=== PATIENT | male | born 1955 | race Caucasian/White ===

== ENCOUNTER 2024-01-22 02:48 | Outpatient (RCR) | payer MEDICARE, SELFPAY ==
[2024-01-15] MEDS: Normal Saline Flush 10 ML SYR IVP (10:23)
[2024-01-15 11:12] LABS: Abs Immature Grans 0.02 10^3/uL (0.0-0.06); Absolute Basophil Count 0.03 10^3/uL (0.0-0.2); Absolute Eosinophil Count 0.17 10^3/uL (0.0-0.7); Absolute Lymphocyte Count 0.71 10^3/uL (1.2-3.4); Absolute Monocyte Count 0.79 10^3/uL (0.1-0.8); Absolute Neutrophil Count 5.66 10^3/uL (1.2-6.7); Basophils % 0.4 %; Eosinophils % 2.3 %; HCT 35.4 % (40.0-50.0); HGB 11.6 g/dL (13.5-17.5); Immature Grans % 0.3 %; Lymphocytes % 9.6 %; MCH 30.3 pg (27.0-33.0); MCHC 32.8 % (32.0-36.0); MCV 92 fL (80-95); MPV 11.4 fL (8.0-11.0); Monocytes % 10.7 %; Neutrophils % 76.7 %; Platelet Count 253 10^3/uL (130-400); RBC 3.83 10^6/uL (4.36-5.78); RDW 15.5 % (11.8-14.1); WBC 7.38 10^3/uL (4.4-10.8)
[2024-01-15 11:33] LABS: ALT 22 U/L (16-63); AST 20 U/L (15-37); Albumin 2.8 g/dL (3.4-5.0); Alkaline Phosphatase 128 U/L (46-116); BUN 35 mg/dL (7-18); Bilirubin, Total 0.4 mg/dL (0.2-1.0); CREATININE 1.1 mg/dL (0.70-1.30); Calcium 9.5 mg/dL (8.5-10.1); Chloride 101 mmol/L (98-107); Estimated GFR 73.58 (mL/min/1.73m2); Glucose 106 mg/dL (74-106); Magnesium 1.9 mg/dL (1.8-2.4); Potassium 4.8 mmol/L (3.5-5.1); Sodium 139 mmol/L (136-145); TSH 1.08 uIU/Ml (0.36-3.74); Total Protein 7.3 g/dL (6.4-8.2)
[2024-01-22 08:43] LABS: Abs Immature Grans 0.04 10^3/uL (0.0-0.06); Absolute Basophil Count 0.05 10^3/uL (0.0-0.2); Absolute Eosinophil Count 0.07 10^3/uL (0.0-0.7); Absolute Monocyte Count 0.45 10^3/uL (0.1-0.8); Absolute Neutrophil Count 6.02 10^3/uL (1.2-6.7); Basophils % 0.7 %; HCT 37.8 % (40.0-50.0); HGB 12.3 g/dL (13.5-17.5); Immature Grans % 0.6 %; MCH 29.9 pg (27.0-33.0); MCHC 32.5 % (32.0-36.0); MCV 92 fL (80-95); MPV 11.4 fL (8.0-11.0); Monocytes % 6.3 %; Neutrophils % 84.4 %; Platelet Count 285 10^3/uL (130-400); RBC 4.12 10^6/uL (4.36-5.78); RDW 14.6 % (11.8-14.1); RDW-SD 49.2 fL; WBC 7.13 10^3/uL (4.4-10.8)
[2024-01-22] MEDS: Normal Saline Flush 10 ML SYR IVP (09:05)
[2024-01-22 09:11] LABS: ALT 36 U/L (16-63); AST 27 U/L (15-37); Alkaline Phosphatase 157 U/L (46-116); Anion Gap 7.4 mmol/L (3-11); BUN 41 mg/dL (7-18); Bilirubin, Total 0.37 mg/dL (0.2-1.0); CO2 32.6 mmol/L (21.0-32.0); CREATININE 1.3 mg/dL (0.70-1.30); Calcium 9.9 mg/dL (8.5-10.1); Chloride 98 mmol/L (98-107); Estimated GFR 60.21 (mL/min/1.73m2); FREE T4 1.17 ng/dL (0.76-1.46); Glucose 137 mg/dL (74-106); Magnesium 1.8 mg/dL (1.8-2.4); Potassium 4.2 mmol/L (3.5-5.1); Sodium 138 mmol/L (136-145); TSH 2.03 uIU/Ml (0.36-3.74); Total Protein 7.9 g/dL (6.4-8.2)
== END 2024-01-28 23:59 | disposition home or self-care (01) ==
LOC: INF 02:48
PROVIDERS: PCP Family Medicine; Visit Provider Internal Medicine Medical Oncology
DX: Z79.899 Other long term (current) drug therapy (principal); C34.92 Malignant neoplasm of unspecified part of left bronchus or lung; Z45.2 Encounter for adjustment and management of vascular access device
CPT/HCPCS: 36591; 80053; 83735; 84439; 84443; 85025

== ENCOUNTER 2024-02-19 04:51 | Outpatient (RCR) | payer MEDICARE, SELFPAY ==
[2024-02-05] MEDS: Normal Saline Flush 10 ML SYR IVP (10:10)
[2024-02-05 10:48] LABS: Abs Immature Grans 0.02 10^3/uL (0.0-0.06); Absolute Basophil Count 0.02 10^3/uL (0.0-0.2); Absolute Eosinophil Count 0.02 10^3/uL (0.0-0.7); Absolute Monocyte Count 0.38 10^3/uL (0.1-0.8); Basophils % 0.4 %; Eosinophils % 0.4 %; HCT 37.1 % (40.0-50.0); HGB 12.1 g/dL (13.5-17.5); Immature Grans % 0.4 %; Lymphocytes % 5.8 %; MCH 30.5 pg (27.0-33.0); MCHC 32.6 % (32.0-36.0); MCV 94 fL (80-95); MPV 10.4 fL (8.0-11.0); Monocytes % 7.4 %; Neutrophils % 85.6 %; Platelet Count 163 10^3/uL (130-400); RBC 3.97 10^6/uL (4.36-5.78); RDW 15.9 % (11.8-14.1); RDW-SD 53.8 fL; WBC 5.14 10^3/uL (4.4-10.8)
[2024-02-05 11:16] LABS: ALT 55 U/L (16-63); AST 46 U/L (15-37); Alkaline Phosphatase 150 U/L (46-116); Anion Gap 6.6 mmol/L (3-11); BUN 27 mg/dL (7-18); Bilirubin, Total 0.27 mg/dL (0.2-1.0); CO2 30.4 mmol/L (21.0-32.0); CREATININE 1.1 mg/dL (0.70-1.30); Calcium 9.1 mg/dL (8.5-10.1); Chloride 103 mmol/L (98-107); Estimated GFR 73.58 (mL/min/1.73m2); FREE T4 0.94 ng/dL (0.76-1.46); Glucose 125 mg/dL (74-106); Magnesium 1.7 mg/dL (1.8-2.4); Potassium 4.2 mmol/L (3.5-5.1); Sodium 140 mmol/L (136-145); TSH 1.22 uIU/Ml (0.36-3.74); Total Protein 7.3 g/dL (6.4-8.2)
[2024-02-12] MEDS: Normal Saline Flush 10 ML SYR IVP (10:37)
[2024-02-12 10:40] LABS: Abs Immature Grans 0.04 10^3/uL (0.0-0.06); Absolute Basophil Count 0.02 10^3/uL (0.0-0.2); Absolute Eosinophil Count 0.28 10^3/uL (0.0-0.7); Absolute Lymphocyte Count 0.95 10^3/uL (1.2-3.4); Absolute Monocyte Count 0.63 10^3/uL (0.1-0.8); Absolute Neutrophil Count 5.79 10^3/uL (1.2-6.7); Basophils % 0.3 %; Eosinophils % 3.6 %; HCT 35.6 % (40.0-50.0); HGB 11.7 g/dL (13.5-17.5); Immature Grans % 0.5 %; Lymphocytes % 12.3 %; MCH 30.2 pg (27.0-33.0); MCHC 32.9 % (32.0-36.0); MCV 92 fL (80-95); MPV 10.4 fL (8.0-11.0); Monocytes % 8.2 %; Neutrophils % 75.1 %; Platelet Count 313 10^3/uL (130-400); RBC 3.88 10^6/uL (4.36-5.78); RDW 16.6 % (11.8-14.1); RDW-SD 54.4 fL; WBC 7.71 10^3/uL (4.4-10.8)
[2024-02-12 11:28] LABS: ALT 64 U/L (16-63); AST 35 U/L (15-37); Albumin 3.1 g/dL (3.4-5.0); Alkaline Phosphatase 165 U/L (46-116); Anion Gap 8.4 mmol/L (3-11); BUN 15 mg/dL (7-18); Bilirubin, Total 0.37 mg/dL (0.2-1.0); CO2 31.6 mmol/L (21.0-32.0); Calcium 9.4 mg/dL (8.5-10.1); Chloride 101 mmol/L (98-107); Estimated GFR 82.49 (mL/min/1.73m2); Glucose 145 mg/dL (74-106); Magnesium 1.5 mg/dL (1.8-2.4); Potassium 4.1 mmol/L (3.5-5.1); Sodium 141 mmol/L (136-145); TSH 1.06 uIU/Ml (0.36-3.74); Total Protein 7.3 g/dL (6.4-8.2)
[2024-02-12 11:44] LABS: FREE T4 1.03 ng/dL (0.76-1.46)
[2024-02-19] MEDS: Normal Saline Flush 10 ML SYR IVP (10:16)
[2024-02-19 11:08] LABS: Abs Immature Grans 0.05 10^3/uL (0.0-0.06); Absolute Basophil Count 0.04 10^3/uL (0.0-0.2); Absolute Lymphocyte Count 0.77 10^3/uL (1.2-3.4); Absolute Monocyte Count 0.23 10^3/uL (0.1-0.8); Absolute Neutrophil Count 3.18 10^3/uL (1.2-6.7); Basophils % 0.9 %; Eosinophils % 2.3 %; HCT 36.2 % (40.0-50.0); Immature Grans % 1.1 %; Lymphocytes % 17.6 %; MCH 30.6 pg (27.0-33.0); MCHC 33.1 % (32.0-36.0); MCV 92 fL (80-95); MPV 10.8 fL (8.0-11.0); Monocytes % 5.3 %; Neutrophils % 72.8 %; Platelet Count 342 10^3/uL (130-400); RBC 3.92 10^6/uL (4.36-5.78); RDW 16.5 % (11.8-14.1); RDW-SD 54.7 fL; WBC 4.37 10^3/uL (4.4-10.8)
[2024-02-19 11:39] LABS: ALT 82 U/L (16-63); AST 39 U/L (15-37); Albumin 3.4 g/dL (3.4-5.0); Alkaline Phosphatase 167 U/L (46-116); Anion Gap 8.8 mmol/L (3-11); BUN 21 mg/dL (7-18); Bilirubin, Total 0.43 mg/dL (0.2-1.0); CO2 32.2 mmol/L (21.0-32.0); CREATININE 0.9 mg/dL (0.70-1.30); Calcium 9.6 mg/dL (8.5-10.1); Chloride 100 mmol/L (98-107); Estimated GFR 93.61 (mL/min/1.73m2); FREE T4 1.05 ng/dL (0.76-1.46); Glucose 144 mg/dL (74-106); Magnesium 1.4 mg/dL (1.8-2.4); Potassium 4.6 mmol/L (3.5-5.1); Sodium 141 mmol/L (136-145); TSH 0.93 uIU/Ml (0.36-3.74); Total Protein 7.6 g/dL (6.4-8.2)
== END 2024-02-28 23:59 | disposition home or self-care (01) ==
LOC: INF 04:51
PROVIDERS: PCP Family Medicine; Visit Provider Internal Medicine Medical Oncology
DX: C34.92 Malignant neoplasm of unspecified part of left bronchus or lung (principal); Z79.899 Other long term (current) drug therapy; Z45.2 Encounter for adjustment and management of vascular access device
CPT/HCPCS: 36591; 80053; 83735; 84439; 84443; 85025

== ENCOUNTER 2024-03-11 03:07 | Outpatient (RCR) | payer MEDICARE, SELFPAY ==
--- OUTSIDE RECORDS SUMMARY | 2024-03-11 03:19 | XMS_ITS | Encounter Summary ---
Author Organization [facility] Address [facility] [place] [address] Care Team Providers Care Academic Affairs Manager Name Role Phone Karl Quiroz MD Primary Care Provider [phone] Encounter Details Date Type Department Care Team (Late st Contact Info) Description 02/05/2024 Notes Only Hematology/Oncology at [address] [phone] Tammie Recinos, HAIR SPINNING MACHINE OPERATOR OFFICE OF CARE MANAGEMENT Social History Tobacco Use Types Packs/Day Years Used Date Smoking Tobacco: Former Cigarettes 0.3 57 Smokeless Tobacco: Never Comments:Quit 11/2023 Alcohol Use Standard Drinks/Week Comments Yes 7 (1 standard drink = 0.6 oz pure alcohol) 4oz rum with coke daily- varies [facility] Utilities Answer Date Recorded In the past 12 months has th e electric, gas, oil, or water company threatened to shut off services in your home? No 12/13/2023 Overall Financial Resource Strain (CARDIA) Answe r Date Recorded How hard is it for you to pa y for the very basics like food, housing, medical care, and heating? Not very hard 12/21/2023 Hunger Vital Sign Answer Date Recorded Within the past 12 months, y ou worried that your food would run out before you got the money to buy more. Never true 12/21/19 24 Within the past 12 months, t he food you bought just didn't last and you didn't have money to get more. Never true 12/21/2023 PRAPARE - Transportation Answer Date Re corded In the past 12 months, has l ack of transportation kept you from medical appointments or from getting medications? Yes 11/29 In the past 12 months, has l ack of transportation kept you from meetings, work, or from getting things needed for daily living? No 12/21/2023 Housing Stability Vital Sign Answer Renzo e Recorded In the last 12 months, was t here a time when you were not able to pay the mortgage or rent on time? No 12/13/2023 In the last 12 months, how many places have you lived? 1 12/13/2023 In the last 12 months, was t here a time when you did not have a steady place to sleep or slept in a custodial (including now)? No 12/13/2023 Housing Stability Vital Sign Answer Renzo e Recorded In the last 12 months, was t here a time when you were not able to pay the mortgage or rent on time? No 12/21/2023 In the past 12 months, how m any times have you moved where you were living? 0 12/21/2023 At any time in the past 12 m [facility], were you homeless or living in a custodial (including now)? No 12/21/2023 IPV Inpatient Questions Answer Date Recorded Does Anyone Try to Keep You From Having Contact with Others or Doing Things Outside Your Home? no 11/22/2023 Feels Threatened by Someone no 10/30 Feels Unsafe at Home or Work/School no 11/22/2023 Physical Signs of Abuse Present no 11/22/2023 Sex and Gender Information Value Date Recorded Sex Assigned at Not on file Gender Identity Not on file Sexual Orientation Not on file documented as of this encounter Progress Notes * Tammie Recinos, HAIR SPINNING MACHINE OPERATOR - 02/05/2024 11:35 AM EDT Follow up with Jeffrey during his infusion visit today. He indicated he had transportation from [place] [place] from his PCP office has set up and found funding for. She continuesas a good resource for Jeffrey. Jeffrey indicated he is managing as best he can at home. His friend does come in to check on him. Heindicated he has lost a lot of weight because he is not eating much. And really has no appetite. Hedoes have food in his home.. He is spending 18 hours a day in his recliner. Jeffrey indicated he is coping as best he can. He does not feel he needs any additional mental health support at this time. He has had that in the past. Offered support. Will continue to follow Jeffrey for support and resources. Brief assessment Supportive Counseling Community Resource documented in this encounter Plan of Treatment Upcoming Encounters Date Type Department Care Team (Late st Contact Info) Description 03/11/2024 12:30 PM EDT Office Visit Hematology/Oncology at [address] [phone] Lennox Spivey MD [facility] DR HEMATOLOGY [place] [address] 03/11/2024 1:00 PM EDT Scheduled View Only Hematology/Oncology at [address] [phone] Trupti Bray RN 03/11/2024 1:00 PM EDT Infusion Hematology Oncology at [address] [phone] 03/25/2024 10:00 AM EDT Office Visit Hematology/Oncology at [address] [phone] Lennox Spivey MD [facility] DR HEMATOLOGY [place] [address] Bushra Muniz [employer] [address] [place] [address] DR HEMATOLOGY AND ONCOLOGY [place], [place] [address] 03/25/2024 10:30 AM EDT Scheduled View Only Hematology/Oncology at [address] [phone] Trupti Bray RN 03/25/2024 10:30 AM EDT Infusion Hematology Oncology at [address] [phone] documented as of this encounter Visit Diagnoses Not on filedocumented in this encounter Care Teams Academic Affairs Manager Relationship Specialty Start Date End Date Karl Quiroz MD [address] [place] [phone] PCP - General Family Medicine 01/11/24 documented as of this encounter
--- OUTSIDE RECORDS SUMMARY | 2024-03-11 03:19 | XMS_ITS | Encounter Summary ---
Author Organization [facility] Address [facility] [place] [address] Care Team Providers Care Second Mate Name Role Phone Karl Quiroz MD Primary Care Provider [phone] Encounter Details Date Type Department Care Team (Latest Contact Info) Description 02/12/2024 Unscheduled Encounter Hematology/Oncology at [address] [phone] [address] [facility] DR [place] [address] Stage 4 lung cancer, left Social History Tobacco Use Types Packs/Day Years Used Date Smoking Tobacco: Former Cigarettes 0.3 57 Smokeless Tobacco: Never Comments:Quit 11/2023 Alcohol Use Standard Drinks/Week Comments Yes 7 (1 standard drink = 0.6 oz pure alcohol) 4oz rum with coke daily- varies [facility] Utilities Answer Date Recorded In the [...] place to sleep or slept in a nursing home (including now)? No 12/13/2023 Housing Stability Vital Sign Answer Renzo e Recorded In the last 12 months, was t here a time when you were not able to pay the mortgage or rent on time? No 12/21/2023 In the past 12 months, how m any times have you moved where you were living? 0 12/21/2023 At any time in the past 12 m [facility], were you homeless or living in a nursing home (including now)? No 12/21/2023 IPV Inpatient Questions [...] as of this encounter Progress Notes * Rachel Frost, RD - 02/12/2024 1:40 PM EDT Nutrition Note Spoke with Jeffrey during chemo infusion today; treatment was held last week. Patient started palliative carbo/abraxane/ipi/nivo for poorly differentiated metastatic lung cancer on 01/15/24, after completing palliative RT on 01/10/24 His friend Tammie was with him today. She lives near patient and is supportive, often bringing him groceries including Ensure. She asked if patient could have some Ensure samples today and mentions that patient wouldn't be one to ask for this himself. She mentions that he seems to ration these because they are expensive. Patient reports his PO intake is a bit better over the past week. He still mostly eats 1 meal/day. He says I'm loving eggs lately. He ate 3 eggs and an hebrew muffin this morning. Taking compazine in the morning for nausea. No vomiting. Denies diarrhea. Patient says he is interested in trying Meals on Wheels today. Wt Readings from Last 10 Encounters: 02/12/24 86.3 kg (190 lb 3.2 oz) 02/05/24 86.3 kg (190 lb 3.2 oz) 01/22/24 87.5 kg (193 lb) 01/15/24 92.4 kg (203 lb 9.6 oz) 01/10/24 92.4 kg (203 lb 9.6 oz) 12/27/23 93.4 kg (205 lb 12.8 oz) 12/21/23 93.3 kg (205 lb 11 oz) 12/13/23 96.1 kg (211 lb 12.8 oz) 12/05/23 95.9 kg (211 lb 6.7 oz) 11/23/23 97.8 kg (215 lb 9.6 oz) 11/15/23 98.9 kg (218 lb) BMI 29.5 Weight stable for the past week 02/04-02/11 13# (6.6% body weight) since starting treatment 3 weeks ago 01/09-02/11 - severe 28# loss in past 2.5 months 11/14-02/05 (12.8% body weight) - severe Diet: 2-3 Ensure/day. Eating more eggs (3 eggs and an hebrew muffin this morning). Also ate 1/2 sub sandwich and ice cream yesterday. Limited by poor appetite (better with week off treatment) and taste changes. Reports drinking 2-3L/day of water or juice. Labs on 02/11: reviewed Medications: Oxycodone prn, MS Contin, compazine prn, tylenol, colace, senokot, miralax, advil, MVI, Mg-Ox, lipitor, losartan, prozac, omeprazole, aspirin Nutrition Problem: Involuntary weight loss related to poor appetite, taste changes as evidenced by 28# loss in past 2.5 months 11/14-02/05 (12.8% body weight) - severe Improved/stable x 1 week Recommendations/Intervention: Provided contact info for Meals on Wheels in [place], [place] as patient requested. Provided 20 bottles vanilla Ensure Complete. His insurance does not cover this. Suggested buying Cirro[employer]ure brand. Encouraged continuing with regular meals/snacks plus supplementing with Ensure (drinking 2-3 bottles/day). Will f/u on 02/18. documented in this encounter Plan of Treatment Upcoming Encounters Date Type Department Care Team (Late st Contact Info) Description 03/11/2024 12:30 PM EDT Office Visit Hematology/Oncology at [address] [phone] Lennox Spivey MD [facility] DR [place] [address] 03/11/2024 1:00 PM EDT Scheduled View Only Hematology/Oncology at [address] [phone] Trupti Bray RN 03/11/2024 1:00 PM EDT Infusion Hematology Oncology at [address] [phone] 03/25/2024 10:00 AM EDT Office Visit Hematology/Oncology at [address] [phone] Lennox Spivey MD [facility] DR [place] [address] Bushra Muniz APRN [address] [place] [address] DR HEMATOLOGY AND ONCOLOGY [place], [place] [address] 03/25/2024 10:30 AM EDT Scheduled View Only Hematology/Oncology at [address] [phone] Trupti Bray RN 03/25/2024 10:30 AM EDT Infusion Hematology Oncology at [address] [phone] documented as of this encounter Visit Diagnoses Diagnosis Stage 4 lung cancer, left Stage 4 lung cancer, left Secondary malignant neoplasm of pleura documented in this encounter Care Teams Second Mate Relationship Specialty Start Date End Date Karl Quiroz MD [address] [place] [phone] PCP - General Family Medicine 01/11/24 documented as of this encounter
--- OUTSIDE RECORDS SUMMARY | 2024-03-11 03:19 | XMS_ITS | Encounter Summary ---
Author Organization [facility] Address [facility] [place] [address] Care Team Providers Care Reversing Mill Roller Name Role Phone Karl Quiroz MD Primary Care Provider [phone] Encounter Details Date Type Department Care Team (Latest Contact Info) Description 02/05/2024 Travel Social History Tobacco Use Types Packs/Day Years Used Date Smoking Tobacco: Former Cigarettes 0.3 57 Smokeless Tobacco: Never Comments:Quit 11/2023 Alcohol Use Standard Drinks/Week Comments Yes 7 (1 standard drink = 0.6 oz pure alcohol) 4oz rum with coke daily- varies [facility] Utilities Answer Date Recorded In the past [...] place to sleep or slept in a intermediate (including now)? No 12/13/2023 Housing Stability Vital Sign Answer Renzo e Recorded In the last 12 months, was t here a time when you were not able to pay the mortgage or rent on time? No 12/21/2023 In the past 12 months, how m any times have you moved where you were living? 0 12/21/2023 At any time in the past [address] [facility], were you homeless or living in a intermediate (including now)? No 12/21/2023 DH IPV Inpatient Questions Answer Date Recorded Does [...] on file documented as of this encounter Plan of Treatment Upcoming Encounters Date Type Department Care Team (Late st Contact Info) Description 03/11/2024 12:30 PM EDT Office Visit Hematology/Oncology at [address] [phone] Lennox Spivey MD [facility] DR HEMATOLOGY [place] [address] 03/11/2024 1:00 PM EDT Scheduled View Only Hematology/Oncology at [address] [phone] Trupti Bray RN 03/11/2024 1:00 PM EDT Infusion Hematology Oncology at [address] [phone] 03/25/2024 10:00 AM EDT Office Visit Hematology/Oncology at [address] [phone] Lennox Spivey MD [facility] DR HEMATOLOGY [place] [address] Bushra Muniz [employer] SCI[employer]ES MANAGER [address] [place] [address] DR HEMATOLOGY AND ONCOLOGY [place], [place] [phone] 03/25/2024 10:30 AM EDT Scheduled View Only Hematology/Oncology at [address] [phone] Trupti Bray RN 03/25/2024 10:30 AM EDT Infusion Hematology Oncology at [address] [phone] documented as of this encounter Visit Diagnoses Not on filedocumented in this encounter Care Teams Reversing Mill Roller Relationship Specialty Start Date End Date Karl Quiroz MD [address] [place] [phone] PCP - General Family Medicine 01/11/24 documented as of this encounter
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
--- OUTSIDE RECORDS SUMMARY | 2024-03-11 03:19 | XMS_ITS | Encounter Summary ---
Author Organization [facility] Address [facility] [place] [address] Care Team Providers Care Manpower Development Specialist Name Role Phone Karl Quiroz MD Primary Care Provider [phone] Encounter Details Date Type Department Care Team (Late st Contact Info) Description 02/12/2024 Orders Only Hematology Oncology at [address] [phone] Vicki Pickard RN Stage IV adenocarcinoma of lung, left; Cancer associated pain Social History Tobacco Use Types Packs/Day Years Used Date Smoking Tobacco: Former Cigarettes 0.3 57 Smokeless Tobacco: Never Comments:Quit 11/2023 Alcohol Use Standard Drinks/Week Comments Yes 7 (1 standard drink = 0.6 oz pure alcohol) 4oz rum with coke daily- varies [facility] Utilities Answer Date Recorded In the past [...] place to sleep or slept in a detention (including now)? No 12/13/2023 Housing Stability Vital Sign Answer Renzo e Recorded In the last 12 months, was t here a time when you were not able to pay the mortgage or rent on time? No 12/21/2023 In the past 12 months, how m any times have you moved where you were living? 0 12/21/2023 At any time in the past 12 m [place], were you homeless or living in a detention (including now)? No 12/21/2023 IPV Inpatient Questions [...] 12:30 PM EDT Office Visit Hematology/Oncology at [address] [phone] Lennox Spivey MD [facility] HEMATOLOGY AND ONCOLOGY [place], [place] [phone] 03/11/2024 1:00 PM EDT Scheduled View Only Hematology/Oncology at [address] [phone] Trupti Bray RN 03/11/2024 1:00 PM EDT Infusion Hematology Oncology at [address] [phone] 03/25/2024 10:00 AM EDT Office Visit Hematology/Oncology at [address] [phone] Lennox Spivey MD [facility] DR [place] [address] Bushra Muniz APRN [address] [place] [address] DR HEMATOLOGY AND ONCOLOGY [place], [place] [address] 03/25/2024 10:30 AM EDT Scheduled View Only Hematology/Oncology at [address] [phone] Trupti Bray RN 03/25/2024 10:30 AM EDT Infusion Hematology Oncology at [address] [phone] documented as of this encounter Visit Diagnoses Diagnosis Stage IV adenocarcinoma of lung, left Cancer associated pain Neoplasm related pain (acute) (chronic) Stage 4 lung cancer, left Secondary malignant neoplasm of pleura documented in this encounter Care Teams Manpower Development Specialist Relationship Specialty Start Date End Date Karl Quiroz MD [address] [place] [phone] PCP - General Family Medicine 01/11/24 documented as of this encounter
--- OUTSIDE RECORDS SUMMARY | 2024-03-11 03:19 | XMS_ITS | Encounter Summary ---
Author Organization [facility] Address [facility] [place] [address] Care Team Providers Care Strainer Mill Operator Name Role Phone Karl Quiroz MD Primary Care Provider [phone] Encounter Details Date Type Department Care Team (Latest Contact Info) Description 02/12/2024 Travel Social History Tobacco Use Types Packs/Day Years Used Date Smoking Tobacco: Former Cigarettes 0.3 57 Smokeless Tobacco: Never Comments:Quit 11/2023 Alcohol Use Standard Drinks/Week Comments Yes 7 (1 standard drink = 0.6 oz pure alcohol) 4oz rum with coke daily- varies [facility] Utilities Answer Date Recorded In [...] place to sleep or slept in a alf (including now)? No 12/13/2023 Housing Stability Vital Sign Answer Renzo e Recorded In the last 12 months, was t here a time when you were not able to pay the mortgage or rent on time? No 12/21/2023 In the past 12 months, how m any times have you moved where you were living? 0 12/21/2023 At any time in the past 12 m [facility], were you homeless or living in a alf (including now)? No 12/21/2023 DH IPV Inpatient [...] 12:30 PM EDT Office Visit Hematology/Oncology at [address] [phone] Lennox Spivey MD [facility] DR HEMATOLOGY [place] [address] 03/11/2024 1:00 PM EDT Scheduled View Only Hematology/Oncology at [address] [phone] Trupti Bray RN 03/11/2024 1:00 PM EDT Infusion Hematology Oncology at [address] [phone] 03/25/2024 10:00 AM EDT Office Visit Hematology/Oncology at [address] [phone] Lennox Spivey MD [facility] DR HEMATOLOGY [place] [address] Bushra Muniz VICE PRESIDENT [employer] [address] [place] [address] DR HEMATOLOGY AND ONCOLOGY [place], [place] [phone] 03/25/2024 10:30 AM EDT Scheduled View Only Hematology/Oncology at [address] [phone] Trupti Bray RN 03/25/2024 10:30 AM EDT Infusion Hematology Oncology at [address] [phone] documented as of this encounter Visit Diagnoses Not on filedocumented in this encounter Care Teams Strainer Mill Operator Relationship Specialty Start Date End Date Karl Quiroz MD [address] [place] [phone] PCP - General Family Medicine 01/11/24 documented as of this encounter
--- OUTSIDE RECORDS SUMMARY | 2024-03-11 03:19 | XMS_ITS | Encounter Summary ---
Author Organization [facility] Address [facility] [place] [address] Care Team Providers Care Special Needs Teacher Name Role Phone Karl Quiroz MD Primary Care Provider [phone] Encounter Details Date Type Department Care Team (Late st Contact Info) Description 03/04/2024 Interpretation [place] [phone] Lennox Spivey MD [facility] DR HEMATOLOGY [place] [address] Social History Tobacco Use Types Packs/Day Years Used Date Smoking Tobacco: Some Days Cigarettes 0.3 57 Smokeless Tobacco: Current Comments:Quit 11/2023 Alcohol Use Standard Drinks/Week Comments Yes 7 (1 standard drink = 0.6 oz pure alcohol) 4oz rum with coke daily- varies [facility] Utilities Answer Date Recorded In the past [...] place to sleep or slept in a penitentiary (including now)? No 12/13/2023 Housing Stability Vital Sign Answer Renzo e Recorded In the last 12 months, was t here a time when you were not able to pay the mortgage or rent on time? No 12/21/2023 In the past 12 months, how m any times have you moved where you were living? 0 12/21/2023 At any time in the past 12 m [facility], were you homeless or living in a penitentiary (including now)? No 12/21/2023 IPV Inpatient Questions [...] 12:30 PM EDT Office Visit Hematology/Oncology at [address] [phone] Lennox Spivey MD [facility] DR HEMATOLOGY [place] [address] 03/11/2024 1:00 PM EDT Scheduled View Only Hematology/Oncology at [address] [phone] Trupti Bray RN 03/11/2024 1:00 PM EDT Infusion Hematology Oncology at [address] [phone] 03/25/2024 10:00 AM EDT Office Visit Hematology/Oncology at [address] [phone] Lennox Spivey MD [facility] DR HEMATOLOGY [place] [address] Bushra Muniz APRN [address] [place] [address] DR HEMATOLOGY AND ONCOLOGY [employer], [place] [id number] 03/25/2024 10:30 AM EDT Scheduled View Only Hematology/Oncology at [address] [phone] Trupti Bray RN 03/25/2024 10:30 AM EDT Infusion Hematology Oncology at [address] [phone] documented as of this encounter Procedures Procedure Name Priority Date/Time Associated Diagnosis Comments FILM LIBRARY STORAGE ONLY CT CHEST Routine 03/04/2024 10:20 AM EDT documented in this encounter Results * Film Library- Storage Only CT Chest (03/04/2024 10:20 AM EDT) 03/04/2024 9:02 PM EDT Narrative [facility] - 03/04/2024 9:02 PM EDT This exam is auto-finalizing. It's purpose is for storage only. Lennox Spivey MD IMG FILM LIBRARY ORD ERABLES [place], [place] documented in this encounter Visit Diagnoses Not on filedocumented in this encounter Care Teams Special Needs Teacher Relationship Specialty Start Date End Date Karl Quiroz MD [address] [place] [phone] PCP - General Family Medicine 01/11/24 documented as of this encounter
--- OUTSIDE RECORDS SUMMARY | 2024-03-11 03:19 | XMS_ITS | Encounter Summary ---
Author Organization [facility] Address [facility] [place] [address] Care Team Providers Care Educational Technologist Name Role Phone Karl Quiroz MD Primary Care Provider [phone] Encounter Details Date Type Department Care Team (Late st Contact Info) Description 02/19/2024 Notes Only Hematology/Oncology at [address] [phone] Tammie Recinos, VARNISH MELTER OFFICE OF CARE MANAGEMENT Social History Tobacco Use Types Packs/Day Years Used Date Smoking Tobacco: Some Days Cigarettes 0.3 57 Smokeless Tobacco: Current Comments:Quit 11/2023 Alcohol Use Standard Drinks/Week Comments Yes 7 (1 standard drink = 0.6 oz pure alcohol) 4oz rum with coke daily- varies [facility] Utilities Answer Date Recorded In the [...] any time in the past 12 m [facility], were you homeless or living in a [...] of this encounter Progress Notes * Tammie Recinos MSW - 02/19/2024 12:56 PM EDT Follow up with Jeffrey during his infusion visit today. Jeffrey indicated he got a ride from [facility] as they have another long distance horse and wagon driver. He was informed the funding to cover Rides with [employer] is no longer available. Jeffrey indicated he is managing day to day at home. His friend is in/out regularly to assist him. Jeffrey did not identify any new needs today. Offered support. Will continue to follow as indicated. Brief assessment Supportive Counseling documented in this encounter Plan of Treatment Upcoming Encounters Date Type Department Care Team (Late st Contact Info) Description 03/11/2024 12:30 PM EDT Office Visit Hematology/Oncology at [address] [phone] [facility] DR [place] [address] 03/11/2024 1:00 PM EDT Scheduled View Only Hematology/Oncology at [address] [phone] Trupti Bray RN 03/11/2024 1:00 PM EDT Infusion Hematology Oncology at [address] [phone] 03/25/2024 10:00 AM EDT Office Visit Hematology/Oncology at [address] [phone] [facility] DR [place] [address] Bushra Muniz [address] [place] [address] 03/25/2024 10:30 AM EDT Scheduled View Only Hematology/Oncology at [address] [phone] Trupti Bray RN 03/25/2024 10:30 AM EDT Infusion Hematology Oncology at [address] [phone] documented as of this encounter Visit Diagnoses Not on filedocumented in this encounter Care Teams Educational Technologist Relationship Specialty Start Date End Date Karl Quiroz MD [address] [place] [phone] PCP - General Family Medicine 01/11/24 documented as of this encounter
--- OUTSIDE RECORDS SUMMARY | 2024-03-11 03:19 | XMS_ITS | Encounter Summary ---
Author Organization [facility] Address [facility] [place] [address] Care Team Providers Care News Reporter Name Role Phone Kral Quiroz MD Primary Care Provider [phone] Encounter Details Date Type Department Care Team (Latest Contact Info) Description 02/05/2024 12:00 PM EDT Clinical Support Hematology/Oncology at [address] [phone] [address] [facility] DR [place] [address] Stage 4 lung cancer, left Social History Tobacco Use Types Packs/Day Years Used Date Smoking Tobacco: Former Cigarettes 0.3 57 Smokeless Tobacco: Never Comments:Quit 11/2023 Alcohol Use Standard Drinks/Week Comments Yes 7 (1 standard drink = 0.6 oz pure alcohol) 4oz rum with coke daily- varies [facility] Utilities Answer Date Recorded In the [...] place to sleep or slept in a jail (including now)? No 12/13/2023 Housing Stability Vital Sign Answer Renzo e Recorded In the last 12 months, was t here a time when you were not able to pay the mortgage or rent on time? No 12/21/2023 In the past 12 months, how m any times have you moved where you were living? 0 12/21/2023 At any time in the past 12 m [facility], were you homeless or living in a jail (including now)? No 12/21/2023 IPV Inpatient Questions [...] Progress Notes * Rachel Frost, RD - 02/05/2024 12:00 PM EDT Nutrition Note Spoke with Jeffrey in infusion today. Patient started palliative carbo/abraxane/ipi/nivo for poorly differentiated metastatic lung cancer on 01/15/24, after completing palliative RT on 01/10/24. Treatment was held today; he received hydration only. Weight is down another 3# in the past two weeks. He has lost total of 13# (6.6% body weight) since starting treatment 3 weeks ago. Patient says he has no appetite and complains that foods taste bland. He can detect only a slightflavor. He is drinking 2-3 Ensure per day and says he has been consuming more fluids overall. Otherwise PO intake is mostly fruit. Patient reports he has not drank any alcohol in the past few weeks. He is not interested in Meals on Wheels. Wt Readings from Last 10 Encounters: 02/05/24 86.3 kg (190 lb 3.2 oz) 01/22/24 87.5 kg (193 lb) 01/15/24 92.4 kg (203 lb 9.6 oz) 01/10/24 92.4 kg (203 lb 9.6 oz) 12/27/23 93.4 kg (205 lb 12.8 oz) 12/21/23 93.3 kg (205 lb 11 oz) 12/13/23 96.1 kg (211 lb 12.8 oz) 12/05/23 95.9 kg (211 lb 6.7 oz) 11/23/23 97.8 kg (215 lb 9.6 oz) 11/21/23 98.1 kg (216 lb 4.3 oz) 11/15/23 98.9 kg (218 lb) BMI 29.5 3# loss in past two weeks 01/21-02/04 (1.2% body weight) - not significant 13# (6.6% body weight) since starting treatment 3 weeks ago 01/09-02/04 - severe 28# loss in past 2.5 months 11/14-02/05 (12.8% body weight) - severe Diet: 2-3 Ensure/day plus fruit on most days. Limited by poor appetite and taste changes. Doing better with hydration and avoiding alcohol. Labs on 02/05/24 WBC 5.14, H/H 12.1/37.1, plt 163, ANC 4400, Na 140, K 4.2, Cl 103, CO2 30.4, BUN 27, Creat 1.1, glucose 125, Ca 9.1, Mag 1.7, t bili 0.27, AST 46, ALT 55, alk phos 150, t protein 7.3, albumin 3.0, TSH 1.22, Free T4 0.94 Medications: Oxycodone prn, MS Contin, compazine prn, tylenol, colace, senokot, miralax, advil, MVI, Mg-Ox, lipirot, losartan, prozac, omeprazole, aspirin Nutrition Problem: Involuntary weight loss related to poor appetite, taste changes as evidenced by 28# loss in past 2.5 months 11/14-02/05 (12.8% body weight) - severe Ongoing Recommendations: Talked again about trying to eat on a schedule despite poor appetite and thinking of food as medicine that is necessary in order to be strong enough for treatment. Continue supplementing with 2-3 Ensure per day. Discussed getting some prepared or frozen foods to have on hand so that preparation isn't a barrier. Encouraged continuing to explore different tastes and flavors to hopefully find something appealing. Patient has contemplated MJ edibles to help with poor appetite but doesn't really want to take anything more than his current medications. Will f/u on documented in this encounter Plan of Treatment Upcoming Encounters Date Type Department Care Team (Late st Contact Info) Description 03/11/2024 12:30 PM EDT Office Visit Hematology/Oncology at [address] [phone] Lennox Spivey MD [facility] DR [place] [address] 03/11/2024 1:00 PM EDT Scheduled View Only Hematology/Oncology at [address] [phone] Trupti Bray RN 03/11/2024 1:00 PM EDT Infusion Hematology Oncology at [address] [phone] 03/25/2024 10:00 AM EDT Office Visit Hematology/Oncology at [address] [phone] Lennox Spivey MD [facility] [place] [address] Bushra Muniz APRN [address] [place] [address] DR HEMATOLOGY AND ONCOLOGY [place], [place] [id number] 03/25/2024 10:30 AM EDT Scheduled View Only Hematology/Oncology at [address] [phone] Trupti Bray RN 03/25/2024 10:30 AM EDT Infusion Hematology Oncology at [address] [phone] documented as of this encounter Visit Diagnoses Diagnosis Stage 4 lung cancer, left Stage 4 lung cancer, left Secondary malignant neoplasm of pleura documented in this encounter Care Teams News Reporter Relationship Specialty Start Date End Date Karl Quiroz MD [address] [place] [phone] PCP - General Family Medicine 01/11/24 documented as of this encounter
--- OUTSIDE RECORDS SUMMARY | 2024-03-11 03:19 | XMS_ITS | Encounter Summary ---
Author Organization [facility] Address [facility] [place] [address] Care Team Providers Care Yellow Pages Space Salesperson Name Role Phone Karl Quiroz MD Primary Care Provider [phone] Encounter Details Date Type Department Care Team (Latest Contact Info) Description 02/19/2024 Travel Social History Tobacco Use Types Packs/Day Years Used Date Smoking Tobacco: Some Days Cigarettes 0.3 57 Smokeless Tobacco: Current Comments:Quit 11/2023 Alcohol Use Standard Drinks/Week Comments Yes 7 (1 standard drink = 0.6 oz pure alcohol) 4oz rum with coke daily- varies [facility] Utilities Answer Date Recorded In the [...] place to sleep or slept in a [facility] (including now)? No 12/13/2023 Housing Stability Vital [...] were you homeless or living in a [facility] (including now)? No 12/21/2023 DH IPV Inpatient [...] PM EDT Office Visit Hematology/Oncology at [address] [phone] [facility] HEMATOLOGY [place] [address] 03/11/2024 1:00 PM EDT Scheduled View Only Hematology/Oncology at [address] [phone] Trupti Bray RN 03/11/2024 1:00 PM EDT Infusion Hematology Oncology at [address] [phone] 03/25/2024 10:00 AM EDT Office Visit Hematology/Oncology at [address] [phone] [facility] DR HEMATOLOGY [place] [address] Bushra Muniz FLASK MAKER [address] [place] [address] DR HEMATOLOGY AND ONCOLOGY [place], [place] [id number] 03/25/2024 10:30 AM EDT Scheduled View Only Hematology/Oncology at [address] [phone] Trupti Bray RN 03/25/2024 10:30 AM EDT Infusion Hematology Oncology at [address] [phone] documented as of this encounter Visit Diagnoses Not on filedocumented in this encounter Care Teams Yellow Pages Space Salesperson Relationship Specialty Start Date End Date Karl Quiroz MD [address] [place] [phone] PCP - General Family Medicine 01/11/24 documented as of this encounter
--- OUTSIDE RECORDS SUMMARY | 2024-03-11 03:19 | XMS_ITS | Encounter Summary ---
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, left Procedures TC PALONOSETRON HCL, 25MCG, INJECTION (ALOXI) TC APREPITANT, 1 MG, INJECTION TC IPILIMUMAB 1 MG INJ TC CARBOPLATIN, 50MG, INJECTION (PARAPLATIN) J9299 nivolumab (Opdivo) [id number] PACLitaxeL-protein bound (Abraxane) Lennox Spivey MD [facility] DR [place] [address] Stj Hem Onc Infusion [address] [place] [phone] Referral ID Status Reason Start Date Expiration Date V isits Requested Visits Authorized [id number] Authorized 12/26/2023 12/25/2024 99 102 Encounter Details Date Type Department Care Team (Late st Contact Info) Description 02/19/2024 12:30 PM EDT Infusion Hematology Oncology at [address] [phone] High risk medication use; Secondary malignant neoplasm of pleura; Stage 4 lung cancer, left; Hypomagnesemia Social History Tobacco Use Types Packs/Day Years Used Date Smoking Tobacco: Some Days Cigarettes 0.3 57 Smokeless Tobacco: Current Comments:Quit 11/2023 Alcohol Use Standard Drinks/Week Comments Yes 7 (1 standard drink = 0.6 oz pure alcohol) 4oz rum with coke daily- varies [facility] Utilities Answer Date Recorded In the past [...] place to sleep or slept in a [place] (including now)? No 12/13/2023 Housing Stability Vital Sign Answer Renzo e Recorded In the last 12 months, was t here a time when you were not able to pay the mortgage or rent on time? No 12/21/2023 In the past 12 months, how m any times have you moved where you were living? 0 12/21/2023 At any time in the past 12 m [facility], were you homeless or living in a [place] (including now)? No 12/21/2023 IPV Inpatient Questions [...] as of this encounter Progress Notes * Cecilia Ochoa RN - 02/19/2024 12:30 PM EDT INFUSION THERAPY ADMINISTRATION NOTES DIAGNOSIS: Stage IV SCLC CYCLE #: Cycle 1, Day 29 - Paclitaxel Protein-bound and magnesium. REASON FOR VISIT: To receive chemotherapy. SUBJECTIVE: Jeffrey is fatigued but states he is hungry and is looking forward to Dutch food today. OBJECTIVE: Seen by provider. Ready to treat. LAB DATA: WBC - 4.37, H/H - 12.0/36.2, Plt Ct - 342, ANC - 3.18, Lytes wnl, BUN/Cr - 21/0.9, MG++ -1.4 (will receive replacement.) IV ACCESS: Port accessed off site. Flushes readily with brisk blood return. Pre administration: Chemotherapy orders independently verified for drug name, route, and dosage per patient's height, weight and BSA by Cecilia Ochoa, SUZY and Staff Pharmacist(s). REACTIONS (DESCRIPTION, TIME, INTERVENTION AND EFFECTIVENESS) none ASSESSMENT: Jeffrey was awake, alert and tolerated treatment well. Port flushed with 20 cc's of NS and de-accessed. PLAN: Return to clinic in two weeks. documented in this encounter Plan of Treatment Upcoming Encounters Date Type Department Care Team (Late st Contact Info) Description 03/11/2024 12:30 PM EDT Office Visit Hematology/Oncology at [address] [phone] Lennox Spivey MD [facility] HEMATOLOGY [place] [address] 03/11/2024 1:00 PM EDT Scheduled View Only Hematology/Oncology at [address] [phone] Trupti Bray RN 03/11/2024 1:00 PM EDT Infusion Hematology Oncology at [address] [phone] 03/25/2024 10:00 AM EDT Office Visit Hematology/Oncology at [address] [phone] Lennox Spivey MD [facility] DR HEMATOLOGY [place] [address] Bushra Muniz APRN [address] [place] [address] DR HEMATOLOGY [place] [address] 03/25/2024 10:30 AM EDT Scheduled View Only Hematology/Oncology at [address] [phone] Trupti Bray RN 03/25/2024 10:30 AM EDT Infusion Hematology Oncology at [address] [phone] documented as of this encounter Visit Diagnoses Diagnosis High risk medication use Encounter for long-term (current) use of other medications 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, left Hypomagnesemia 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, left Secondary malignant neoplasm of pleura documented in this encounter Administered Medications Inactive Administered Medications - up to 3 most recent administrations Medication Order MAR Action Action Date Dose Rate Site magnesium sulfate 2 g in sterile water 50 mL infusion 2 g, Intravenous, ONCE, 1 dose, On Mon02/19/24 at 1230, Administer over 120 Minutes New Bag 02/19/2024 12:30 PM EDT 2 g 25 mL/hr ondansetron (Zofran) tablet 8 mg 8 mg, Oral, ONCE, 1 dose, On Mon02/19/24 at 1230, Administer prior to chemotherapy, Routine Given 02/19/2024 12:36 PM EDT 8 mg PACLitaxeL albumin-bound (Abraxane) injection 200 mg 200 mg (rounded from 209 mg = 100 mg/m2/dose ? 2.09 m2 Treatment Plan BSA from Recorded weight), Intravenous, ONCE, 1 dose, On Mon02/19/24 at 1330, Administer over 30 Minutes New Bag 02/19/2024 2:31 PM EDT 200 mg 80 m L/hr sodium chloride 0.9 % (flush) (BD PosiFlush Normal Saline 0.9) flush 5-20 mL 5-20 mL, Intravenous, EVERY 1 MIN PRN, Starting on Mon02/19/24 at 1212, Until Mon02/19/24 at 1724, Line Care, Flush pertains to all indwelling lines. Flush per protocol found in the job aid using the link provided on this medication record. Refer to Intravenous (IV) Job Aid: Adult Flushing & Catheter Care (5372) job aid for additional information regarding guidelines and administration., Routine Given 02/19/2024 3:13 PM EDT 20 mLs documented in this encounter Care Teams Research And Development Researcher Relationship Specialty Start Date End Date Karl Quiroz MD [address] [place] [phone] PCP - General Family Medicine 01/11/24 documented as of this encounter
--- OUTSIDE RECORDS SUMMARY | 2024-03-11 03:19 | XMS_ITS | Encounter Summary ---
Author Organization [facility] Address [facility] Vincent [place] [address] Care Team Providers Care Trimming Assembler Name Role Phone Karl Quiroz MD Primary Care Provider [phone] Reason for Visit * Reason Comments Chemotherapy * Treatment/Therapy Plan Authorization (Routine) - Authorized [...] [id number] PACLitaxeL-protein bound (Abraxane) Lennox Spivey MD [facility] DR HEMATOLOGY [place] [address] Stj Hem Onc Infusion [address] [place] [phone] Referral ID Status Reason Start Date Expiration Date V isits Requested Visits Authorized [id number] Authorized 12/26/2023 12/25/2024 99 102 Encounter Details Date Type Department Care Team (Late st Contact Info) Description 02/12/2024 11:30 AM EDT Infusion Hematology Oncology at [address] [phone] High risk medication use; Secondary malignant neoplasm of pleura; Stage 4 lung cancer, left Social History Tobacco Use Types Packs/Day Years Used Date Smoking Tobacco: Former Cigarettes 0.3 57 Smokeless Tobacco: Never Comments:Quit 11/2023 Alcohol Use Standard Drinks/Week Comments Yes 7 (1 standard drink = 0.6 oz pure alcohol) 4oz rum with coke daily- varies [facility] Utilities Answer Date Recorded In the past [...] place to sleep or slept in a fci (including now)? No 12/13/2023 Housing Stability Vital Sign Answer Renzo e Recorded In the last 12 months, was t here a time when you were not able to pay the mortgage or rent on time? No 12/21/2023 In the past 12 months, how m any times have you moved where you were living? 0 12/21/2023 At any time in the past 12 m [facility], were you homeless or living in a fci (including now)? No 12/21/2023 DH IPV Inpatient [...] Sign Reading Time Taken Comments Blood Pressure 103/62 02/12/2024 11:10 AM EDT Pulse 107 02/12/2024 11:10 AM EDT Temperature 36.1 ??C (96.9 ??F) 02/12/2024 11:10 AM E DT Respiratory Rate 18 02/12/2024 11:10 AM EDT Oxygen Saturation 96% 02/12/2024 11:10 AM EDT Inhaled Oxygen Concentration - - Weight 86.3 kg (190 lb 3.2 oz) 02/12/2024 11:10 AM EDT Height 171 cm (5' 7.32) 02/12/2024 11:10 AM EDT Body Mass Index 29.5 02/12/2024 11:10 AM EDT documented in this encounter Progress Notes * Bryanna Gilmore RN - 02/12/2024 11:30 AM EDT INFUSION THERAPY ADMINISTRATION NOTES DIAGNOSIS: Stage IV SCLC REASON FOR VISIT: To receive chemotherapy. SUBJECTIVE: Jeffrey reports he is feeling better this week. He has been able to increase his food intake, typically has 3 eggs and an frisian muffin in the morning, 1/2 sub sandwich for lunch, ice cream around dinner time. Drinking 2-3L of water or juice. He has not needed any stool softeners. Denies diarrhea. He feels his pain has been less severe after finishing radiation. He does report nausea w/o vomiting, taking compazine in the morning is helpful. He has started smoking again, my nerves are shot, hestates he gets overwhelmed thinking about his disease. We discussed the role of palliative care andhow that could be helpful managing the various aspects of living with a serious illness. He is not i nterested and feels its unnecessary. OBJECTIVE: IV ACCESS: Port accessed off site. Flushes readily with brisk blood return. Pre administration: Chemotherapy orders independently verified for drug name, route, and dosage per patient's height, weight and BSA by Bryanna Gilmore, SUZY and Staff Pharmacist(s). REACTIONS (DESCRIPTION, TIME, INTERVENTION AND EFFECTIVENESS) none ASSESSMENT: Jeffrey was awake, alert and tolerated treatment well. He declined to finish full dose of IV magnesium, Port flushed with 20 cc's of NS and de-accessed. PLAN: Return to clinic in one week. documented in this encounter Plan of Treatment Upcoming Encounters Date Type Department Care Team (Late st Contact Info) Description 03/11/2024 12:30 PM EDT Office Visit Hematology/Oncology at [address] [phone] Lennox Spivey MD [facility] DR HEMATOLOGY [place] [address] 03/11/2024 1:00 PM EDT Scheduled View Only Hematology/Oncology at [address] [phone] Trupti Bray RN 03/11/2024 1:00 PM EDT Infusion Hematology Oncology at [address] [phone] 03/25/2024 10:00 AM EDT Office Visit Hematology/Oncology at [address] [phone] Lennox Spivey MD [facility] DR HEMATOLOGY [place] [address] Bushra Muniz APRN [address] [place] [address] DR HEMATOLOGY [place] [address] 03/25/2024 10:30 AM EDT Scheduled View Only Hematology/Oncology at [address] [phone] Trupti Bray RN 03/25/2024 10:30 AM EDT Infusion Hematology Oncology at [address] [phone] documented as of this encounter Visit Diagnoses Diagnosis High risk medication use Encounter for long-term (current) use of other medications 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 Administer prior to chemotherapy., Routine Given 02/12/2024 12:21 PM EDT 130 mg CARBOplatin (Paraplatin) 441 mg in dextrose 5% 294.1 mL infusion 441 mg (rounded from 440.8 mg, Target AUC = 4), Intravenous, ONCE, 1 dose, On Mon02/12/24 at 1415, Administer over 30 Minutes, Warning Vesicant/Irritant Medication New Bag 02/12/2024 2:42 PM EDT 441 mg 588.2 mL/hr dexAMETHasone (Decadron) tablet 10 mg 10 mg, Oral, ONCE, 1 dose, On Mon02/12/24 at 1215, Administer prior to chemotherapy, Routine Given 02/12/2024 12:16 PM EDT 10 mg magnesium sulfate 2 g in sterile water 50 mL infusion 2 g, Intravenous, ONCE, 1 dose, On Mon02/12/24 at 1230, Administer over 120 Minutes New Bag 02/12/2024 2:39 PM EDT 2 g 25 mL/hr nivolumab (Opdivo) 360 mg in sodium chloride 0.9% 136 mL infusion 360 mg, Intravenous, ONCE, 1 dose, On Mon02/12/24 at 1315, Administer over 30 Minutes, Flush line with NS after each dose, This agent is restricted to outpatient use. Is this drug being given as an outpatient? Yes New Bag 02/12/2024 12:55 PM EDT 360 mg 272 mL/hr oxyCODONE (Roxicodone) (1 mg/mL) oral liquid 20 mg 20 mg, Oral, ONCE PRN, 1 dose, Starting on Mon02/12/24 at 1538, Until Mon02/12/24 at 1546, Pain, Routine Given 02/12/2024 3:46 PM EDT 20 mg PACLitaxeL albumin-bound (Abraxane) injection 200 mg 200 mg (rounded from 209 mg = 100 mg/m2/dose ? 2.09 m2 Treatment Plan BSA from Recorded weight), Intravenous, ONCE, 1 dose, On Mon02/12/24 at 1345, Administer over 30 Minutes New Bag 02/12/2024 1:42 PM EDT 200 mg 80 mL/hr palonosetron (Aloxi) (0.05 mg/mL) injection 0.25 mg 0.25 mg, Intravenous, ONCE, 1 dose, On Mon02/12/24 at 1215, Administer over 30 seconds. Administer prior to chemotherapy., Routine Given 02/12/2024 12:18 PM EDT 0.25 mg sodium chloride 0.9 % (flush) (BD PosiFlush Normal Saline 0.9) flush 5-20 mL 5-20 mL, Intravenous, EVERY 1 MIN PRN, Starting on Mon02/12/24 at 1155, Until Mon02/12/24 at 1811, Line Care, Flush pertains to all indwelling lines. Flush per protocol found in the job aid using the link provided on this medication record. Refer to Intravenous (IV) Job Aid: Adult Flushing & Catheter Care (0015) job aid for additional information regarding guidelines and administration., Routine Given 02/12/2024 3:55 PM EDT 20 mLs documented in this encounter Care Teams Trimming Assembler Relationship Specialty Start Date End Date Karl Quiroz MD [address] [place] [phone] PCP - General Family Medicine 01/11/24 documented as of this encounter
--- OUTSIDE RECORDS SUMMARY | 2024-03-11 03:19 | XMS_ITS | Clinical Summary ---
Author Organization [facility] Address [facility] [place] [address] Care Team Providers Care Water Safety Instructor Name Role Phone Karl Quiroz MD Primary Care Provider [phone] Allergies Active Allergy Reactions Criticality Noted Date Comments Unclassified Drug 11/15/2023 Black fly bites -was hospitalized because of it Penicillins CIS - RASH Medications Medication Sig Dispensed Refills Start Date End Date Status omeprazole (PRILOSEC) 20 mg capsule 10/02/2008 Active aspirin (BABY ASPIRIN) 81 mg chewable tablet 10/02/2008 Active ibuprofen (Advil) 200 mg tablet Take 400 mg by mouth Daily @ 0600. Active multivitamin (THERAGRAN) Tablet Take 1 tablet by mouth daily. Active tiotropium-olodateroL (Stiolto Respimat) 2.5-2.5 mcg/actuation Mist Inhale into the lungs. Active atorvastatin (Lipitor) 40 mg tablet Take 40 mg by mouth Daily @ 0600. Active losartan (Cozaar) 100 mg tablet Take 100 mg by mouth Daily @ 0600. Patient stated he is cutting tablet in half and taking half. Active triamcinolone (ARISTOCORT) 0.5 % Cream Apply 1 g topically Once daily as needed. Active acetaminophen (Tylenol) 500 mg tablet Take 2 tablets by mouth every 6 hours. 11/23/2023 Active senna (Senokot) 8.6 mg tablet Take 1 tablet by mouth every evening. 11/23/2023 Active polyethylene glycoL (Miralax) 17 gram oral powder packet Take 17 g by mouth daily. 11/23/2023 Active acetaminophen (Tylenol) 650 mg ER tablet Take 650 mg by mouth every 8 hours as needed for Pain. Do not exceed 6 tabs in 24 hours Active docusate sodium (Colace) 100 mg capsule Take 100 mg by mouth 2 times daily. Active FLUoxetine (PROzac) 20 mg capsule Take 40 mg by mouth Daily @ 0600. Active oxyCODONE (Roxicodone) 20 mg tabletIndications:Sta ge IV adenocarcinoma of lung, left Take 1-2 tablets by mouth every 6 hours as needed for Pain. 220 tablet 02/12/2024 Active morphine CR (MS Contin) 15 mg ER tabletIndications:Can cer associated pain Take 1 tablet by mouth 2 times daily. 56 tablet 02/12/2024 Active magnesium oxide (Mag-Ox) 400 mg (241.3 mg magnesium) TabletIndications:Hyp omagnesemia Take 1 tablet by mouth 3 times daily. 90 tablet 3 02/19/2024 Active prochlorperazine (Compazine) 10 mg tablet Take 1 tablet by mouth every 6 hours as needed for Nausea. 30 tablet 3 03/04/2024 Active Active Problems Problem Noted Date Diagnosed Date Stage 4 lung cancer, left 12/26/2023 Secondary malignant neoplasm of pleura High risk medication use 12/26/2023 Pleural mass 11/21/2023 Chest wall mass 11/21/2023 Encounters Date Type Department Care Team Description 03/11/2024 1:00 PM EDT Infusion Hematology Oncology at [address] [phone] 03/04/2024 10:20 AM EDT Ancillary Procedure [place] [address] Lennox Spivey MD 03/04/2024 Interpretation [place] [address] Lennox Spivey MD 03/04/2024 Orders Only Hematology/Oncolo gy at [address] [phone] Bushra Muniz APRN 02/19/2024 12:30 PM EDT Infusion Hematology Oncology at [address] [phone] High risk medication use; Secondary malignant neoplasm of pleura; Stage 4 lung cancer, left; Hypomagnesemia 02/19/2024 12:30 PM EDT Clinical Support Hematology/Oncolo gy at [address] [phone] Rachel Frost, RD Stage 4 lung cancer, left 02/19/2024 12:00 PM EDT Office Visit Hematology/Oncolo gy at [address] [place] [phone] Bushra Muniz, Trupti Pop RN Stage IV adenocarcinoma of lung, left; Hypomagnesemia 02/19/2024 Notes Only Hematology/Oncolo gy at [address] [place] [phone] Tammie Recinos, PROCEDURES NURSE 02/19/2024 Travel 02/12/2024 11:30 AM EDT Infusion Hematology Oncology at [address] [phone] High risk medication use; Secondary malignant neoplasm of pleura; Stage 4 lung cancer, left 02/12/2024 Orders Only Hematology Oncology at [address] [place] [phone] Vicki Pickard, SUZY Stage IV adenocarcinoma of lung, left; Cancer associated pain 02/12/2024 Unscheduled Encounter Hematology/Oncolo gy at [address] [place] [phone] Rachel Frost, RD Stage 4 lung cancer, left 02/12/2024 Travel 02/05/2024 12:00 PM EDT Clinical Support Hematology/Oncolo gy at [address] [place] [phone] Stage 4 lung cancer, left 02/05/2024 11:30 AM EDT Infusion Hematology Oncology at [address] [place] [phone] Hypotension, unspecified hypotension type 02/05/2024 11:00 AM EDT Office Visit Hematology/Oncolo gy at [address] [place] [phone] Lennox Spivey MD LaRoza, Stephanie A, FIELD LIABILITY GENERALIST Stage 4 lung cancer, left; Hypotension, unspecified hypotension type 02/05/2024 Notes Only Hematology/Oncolo gy at [address] [phone] Tammie Recinos, PROCEDURES NURSE 02/05/2024 Travel 01/24/2024 10:30 AM EDT TH Visit (TeleHealth) Radiation Oncology at [address] [phone] Beto Braswell MD Non-small cell lung cancer, left 01/22/2024 9:30 AM EDT Clinical Support Hematology/Oncolo gy at [address] [phone] Stage 4 lung cancer, left 01/22/2024 8:30 AM EDT Infusion Hematology Oncology at [address] [phone] High risk medication use; Secondary malignant neoplasm of pleura; Stage 4 lung cancer, left; Dehydration 01/22/2024 8:00 AM EDT Office Visit Hematology/Oncolo gy at [address] [phone] Lennox Spivey MD LaRoza, Stephanie A, FIELD LIABILITY GENERALIST Stage 4 lung cancer, left; Dehydration 01/22/2024 Notes Only Hematology/Oncolo gy at [address] [phone] Tammie Recinos, PROCEDURES NURSE 01/22/2024 Travel 01/16/2024 Telephone Hematology/Oncolo gy at [address] [phone] Malcolm Wei RN Follow-up 01/15/2024 11:30 AM EDT Infusion Hematology Oncology at [address] [phone] High risk medication use; Secondary malignant neoplasm of pleura; Stage 4 lung cancer, left 01/15/2024 Unscheduled Encounter Hematology/Oncolo gy at [address] [place] [phone] Rachel Frost, RD Stage 4 lung cancer, left 01/15/2024 Notes Only Hematology/Oncolo gy at [address] [place] [phone] Tammie Recinos MSW 01/15/2024 Travel 01/11/2024 Telephone Hematology/Oncolo gy at [address] [place] [phone] Malcolm Wei, RN Other 01/10/2024 4:30 PM EDT Office Visit Radiation Oncology at [address] [place] [phone] Beto Braswell MD Non-small cell lung cancer, left 01/10/2024 3:30 PM EDT Office Visit Hematology/Oncolo gy at [address] [place] [phone] Bushra Muniz APRN Cancer associated pain; Stage 4 lung cancer, left; Stage IV adenocarcinoma of lung, left 01/10/2024 Notes [place] [phone] Beto Braswell MD 01/10/2024 Orders Only Hematology/Oncolo gy at [address] [place] [phone] Bushra Muniz APRN Stage 4 lung cancer, left 01/10/2024 Notes Only Hematology/Oncolo gy at [address] [place] [phone] Trupti Bray RN 01/10/2024 Travel 01/09/2024 Telephone Hematology/Oncolo gy at [address] [place] [phone] Malcolm Wei, wrapper opener Problem 01/08/2024 12:23 PM EDT - 01/08/2024 11:59 PM EDT Hospital [place] [address] Lennox Spivey MD Stage 4 lung cancer, left Discharge Disposition: Home 01/08/2024 Travel 01/05/2024 Travel 01/04/2024 Orders Only [place]emat[place] [address] Lennox Spivey MD Stage 4 lung cancer, left; Neoplasm related pain 01/04/2024 Telephone Hematology/Oncolo gy at [address] [phone] Malcolm Wei RN Prior Authorization (Oxycontin ) 01/04/2024 Telephone [place] [phone] Lisseth Jurado Prior Authorization (Molecular cancer testing CPT 74114 is a covered benefit. ) 01/03/2024 5:15 PM EDT Office Visit Radiation Oncology at [address] [phone] Beto Braswell MD Non-small cell lung cancer, left 01/03/2024 6:17 AM EDT - 01/03/2024 11:59 PM EDT [place] [address] Discharge Disposition: Home 01/03/2024 Travel 01/03/2024 Telephone Radiation Oncology at [address] [phone] Tammie Recinos MSW Other (Gas cards) 12/27/2023 9:00 AM EDT Infusion Hematology Oncology at [address] [phone] Stage 4 lung cancer, left 12/27/2023 9:00 AM EDT Ancillary Procedure Radiation Oncology at [address] [phone] Beto Braswell MD 12/27/2023 9:00 AM EDT Ancillary Appointment Radiation Oncology at [address] [phone] Beto Braswell MD Non-small cell lung cancer, left 12/27/2023 8:30 AM EDT Office Visit Radiation Oncology at [address] [place] [address] Beto Braswell MD Non-small cell lung cancer, left 12/27/2023 Notes Only Radiation Oncology at [address] [phone] Tammie Recinos, QUAN 12/26/2023 Orders [place] [address] Beto Braswell MD Non-small cell lung cancer, left 12/26/2023 [place] [address] Lisy Laura 12/26/2023 Travel 12/26/2023 Telephone Hematology/Oncolo gy at [address] [phone] Tammie Recinos, PROCEDURES NURSE Other (outreach) 12/26/2023 [place] [address] Alpesh Melendrez PA 12/21/2023 12:00 PM EDT Office Visit Hematology [place] [address] Lennox Spivey MD Stage 4 lung cancer, left; Neoplasm related pain; High risk medication use; Secondary malignant neoplasm of pleura 12/21/2023 11:00 AM EDT - 12/21/2023 11:59 PM EDT Hospital Encounter [place]ology [place] [address] Stage 4 lung cancer, left Discharge Disposition: Home 12/21/2023 Patient Outreach [place]ematology [place] [address] Prisca Simpson, RN Establish Care 12/21/2023 Travel 12/21/2023 Orders Only Hematology [place] [phone] Lennox Spivey MD 12/15/2023 [place] [phone] Sharon Landry MD 12/15/2023 [place] [phone] DesEdel ortiz RN 12/14/2023 Orders Only [place] [phone] Lennox Spivey MD Secondary malignant neoplasm of bone; Stage 4 lung cancer, left 12/13/2023 2:00 PM EDT Office Visit Radiation Oncology at [address] [phone] Beto Braswell MD Non-small cell lung cancer, left 12/13/2023 Travel from Last 3 Months Family History Medical History Relation Comments Bladder Cancer Father Leukemia Father Type 2 Diabetes Father Cancer Maternal Grandfather Relation Status Comments Father Maternal Grandfather Social History Tobacco Use Types Packs/Day Years Used Date Smoking Tobacco: Some Days Cigarettes 0.3 57 Smokeless Tobacco: Current Comments:Quit 11/2023 Alcohol Use Standard Drinks/Week Comments Yes 7 (1 standard drink = 0.6 oz pure alcohol) 4oz rum with coke daily- varies [facility] Utilities Answer Date Recorded In the past 12 months has e electric, gas, oil, or water company [...] any time in the past 12 m [facility], were you homeless or [...] on file Sexual Orientation Not on file Last Filed Vital Signs Vital Sign Reading [...] Mass Index 28.79 02/19/2024 11:12 AM EDT Plan of Treatment Upcoming Encounters Date Type Department Care Team (Late st Contact Info) Description 03/11/2024 12:30 PM EDT Office Visit Hematology/Oncology at [address] [phone] Lennox Spivey MD [facility] DR [place] [address] 03/11/2024 1:00 PM EDT Scheduled View Only Hematology/Oncology at [address] [phone] Trupti Bray RN 03/11/2024 1:00 PM EDT Infusion Hematology Oncology at [address] [phone] 03/25/2024 10:00 AM EDT Office Visit Hematology/Oncology at [address] [phone] Lennox Spivey MD [facility] DR [place] [address] Bushra Muniz APRN [address] [place] [address] [place] [address] 03/25/2024 10:30 AM EDT Scheduled View Only Hematology/Oncology at [address] [phone] Trupti Bray RN 03/25/2024 10:30 AM EDT Infusion Hematology Oncology at [address] [phone] Health Maintenance Due Date Last Done Comments CT Colonography 1956 Colonoscopy 1956 Colorectal Cancer Screening 1956 FIT DNA 1956 FIT 1956 Sigmoidoscopy (10 year) with FIT yearly 1956 Sigmoidoscopy 1956 Pneumoccocal Vaccine: 65+ (1 of 2 - PCV) 1962 Hepatitis C Screening 1974 Tdap adult 1975 Tetanus vaccine 1975 Zoster vaccine (1 of 2) 2006 Advance Directive 2011 AAA Screen 2021 Covid-19 Vaccine (1 - season) 2023 Influenza (Flu) vaccine (1 o f 1 - Influenza standard series) 03/31/2024 Diabetes Screening (HgbA1C or Glucose) 12/20/2026, 11/22/2023 Medical Devices Implanted Type Area School Coordinator Device Identifier Shelf Expiration Date Model / Serial / Lot [facility] Implanted:Qty: 1 on 01/08/2024 by Alpesh Melendrez PA Mediport Right: Chest Wall / / [id number] Description:[id number] Mi dsized CT Port Procedures Procedure Name Priority Date/Time Associated Diagnosis Comments CT SCAN (SCAN) 03/07/2024 12:00 AM EDT FILM LIBRARY STORAGE ONLY CT CHEST Routine 03/04/2024 10:20 AM EDT LAB SCAN 02/19/2024 12:00 AM EDT LAB SCAN 02/12/2024 12:00 AM EDT LAB SCAN 02/05/2024 12:00 AM EDT LAB SCAN 01/22/2024 12:00 AM EDT LAB SCAN 01/16/2024 12:00 AM EDT MISCELLANEOUS LAB REQUEST Routine 01/15/2024 12:15 PM EDT LAB SCAN 01/15/2024 12:00 AM EDT IR MEDIPORT PLACEMENT Routine 01/08/2024 1:22 PM EDT Stage 4 lung cancer, left CT SCAN (SCAN) 01/01/2024 12:00 AM EDT DIFFERENTIAL, AUTOMATED STAT 12/21/2023 11:14 AM EDT Stage 4 lung cancer, left HEMOGRAM STAT 12/21/2023 11:14 AM EDT Stage 4 lung cancer, left CBC (WITH DIFF) STAT 12/21/2023 11:14 AM EDT Stage 4 lung cancer, left COMPREHENSIVE METABOLIC PANEL STAT 12/21/2023 11:14 AM EDT Stage 4 lung cancer, left MAGNESIUM STAT 12/21/2023 11:14 AM EDT Stage 4 lung cancer, left from Last 3 Months Results * Scan Doc: CT Scan (03/07/2024 12:00 AM EDT) Only the most recent of2 resultswithin the time period is included. Anatomical Region Laterality Modality Other Narrative 03/07/2024 12:00 AM EDT Ordered by an unspecified provider. Scanning Provider MEDIA MGR SCAN EXT O RDR/RSLT * Film Library- Storage Only CT Chest (03/04/2024 10:20 AM EDT) 03/04/2024 9:02 PM EDT Narrative RAD - 03/04/2024 9:02 PM EDT This exam is auto-finalizing. It's purpose is for storage only. Lennox Spivey MD IM FILM LIBRARY ORD ERABLES [facility], MD * Scan Doc: Lab (02/19/2024 12:00 AM EDT) Only the most recent of6 resultswithin the time period is included. Narrative 02/19/2024 12:00 AM EDT Ordered by an unspecified provider. Scanning Provider MEDIA MGR SCAN EXT O RDR/RSLT * Miscellaneous Lab request (01/15/2024 12:15 PM EDT) Label Request received in lab. [facility] Blood No Charge / Unknown 01/15/2024 12:15 PM EDT 01/16/2024 9:57 PM EDT Narrative Resulting Agency Comment Spec In Lab [place] Ureña RN LAB SEND OUT SNEHAL HELLER [facility] [place] [address] * IR Mediport Placement (01/08/2024 1:22 PM EDT) Anatomical Region Laterality Modality X-Ray Angiograph y Narrative 01/08/2024 2:39 PM EDT Interventional Radiology Procedure Note Procedure: Chest port implant Indication: Lung cancer, durable prison central venous access for chemotherapy Procedure summary: 1.) Venous access with ultrasound guidance 2.) Tunneled port insertion under fluoroscopic guidance Pre-procedure: Informed consent for the procedure including risks, benefits, and alternatives was obtained. Active time-out was performed prior to the procedure. Maximum sterile barrier technique was used throughout the procedure. Sedation: The patient received split doses of intravenous midazolam and fentanyl from the interventional radiology nurse while pulse, pressure, and oxygen saturation were continuously monitored. Technique: The patient's neck was sonographically evaluated for potential access sites, and the right internal jugular vein was determined to be patent. Local anesthetic was administered. The vein was accessed via real-time ultrasound and micropuncture set with 21 gauge needle and a permanent image was stored. A 0.018 wire was advanced into superior vena cava. The remainder of the procedure was performed under fluoroscopic guidance. A 4 F introducer sheath was placed and the wire exchanged for a 0.035 J wire. The wire was advanced into the inferior vena cava. Local anesthetic was administered on the anterior chest wall inferolateral to the puncture site. A 2 cm transverse incision was made in the right anterior chest wall, and with blunt dissection the port pocket was created. A trocar was then used to advance the catheter subcutaneously to the venous access site. A 4 F introducer sheath was exchanged for a peel-away sheath over the wire. The wire and inner obturator were removed and the catheter advanced into the superior vena cava under fluoroscopic guidance. The catheter was trimmed to appropriate length and attached to the port. The port was inserted into the pocket and the sheath was removed. Catheter tip location was identified and a permanent image was stored. The port flushed and aspirated well. ??The pocket was closed using a two-layer technique with 2-0 vicryl deep interrupted and 4-0 vicryl running sutures. The skin closed was with dermabond. The port was not left accessed. Medications: Lidocaine 1% 10 mL subcut; lidocaine 2% with epinephrine 1:100,000 10 mL subcut; midazolam 3 mg IV; fentanyl 175 mcg IV Contrast: None Fluoroscopy: 2.22 mGy Estimated blood loss: 5 mL Complications: No immediate Impression: 1.) Patent right internal jugular vessel by sonographic evaluation. 2.) Implantation of power-injectable, Medcomp Dignity Mini 8 F low profile single-lumen port in right chest with tip in the mid right atrium. The port may be used immediately. equalizer operator: Alpesh Melendrez PA-C. Present during the intraservice time as documented by the interventional radiology nurse. Attending of record: Scar Cobb MD 01/08/2024 Lennox Spivey MD [facility] IR ORDERABLES * (ABNORMAL) Hemogram (12/21/2023 11:14 AM EDT) White Blood Cell 11.6(H) 4.0 - 9.5 x10(3)/mc L [facility] Red Blood Cell 4.76 4.58 - 5.54 x10(6)/mc L [facility] Hemoglobin 14.1 13.7 - 16.5 g/dL [facility] Hematocrit 43.3 40.5 - 48.5 % [facility] Mean Cell Volume 91.0 82.9 - 93.1 fL [facility] Mean Cell Hemoglobin 29.6 27.5 - 32.1 pg [facility] Mean Cell Hemoglobin Concentration 32.6 32.0 - 35.7 g/dL [facility] Platelet 319 145 - 357 x10(3)/mc L [facility] RDW Standard Deviation 48.3(H) 36.0 - 45.0 fL [facility] RDW coefficient of variation 14.4(H) 11.4 - 13.8 % [facility] Mean Platelet Volume 11.1 7.6 - 12.9 fL [facility] NRBC% auto 0.0 % [facility] NRBC Absolute 0.000 0.000 - 0.000 x10(3)/mc L [facility] Blood 12/21/2023 11:1 4 AM EDT 12/21/2023 11:25 AM EDT Narrative Resulting Agency Comment Spec In Lab Marilee Zavaleta APRN HEMATOLOGY ORDERAB LES [facility] [place] [address] * (ABNORMAL) Differential, Automated (12/21/2023 11:14 AM EDT) Neutrophil % 75.3 % [facility] Neutrophil Absolute 8.70(H) 1.70 - 6.10 x10(3)/mc L [facility] Lymph % 15.1 % [facility] Lymphocytes Abs 1.7 0.9 - 3.2 x10(3)/mc L [facility] Monocyte % 6.7 % [facility] Monocyte Abs 0.8 0.3 - 0.9 x10(3)/mc L [facility] Eos % 1.9 % [facility] Eosinophils Abs 0.2 0.0 - 0.4 x10(3)/mc L [facility] Basophil % 0.5 % [facility] Baso Absolute 0.1 0.0 - 0.1 x10(3)/mc L [facility] Immature Gran % 0.50 % [facility] Comment: Immature granulocytes(IG's)percentage and absolute count will include metamyelocytes, myelocytes, and promyelocytes. Blood smears from CBCs yielding IG's will be scanned manually for concordance. If this scan disagrees with the automated IG or if promyelocytes are noted, a manual differential will be performed. Immature Gran Absolute 0.06(H) 0.00 - 0.04 x10(3)/mc L [facility] Blood 12/21/2023 11:1 4 AM EDT 12/21/2023 11:25 AM EDT Narrative Resulting Agency Comment Spec In Lab Marilee Zavaleta APRN HEMATOLOGY ORDERAB LES Performing Organization Address [facility]/ZIP Co de Phone Number [facility] [place] [address] * Magnesium (12/21/2023 11:14 AM EDT) Magnesium 0.87 0.69 - 1.07 mmol/L [facility] Blood 12/21/2023 11:1 4 AM EDT 12/21/2023 11:25 AM EDT Narrative Resulting Agency Comment Spec In Lab Marilee Zavaleta APRN CHEMISTRY ORDERABL ES Performing Organization Address [facility] Co de Phone Number [facility] [place] [address] * (ABNORMAL) Comprehensive metabolic panel (non-fasting) (12/21/2023 11:14 AM EDT) Glucose 131 65 - 199 mg/dL [facility] Comment:Diabetes: >=200 mg/d L plus symptoms Blood Urea Nitrogen 27(H) 10 - 20 mg/dL [facility] Creatinine 1.31 0.80 - 1.50 mg/dL [facility] Sodium 141 135 - 145 mmol/L [facility] Potassium 4.6 3.5 - 5.0 mmol/L [facility] Comment: Please note: ??Patients with WBC >100,000 may have falsely elevated Potassium levels. ??For accurate Potassium quantification in these patients send serum separator tube (gold top) for subsequent determinations. ??Contact the Clinical Chemistry Laboratory if there are any questions. Chloride 100 98 - 107 mmol/L [facility] Carbon Dioxide 28 22 - 31 mmol/L [facility] Anion Gap 13 5 - 15 mmol/L [facility] Calcium 10.5 8.5 - 10.5 mg/dL [facility] Protein, Total 8.1(H) 6.1 - 8.0 g/dL [facility] Albumin 4.2 3.2 - 5.2 g/dL [facility] Aspartate Aminotransferase 23 0 - 39 unit/L [facility] Alanine Aminotransferase 22 0 - 55 unit/L [facility] Alkaline Phosphatase 150(H) 40 - 130 unit/L [facility] Bilirubin, Total 0.3 0.2 - 1.3 mg/dL [facility] Est Glomerular Filtration Rate 60 >=60 mL/min/1. 73 m?? [facility] Comment: This patient's estimated GFR was calculated using the 2020 CKD-EPI equation. The estimated GFR can vary from the measured GFR by up to 30% in the absence of rapidly changing kidney function. Assessment of the estimated GFR is not appropriate when creatinine concentrations are rapidly changing. For clinical situations in which a more precise estimate of GFR is necessary, consider alternative methods of GFR estimation such as a 24-hour urine creatinine clearance. Assignment of CKD stage 1-5 for patients with an eGFR near the transition point between stages may be based on clinical assessment of muscle mass and symptoms in addition to eGFR. Blood 12/21/2023 11:1 4 AM EDT 12/21/2023 11:25 AM EDT Narrative Resulting Agency Comment Spec In Lab Marilee J Meghann FIELD LIABILITY GENERALIST CHEMISTRY ORDERABL ES [facility] [place] [address] from Last 3 Months Advance Directives * Attempt Cardiopulmonary Resuscitation - Inpatient (Latest Code Status on File) Date Activated Date Inactivated Comments 01/08/2024 12:56 PM 01/09/2024 4:39 AM Question Answer Comments Code Status decision made by: Patient * Attempt Cardiopulmonary Resuscitation - Inpatient Date Activated Date Inactivated Comments 11/22/2023 10:36 AM 11/23/2023 12:14 PM Question Answer Comments Code Status decision made by: Patient * Attempt Cardiopulmonary Resuscitation - Inpatient Date Activated Date Inactivated Comments 11/22/2023 8:18 AM 11/22/2023 10:36 AM Question Answer Comments Code Status decision made by: Patient Care Teams Water Safety Instructor Relationship Specialty Start Date End Date Karl Quiroz MD [address] [place] [phone] PCP - General Family Medicine 01/11/24
--- OUTSIDE RECORDS SUMMARY | 2024-03-11 03:19 | XMS_ITS | Encounter Summary ---
Author Organization [facility] Address [facility] [place] [address] Care Team Providers Care Portable Sawmill Operator Name Role Phone Karl Quiroz MD Primary Care Provider [phone] Reason for Visit * Treatment/Therapy Plan Authorization (Routine) - Authorized [...] [id number] PACLitaxeL-protein bound (Abraxane) Lennox Spivey MD [facility] DR HEMATOLOGY [place] [address] Stj Hem Onc Infusion [address] [place] [phone] Referral ID Status Reason Start Date Expiration Date V isits Requested Visits Authorized [id number] Authorized 12/26/2023 12/25/2024 99 102 Encounter Details Date Type Department Care Team (Late st Contact Info) Description 03/11/2024 1:00 PM EDT Infusion Hematology Oncology at [address] [phone] Social History Tobacco Use Types Packs/Day Years Used Date Smoking Tobacco: Some Days Cigarettes 0.3 57 Smokeless Tobacco: Current Comments:Quit 11/2023 Alcohol Use Standard Drinks/Week Comments Yes 7 (1 standard drink = 0.6 oz pure alcohol) 4oz rum with coke daily- varies [facility] Utilities Answer Date Recorded In [...] place to sleep or slept in a half-way (including now)? No 12/13/2023 Housing Stability Vital Sign Answer Renzo e Recorded In the last 12 months, was t here a time when you were not able to pay the mortgage or rent on time? No 12/21/2023 In the past 12 months, how m any times have you moved where you were living? 0 12/21/2023 At any time in the past 12 m [facility], were you homeless or living in a half-way (including now)? No 12/21/2023 IPV Inpatient Questions [...] 12:30 PM EDT Office Visit Hematology/Oncology at [address] [phone] Lennox Spivey MD [facility] HEMATOLOGY [place] [address] 03/11/2024 1:00 PM EDT Scheduled View Only Hematology/Oncology at [address] [phone] Trupti Bray RN 03/25/2024 10:00 AM EDT Office Visit Hematology/Oncology at [address] [phone] Lennox Spivey MD [facility] DR HEMATOLOGY [place] [address] Bushra Muniz [address] [place] [address] 03/25/2024 10:30 AM EDT Scheduled View Only Hematology/Oncology at [address] [phone] Trupti Bary RN 03/25/2024 10:30 AM EDT Infusion Hematology Oncology at [address] [phone] documented as of this encounter Visit Diagnoses Not on filedocumented in this encounter Care Teams Portable Sawmill Operator Relationship Specialty Start Date End Date Karl Quiroz MD [address] [place] [phone] PCP - General Family Medicine 01/11/24 documented as of this encounter
--- OUTSIDE RECORDS SUMMARY | 2024-03-11 03:19 | XMS_ITS | Encounter Summary ---
Author Organization [facility] Address [facility] [place] [address] Care Team Providers Care Wet Process Head Miller Name Role Phone Karl Quiroz MD Primary Care Provider [phone] Encounter Details Date Type Department Care Team (Latest Contact Info) Description 02/19/2024 12:30 PM EDT Clinical Support Hematology/Oncology at [address] [phone] [facility] DR [place] [address] Stage 4 lung cancer, left Social History Tobacco Use Types Packs/Day Years Used Date Smoking Tobacco: Some Days Cigarettes 0.3 57 Smokeless Tobacco: Current Comments:Quit 11/2023 Alcohol Use Standard Drinks/Week Comments Yes 7 (1 standard drink = 0.6 oz pure alcohol) 4oz rum with coke daily- varies [facility] Utilities Answer Date Recorded In the past 12 months has e [employer], gas, oil, or water company threatened to [...] place to sleep or slept in a senior care (including now)? No 12/13/2023 Housing Stability Vital [...] time in the past 12 m [facility], were you homeless or living in a senior care (including now)? No 12/21/2023 IPV Inpatient Questions [...] as of this encounter Progress Notes * Margot Ramos E, RD - 02/19/2024 12:30 PM EDT Nutrition Note Spoke with Jeffrey in infusion today. Patient is starting his fourth and final cycle of Paclitaxel today for stage IV SCLC (started systemic treatment on 01/14). Palliative RT was completed on 01/09. Jeffrey says he had a terrible past week. He had dry heaving every morning. He feels very tired. Hisappetite was poor. He says he managed to eat scrambled eggs with toast daily and is drinking Ensure. He reports mostly loose stools but not diarrhea. Patient is taking extended release morphine BID and oxycodone prn for breakthrough pain. Wt Readings from Last 10 Encounters: 02/19/24 84.2 kg (185 lb 9.6 [...] 12/05/23 95.9 kg (211 lb 6.7 oz) 11/15/23 98.9 kg (218 lb) BMI 28.79 5# loss in past week 02/11-02/18 (2.4% body weight) - significant 18# loss since starting systemic treatment 01/14-02/18 (8.9% body weight) - severe 33# loss in past three months 11/14-02/18 (15% body weight) - severe Diet: Decreased in past week due to nausea/dry heaves, poor appetite and taste changes. Drinking vanilla Ensure (as much as 2-3 bottles/day) and eating eggs and toast daily. Labs on 02/18: WBC 4.37, H/H 12/36.2, plt 342,000, ANC 3180, Na 141, K 4.6, Cl 100, CO2 32.2, BUN 21, Creat 0.9, glucose 144, Ca 9.6, Mag 1.4, t bili 0.43, AST 39, ALT 82, alk phos 167, t protein 7.6,albumin 3.4, TSH 0.93, Free T4 1.05 Medications: Oxycodone prn, MS Contin, compazine prn, tylenol, colace, senokot, miralax, advil, MVI, Mg-Ox, lipitor, losartan, prozac, omeprazole, aspirin Nutrition Problem: Involuntary weight loss related to poor appetite, taste changes as evidenced by 33# loss in past three months 11/14-02/18 (15% body weight) - severe Ongoin# loss in past week 02/11-02/18 (2.4% body weight) - significant Recommendations: Continue to try to increase PO intake with small, frequent meals to avoid further weight loss. Struggling with nausea, poor appetite and taste changes. Drinking vanilla Ensure, up to 2-3 bottles/day.Provided 10 sample bottles of this today. Not interested in an appetite stimulant. Did not discuss whether he contacted [employer] as he voiced interest in this last week. Will continue to follow (next appointments not yet scheduled). RTC in [address] chest prior per Manfred Muniz's note today. documented in this encounter Plan of Treatment Upcoming Encounters Date Type Department Care Team (Late st Contact Info) Description 03/11/2024 12:30 PM EDT Office Visit Hematology/Oncology at [address] [phone] Lennox Spivey MD [facility] DR [place] [address] 03/11/2024 1:00 PM EDT Scheduled View Only Hematology/Oncology at [address] [phone] Trupti Bray RN 03/11/2024 1:00 PM EDT Infusion Hematology Oncology at [address] [phone] 03/25/2024 10:00 AM EDT Office Visit Hematology/Oncology at [address] [phone] Lennox Spivey MD [facility] DR [place] [address] Bushra Muniz APRN [address] [place] [address] DR HEMATOLOGY AND ONCOLOGY [place], [place] [id number] 03/25/2024 10:30 AM EDT Scheduled View Only Hematology/Oncology at [address] [phone] Trupti Bray RN 03/25/2024 10:30 AM EDT Infusion Hematology Oncology at [address] [phone] documented as of this encounter Visit Diagnoses Diagnosis Stage 4 lung cancer, left Stage 4 lung cancer, left Secondary malignant neoplasm of pleura documented in this encounter Care Teams Wet Process Head Miller Relationship Specialty Start Date End Date Karl Quiroz MD [address] [place] [phone] PCP - General Family Medicine 01/11/24 documented as of this encounter
--- OUTSIDE RECORDS SUMMARY | 2024-03-11 03:19 | XMS_ITS | Encounter Summary ---
Author Organization [facility] Address [facility] [place] [address] Care Team Providers Care Supervisor Powdered Metal Name Role Phone Karl Quiroz MD Primary Care Provider [phone] Encounter Details Date Type Department Care Team (Late st Contact Info) Description 03/04/2024 Orders Only Hematology/Oncology at [address] [phone] Bushra Muniz APRN [address] [place] [address] DR HEMATOLOGY [place] [address] Social History Tobacco Use Types Packs/Day Years Used Date Smoking Tobacco: Some Days Cigarettes 0.3 57 Smokeless Tobacco: Current Comments:Quit 11/2023 Alcohol Use Standard Drinks/Week Comments Yes 7 (1 standard drink = 0.6 oz pure alcohol) 4oz rum with coke daily- varies [facility] Utilities Answer Date Recorded In the [...] place to sleep or slept in a longterm (including now)? No 12/13/2023 Housing Stability Vital [...] time in the past 12 m [facility], were you homeless or living in a longterm (including now)? No 12/21/2023 IPV Inpatient Questions [...] PM EDT Office Visit Hematology/Oncology at [address] [phone] Lennox Spivey MD [facility] [place] [address] 03/11/2024 1:00 PM EDT Scheduled View Only Hematology/Oncology at [address] [phone] Trupti Bray RN 03/11/2024 1:00 PM EDT Infusion Hematology Oncology at [address] [phone] 03/25/2024 10:00 AM EDT Office Visit Hematology/Oncology at [address] [phone] Lennox Spivey MD [facility] [place] [address] Bushra Muniz APRN [address] [place] [address] DR HEMATOLOGY AND ONCOLOGY [place], [place] [phone] 03/25/2024 10:30 AM EDT Scheduled View Only Hematology/Oncology at [address] [phone] Trupti Bray RN 03/25/2024 10:30 AM EDT Infusion Hematology Oncology at [address] [phone] documented as of this encounter Visit Diagnoses Not on filedocumented in this encounter Care Teams Supervisor Powdered Metal Relationship Specialty Start Date End Date Karl Quiroz MD [address] [place] [phone] PCP - General Family Medicine 01/11/24 documented as of this encounter
--- OUTSIDE RECORDS SUMMARY | 2024-03-11 03:19 | XMS_ITS | Encounter Summary ---
Author Organization [facility] Address [facility] [place] [address] Care Team Providers Care Appraisal Manager Name Role Phone Karl Quiroz MD Primary Care Provider [phone] Encounter Details Date Type Department Care Team ([facility] st Contact Info) Description 03/04/2024 10:20 AM EDT Ancillary Procedure [place] [phone] Lennox Spivey MD [facility] DR HEMATOLOGY [place] [address] Social History Tobacco Use Types Packs/Day Years Used Date Smoking Tobacco: Some Days Cigarettes 0.3 57 Smokeless Tobacco: Current Comments:Quit 11/2023 Alcohol Use Standard Drinks/Week Comments Yes 7 (1 standard drink = 0.6 oz pure alcohol) 4oz rum with coke daily- varies [facility] Utilities Answer Date Recorded In the past 12 months has th e [employer], gas, oil, or water company threatened to [...] place to sleep or slept in a long term (including now)? No 12/13/2023 Housing Stability Vital [...] were you homeless or living in a long term (including now)? No 12/21/2023 IPV Inpatient Questions [...] 12:30 PM EDT Office Visit Hematology/Oncology at [address] [phone] Lennox Spivey MD [facility] HEMATOLOGY [place] [address] 03/11/2024 1:00 PM EDT Scheduled View Only Hematology/Oncology at [address] [phone] Trupti Bray RN 03/11/2024 1:00 PM EDT Infusion Hematology Oncology at [address] [phone] 03/25/2024 10:00 AM EDT Office Visit Hematology/Oncology at [address] [phone] Lennox Spivey MD [facility] DR HEMATOLOGY [place] [address] Bushra Muniz APRN [address] [place] [address] DR HEMATOLOGY AND ONCOLOGY [place], [place] [phone] 03/25/2024 10:30 AM EDT Scheduled View Only Hematology/Oncology at [address] [phone] Trupti Bray RN 03/25/2024 10:30 AM EDT Infusion Hematology Oncology at [address] [phone] documented as of this encounter Procedures Procedure Name Priority Date/Time Associated Diagnosis Comments FILM LIBRARY STORAGE ONLY CT CHEST Routine 03/04/2024 10:20 AM EDT documented in this encounter Results * Film Library- Storage Only CT Chest (03/04/2024 10:20 AM EDT) 03/04/2024 9:02 PM EDT Narrative [facility] - 03/04/2024 9:02 PM EDT This exam is auto-finalizing. It's purpose is for storage only. Lennox Spivey MD IMG FILM LIBRARY ORD ERABLES [place], [place] documented in this encounter Visit Diagnoses Not on filedocumented in this encounter Care Teams Appraisal Manager Relationship Specialty Start Date End Date Karl Quiroz MD [address] [place] [phone] PCP - General Family Medicine 01/11/24 documented as of this encounter
--- OUTSIDE RECORDS SUMMARY | 2024-03-11 03:19 | XMS_ITS ---
Author Organization [facility] Address [facility] [place] [address] Care Team Providers Care Talent Assistant Name Role Phone Karl Quiroz MD Primary Care Provider [phone] Active Problems Problem Noted Date Diagnosed Date Stage 4 lung cancer, left 12/26/2023 Secondary malignant neoplasm of pleura High risk medication use 12/26/2023 Pleural mass 11/21/2023 Chest wall mass 11/21/2023 Current Oncology Plans [facility] ONC NONSMALL CELL LUNG CANCER - CARBOplatin / PACLitaxeL ALBUMIN- BOUND (ABRAXANE) 100 mg/m2 (Days 1, 8, 15, 22, 29 & 36) / IPILIMUMAB 1 mg/kg (Day 1) / NIVOLUMAB 360 mg (Days 1 & 22)* Plan Start Date:01/15/2024 Plan Provider:Lennox Spivey MD Linked Problems High risk medication useSeco ndary malignant neoplasm of pleuraStage 4 lung cancer, left Treatment Medications Current Day (Day 1 , Cycle 2 - Planned for 03/11/2024) Next Day (Day 22, Cycle 2 - Planned for 04/01/2024) CARBOplatin (Paraplatin) in 150 mL infusionipilimumab (Yervoy) in sodium chloride 0.9% 50 mL infusion (doses 91.6-137.5 mg)nivolumab (Opdivo) in sodium chloride 0.9% 100 mL infusionPACLitaxeL albumin-bound (Abraxane) ipilimumab (Yervoy) 100 mg in sodium chloride 0.9% 70 mL infusionnivolumab (Opdivo) 360 mg in sodium chloride 0.9% 136 mL infusion nivolumab (Opdivo) 360 mg in sodium chloride 0.9% 136 mL infusion Past Plans No past plan information found. Radiation Treatments * No radiation treatments are documented for this patient in Epic. Treatments may have been administered in another system.
--- OUTSIDE RECORDS SUMMARY | 2024-03-11 03:20 | XMS_ITS | Encounter Summary ---
Author Organization [facility] Address [facility] [place] [address] Care Team Providers Care Technical Photographer Name Role Phone Rayo Riley MD Primary Care Provider [phone] Encounter Details Date Type Department Care Team (Latest Contact Info) Description 01/05/2024 Travel Social History Tobacco Use Types Packs/Day Years Used Date Smoking Tobacco: Former Cigarettes 0.3 57 Smokeless Tobacco: Never Comments:Quit 11/2023 Alcohol Use Standard Drinks/Week Comments Yes 7 (1 standard drink = 0.6 oz pure alcohol) 4oz rum with coke daily- varies [facility] Utilities Answer Date Recorded In the [...] place to sleep or slept in a snf (including now)? No 12/13/2023 Housing Stability Vital [...] were you homeless or living in a snf (including now)? No 12/21/2023 DH IPV Inpatient [...] 12:30 PM EDT Office Visit Hematology/Oncology at [address] [phone] Lennox Spivey MD [facility] HEMATOLOGY [place] [address] 03/11/2024 1:00 PM EDT Scheduled View Only Hematology/Oncology at [address] [phone] Trupti Bray RN 03/11/2024 1:00 PM EDT Infusion Hematology Oncology at [address] [phone] 03/25/2024 10:00 AM EDT Office Visit Hematology/Oncology at [address] [phone] Lennox Spivey MD [facility] DR HEMATOLOGY [place] [address] Bushra Muniz APRN [address] [place] [address] DR HEMATOLOGY AND ONCOLOGY [place], [place] [id number] 03/25/2024 10:30 AM EDT Scheduled View Only Hematology/Oncology at [address] [phone] Trupti Bray RN 03/25/2024 10:30 AM EDT Infusion Hematology Oncology at [address] [phone] documented as of this encounter Visit Diagnoses Not on filedocumented in this encounter Care Teams Technical Photographer Relationship Specialty Start Date End Date Rayo Riley MD [address] [place] [address] PCP - General 06/22/10 01/10/24 documented as of this encounter
--- OUTSIDE RECORDS SUMMARY | 2024-03-11 03:20 | XMS_ITS | Encounter Summary ---
Author Organization Replaced By [facility] Address [facility] [place] [address] Care Team Providers Care Exerciser Horse Name Role Phone Karl Quiroz MD Primary Care Provider [phone] Encounter Details Date Type Department Care Team (Late st Contact Info) Description 02/05/2024 11:00 AM EDT Office Visit Hematology/Oncology at [address] [phone] Lennox Spivey MD [facility] DR HEMATOLOGY [place] [address] Bushra Muniz, CASH ANALYST [address] [place] [address] DR HEMATOLOGY AND ONCOLOGY [place], [place] [phone] Stage 4 lung cancer, left; Hypotension, unspecified hypotension type Social History Tobacco Use Types Packs/Day Years Used Date Smoking Tobacco: Former Cigarettes 0.3 57 Smokeless Tobacco: Never Comments:Quit 11/2023 Alcohol Use Standard Drinks/Week Comments Yes 7 (1 standard drink = 0.6 oz pure alcohol) 4oz rum with coke daily- varies [facility] Utilities Answer Date Recorded In the [...] place to sleep or slept in a long-term (including now)? No 12/13/2023 Housing Stability Vital [...] time in the past 12 m [facility], were you homeless or living in a long-term (including now)? No 12/21/2023 DH IPV Inpatient [...] Sign Reading Time Taken Comments Blood Pressure 89/51 02/05/2024 10:55 AM EDT Pulse 95 02/05/2024 10:55 AM EDT Temperature 36.3 ??C (97.3 ??F) 02/05/2024 10:55 AM E DT Respiratory Rate 18 02/05/2024 10:55 AM EDT Oxygen Saturation 96% 02/05/2024 10:55 AM EDT Inhaled Oxygen Concentration - - Weight 86.3 kg (190 lb 3.2 oz) 02/05/2024 10:55 AM EDT Height 171 cm (5' 7.32) 02/05/2024 10:55 AM EDT Body Mass Index 29.5 02/05/2024 10:55 AM EDT documented in this encounter Progress Notes * Bushra Muniz APRN - 02/05/2024 11:00 AM EDT Images from the original note were not included. Thoracic Oncology [facility] [place] [address] [phone] Jeffrey Lovelace is being seen for the [...] chest tube track status post palliative excision. While initially there was some question of whether this was a mesothelioma pathology does not support this and therefore would treat as presumed lung cancer primary though would note that the ipilimumab and nivolumab would have activity against mesothelioma as well. 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 - Hold therapy this week. Give 1L NS. - STOP losartan. Monitor BP at home if able. - Plan to return next week as a stand alone as long as he is able to try to increase intake and he's feeling even mildly better. - Restage with CT chest at the end of cycle one. -Complete staging with a CT scan with contrast of the head given that he cannot have an MRI due to hardware. Ordered but not yet scheduled - RD follow up appreciated. # Cancer related pain -Recommended involvement of local palliative care at [place] though he is hesitant to pursue thisright now -Palliative radiation to chest wall sites completed - Controlled on extended release morphine 15mg BID and oxycodone PRN for breakthrough. Bushra Muniz, CASH ANALYST 02/05/2024 Thoracic Oncology [facility] CC: Karl Quiroz MD HPI/Interval History/Subjective: Last seen 01/22/24 Still not eating much - primarily ensures and fresh fruit. No vomiting, some nausea in the morningsand over the last couple of days. Did not feel any better in his week off. Weight is down again today. Still no appetite. No vomiting, no nausea, no diarrhea. He is eating somewhat more, but mostly just fresh fruit and ensures. Doing much better with fluids. BP has been low, his PCP cut [...] Network: Home situation: and . Lives in [facility]. Two children - one passe away from suicide Gerry would be his deciosn maker and support. Lives in [place]. 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 Previously worked in proximity to [employer]. 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 [employer] service: None Family History: Mother- Dscd Father- [...] above. 11.22.23 Left chest wall mass excision Pathology: 11.15.23 11.22.23 ADDENDUM DISCUSSION Tissue: left [...] The assay was performed according to the virtual classroom manager's instructions using Anti-PD-L1 (22C3, pharmDX) antibody. Electronically signed by: Vu Vidal MD Verified: 12/19/2023 16:50 Pathologist Performed at: -[facility] Dept. [place]ology, [place] [address] Car Body Designer: Omar White MD, FCAP, CLIA Certificate: [id number] Surgical Pathology DIAGNOSIS A - left chest soft tissue mass, excision: - Poorly differentiated carcinoma, see discussion. - Specimen margin negative for carcinoma. B - Superior medial margin, excision: - Fibroadipose tissue, negative for carcinoma. C - inferior medial margin, excision: - Fibroadipose tissue, negative for carcinoma. Electronically signed by: Eleuterio Obando MD Verified: 12/13/2023 10:42 Pathologist Performed at: -[facility] Dept. of Pathology, [place] [address] Car Body Designer: Omar White MD, FCAP, CLIA Certificate: [id number] DISCUSSION The clinical impression of a chest [...] Focal positive p63 Focal positive CKAE1/3 Positive [id number] Positive TTF1 Negative PAX8 Negative CD5 Background [...] 1L IVF, encouraged increased calories/fat/protein at home 01/15/2024 1:05 PM 01/15/2024 1:42 PM 01/15/2024 2:12 PM 01/15/2024 2:53 PM 01/22/2024 10:16 AM ONCBCN ONCOLOGY (AMB) Day, Cycle Day 1, Cycle 1 Day 8, Cycle 1 CARBOplatin (Paraplatin) IV 551 mg ipilimumab (Yervoy) IV 1 mg/kg/dose = 100 mg nivolumab (Opdivo) IV 360 mg PACLitaxeL-protein bound (Abraxane) IV 100 mg/m2/dose = 200 mg [...] Exam: Wt Readings from Last 3 Encounters: 02/05/24 86.3 kg (190 lb 3.2 oz) 01/22/24 87.5 kg (193 lb) 01/15/24 92.4 kg (203 lb 9.6 oz) Temp Readings from Last 3 Encounters: 02/05/24 36.3 ??C (97.3 ??F) (Temporal) 01/22/24 36.3 ??C (97.3 ??F) (Temporal) 01/15/24 36.2 ??C (97.1 ??F) (Temporal) BP Readings from Last 3 Encounters: 02/05/24 (!) 89/51 01/22/24 128/81 01/15/24 94/49 Pulse Readings from Last 3 Encounters: 02/05/24 95 01/22/24 (!) 117 01/15/24 99 Body surface area is 2.02 meters squared. Wt Readings from Last 3 Encounters: 02/05/24 86.3 kg (190 lb 3.2 oz) 01/22/24 87.5 kg (193 lb) 01/15/24 92.4 kg (203 lb 9.6 oz) KPS Score ECOG Grade Definition 90-100 [...] Thought content normal. Review of Laboratory Data: 02/05/24 WBC 5.14, H/H 12.1/37.1, plt 163, ANC 4400, Na 140, K 4.2, Cl 103, CO2 30.4, BUN 27, Creat 1.1, glucose 125, Ca 9.1, Mag 1.7, t bili 0.27, AST 46, ALT 55, alk phos 150, t protein 7.3, albumin 3.0, TSH 1.22, Free T4 0.94 6.24.24 WBC 7.13, H/H 12.3/37.8, plt 285,000, ANC [...] No new data documented in this encounter Plan of Treatment Upcoming Encounters Date Type Department Care Team (Late st Contact Info) Description 03/11/2024 12:30 PM EDT Office Visit Hematology/Oncology at [address] [phone] Lennox Spivey MD [facility] DR HEMATOLOGY [place] [address] 03/11/2024 1:00 PM EDT Scheduled View Only Hematology/Oncology at [address] [phone] Trupti Bray RN 03/11/2024 1:00 PM EDT Infusion Hematology Oncology at [address] [phone] 03/25/2024 10:00 AM EDT Office Visit Hematology/Oncology at [address] [phone] Lennox Spivey MD [facility] HEMATOLOGY [place] [address] Bushra Muniz APRN [address] [place] [address] DR HEMATOLOGY AND ONCOLOGY [place], [place] [phone] 03/25/2024 10:30 AM EDT Scheduled View Only Hematology/Oncology at [address] [phone] Trupti Bray RN 03/25/2024 10:30 AM EDT Infusion Hematology Oncology at [address] [phone] documented as of this encounter Visit Diagnoses Diagnosis Stage 4 lung cancer, left Hypotension, unspecified hypotension type Stage 4 lung cancer, left Secondary malignant neoplasm of pleura documented in this encounter Care Teams Exerciser Horse Relationship Specialty Start Date End Date Karl Quiroz MD [address] [place] [phone] PCP - General Family Medicine 01/11/24 documented as of this encounter
--- OUTSIDE RECORDS SUMMARY | 2024-03-11 03:20 | XMS_ITS | Encounter Summary ---
Author Organization [facility] Address [facility] [place] [address] Care Team Providers Care Associate Publisher Name Role Phone Rayo Riley MD Primary Care Provider [phone] Reason for Visit * Reason Onset Date Comments Other 01/03/2024 Gas cards Encounter Details Date Type Department Care Team (Late st Contact Info) Description 01/03/2024 Telephone Radiation Oncology at [address] [phone] Tammie Recinos, PHOTOCOMPOSITION KEYBOARD OPERATOR OFFICE OF CARE MANAGEMENT Other (Gas cards) Social History Tobacco Use Types Packs/Day Years Used Date Smoking Tobacco: Former Cigarettes 0.3 57 Smokeless Tobacco: Never Comments:Quit 11/2023 Alcohol Use Standard Drinks/Week Comments Yes 7 (1 standard drink = 0.6 oz pure alcohol) 4oz rum with coke daily- varies [facility] Utilities Answer Date Recorded In the past 12 months has e [employer], gas, oil, or water company threatened to [...] any time in the past [address] [facility], were you homeless or living in [...] on file documented as of this encounter Miscellaneous Notes * Telephone Encounter - Tammie Recinos MSW - 01/03/2024 1:25 PM EDT TC from friend Tammie asking for gas cards to help cover the cost of others bring Jeffrey in for his tratments. Tammie indicate she has found people for will provide transportation either to be paid or in gas cards at the cost of $50 to $100 a trip. Explained we will not cover the cost of all of his travel and PHOTOCOMPOSITION KEYBOARD OPERATOR will leave 2/$50 gas cards from the [facility] for Jeffrey for when he comes in later this afternoon. Again suggested he reach out to the [facility] Cancer Survivor group as they assist with gas cards. EVIE Haynes at his PCP office to notify her what PHOTOCOMPOSITION KEYBOARD OPERATOR is helping with. Care Coordination Transportation resources [facility] Resource documented in this encounter Plan of Treatment Upcoming Encounters Date Type Department Care Team (Late st Contact Info) Description 03/11/2024 12:30 PM EDT Office Visit Hematology/Oncology at [address] [phone] Lennox Spivey MD [facility] DR HEMATOLOGY [place] [address] 03/11/2024 1:00 PM EDT Scheduled View Only Hematology/Oncology at [address] [phone] Trupti Bray RN 03/11/2024 1:00 PM EDT Infusion Hematology Oncology at [address] [phone] 03/25/2024 10:00 AM EDT Office Visit Hematology/Oncology at [address] [phone] Lennox Spivey MD [facility] DR HEMATOLOGY [place] [address] Bushra Muniz APRN [address] [place] [address] [place] [address] 03/25/2024 10:30 AM EDT Scheduled View Only Hematology/Oncology at [address] [phone] Trupti Bray RN 03/25/2024 10:30 AM EDT Infusion Hematology Oncology at [address] [phone] documented as of this encounter Visit Diagnoses Not on filedocumented in this encounter Care Teams Associate Publisher Relationship Specialty Start Date End Date Rayo Riley MD [address] [place] [address] PCP - General 06/22/10 01/10/24 documented as of this encounter
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
--- OUTSIDE RECORDS SUMMARY | 2024-03-11 03:20 | XMS_ITS | Encounter Summary ---
Author Organization [facility] Address [facility] Vincent [place] [address] Care Team Providers Care Capacity Analyst Name Role Phone Karl Quiroz MD Primary Care Provider [phone] Encounter Details Date Type Department Care Team (Latest Contact Info) Description 01/15/2024 Unscheduled Encounter Hematology/Oncology at [address] [phone] [facility] DR HEMATOLOGY [place] [address] Stage 4 lung cancer, left Social History Tobacco Use Types Packs/Day Years Used Date Smoking Tobacco: Former Cigarettes 0.3 57 Smokeless Tobacco: Never Comments:Quit 11/2023 Alcohol Use Standard Drinks/Week Comments Yes 7 (1 standard drink = 0.6 oz pure alcohol) 4oz rum with coke daily- varies [facility] Utilities Answer Date Recorded In [...] place to sleep or slept in a fdc (including now)? No 12/13/2023 Housing Stability Vital [...] in the past 12 m [facility], were you homeless or living in a fdc (including now)? No 12/21/2023 IPV Inpatient Questions [...] Progress Notes * Rachel Frost, RD - 01/15/2024 12:07 PM EDT [facility] Initial Assessment Patient Name: Jeffrey Lovelace Diagnosis: poorly differentiated metastatic lung cancer. 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 taking narcotic pain medications, using miralax, plans to increase this. Poor appetite/early satiety: has always eaten just one meal/day but fills up quickly with this. Alcohol: Daily intake, would not reveal amount. Pain: Extended release morphine and prn oxycodone. Not wanting palliative care referral at this time. Palliative RT for chest wall sites. Current smoker 12/13/2023 12/21/2023 Food Insecurity Screening Within the past 12 months, you worried that your food would run out before you got the money to buymore. Never true Never true Within the past 12 months, the food you bought just didn't last and you didn't have money to get more. Never true Wt Readings from Last 10 Encounters: 01/15/24 92.4 kg (203 lb 9.6 oz) 01/10/24 92.4 kg (203 lb 9.6 oz) 12/27/23 93.4 kg (205 lb 12.8 oz) 12/21/23 93.3 kg (205 lb 11 oz) 12/13/23 96.1 kg (211 lb 12.8 oz) 12/05/23 95.9 kg (211 lb 6.7 oz) 11/23/23 97.8 kg (215 lb 9.6 oz) 11/21/23 98.1 kg (216 lb 4.3 oz) 11/15/23 98.9 kg (218 lb) BMI 31.58 UBW: 215# 8# loss in past month 12/12-01/14 (3.9% body weight) - not significant 15# loss in past two months 11/14-01/14 (6.6% body weight) - not significant Social: and , lives in [place], [place] PMH: depression, DM2, GERD, HTN, HLD Medications: oxycodone prn, MS contin, compazine prn, tylenol, colace, senokot, miralax, advil, MVI, Mg-Ox, lipirot, losartan, prozac, omeprazole, aspirin Treatment: Completed palliative RT today. Plan to begin therapy with carbo/abraxane/ipi/nivo on Monday with labs prior Labs on 12/20: Na 141, K 4.6, BUN 27H, Creat 1.31, WBC 11.6H, Hgb 14.1, AST 23, ALT 22, AlkPhos 150,Tbili 0.3 Diet History: Patient reports his appetite is poor, also limited by early satiety which is likely due to constipation. He ate 1/2 hamburger and a serving of ice cream yesterday. He eats one meal daily between 4-6 pm. He recently added in [employer] version of Ensure, now drinking3-4 bottles/day of this. Patient drinks alcohol daily, did not want to reveal amount today. He also drinks water. Nutrition Intervention: Encouraged patient to try to consume more small, frequent meals every 2-3 hours. Reviewed sources of protein to include. Encouraged including/increasing fats for more calories to prevent further weight loss. Provided 24 samples of Ensure Plus and Ensure Complete. Discussed limiting these to 1-2 bottles/day and hopefully increasing solid food intake. Constipation: suspect that this is partly cause for early satiety/poor appetite. He says he plans to increase bowel meds (taking Miralax) in order to have BM more regularly. Monitoring and Evaluation: Will follow up with patient on 02/04 to re-evaluate. I have provided him with my card and contact information should he have any questions in the meantime. Thank you for this consult. Rachel Frost RD documented in this encounter Plan of Treatment Upcoming Encounters Date Type Department Care Team (Late st Contact Info) Description 03/11/2024 12:30 PM EDT Office Visit Hematology/Oncology at [address] [phone] Lennox Spivey MD [facility] HEMATOLOGY [place] [address] 03/11/2024 1:00 PM EDT Scheduled View Only Hematology/Oncology at [address] [phone] Trupti Bray RN 03/11/2024 1:00 PM EDT Infusion Hematology Oncology at [address] [phone] 03/25/2024 10:00 AM EDT Office Visit Hematology/Oncology at [address] [phone] Lennox Spivey MD [facility] DR HEMATOLOGY [place] [address] Bushra Muniz APRN [address] [place] [address] DR HEMATOLOGY AND ONCOLOGY [place], [place] [address] 03/25/2024 10:30 AM EDT Scheduled View Only Hematology/Oncology at [address] [phone] Trupti Bray RN 03/25/2024 10:30 AM EDT Infusion Hematology Oncology at [address] [phone] documented as of this encounter Visit Diagnoses Diagnosis Stage 4 lung cancer, left Stage 4 lung cancer, left Secondary malignant neoplasm of pleura documented in this encounter Care Teams Capacity Analyst Relationship Specialty Start Date End Date Karl Quiroz MD [address] [place] [phone] PCP - General Family Medicine 01/11/24 documented as of this encounter
--- OUTSIDE RECORDS SUMMARY | 2024-03-11 03:20 | XMS_ITS | Encounter Summary ---
Author Organization [facility] Address [facility] [place] [address] Care Team Providers Care Mental Health Program Specialist Name Role Phone Rayo Riley MD Primary Care Provider [phone] Encounter Details Date Type Department Care Team (Late st Contact Info) Description 12/27/2023 9:00 AM EDT Ancillary Procedure Radiation Oncology at [address] [phone] Beto Braswell MD [facility] [place] [address] Social History Tobacco Use Types Packs/Day Years Used Date Smoking Tobacco: Former Cigarettes 0.3 57 Smokeless Tobacco: Never Comments:Quit 11/2023 Alcohol Use Standard Drinks/Week Comments Yes 7 (1 standard drink = 0.6 oz pure alcohol) 4oz rum with coke daily- varies [facility] Utilities Answer Date Recorded In the [...] any time in the past 12 m [facility], were you homeless or living in [...] 12:30 PM EDT Office Visit Hematology/Oncology at [address] [phone] Lennox Spivey MD [facility] DR HEMATOLOGY [place] [address] 03/11/2024 1:00 PM EDT Scheduled View Only Hematology/Oncology at [address] [phone] Trupti Bray RN 03/11/2024 1:00 PM EDT Infusion Hematology Oncology at [address] [phone] 03/25/2024 10:00 AM EDT Office Visit Hematology/Oncology at [address] [phone] Lennox Spivey MD [facility] DR HEMATOLOGY [place] [address] Bushra Muniz ENDODONTIST [address] [place] [address] DR HEMATOLOGY AND ONCOLOGY [place], [place] [phone] 03/25/2024 10:30 AM EDT Scheduled View Only Hematology/Oncology at [address] [phone] Trupti Bray RN 03/25/2024 10:30 AM EDT Infusion Hematology Oncology at [address] [phone] Pending Results Name Type Priority Associated Diagnoses Date /Time Film Library Radiation Oncology Studies Imaging Storage Only Routine 12/27/2023 9:57 AM EDT documented as of this encounter Visit Diagnoses Not on filedocumented in this encounter Administered Medications Inactive Administered Medications - up to 3 most recent administrations Medication Order MAR Action Action Date Dose Rate Site iohexoL (Omnipaque) (300 mg/mL) solution 100 mL 100 mL, Intravenous, ONCE PRN, 1 dose, Starting on Mon12/27/23 at 0850, Until Mon12/27/23 at 0938, Per Protocol, Warning Vesicant/Irritant Medication , Routine Given 12/27/2023 9:38 AM EDT 100 mLs documented in this encounter Care Teams Mental Health Program Specialist Relationship Specialty Start Date End Date Ryao Riley MD [address] [place] [address] [address] [place] [address] PCP - General 06/22/10 01/10/24 documented as of this encounter
--- OUTSIDE RECORDS SUMMARY | 2024-03-11 03:20 | XMS_ITS | Encounter Summary ---
Author Organization [facility] Address [facility] [place] [address] Care Team Providers Care Soft Iron Inspector Name Role Phone Karl Quiroz MD Primary Care Provider Encounter Details Date Type Department Care Team (Late st Contact Info) Description 01/22/2024 8:00 AM EDT Office Visit Hematology/Oncology at [address] [phone] Lennox Spivey MD [facility] DR [place] [address] Bushra Muniz, JAIL OFFICER [address] [place] [address] DR HEMATOLOGY AND ONCOLOGY [place], [place] [phone] Stage 4 lung cancer, left; Dehydration Social History Tobacco Use Types Packs/Day Years Used Date Smoking Tobacco: Former Cigarettes 0.3 57 Smokeless Tobacco: Never Comments:Quit 11/2023 Alcohol Use Standard Drinks/Week Comments Yes 7 (1 standard drink = 0.6 oz pure alcohol) 4oz rum with coke daily- varies [facility] Utilities Answer Date Recorded In the [...] place to sleep or slept in a retirement (including now)? No 12/13/2023 Housing Stability Vital Sign Answer Renzo e Recorded In the last 12 months, was t here a time when you were not able to pay the mortgage or rent on time? No 12/21/2023 In the past 12 months, how m any times have you moved where you were living? 0 12/21/2023 At any time in the past 12 m [facility], were you homeless or living in a retirement (including now)? No 12/21/2023 IPV Inpatient Questions [...] Sign Reading Time Taken Comments Blood Pressure 128/81 01/22/2024 8:09 AM EDT Pulse 117 01/22/2024 8:09 AM EDT Temperature 36.3 ??C (97.3 ??F) 01/22/2024 8:09 AM ED T Respiratory Rate 18 01/22/2024 8:09 AM EDT Oxygen Saturation 95% 01/22/2024 8:09 AM EDT Inhaled Oxygen Concentration - - Weight 87.5 kg (193 lb) 01/22/2024 8:09 AM EDT Height 171 cm (5' 7.32) 01/22/2024 8:09 AM EDT Body Mass Index 29.94 01/22/2024 8:09 AM EDT documented in this encounter Progress Notes * Bushra Muniz APRN - 01/22/2024 8:00 AM EDT Images from the original note were not included. Thoracic Oncology [facility] [place] [address] [phone] Jeffrey Lovelace is being seen for the [...] and systemic treatment began on 01/14. - Labs and toxicities assessed and acceptable for ongoing treatment. He will receive all four drugsthrough cycle 1 (08/07/), and then have a restaging scan. -Complete staging with a CT scan with contrast of the head given that he cannot have an MRI due to hardware. Ordered but not yet scheduled - Will ask RD to continue to follow him, he will also try to push calories at home, and switch out some coffee for more hydrating liquids. # Cancer related pain -Recommended involvement of local palliative care at [place] though he is hesitant to pursue thisright now -Palliative radiation to chest wall sites completed - Controlled on extended release morphine 15mg BID and oxycodone PRN for breakthrough. Bushra Muniz, JAIL OFFICER 01/22/2024 Thoracic Oncology [facility] CC: Karl Quiroz MD HPI/Interval History/Subjective: Last seen 01/10/24 Weight is significantly down today, after just one dose of therapy. No appetite. No vomiting, no nausea, no diarrhea. He has not forced himself to eat. Primarily drinking coffee, not much water. Having some constipation, but thinks it's because he's not eating much. He passing gas. He is having some new pain to his L lower posterior thorax, thinks this is an increased area of hisprevious pain. He does think the pain is maybe slightly less intense than before radiation, but it's hard to tell. Breathing is about the same. Significant fatigue. Discussed that he's still within that window of radiation ending where people can feel additional fatigue. Long acting morphine has been helpful, still [...] Home situation: and . Lives in [facility]. Two children - one passe away from suicide Gerry would be his deciosn maker and support. Lives in [place]. 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 Previously worked in proximity to [employer]. In his 20s Tobacco use: 50+ pk [...] Present: no Utilities: Not At Risk (12/13/2023) [facility] Utilities Threatened with loss of utilities: [...] The assay was performed according to the program director's instructions using Anti-PD-L1 (22C3, pharmDX) antibody. Electronically signed by: Vu Vidal MD Verified: 12/19/2023 16:50 Pathologist Performed at: -[facility] Dept. of Pathology, [place] [address] [employer] Specialist: Omar White MD, FCAP, CLIA Certificate: [id number] Surgical Pathology DIAGNOSIS A - left chest soft tissue mass, excision: - Poorly differentiated carcinoma, see discussion. - Specimen margin negative for carcinoma. B - Superior medial margin, excision: - Fibroadipose tissue, negative for carcinoma. C - inferior medial margin, excision: - Fibroadipose tissue, negative for carcinoma. Electronically signed by: Eleuterio Obando MD Verified: 12/13/2023 10:42 Pathologist Performed at: -[facility] Dept. of Pathology, [place] [address] [employer] Integration Specialist: Omar White MD, FCAP, CLIA Certificate: [id number] DISCUSSION The clinical impression of a chest [...] Focal positive p63 Focal positive CKAE1/3 Positive AXFUM018 Positive TTF1 Negative PAX8 Negative CD5 Background T cells CD1a Rare, scattered cells CD117 Negative Chromogranin Negative Synaptophysin Negative CD56 Patchy positive NUT Negative CD34 Negative in lesional cells Gata3 Negative(scattered background/nonspecific) CDX2 Negative NKX3.1 Negative OCT3/4 Negative SOX10 Negative HMB45 Negative MelanA Negative s100 Negative in lesional cells INI1 Retained (positive) Molecular Data: Treatment Course: 01/15/24 C1D1 carbo/abraxane/ipi/nivo 01/15/2024 1:05 PM 01/15/2024 1:42 PM 01/15/2024 2:12 PM 01/15/2024 2:53 PM ONCBCN ONCOLOGY (AMB) Day, Cycle Day 1, Cycle 1 CARBOplatin (Paraplatin) IV 551 mg ipilimumab (Yervoy) IV 1 mg/kg/dose = 100 mg nivolumab (Opdivo) IV 360 mg PACLitaxeL-protein bound (Abraxane) IV 100 mg/m2/dose = 200 mg Patient Active [...] Exam: Wt Readings from Last 3 Encounters: 01/22/24 87.5 kg (193 lb) 01/15/24 92.4 kg (203 lb 9.6 oz) 01/10/24 92.4 kg (203 lb 9.6 oz) Temp Readings from Last 3 Encounters: 01/22/24 36.3 ??C (97.3 ??F) (Temporal) 01/15/24 36.2 ??C (97.1 ??F) (Temporal) 01/10/24 36.4 ??C (97.5 ??F) (Temporal) BP Readings from Last 3 Encounters: 01/22/24 128/81 01/15/24 94/49 01/10/24 121/44 Pulse Readings from Last 3 Encounters: 01/22/24 (!) 117 01/15/24 99 01/10/24 95 Body surface area is 2.04 meters squared. Wt Readings from Last 3 Encounters: 01/22/24 87.5 kg (193 lb) 01/15/24 92.4 kg (203 lb 9.6 oz) 01/10/24 92.4 kg (203 lb 9.6 oz) KPS [...] Thought content normal. Review of Laboratory Data: 01.22.24 WBC 7.13, H/H 12.3/37.8, plt 285,000, ANC [...] 12:30 PM EDT Office Visit Hematology/Oncology at [address] [phone] Lennox Spivey MD [facility] DR [place] [address] 03/11/2024 1:00 PM EDT Scheduled View Only Hematology/Oncology at [address] [phone] Trupti Bray RN 03/11/2024 1:00 PM EDT Infusion Hematology Oncology at [address] [phone] 03/25/2024 10:00 AM EDT Office Visit Hematology/Oncology at [address] [phone] Lennox Spivey MD [facility] [place] [address] Bushra Muniz [address] HEMATOLOGY AND ONCOLOGY [place], [place] [phone] 03/25/2024 10:30 AM EDT Scheduled View Only Hematology/Oncology at [address] [phone] Trupti Bray RN 03/25/2024 10:30 AM EDT Infusion Hematology Oncology at [address] [phone] documented as of this encounter Visit Diagnoses Diagnosis Stage 4 lung cancer, left Dehydration Stage 4 lung cancer, left Secondary malignant neoplasm of pleura documented in this encounter Care Teams Soft Iron Inspector Relationship Specialty Start Date End Date Karl Quiroz MD [address] [place] [phone] PCP - General Family Medicine 01/11/24 documented as of this encounter
--- OUTSIDE RECORDS SUMMARY | 2024-03-11 03:20 | XMS_ITS | Encounter Summary ---
Author Organization [facility] Address [facility] [place] [address] Care Team Providers Care Epic Ambulatory Analysts Name Role Phone Karl Quiroz MD Primary Care Provider [phone] Reason for Visit * Reason Comments Chemotherapy C1D1 - Nivolumab/ipi limumab/paclitaxel- albumin bound/carboplatin * Treatment/Therapy Plan Authorization (Routine) - Authorized [...] [id number] PACLitaxeL-protein bound (Abraxane) Lennox Spivey MD [facility] DR [place]AT[place] [address] Stj Hem Onc Infusion [address] [place] [phone] Referral ID Status Reason Start Date Expiration Date V isits Requested Visits Authorized [id number] Authorized 12/26/2023 12/25/2024 99 102 Encounter Details Date Type Department Care Team (Late st Contact Info) Description 01/15/2024 11:30 AM EDT Infusion Hematology Oncology at [address] [phone] High risk medication use; Secondary malignant neoplasm of pleura; Stage 4 lung cancer, left Social History Tobacco Use Types Packs/Day Years Used Date Smoking Tobacco: Former Cigarettes 0.3 57 Smokeless Tobacco: Never Comments:Quit 11/2023 Alcohol Use Standard Drinks/Week Comments Yes 7 (1 standard drink = 0.6 oz pure alcohol) 4oz rum with coke daily- varies [facility] Utilities Answer Date Recorded In the [...] place to sleep or slept in a assisted (including now)? No 12/13/2023 Housing Stability Vital Sign Answer Renzo e Recorded In the last 12 months, was t here a time when you were not able to pay the mortgage or rent on time? No 12/21/2023 In the past 12 months, how m any times have you moved where you were living? 0 12/21/2023 At any time in the past 12 m [facility], were you homeless or living in a assisted (including now)? No 12/21/2023 DH IPV Inpatient Questions Answer Date Recorded Does Anyone Try to Keep You From Having Contact with Others or Doing Things Outside Your Home? no 11/22/2023 Feels Threatened by Someone no 2 10/2023 Feels Unsafe at Home or Work/School no 11/22/2023 Physical Signs of Abuse Present no 11/22/2023 Sex and Gender Information Value Date Recorded Sex Assigned at Not on file Gender Identity Not on file Sexual Orientation Not on file documented as of this encounter Last Filed Vital Signs Vital Sign Reading Time Taken Comments Blood Pressure 94/49 01/15/2024 11:29 AM EDT Pulse 99 01/15/2024 11:29 AM EDT Temperature 36.2 ??C (97.1 ??F) 01/15/2024 11:29 AM E DT Respiratory Rate 18 01/15/2024 11:29 AM EDT Oxygen Saturation 87% 01/15/2024 11:29 AM EDT Inhaled Oxygen Concentration - - Weight 92.4 kg (203 lb 9.6 oz) 01/15/2024 11:29 AM EDT Height 171 cm (5' 7.32) 01/15/2024 11:29 AM EDT Body Mass Index 31.58 01/15/2024 11:29 AM EDT documented in this encounter Progress Notes * Florida Ureña RN - 01/15/2024 11:30 AM EDT INFUSION THERAPY ADMINISTRATION NOTES DIAGNOSIS: Poorly differentiated small cell lung cancer CYCLE #: C1, D1 REASON FOR VISIT: to receive immunotherapy and chemotherapy SUBJECTIVE Jeffrey is fatigued. He states he has pain, but brought his pain medication with him today. OBJECTIVE LAB DATA: Completed at [facility] today, 01/14. Adequate for treatment. IV ACCESS: Port. Pre administration: Chemotherapy orders independently verified for drug name, route, and dosage per patient's height, weight and BSA by Florida Ureña, SUZY & staff pharmacist(s) REACTIONS (DESCRIPTION, TIME, INTERVENTION AND EFFECTIVENESS) none ASSESSMENT Provided with chemotherapy information folder with magnet. Jeffrey was resistant to education - stating he will look at it when he gets home. He is aware of our phone number and the on-call phone number. Jeffrey was awake, alert and tolerated treatment well. PLAN Return to clinic per routine. documented in this encounter Plan of Treatment Upcoming Encounters Date Type Department Care Team (Late st Contact Info) Description 03/11/2024 12:30 PM EDT Office Visit Hematology/Oncology at [address] [phone] Lennox Spivey MD [facility] DR HEMATOLOGY [place] [address] 03/11/2024 1:00 PM EDT Scheduled View Only Hematology/Oncology at [address] [phone] Trupti Bray RN 03/11/2024 1:00 PM EDT Infusion Hematology Oncology at [address] [phone] 03/25/2024 10:00 AM EDT Office Visit Hematology/Oncology at [address] [phone] Lennox Spivey MD [facility] DR HEMATOLOGY [place] [address] Bushra Muniz [address] [place] [address] 03/25/2024 10:30 AM EDT Scheduled View Only Hematology/Oncology at [address] [phone] Trupti Bray RN 03/25/2024 10:30 AM EDT Infusion Hematology Oncology at [address] [phone] documented as of this encounter Visit Diagnoses [...] over 2 Minutes, ONCE, 1 dose, On Mon01/15/24 at 1230, Alternative administration of IV push over 2 minutes is a recommendation from the fulfillment coordinator. Administer prior to chemotherapy., Routine Given 01/15/2024 12:27 PM EDT 130 mg CARBOplatin (Paraplatin) 551 mg in dextrose 5% 305.1 mL infusion 551 mg (Target AUC = 5), Intravenous, ONCE, 1 dose, On Mon01/15/24 at 1500, Administer over 30 Minutes, Warning Vesicant/Irritant Medication New Bag 01/15/2024 2:53 PM EDT 551 mg 610.2 mL/hr dexAMETHasone (Decadron) tablet 10 mg 10 mg, Oral, ONCE, 1 dose, On Mon01/15/24 at 1230, Administer prior to chemotherapy, Routine Given 01/15/2024 12:27 PM EDT 10 mg ipilimumab (Yervoy) 100 mg in sodium chloride 0.9% 70 mL infusion 100 mg (rounded from 92.4 mg = 1 mg/kg/dose ? 92.4 kg Treatment plan Recorded weight), Intravenous, ONCE, 1 dose, On Mon01/15/24 at 1400, Administer over 30 Minutes, Final concentration between 1-2 mg/mL. Flush line with NS after each dose. , This agent is restricted to outpatient use. Is this drug being given as an outpatient? Yes Given 01/15/2024 1:42 PM EDT 100 mg 140 mL/hr nivolumab (Opdivo) 360 mg in sodium chloride 0.9% 136 mL infusion 360 mg, Intravenous, ONCE, 1 dose, On Mon01/15/24 at 1330, Administer over 30 Minutes, Flush line with NS after each dose, This agent is restricted to outpatient use. Is this drug being given as an outpatient? Yes New Bag 01/15/2024 1:05 PM EDT 360 mg 272 mL/hr PACLitaxeL-protein bound (Abraxane) injection 200 mg 200 mg (rounded from 209 mg = 100 mg/m2/dose ? 2.09 m2 Treatment Plan BSA from Recorded weight), Intravenous, ONCE, 1 dose, On Mon01/15/24 at 1430, Administer over 30 Minutes New Bag 01/15/2024 2:12 PM EDT 200 mg 80 mL/hr palonosetron (Aloxi) (0.05 mg/mL) injection 0.25 mg 0.25 mg, Intravenous, ONCE, 1 dose, On Mon01/15/24 at 1230, Administer over 30 seconds. Administer prior to chemotherapy., Routine Given 01/15/2024 12:27 PM EDT 0.25 mg sodium chloride 0.9 % (flush) (BD PosiFlush Normal Saline 0.9) flush 5-20 mL 5-20 mL, Intravenous, EVERY 1 MIN PRN, Starting on Mon01/15/24 at 1206, Until Mon01/15/24 at 1736, Line Care, Flush pertains to all indwelling lines. Flush per protocol found in the job aid using the link provided on this medication record. Refer to Intravenous (IV) Job Aid: Adult Flushing & Catheter Care (4446) job aid for additional information regarding guidelines and administration., Routine Given 01/15/2024 3:30 PM EDT 20 mLs documented in this encounter Care Teams Epic Ambulatory Analysts Relationship Specialty Start Date End Date Karl Quiroz MD [address] [place] [phone] PCP - General Family Medicine 01/11/24 documented as of this encounter
--- OUTSIDE RECORDS SUMMARY | 2024-03-11 03:20 | XMS_ITS | Encounter Summary ---
Author Organization [facility] Address [facility] [place] [address] Care Team Providers Care Heel Shaper Name Role Phone Rayo Riley MD Primary Care Provider [phone] Encounter Details Date Type Department Care Team (Late st Contact Info) Description 01/10/2024 4:30 PM EDT Office Visit Radiation Oncology at [address] [phone] Beto Braswell MD [facility] [place] [address] Non-small cell lung cancer, left Social History Tobacco Use Types Packs/Day Years Used Date Smoking Tobacco: Former Cigarettes 0.3 57 Smokeless Tobacco: Never Comments:Quit 11/2023 Alcohol Use Standard Drinks/Week Comments Yes 7 (1 standard drink = 0.6 oz pure alcohol) 4oz rum with coke daily- varies [facility] Utilities Answer Date Recorded In the past [...] as of this encounter Progress Notes * Pratibha Fu MD - 01/10/2024 4:30 PM EDT Images from the original note were not included. [facility] Medicine Radiation Oncology Radiation Oncology On-treatment Visit Patient Identity: Patient name: Jeffrey Lovelace Date of : 1955 Chief complaint: Stage IV NSCLC with extensive pleural and soft tissue involvement Oncologic History: Jeffrey Lovelace is a 68 y.o. male current smoker (~ 57 PY) with PMHx of asbestos exposure, COPD,depression, DM2, GERD, HTN, HLD, inguinal hernia, umbilical hernia. He presented in May 2023 to [facility] with dyspnea and was found to have a left pleural effusion. A chest tube was placed; cytology was negative. He was treated for pneumonia, and a the tube was removed with improvement in symptoms. He subsequently presented to his PCP at [facility] with increasing chest pain and a mass at the site of his prior chest tube. CT chest as noted below, revealing a left chest wall mass and pleural-based nodularity. PET-CT revealed FDG-avid pleural nodularity, a left anterolateral chest wall mass at the site of his prior left chest tube track, and pericardiac and left cardiophrenic сергей metastases. FNA revealed a poorly differentiated carcinoma, with mesothelioma in the differential. He then underwent a surgical chest biopsy to obtain more detailed pathology. Staging & Therapy CT Chest no contrast 08/23/23: PET-CT 10/13/23: IMPRESSION 1. Multiple areas of FDG avid left pleural-based nodularity with central necrosis, highly suspicious for mesothelioma versus pleural metastases. 2. Enlarging left anterolateral chest wall centrally necrotic mass/metastasis, at site of a previous left chest tube track. 3. Pericardiac and left cardiophrenic сергей metastases. 4. No FDG avid subdiaphragmatic metastases identified. FNA with US guidance of left chest wall 11/15/23: -Path: Malignant cells present, favor poorly differentiated carcinoma (see note). Note: The lesional cells are reactive for MOC31 (strong); they are negative for TTF1, monoclonal CEA, calretinin. Rare cells are positive for p40. Lesional cells show focal weak/blush staining for WT-1 (interpreted as equivocal ). The findings favor a poorly differentiated carcinoma; however, the possibility of mesothelioma cannot be excluded. Left chest wall mass excision 11/22/23: -Findings: Left chest wall soft tissue mass approximately 6 cm in size, minimally fixed to the chest wall. Ability to completely resect the mass and closed the skin primarily with negative gross margins. -Path: A - left chest soft tissue mass, excision: - Poorly differentiated carcinoma, see discussion. - Specimen margin negative for carcinoma. B - Superior medial margin, excision: - Fibroadipose tissue, negative for carcinoma. C - inferior medial margin, excision: - Fibroadipose tissue, negative for carcinoma. DISCUSSION The clinical impression of a chest [...] testing can be performed upon clinical request. Treatment: Intent: Palliative Site: Lung, Left Prescription: 20 Gy in 5 treatments Frequency: Once daily Technique: 3DCRT Concurrent chemotherapy: None Treatment Plan Images: Treatment Progress: 20 Gy / 5 fractions Setup films checked and approved. Clinical Course: Interval History: Symptoms Intervention Pain Intense pain associated with left upper back. Waxes and wanes, but up to a 10/10 Oxycodone 20 mg QID prn Skin No issues Other No dysphagia/esophagitis, no worsening cough/dyspnea Exam: Vitals Flowsheet Row Office Visit from 01/10/2024 in Hematology/Oncology at [facility] Weight 92.4 kg (203 lb 9.6 oz) Height 172.7 cm (5' 7.99) BSA (Calculated - sq m) 2.1 sq meters BMI (Calculated) 30.96 Temp 36.4 ??C (97.5 ??F) Temp src Temporal Heart Rate 95 Heart Rate Source SaO2 Resp 16 BP 121/44 BP Location Left arm Patient Position Sitting SpO2 95 % SKIN: no skin erythema Performance Status: KPS 50-60% ECOG 2 Ambulatory and capable of all selfcare but unable to carry out any work activities; up and about more than 50% of waking hours CTCAE TOXICITY GRADES (see below for cage): Site Grade Skin 0 Xerostomia 0 Pharyngeal Mucositis 0 Dysphagia 0 Hoarseness 0 Impression/Plan: Impression: Minimal toxicity. No improvement in pain at this time. Plan for follow-up in 2 weeks. Plan: Completed final treatment today. Pain control: new prescriptions for oxycodone and MS contin sent by Bushra Muniz APRN today Skin: Topical cream prn FU: 2 weeks Pratibha Fu MD Radiation Oncology Resident PGY-2 [facility] Radiation Oncology Attending Statement: I saw the patient with Dr. Fu and agree with the history, physical, assessment, and plan as stated. -Beto Braswell MD, PhD No orders of the defined types were placed in this encounter. CTCAE v5.0 scales for reference Skin 0 1 2 3 4 No change from baseline Faint erythema or dry desquamation Moderate to brisk erythema; patchy moistdesquamation mostly confined to skin folds & creases; moderate edema Moist desquamation in areas other than skin folds and creases; bleeding induced by minor trauma or abrasion Life threatening consequences; skin necrosis or ulceration of full thickness dermis; spontaneous bleeding; skin graft indicated Xerostomia 0 1 2 3 4 No change from baseline Symptomatic (dry or thick saliva) without significant dietary alteration Moderate sx: oral intake alterations (e.g. copious water, diet limited to purees or soft, moist foods)Inability to adequately aliment orally, TPN or PEG indicated NA Pharyngeal Mucositis: 0 1 2 3 4 No change from baseline Minimal symptoms with normal oral intake; mild pain but analgesics not indicated Moderate pain and analgesics indicated; altered oral intake; limiting instrumental ADLs Severe pain, unable to adequately aliment or hydrate orally; limiting self care ADLs Life threatening consequences; urgent intervention indicated Dysphagia 0 1 2 3 4 No change from baseline Symptomatic, able to eat regular diet Symptomatic and altered eating/swallowing Severely altered eating/swallowing; tube feeds, TPN or hospitalization indicated Life threatening consequences; urgent intervention indicated Hoarseness 0 1 2 3 4 No change from baseline Mild or intermittent voice change; fully understandable, self-resolves Moderate or persistent voice change; may require occasional repetition but understandable on telephone; medical evaluation indicated Severe voice change including predominantly whispered speech NA [facility] [place] ([facility]) [facility] [employer] Commission on Cancer (ACS [place]) Accredited Cancer Program [employer] ([employer]) Accredited Radiation Oncology Program documented in this encounter Plan of Treatment Upcoming Encounters Date Type Department Care Team (Late st Contact Info) Description 03/11/2024 12:30 PM EDT Office Visit Hematology/Oncology at [address] [phone] Lennox Spivey MD [facility] DR [place] [address] 03/11/2024 1:00 PM EDT Scheduled View Only Hematology/Oncology at [address] [phone] Trupti Bray RN 03/11/2024 1:00 PM EDT Infusion Hematology Oncology at [address] [phone] 03/25/2024 10:00 AM EDT Office Visit Hematology/Oncology at [address] [phone] Lennox Spivey MD [facility] [place] [address] Bushra Muniz [address] HEMATOLOGY AND ONCOLOGY [place], [place] [phone] 03/25/2024 10:30 AM EDT Scheduled View Only Hematology/Oncology at [address] [phone] Trupti Bray, SUZY 03/25/2024 10:30 AM EDT Infusion Hematology Oncology at [address] [phone] documented as of this encounter Visit Diagnoses Diagnosis Non-small cell lung cancer, left Stage 4 lung cancer, left Secondary malignant neoplasm of pleura documented in this encounter Care Teams Heel Shaper Relationship Specialty Start Date End Date Rayo Riley MD [address] [facility] [address] [place], [place] [id number] PCP - General 11/23/10 6/12/24 documented as of this encounter
--- OUTSIDE RECORDS SUMMARY | 2024-03-11 03:20 | XMS_ITS | Encounter Summary ---
Author Organization [facility] Address [facility] [place] [address] Care Team Providers Care Fire Fighters Dispatcher Name Role Phone Karl Quiroz MD Primary Care Provider [phone] Encounter Details Date Type Department Care Team (Latest Contact Info) Description 01/22/2024 9:30 AM EDT Clinical Support Hematology/Oncology at [address] [phone] [address] [facility] DR [place] [address] Stage 4 lung cancer, left Social History Tobacco Use Types Packs/Day Years Used Date Smoking Tobacco: Former Cigarettes 0.3 57 Smokeless Tobacco: Never Comments:Quit 11/2023 Alcohol Use Standard Drinks/Week Comments Yes 7 (1 standard drink = 0.6 oz pure alcohol) 4oz rum with coke daily- varies [facility] Utilities Answer Date Recorded [...] time in the past 12 m [facility], were you homeless or living in a [...] Progress Notes * Rachel Frost, RD - 01/22/2024 9:30 AM EDT Nutrition Note Spoke with patient during infusion today. Patient started palliative carbo/abraxane/ipi/nivo for poorly differentiated metastatic lung cancer on 01/15/24, after completing palliative RT on 01/10/24. Weight is down a significant 10 pounds in the past week since starting systemic treatment. He reports that his appetite is very low, I just have no desire to eat. Taste is off. He ate two scoops ofice cream yesterday, which was his entire caloric intake for the weekend. He mainly drinks coffee, not much water. He used to do all of his cooking, now has a friend who can help with this. He does not feel nauseous. No diarrhea. Pain is controlled on extended release morphine BID and oxycodone prn for breakthrough. He is having some constipation which he feels is related to not eating much. He is passing gas. Wt Readings from Last 10 Encounters: 01/22/24 87.5 kg (193 lb) 01/15/24 [...] oz) 11/15/23 98.9 kg (218 lb) BMI 29.94 UBW: 215# 10.5# loss in past week since start of treatment 01/14-01/21 (5.3% body weight) - severe 25# loss in past 2 months (11.5% body weight) - severe Diet: only consumed 2 scoops of ice cream over the weekend. Limited by poor appetite and taste changes. Mostly drinks coffee, little water. Did not discuss alcohol intake today. Labs on 01.22.24 WBC 7.13, H/H 12.3/37.8, plt 285,000, ANC 6020, Na 138, K 4.2, Cl 98, CO2 32.6, BUN 41, Creat 1.3, glucose 137, Ca 9.9, Mag 1.8, t bili 0.37, AST 27, ALT 36, alk phos 157, t protein 7.9, albumin 3.0,TSH 2.03, Free T4 1.17 Medications: Oxycodone prn, MS Contin, compazine prn, tylenol, colace, senokot, miralax, advil, MVI, Mg-Ox, lipirot, losartan, prozac, omeprazole, aspirin Nutrition Problem: Involuntary weight loss related to poor appetite, taste changes as evidenced by 25# loss in past 2 months (11.5% body weight) - severe Ongoin.5# loss in past week since start of treatment 01/14-01/21 (5.3% body weight) - severe Recommendations/Interventions: Encouraged trying to increase PO intake to avoid further rapid weight loss. Encouraged trying to eat on a schedule rather than waiting for hunger cues (may need to set alarm on phone as a reminder ofwhen to eat). Encouraged continuing to try different foods/flavors to see what might be appealing. Provided samples of vanilla Ensure Complete and Ensure Plus. He was drinking these last week, but stopped over the weekend. Recommend he resume regular supplementation with protein drinks as well as other hydrating beverages. Will f/u on 02/04. documented in this encounter Plan of Treatment Upcoming Encounters Date Type Department Care Team (Late st Contact Info) Description 03/11/2024 12:30 PM EDT Office Visit Hematology/Oncology at [address] [phone] Lennox Spivey MD [facility] [place] [address] 03/11/2024 1:00 PM EDT Scheduled View Only Hematology/Oncology at [address] [phone] Trupti Bray RN 03/11/2024 1:00 PM EDT Infusion Hematology Oncology at [address] [phone] 03/25/2024 10:00 AM EDT Office Visit Hematology/Oncology at [address] [phone] Lennox Spivey MD [facility] [place] [address] Bushra Muniz APRN [address] [place] [address] DR HEMATOLOGY [place] [address] 03/25/2024 10:30 AM EDT Scheduled View Only Hematology/Oncology at [address] [phone] Trupti Bray RN 03/25/2024 10:30 AM EDT Infusion Hematology Oncology at [address] [phone] documented as of this encounter Visit Diagnoses Diagnosis Stage 4 lung cancer, left Stage 4 lung cancer, left Secondary malignant neoplasm of pleura documented in this encounter Care Teams Fire Fighters Dispatcher Relationship Specialty Start Date End Date Karl Quiroz MD [address] [place] [phone] PCP - General Family Medicine 01/11/24 documented as of this encounter
--- OUTSIDE RECORDS SUMMARY | 2024-03-11 03:20 | XMS_ITS | Encounter Summary ---
Author Organization [facility] Address [facility] [place] [address] Care Team Providers Care Product Trainer Name Role Phone Rayo Riley MD Primary Care Provider [phone] Reason for Visit * Consultation (Routine) - Authorized Specialty Diagnoses / Procedures Referred By Elieser lock Referred To Contact Radiation Oncology Diagnoses Non-small cell lung cancer, left Procedures Simulation for Radiation Therapy Planning Beto Braswell MD [facility] [place] [address] [facility] Rad Onc Office [address] [place] [phone] Referral ID Status Reason Start Date Expiration Date Visits Requested Visits Authorized [id number] Authorized Consult, Test & Treat 12/26/2023 12/25/2024 10 16 Encounter Details Date Type Department Care Team (Latest Contact Info) Description 12/27/2023 9:00 AM EDT Ancillary Appointment Radiation Oncology at [address] [phone] Beto Braswell MD [facility] [place] [address] Non-small cell lung cancer, left Social History Tobacco Use Types Packs/Day Years Used Date Smoking Tobacco: Former Cigarettes 0.3 57 Smokeless Tobacco: Never Comments:Quit 11/2023 Alcohol Use Standard Drinks/Week Comments Yes 7 (1 standard drink = 0.6 oz pure alcohol) 4oz rum with coke daily- varies [facility] Utilities Answer Date Recorded In the past 12 months has th e [employer], gas, oil, or water company threatened to [...] place to sleep or slept in a correction (including now)? No 12/13/2023 Housing Stability Vital Sign Answer Renzo e Recorded In the last 12 months, was t here a time when you were not able to pay the mortgage or rent on time? No 12/21/2023 In the past 12 months, how m any times have you moved where you were living? 0 12/21/2023 At any time in the past 12 m [facility], were you homeless or living in a correction (including now)? No 12/21/2023 DH IPV Inpatient [...] on file documented as of this encounter Patient Instructions * Patient Instructions* Morena Amin RN - 12/27/2023 9:00 AM EDT General instructions for Radiation therapy Radiation Oncology Team Radiation Oncologist -The doctor who will direct all aspects of your radiation treatments Nurse Practitioner - They assist your doctor in treating your side effects and with follow up appointments. Registered Nurse - They carline you in learining about you radaiton treatments, , and things you can do to help manage the side effects. Layout Worker - They take the doctors radiation prescription and customize it into doses (or days of treatments) specific for you. Physicist - They make sure all the machines are operating correctly and double check calculations for your treatment. Radiation Technologists - They operate the machines which deliver your radiation. You see them daily and they schedule your treatments. Simulation CT/ Planning Session- Your first step after deciding to start radiation treatments is done on a special CT scanner in radiation oncolcgy. The images obtained are used to plan your treatments. This may be scheduled the same day you meet your doctor or in a separate visit. This usually takes between 30 minutes to one hour. You may need an IV for contrast. If so our nurse will let you know that day along with any other special instructions. During this visit we may eri Your skin with a tiny ???tattoos?? , take pictures or make special molds or masks to help us place you in the exact treatment position every day. After this session it takes up to two weeks for your plan to be developed and checked by your doctor, the dosimetrists and the physicist. Skin Care - Your nurse/physician will provide you with the necessary creams and supplies as you need them during your treatments. Please make sure to keep the treatment area clean and dry. Be sure to notice if your clothing rubs or digs into the treatment area and try to wear clothes which are less abrasive, like cotton or loose fitting. Do not use harsh soaps, ointments, deodorants or tapes in the treatment area unless directed by your nurse or doctor. Keep the treatment area out of the sun during treatments. General precautions- DO NOT USE heating pads, hot water bottles, hot poultices, heat lamps, heat in any form, or ice packs to the area of your body being treated. It is common to start feeling fatigue after a few weeks of being treated. You can help minimize this by getting regular exercise or walking and getting plenty of rest. In general a well balanced diet is recommended. The hemodialysis patient care specialist and nurse will inform you of any special diet requirements. Avoid shaving the treatment area with a razor. If you must shave use an electric razor. Our Contact numbers Section of Radiation Oncology Our normal business hours are: Monday - Monday: 8:00 AM to 5:[address] [facility]: [facility]: If you have questions about your radiation appointments please ask to speak to one of our secretarystaff. If you have questions for a nurse/doctor about radiation treatments, radiation side effects or you are not feeling well it is best to call early in the day. This allows a nurse to return your call by5 PM the same day. If you call after 4 PM, a nurse will return your call by 5 PM the following day unless it is emergent. If you experience any of the following you need to seek emergency care immediately by calling 911 1. Sudden and unexpected breathing difficulty without any exertion 2. Sudden onset of chest pain 3. Sudden onset of severe pain or uncontrolled pain 4. Sudden onset of severe weakness and/or unable to ambulate 5. Sudden new onset of a seizure 6. Fall resulting in injury A Radiation Oncology doctor is radiation control specialist after our normal hours and on weekends. To call for urgent medical issues from radiation treatments that can not wait until normal businesshours: Call for either location and have the sweatband cutting machine operator page the Radiation Oncologist radiation control specialist. documented in this encounter Plan of Treatment Upcoming Encounters Date Type Department Care Team (Late st Contact Info) Description 03/11/2024 12:30 PM EDT Office Visit Hematology/Oncology at [address] [phone] Lennox Spivey MD [facility] DR HEMATOLOGY [place] [address] 03/11/2024 1:00 PM EDT Scheduled View Only Hematology/Oncology at [address] [phone] Trupti Bray RN 03/11/2024 1:00 PM EDT Infusion Hematology Oncology at [address] [phone] 03/25/2024 10:00 AM EDT Office Visit Hematology/Oncology at [address] [phone] Lennox Spivey MD [facility] DR HEMATOLOGY [place] [address] Bushra Muniz [address] HEMATOLOGY AND ONCOLOGY [place], [place] [phone] 03/25/2024 10:30 AM EDT Scheduled View Only Hematology/Oncology at [address] [phone] Trupti Bray RN 03/25/2024 10:30 AM EDT Infusion Hematology Oncology at [address] [phone] documented as of this encounter Visit Diagnoses Diagnosis Non-small cell lung cancer, left Stage 4 lung cancer, left Secondary malignant neoplasm of pleura documented in this encounter Care Teams Product Trainer Relationship Specialty Start Date End Date Rayo Riley MD [address] [place] [address] [address] [place] [address] PCP - General 06/22/10 01/10/24 documented as of this encounter
--- OUTSIDE RECORDS SUMMARY | 2024-03-11 03:20 | XMS_ITS | Encounter Summary ---
Author Organization [facility] Address [facility] [place] [address] Care Team Providers Care Sheepskin Pickler Name Role Phone Karl Quiroz MD Primary Care Provider [phone] Encounter Details Date Type Department Care Team (Latest Contact Info) Description 01/24/2024 10:30 AM EDT TH Visit (TeleHealth) Radiation Oncology at [address] [phone] Beto Braswell MD [facility] [place] [address] Non-small cell lung cancer, left Social History Tobacco Use Types Packs/Day Years Used Date Smoking Tobacco: Former Cigarettes 0.3 57 Smokeless Tobacco: Never Comments:Quit 11/2023 Alcohol Use Standard Drinks/Week Comments Yes 7 (1 standard drink = 0.6 oz pure alcohol) 4oz rum with coke daily- varies [facility] Utilities Answer Date Recorded In the [...] any time in the past 12 m [facility], were you homeless or living [...] as of this encounter Progress Notes * Beto Braswell MD - 01/24/2024 10:30 AM EDT Images from the original note were not included. [facility] Medicine Radiation Oncology Radiation Oncology Follow Up Visit Patient Identity: Patient name: Jeffrey Lovelace Date of : 1955 Chief complaint: Stage IV NSCLC with extensive pleural and soft tissue involvement Oncologic History: Jeffrey Lovelace is a 68 y.o. male current smoker (~ 57 PY) with PMHx of asbestos exposure, COPD,depression, DM2, GERD, HTN, HLD, inguinal hernia, umbilical hernia. He presented in May 2023 to [facility] with dyspnea and was found to have a left pleural effusion. A chest tube was placed; cytology was negative. He was treated for pneumonia, and a the tube was removed with improvement in symptoms. He subsequently presented to his PCP at [facility] with increasing chest pain and a mass [...] Treatment Progress: 20 Gy / 5 fractions completed on 01/10/24 Clinical Course: Interval History: seen today as a telephone visit Symptoms Intervention Pain Pain is slightly diminished, not dramatically improved, but less intense overall. Oxycodone 20-40 mg QID prn; MS Contin 15 mg BID Skin No issues Other Mild dysphagia/esophagitis, no worsening cough/dyspnea Exam: Performance Status: KPS 50-60% ECOG 2 Ambulatory and capable of all selfcare but unable to carry out any work activities; up and about more than 50% of waking hours CTCAE TOXICITY GRADES (see below for cage): Site Grade Skin 0 Xerostomia 0 Pharyngeal Mucositis 0 Dysphagia 0 Hoarseness 0 Impression/Plan: Impression: Minimal toxicity noted. Mild improvement in pain, but now more tolerable. Plan: Pain control: Continue control as noted above, managed by medical oncology Skin: Topical cream prn FU: prn. He will follow with medical oncology at this time. -Beto Braswell MD, PhD No orders of [...] including predominantly whispered speech NA National Cancer [place] (NCI) Comprehensive Cancer Center [employer] Commission on Cancer (ACS Rubin) Accredited Cancer Program [employer] (ACR) Accredited Radiation Oncology Program documented in this encounter Plan of Treatment Upcoming Encounters Date Type Department Care Team (Late st Contact Info) Description 03/11/2024 12:30 PM EDT Office Visit Hematology/Oncology at [address] [phone] Lennox Spivey MD [facility] DR [place] [address] 03/11/2024 1:00 PM EDT Scheduled View Only Hematology/Oncology at [address] [phone] Trupti Bray RN 03/11/2024 1:00 PM EDT Infusion Hematology Oncology at [address] [phone] 03/25/2024 10:00 AM EDT Office Visit Hematology/Oncology at [address] [phone] Lennox Spivey MD [facility] DR [place] [address] Bushra Muniz APRN [address] [place] [address] DR HEMATOLOGY AND ONCOLOGY [place], [place] [phone] 03/25/2024 10:30 AM EDT Scheduled View Only Hematology/Oncology at [address] [phone] Trupti Bray RN 03/25/2024 10:30 AM EDT Infusion Hematology Oncology at [address] [phone] documented as of this encounter Visit Diagnoses Diagnosis Non-small cell lung cancer, left Stage 4 lung cancer, left Secondary malignant neoplasm of pleura documented in this encounter Care Teams Sheepskin Pickler Relationship Specialty Start Date End Date Karl Quiroz MD [address] [place] [phone] PCP - General Family Medicine 01/11/24 documented as of this encounter
--- OUTSIDE RECORDS SUMMARY | 2024-03-11 03:20 | XMS_ITS | Encounter Summary ---
Author Organization [facility] Address [facility] [place] [address] Care Team Providers Care Electric Sign Wirer Name Role Phone Rayo Riley MD Primary Care Provider [phone] Encounter Details Date Type Department Care Team (Late st Contact Info) Description 01/03/2024 5:15 PM EDT Office Visit Radiation Oncology at [address] [phone] Beto Braswell MD [facility] [place] [address] Non-small cell lung cancer, left Social History Tobacco Use Types Packs/Day Years Used Date Smoking Tobacco: Former Cigarettes 0.3 57 Smokeless Tobacco: Never Comments:Quit 11/2023 Alcohol Use Standard Drinks/Week Comments Yes 7 (1 standard drink = 0.6 oz pure alcohol) 4oz rum with coke daily- varies [facility] Utilities Answer Date Recorded In the past [...] in the past [address] [facility], were you homeless or living [...] Sign Reading Time Taken Comments Blood Pressure 129/50 01/03/2024 5:27 PM EDT Pulse 91 01/03/2024 5:27 PM EDT Temperature 37 ??C (98.6 ??F) 01/03/2024 5:27 PM EDT Respiratory Rate 18 01/03/2024 5:27 PM EDT Oxygen Saturation 95% 01/03/2024 5:27 PM EDT Inhaled Oxygen Concentration - - Weight - - Height - - Body Mass Index - - documented in this encounter Progress Notes * Beto Braswell MD - 01/03/2024 5:15 PM EDT Images from the original note were not included. [facility] Medicine Radiation Oncology Radiation Oncology [...] hernia. He presented in May 2023 to [facility] with dyspnea and was found to have a left pleural effusion. A chest tube was placed; cytology was negative. He was treated for pneumonia, and a the tube was removed with improvement in symptoms. He subsequently presented to his PCP at [facility] with increasing chest pain and a [...] Treatment: Intent: Palliative Site: Lung, Left Prescription: 30 Gy in 10 treatments Frequency: Once daily Technique: 3DCRT Concurrent chemotherapy: None Treatment Plan Images: Treatment Progress: 3 Gy / 1 fraction Setup films checked and approved. Clinical Course: Interval History: Symptoms Intervention Pain Intense pain associated with left upper back. Waxes and wanes, but up to a 10/10 Oxycodone 20 mg QID prn Skin No issues Other Exam: Patient Vitals for the past 24 hrs: Temp Pulse Resp BP SpO2 01/03/24 1727 37 ??C (98.6 ??F) 91 18 129/50 95 % SKIN: no skin erythema Performance Status: KPS 50-60% ECOG 2 Ambulatory and capable of all selfcare but unable to carry out any work activities; up and about more than 50% of waking hours CTCAE TOXICITY GRADES (see below for cage): Site Grade Skin 0 Xerostomia 0 Pharyngeal Mucositis 0 Dysphagia 0 Hoarseness 0 Impression/Plan: Impression: No toxicity, treatment started within the last week. Plan: Continue radiation therapy as planned. Pain control: Asked to increase oxycodone to 30 mg. senior care pain medication was denied, Rx by , I will investigate. Skin: Topical cream prn No orders of the defined types were [...] including predominantly whispered speech NA National Cancer [place] (NCI) Comprehensive Cancer Center [employer] Commission on Cancer (ACS Rubin) Accredited Cancer Program [employer] (ACR) Accredited Radiation Oncology Program documented in this encounter Plan of Treatment Upcoming Encounters Date Type Department Care Team (Late st Contact Info) Description 03/11/2024 12:30 PM EDT Office Visit Hematology/Oncology at [address] [phone] Lennox Spivey MD [facility] DR [place] [address] 03/11/2024 1:00 PM EDT Scheduled View Only Hematology/Oncology at [address] [phone] Trupti Bray RN 03/11/2024 1:00 PM EDT Infusion Hematology Oncology at [address] [phone] 03/25/2024 10:00 AM EDT Office Visit Hematology/Oncology at [address] [phone] Lennox Spivey MD [facility] DR [place] [address] Bushra Muniz [address] HEMATOLOGY AND ONCOLOGY [place], [place] [address] 03/25/2024 10:30 AM EDT Scheduled View Only Hematology/Oncology at [address] [phone] Trupti Bray RN 03/25/2024 10:30 AM EDT Infusion Hematology Oncology at [address] [phone] documented as of this encounter Visit Diagnoses Diagnosis Non-small cell lung cancer, left Stage 4 lung cancer, left Secondary malignant neoplasm of pleura documented in this encounter Care Teams Electric Sign Wirer Relationship Specialty Start Date End Date Rayo Riley MD [address] [place] [address] PCP - General 06/22/10 01/10/24 documented as of this encounter
--- OUTSIDE RECORDS SUMMARY | 2024-03-11 03:20 | XMS_ITS | Encounter Summary ---
Author Organization [facility] Address [facility] [place] [address] Care Team Providers Care Pattern Finisher Name Role Phone Kalr Quiroz MD Primary Care Provider [phone] Reason for Visit * Reason Comments Chemotherapy Cycle 1, Day 8 - Pac litaxel-Protein bound and hydration * Treatment/Therapy Plan Authorization (Routine) - Authorized [...] [facility] DR HEMATOLOGY [place] [address] Stj Hem Onc Infusion [address] [place] [phone] Referral ID Status Reason Start Date Expiration Date V isits Requested Visits Authorized [id number] Authorized 12/26/2023 12/25/2024 99 102 Encounter Details Date Type Department Care Team (Late st Contact Info) Description 01/22/2024 8:30 AM EDT Infusion Hematology Oncology at [address] [phone] High risk medication use; Secondary malignant neoplasm of pleura; Stage 4 lung cancer, left; Dehydration Social [...] place to sleep or slept in a fpc (including now)? No 12/13/2023 Housing Stability Vital Sign Answer Renzo e Recorded In the last 12 months, was t here a time when you were not able to pay the mortgage or rent on time? No 12/21/2023 In the past 12 months, how m any times have you moved where you were living? 0 12/21/2023 At any time in the past 12 m [facility], were you homeless or living in a fpc (including now)? No 12/21/2023 DH IPV Inpatient [...] Progress Notes * Cecilia Ochoa RN - 01/22/2024 8:30 AM EDT INFUSION THERAPY ADMINISTRATION NOTES DIAGNOSIS: Stage IV SCLC CYCLE #: Cycle 1, Day 8 - Paclitaxel Protein-bound and hydration. REASON FOR VISIT: To receive chemotherapy. SUBJECTIVE: Jeffrey is fatigued but stated his first week was okay. OBJECTIVE: Seen by provider. Ready to treat. LAB DATA: WBC - 7.13, H/H - 12.3/37.8, Plt Ct - 285, ANC - 6.02, Lytes wnl, BUN/Cr - 41/1.3, MG++ -1.8. IV ACCESS: Port accessed off site. Flushes [...] 12:30 PM EDT Office Visit Hematology/Oncology at [address] [phone] Lennox Spivey MD [facility] DR HEMATOLOGY [place] [address] 03/11/2024 1:00 PM EDT Scheduled View Only Hematology/Oncology at [address] [phone] Trupti Bray RN 03/11/2024 1:00 PM EDT Infusion Hematology Oncology at [address] [phone] 03/25/2024 10:00 AM EDT Office Visit Hematology/Oncology at [address] [phone] Lennox Spivey MD [facility] DR HEMATOLOGY [place] [address] Bushra Muniz APRN [address] [place] [address] DR HEMATOLOGY AND ONCOLOGY [place], [place] [phone] 03/25/2024 10:30 AM EDT Scheduled View Only Hematology/Oncology at [address] [phone] Trupti Bray RN 03/25/2024 10:30 AM EDT Infusion Hematology Oncology at [address] [phone] documented as of this encounter Visit Diagnoses Diagnosis High risk medication use Encounter for long-term (current) use of other medications 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 2.09 m2 Treatment Plan BSA from Recorded weight), Intravenous, ONCE, 1 dose, On Mon01/22/24 at 1045, Administer over 30 Minutes New Bag 01/22/2024 10:16 AM EDT 200 mg 80 mL/hr sodium chloride 0.9 % (flush) (BD PosiFlush Normal Saline 0.9) flush 5-20 mL 5-20 mL, Intravenous, EVERY 1 MIN PRN, Starting on Mon01/22/24 at 0916, Until Mon01/22/24 at 1323, Line Care, Flush pertains to all indwelling lines. Flush per protocol found in the job aid using the link provided on this medication record. Refer to Intravenous (IV) Job Aid: Adult Flushing & Catheter Care (8367) job aid for additional information regarding guidelines and administration., Routine Given 01/22/2024 10:56 AM EDT 20 mLs sodium chloride 0.9% infusion 500 mL/hr, Intravenous, CONTINUOUS, Starting on Mon01/22/24 at 0945, Until Mon01/22/24 at 1323, Please infuse 1 L of normal saline of 1-2 hours New Bag 01/22/2024 9:15 AM EDT 500 mL/hr 500 mL/hr documented in this encounter Care Teams Pattern Finisher Relationship Specialty Start Date End Date Karl Quiroz MD [address] [place] [phone] PCP - General Family Medicine 01/11/24 documented as of this encounter
--- OUTSIDE RECORDS SUMMARY | 2024-03-11 03:20 | XMS_ITS | Encounter Summary ---
Author Organization Formerly [facility] Address [facility] [place] [address] Care Team Providers Care Manager Rehab Name Role Phone Rayo Riley MD Primary Care Provider [phone] Reason for Visit * Reason Onset Date Comments Prior Authorization 01/04/2024 Molecular ca ncer testing CPT 21951 is a covered benefit. Encounter Details Date Type Department Care Team (Late st Contact Info) Description 01/04/2024 Telephone [place] [address] Lisseth Jurado Prior Authorization (Molecular cancer testing CPT 16304 is a covered benefit. ) Social History Tobacco Use Types Packs/Day Years Used Date Smoking Tobacco: Former Cigarettes 0.3 57 Smokeless Tobacco: Never Comments:Quit 11/2023 Alcohol Use Standard Drinks/Week Comments Yes 7 (1 standard drink = 0.6 oz pure alcohol) 4oz rum with coke daily- varies [facility] Utilities Answer Date Recorded In the [...] any time in the past 12 m [facility], were you homeless or living in a assisted (including now)? No 12/21/2023 IPV Inpatient Questions [...] encounter Miscellaneous Notes * Telephone Encounter - Lisseth Jurado - 01/04/2024 12:51 PM EDTSummary: Molecular cancer testing CPT 47418 is a covered benefit. NO PATIENT ACTION NEEED_VOICEMAIL OR AUTHORIZATION_INFORMATIONAL ONLY Molecular cancer testing: CPT 29272 is a covered benefit: E-mail from Phoebe in [employer] ([id number]) requesting coverage review for CPT 08863 being done on the patient???s lung tissue obtained on 11/22/23. Ordering provider: Dylan Weldon. [facility] is returning the patient's traditional Medicare A&B policy [id number] as active. No secondary policy was found. Per Medicare's website, CPT 80783 is a covered benefit with no authorization needed. Will update Phoebe to let her know of approved coverage. documented in this encounter Plan of Treatment Upcoming Encounters Date Type Department Care Team (Late st Contact Info) Description 03/11/2024 12:30 PM EDT Office Visit Hematology/Oncology at [address] [phone] Lennox Spivey MD [facility] DR HEMATOLOGY [place] [address] 03/11/2024 1:00 PM EDT Scheduled View Only Hematology/Oncology at [address] [phone] Trupti Bray RN 03/11/2024 1:00 PM EDT Infusion Hematology Oncology at [address] [phone] 03/25/2024 10:00 AM EDT Office Visit Hematology/Oncology at [address] [phone] Lennox Spivey MD [facility] DR HEMATOLOGY [place] [address] Bushra Muniz [employer] [address] [place] [address] DR HEMATOLOGY AND ONCOLOGY [place], [place] [id number] 03/25/2024 10:30 AM EDT Scheduled View Only Hematology/Oncology at [address] [phone] Trupti Bray RN 03/25/2024 10:30 AM EDT Infusion Hematology Oncology at [address] [phone] documented as of this encounter Visit Diagnoses Not on filedocumented in this encounter Care Teams Manager Rehab Relationship Specialty Start Date End Date Rayo Riley MD [address] [place] [address] PCP - General 06/22/10 01/10/24 documented as of this encounter
--- OUTSIDE RECORDS SUMMARY | 2024-03-11 03:20 | XMS_ITS | Encounter Summary ---
Author Organization [facility] Address [facility] [place] [address] Care Team Providers Care Balancer Scale Name Role Phone Karl Quiroz MD Primary Care Provider Reason for Visit * Reason Comments IV Medication Encounter Details Date Type Department Care Team ([facility] st Contact Info) Description 02/05/2024 11:30 AM EDT Infusion Hematology Oncology at [address] [phone] Hypotension, unspecified hypotension type Social History Tobacco Use Types Packs/Day Years Used Date Smoking Tobacco: Former Cigarettes 0.3 57 Smokeless Tobacco: Never Comments:Quit 11/2023 Alcohol Use Standard Drinks/Week Comments Yes 7 (1 standard drink = 0.6 oz pure alcohol) 4oz rum with coke daily- varies [facility] Utilities Answer Date Recorded In [...] time in the past 12 m [facility], were you homeless or living in a [...] as of this encounter Progress Notes * Harshal Mccrary, RN - 02/05/2024 11:30 AM EDT INFUSION THERAPY ADMINISTRATION NOTES DIAGNOSIS: Stage IV SCLC No chemo hydration only REASON FOR VISIT: To receive chemotherapy. SUBJECTIVE: Jeffrey is fatigued and states he is not feeling the greatest. OBJECTIVE: Seen by provider. IV ACCESS: Port accessed off site. Flushes readily with brisk blood return. Pre administration: Chemotherapy orders independently verified for drug name, route, and dosage per patient's height, weight and BSA by HARSHAL MCCRARY, RN and Staff Pharmacist(s). REACTIONS (DESCRIPTION, TIME, INTERVENTION AND EFFECTIVENESS) none ASSESSMENT: Jeffrey was awake, alert and tolerated treatment well. Port flushed with 20 cc's of NS and de-accessed. PLAN: Return to clinic in one week. documented in this encounter Plan of Treatment Upcoming Encounters Date Type Department Care Team (Late st Contact Info) Description 03/11/2024 12:30 PM EDT Office Visit Hematology/Oncology at [address] [phone] Lennox Spivey MD [facility] DR HEMATOLOGY [place] [address] 03/11/2024 1:00 PM EDT Scheduled View Only Hematology/Oncology at [address] [phone] Trupti Bray RN 03/11/2024 1:00 PM EDT Infusion Hematology Oncology at [address] [phone] 03/25/2024 10:00 AM EDT Office Visit Hematology/Oncology at [address] [phone] Lennox Spivey MD [facility] DR HEMATOLOGY [place] [address] Bushar Muniz [address] [place] [address] 03/25/2024 10:30 AM EDT Scheduled View Only Hematology/Oncology at [address] [phone] Trupti Bray RN 03/25/2024 10:30 AM EDT Infusion Hematology Oncology at [address] [phone] documented as of this encounter Visit Diagnoses Diagnosis Hypotension, unspecified hypotension type Stage 4 lung cancer, left Secondary malignant neoplasm of pleura documented in this encounter Administered Medications Inactive Administered Medications - up to 3 most recent administrations Medication Order MAR Action Action Date Dose Rate Site sodium chloride 0.9% infusion 500 mL/hr, Intravenous, CONTINUOUS, Starting on Mon02/05/24 at 1200, Until Mon02/05/24 at 1701, Please infuse 1 L of normal saline of 1-2 hours New Bag 02/05/2024 11:37 AM EDT 500 mL/hr 500 mL/hr documented in this encounter Care Teams Balancer Scale Relationship Specialty Start Date End Date Karl Quiroz MD [address] [place] [phone] PCP - General Family Medicine 01/11/24 documented as of this encounter
--- OUTSIDE RECORDS SUMMARY | 2024-03-11 03:20 | XMS_ITS | Encounter Summary ---
Author Organization [facility] Address [facility] [place] [address] Care Team Providers Care Manager Chemistry Name Role Phone Rayo Riley MD Primary Care Provider [phone] Encounter Details Date Type Department Care Team (Late st Contact Info) Description 01/04/2024 Orders Only Hematology and Oncology at [facility] [place] [phone] Lennox Spivey MD [facility] DR HEMATOLOGY [place] [address] Stage 4 lung cancer, left; Neoplasm related pain Social History Tobacco Use Types Packs/Day Years Used Date Smoking Tobacco: Former Cigarettes 0.3 57 Smokeless Tobacco: Never Comments:Quit 11/2023 Alcohol Use Standard Drinks/Week Comments Yes 7 (1 standard drink = 0.6 oz pure alcohol) 4oz rum with coke daily- varies [facility] [place] [facility] Utilities Answer Date Recorded In [...] PM EDT Office Visit Hematology/Oncology at [address] [phone] Lennox Spivey MD [facility] HEMATOLOGY [place] [address] 03/11/2024 1:00 PM EDT Scheduled View Only Hematology/Oncology at [address] [phone] Trupti Bray RN 03/11/2024 1:00 PM EDT Infusion Hematology Oncology at [address] [phone] 03/25/2024 10:00 AM EDT Office Visit Hematology/Oncology at [address] [phone] Lennox Spivey MD [facility] DR HEMATOLOGY [place] [address] Bushra Muniz APRN [address] [place] [address] DR HEMATOLOGY AND ONCOLOGY [place], [place] [id number] 03/25/2024 10:30 AM EDT Scheduled View Only Hematology/Oncology at [address] [phone] Trupti Bray RN 03/25/2024 10:30 AM EDT Infusion Hematology Oncology at [address] [phone] documented as of this encounter Visit Diagnoses Diagnosis Stage 4 lung cancer, left Neoplasm related pain Neoplasm related pain (acute) (chronic) Stage 4 lung cancer, left Secondary malignant neoplasm of pleura documented in this encounter Care Teams Manager Chemistry Relationship Specialty Start Date End Date Rayo Riley MD [address] [place] [address] [address] [place] [address] PCP - General 06/22/10 01/10/24 documented as of this encounter
--- OUTSIDE RECORDS SUMMARY | 2024-03-11 03:20 | XMS_ITS | Encounter Summary ---
Author Organization [facility] Address [facility] [place] [address] Care Team Providers Care Hospice Volunteer Name Role Phone Rayo Riley MD Primary Care Provider [phone] Reason for Visit * Reason Onset Date Comments Prior Authorization 01/04/2024 Oxycontin Encounter Details Date Type Department Care Team (Late st Contact Info) Description 01/04/2024 Telephone Hematology/Oncology at [address] [phone] Malcolm Wei lastex thread winder (Oxycontin ) Social History Tobacco Use Types Packs/Day Years Used Date Smoking Tobacco: Former Cigarettes 0.3 57 Smokeless Tobacco: Never Comments:Quit 11/2023 Alcohol Use Standard Drinks/Week Comments Yes 7 (1 standard drink = 0.6 oz pure alcohol) 4oz rum with coke daily- varies [facility] Utilities Answer Date Recorded In the [...] any time in the past 12 m [facility], were you homeless or living [...] encounter Miscellaneous Notes * Telephone Encounter - Malcolm Wei RN - 01/04/2024 2:06 PM EDT Called [facility]. They then sent fax with insurance info to initiate PA. Called [facility] phonelisted on fax, they said to use CoverMyMeds to submit. CoverMyMeds doesn't recognize pt's insurancenumber and unable to submit. [facility] and they said they do run into this sometimes. They advised we adjust Oxycontin dosing to not exceed plan's limit of 90 mg/day and see if that goes through. Pt updated and in agreement with plan. He is aware to let us know if the long-acting is not helping with pain management. ----- Message from [place] Palencia RN sent at 01/04/2024 11:52 AM EDT ----- I am assuming that's what Morena meant but she's not here today so I'm not positive. I have not seenany any faxes regarding him. [place] ----- Message ----- From: Malcolm Wei RN Sent: 01/04/2024 11:46 AM EDT To: [facility] Rad Onc Nurse I have not seen anything come through in fax about it, was the pharmacy going to fax us PA request? A-L ----- Message ----- From: Morena Amin RN Sent: 01/03/2024 5:53 PM EDT To: [facility] Hem Onc Nurse; [facility] Rad Onc Nurse The prescription for Oxycontin that Dr. Spivey ordered needs prior auth which I confirmed with the pharmacy during otv. Is this something that is already being worked on? Dr. Braswell plans to touch base with Dr. Spivey regarding who will take lead in prescribing pain medsfor this patient. Morena documented in this encounter Plan of Treatment Upcoming Encounters Date Type Department Care Team (Late st Contact Info) Description 03/11/2024 12:30 PM EDT Office Visit Hematology/Oncology at [address] [phone] Lennox Spivey MD [facility] [place] [address] 03/11/2024 1:00 PM EDT Scheduled View Only Hematology/Oncology at [address] [phone] Trupti Bray RN 03/11/2024 1:00 PM EDT Infusion Hematology Oncology at [address] [phone] 03/25/2024 10:00 AM EDT Office Visit Hematology/Oncology at [address] [phone] Lennox Spivey MD [facility] DR [place] [address] Bushra Muniz APRN [address] [place] [address] DR HEMATOLOGY AND ONCOLOGY [place], [place] [id number] 03/25/2024 10:30 AM EDT Scheduled View Only Hematology/Oncology at [address] [phone] Trupti Bray RN 03/25/2024 10:30 AM EDT Infusion Hematology Oncology at [address] [phone] documented as of this encounter Visit Diagnoses Not on filedocumented in this encounter Care Teams Hospice Volunteer Relationship Specialty Start Date End Date Rayo Riley MD [address] [place] [address] PCP - General 06/22/10 01/10/24 documented as of this encounter
--- OUTSIDE RECORDS SUMMARY | 2024-03-11 03:20 | XMS_ITS | Encounter Summary ---
Author Organization [facility] Address [facility] [place] [address] Care Team Providers Care Arc Trimmer Name Role Phone Karl Quiroz MD Primary Care Provider [phone] Reason for Visit * Reason Onset Date Comments Other 01/11/2024 Encounter Details Date Type Department Care Team (Late st Contact Info) Description 01/11/2024 Telephone Hematology/Oncology at [address] [phone] Malcolm Wei RN Other Social History Tobacco Use Types Packs/Day Years Used Date Smoking Tobacco: Former Cigarettes 0.3 57 Smokeless Tobacco: Never Comments:Quit 11/2023 Alcohol Use Standard Drinks/Week Comments Yes 7 (1 standard drink = 0.6 oz pure alcohol) 4oz rum with coke daily- varies [facility] Utilities Answer Date Recorded In [...] place to sleep or slept in a prison (including now)? No 12/13/2023 Housing Stability Vital [...] were you homeless or living in a prison (including now)? No 12/21/2023 DH IPV Inpatient [...] Telephone Encounter - Malcolm Wei RN - 01/11/2024 9:04 AM EDT Images from the original note were not included. Called and spoke with [facility] pharmacy. They said the oxycodone script would not go through using diagnosis code of cancer pain but if we send the oxycodone script in with different diagnosis code, lung cancer C34.92, it will go through. Magaly PETERSEN aware and reordered. They also said the Morhpine script did go through. Called pharmacy back after re-order and they confirmed it went through and will message pt when script are ready for pickup. [facility] [phone] called to get clearance for fillings x3. He has an appointment for this 04/15/24. He will have completed the chemotherapy portion of treatment in February. Magaly [employer]PER[employer]OR to sign letter for dentist when she is here tomorrow and will fax to them at [phone]. Pt called and updated on all of this and was thankful for the follow up. -----[facility] Hem Onc Nurse Jeffrey called in today letting us know that the oxyCODONE (Roxicodone) 20 mg tablet that Bushra prescribed, Danna is saying that the insurance will not cover the increased amount and he is almost in tears(you can hear in his voice the pain) Best call back number [phone] documented in this encounter Plan of Treatment Upcoming Encounters Date Type Department Care Team (Late st Contact Info) Description 03/11/2024 12:30 PM EDT Office Visit Hematology/Oncology at [address] [phone] Lennox Spivey MD [facility] [place] [address] 03/11/2024 1:00 PM EDT Scheduled View Only Hematology/Oncology at [address] [phone] Trupti Bray RN 03/11/2024 1:00 PM EDT Infusion Hematology Oncology at [address] [phone] 03/25/2024 10:00 AM EDT Office Visit Hematology/Oncology at [address] [phone] Lennox Spivey MD [facility] [place] [address] Bushra Muniz APRN [address] [place] [address] DR HEMATOLOGY AND ONCOLOGY [place], [place] [id number] 03/25/2024 10:30 AM EDT Scheduled View Only Hematology/Oncology at [address] [phone] Trupti Bray RN 03/25/2024 10:30 AM EDT Infusion Hematology Oncology at [address] [phone] documented as of this encounter Visit Diagnoses Not on filedocumented in this encounter Care Teams Arc Trimmer Relationship Specialty Start Date End Date Karl Quiroz MD [address] [place] [phone] PCP - General Family Medicine 01/11/24 documented as of this encounter
--- OUTSIDE RECORDS SUMMARY | 2024-03-11 03:20 | XMS_ITS | Encounter Summary ---
Author Organization [facility] Address [facility] [place] [address] Care Team Providers Care Engine Lathe Set Up Operator Tool Name Role Phone Rayo Riley MD Primary Care Provider [phone] Encounter Details Date Type Department Care Team (Late st Contact Info) Description 01/10/2024 Notes Only Hematology/Oncology at [address] [phone] Trupti Bray, RN Social History Tobacco Use Types Packs/Day Years Used Date Smoking Tobacco: Former Cigarettes 0.3 57 Smokeless Tobacco: Never Comments:Quit 11/2023 Alcohol Use Standard Drinks/Week Comments Yes 7 (1 standard drink = 0.6 oz pure alcohol) 4oz rum with coke daily- varies [facility] Utilities Answer Date Recorded In the [...] in a prison (including now)? No 12/21/2023 IPV Inpatient Questions [...] as of this encounter Progress Notes * Trupti Bray RN - 01/10/2024 4:33 PM EDT Clinical Research Nurse Note [place], [place] Date: 01/10/24 Documentation of Informed Consent to Participate in Clinical Trial Study Number:[id number] Description:Immune profiling for cancer Immunotherapy response The study investigates how the profiles of the immune cells before and after treatment with immunotherapeutic medications used for cancer treatment might impact the response to the treatment. Patient was seen in private exam room , and was offered the opportunity to participate in the [id number] The protocol was reviewed with patient including description of study purpose, potential risks, side effects and uncertain benefits, voluntary nature of participation, and requirements of participation including the amount of blood that will be drawn, the potential future use of this sample and howprivate health information will be protected. Financial considerations were discussed per protocol.Specifically, there is no financial compensation provided for participation. Discussed confidentiality of patient's private health information as specified in consent form. Patient was informed that he/she may discontinue study involvement at any time; informed that declining to participate or discontinuing study treatment will not compromise his/her access to treatmentoptions or care at this institution. She/He was given the written consent form to read and review. Patient states he/she was given adequate time to review all information, and to ask questions and review concerns, all of which were answered to his/her satisfaction. Consent protocol form effective date: 08/29/2023 and expiration date 08/28/2024, was signed and datedby patient and this author. A copy of the signed consent form was given to patient. Original signed IC form was sent to DARLINE SYLVESTER via data entry specialist and also Emailed to him. consent was obtained prior to any study procedures being conducted Patient was provided a copy of this author business card and instructed to call clinic or provider with any questions or concerns regarding the research study. A lab kit will be drawn on day 1 of each cycle, starting Monday01/15/24 Patient verbalized understanding of these instructions and this plan. documented in this encounter Plan of Treatment Upcoming Encounters Date Type Department Care Team (Late st Contact Info) Description 03/11/2024 12:30 PM EDT Office Visit Hematology/Oncology at [address] [phone] Lennox Spivey MD [facility] [place] [address] 03/11/2024 1:00 PM EDT Scheduled View Only Hematology/Oncology at [address] [phone] Trupti Bray RN 03/11/2024 1:00 PM EDT Infusion Hematology Oncology at [address] [phone] 03/25/2024 10:00 AM EDT Office Visit Hematology/Oncology at [address] [phone] Lennox Spivey MD [facility] DR [place] [address] Bushra Muniz APRN [address] [place] [address] DR HEMATOLOGY AND ONCOLOGY [place], [place] [id number] 03/25/2024 10:30 AM EDT Scheduled View Only Hematology/Oncology at [address] [phone] Trupti Bray RN 03/25/2024 10:30 AM EDT Infusion Hematology Oncology at [address] [phone] documented as of this encounter Visit Diagnoses Not on filedocumented in this encounter Care Teams Engine Lathe Set Up Operator Tool Relationship Specialty Start Date End Date Rayo Riley MD [address] [place] [address] PCP - General 06/22/10 01/10/24 documented as of this encounter
--- OUTSIDE RECORDS SUMMARY | 2024-03-11 03:20 | XMS_ITS | Encounter Summary ---
Author Organization [facility] Address [facility] [place] [address] Care Team Providers Care Greaser Operator Name Role Phone Rayo Riley MD Primary Care Provider [phone] Reason for Visit * Reason Onset Date Comments Medication Problem 01/09/2024 Encounter Details Date Type Department Care Team (Late st Contact Info) Description 01/09/2024 Telephone Hematology/Oncology at [address] [phone] Malcolm Wei RN Medication Problem Social History Tobacco Use Types Packs/Day Years Used Date Smoking Tobacco: Former Cigarettes 0.3 57 Smokeless Tobacco: Never Comments:Quit 11/2023 Alcohol Use Standard Drinks/Week Comments Yes 7 (1 standard drink = 0.6 oz pure alcohol) 4oz rum with coke daily- varies [facility] Utilities Answer Date Recorded In the [...] place to sleep or slept in a chcf (including now)? No 12/13/2023 Housing Stability Vital [...] time in the past 12 m [facility], were you homeless or living in a chcf (including now)? No 12/21/2023 IPV Inpatient Questions [...] Telephone Encounter - Malcolm Wei RN - 01/09/2024 11:46 AM EDT Called and spoke with Jeffrey Lovelace who reports he was unable to get oxycodone CR (Oxycontin) as not approved by insurance. When I spoke with [facility] pharmacist last week they said the problem with the initial script Oxycontin 20 mg was it exceeded daily dose. Now they are saying Oxycontin is not on formulary, but morphine, xtampa, or buprenorphine is. Pt reports he is using 20 mg oxycodone short acting 4 times daily and sometimes taking another 1/2 tab as needed for pain management. He said he has 11 pills left and will run out before he can refill on the . [facility] pharmacy today said we could order more oxycodone at higher dose to reflect what he is using. Pt is seeing med/onc pro vider tomorrow for FUV. Will update provider of situation. ----- Message from Amanda Kaba sent at 01/09/2024 11:27 AM EDT ----- Regarding: Oxycontin not approved Al called you back to let you know he got word that his Oxycontin will not be approved by insurance. He called on [phone] documented in this encounter Plan of Treatment Upcoming Encounters Date Type Department Care Team (Late st Contact Info) Description 03/11/2024 12:30 PM EDT Office Visit Hematology/Oncology at [address] [phone] Lennox Spivey MD [facility] DR [place] [address] 03/11/2024 1:00 PM EDT Scheduled View Only Hematology/Oncology at [address] [phone] Trupti Bray RN 03/11/2024 1:00 PM EDT Infusion Hematology Oncology at [address] [phone] 03/25/2024 10:00 AM EDT Office Visit Hematology/Oncology at [address] [phone] Lennox Spivey MD [facility] DR [place] [address] Bushra Muniz APRN [address] [place] [address] DR HEMATOLOGY AND ONCOLOGY [place], [place] [address] 03/25/2024 10:30 AM EDT Scheduled View Only Hematology/Oncology at [address] [phone] Trupti Bray RN 03/25/2024 10:30 AM EDT Infusion Hematology Oncology at [address] [phone] documented as of this encounter Visit Diagnoses Not on filedocumented in this encounter Care Teams Greaser Operator Relationship Specialty Start Date End Date Rayo Riley MD [address] [place] [address] PCP - General 06/22/10 01/10/24 documented as of this encounter
--- OUTSIDE RECORDS SUMMARY | 2024-03-11 03:20 | XMS_ITS | Encounter Summary ---
Author Organization [facility] Address [facility] [place] [address] Care Team Providers Care Recreation Establishment Manager Name Role Phone Rayo Riley MD Primary Care Provider [phone] Encounter Details Date Type Department Care Team (Latest Contact Info) Description 01/10/2024 Travel Social History Tobacco Use Types Packs/Day Years Used Date Smoking Tobacco: Former Cigarettes 0.3 57 Smokeless Tobacco: Never Comments:Quit 11/2023 Alcohol Use Standard Drinks/Week Comments Yes 7 (1 standard drink = 0.6 oz pure alcohol) 4oz rum with coke daily- varies [facility] Utilities Answer Date Recorded In [...] 12:30 PM EDT Office Visit Hematology/Oncology at [address] [phone] Lennox Spivey MD [facility] HEMATOLOGY [place] [address] 03/11/2024 1:00 PM EDT Scheduled View Only Hematology/Oncology at [address] [phone] Trupti Bray RN 03/11/2024 1:00 PM EDT Infusion Hematology Oncology at [address] [phone] 03/25/2024 10:00 AM EDT Office Visit Hematology/Oncology at [address] [phone] Lennox Spivey MD [facility] DR HEMATOLOGY [place] [address] Bushra Muniz APRN [address] [place] [address] DR HEMATOLOGY AND ONCOLOGY [place], [place] [id number] 03/25/2024 10:30 AM EDT Scheduled View Only Hematology/Oncology at [address] [phone] Trupti Bray RN 03/25/2024 10:30 AM EDT Infusion Hematology Oncology at [address] [phone] documented as of this encounter Visit Diagnoses Not on filedocumented in this encounter Care Teams Recreation Establishment Manager Relationship Specialty Start Date End Date Rayo Riley MD [address] [place] [address] PCP - General 06/22/10 01/10/24 documented as of this encounter
--- OUTSIDE RECORDS SUMMARY | 2024-03-11 03:20 | XMS_ITS | Encounter Summary ---
Author Organization [facility] Address [facility] [place] [address] Care Team Providers Care Beverage Specialist Name Role Phone Karl Quiroz MD Primary Care Provider [phone] Encounter Details Date Type Department Care Team (Late st Contact Info) Description 01/10/2024 Orders Only Hematology/Oncology at [address] [phone] Bushra Muniz APRN [address] [place] [address] DR HEMATOLOGY [place] [address] Stage 4 lung cancer, left Social History Tobacco Use Types Packs/Day Years Used Date Smoking Tobacco: Former Cigarettes 0.3 57 Smokeless Tobacco: Never Comments:Quit 11/2023 Alcohol Use Standard Drinks/Week Comments Yes 7 (1 standard drink = 0.6 oz pure alcohol) 4oz rum with coke daily- varies [facility] Utilities Answer Date Recorded In [...] in the past 12 m [facility], were you homeless or living in a [...] 12:30 PM EDT Office Visit Hematology/Oncology at [address] [phone] Lennox Spivey MD [facility] [place] [address] 03/11/2024 1:00 PM EDT Scheduled View Only Hematology/Oncology at [address] [phone] Trupti Bray RN 03/11/2024 1:00 PM EDT Infusion Hematology Oncology at [address] [phone] 03/25/2024 10:00 AM EDT Office Visit Hematology/Oncology at [address] [phone] Lennox Spivey MD [facility] DR [place] [address] Bushra Muniz APRN [address] [place] [address] DR HEMATOLOGY AND ONCOLOGY [place], [place] [id number] 03/25/2024 10:30 AM EDT Scheduled View Only Hematology/Oncology at [address] [phone] Trupti Bray RN 03/25/2024 10:30 AM EDT Infusion Hematology Oncology at [address] [phone] Scheduled Orders Name Type Priority Associated Diagnoses Orde r Schedule Miscellaneous Lab request Lab Routine Stage 4 lung cancer, left Every 4 Weeks for 12 Occurrences starting 01/11/2024 until 01/09/2025, 2 completed documented as of this encounter Visit Diagnoses Diagnosis Stage 4 lung cancer, left Stage 4 lung cancer, left Secondary malignant neoplasm of pleura documented in this encounter Care Teams Beverage Specialist Relationship Specialty Start Date End Date Karl Quiroz MD [address] [place] [address] PCP - General Family Medicine 01/11/24 documented as of this encounter
--- OUTSIDE RECORDS SUMMARY | 2024-03-11 03:20 | XMS_ITS | Encounter Summary ---
Author Organization [facility] Address [facility] [place] [address] Care Team Providers Care Fruit Or Nut Farm Worker Name Role Phone Karl Quiroz MD Primary Care Provider [phone] Reason for Visit * Reason Onset Date Comments Follow-up 01/16/2024 Encounter Details Date Type Department Care Team (Late st Contact Info) Description 01/16/2024 Telephone Hematology/Oncology at [address] [phone] Malcolm Wei RN Follow-up Social History Tobacco Use Types Packs/Day Years Used Date Smoking Tobacco: Former Cigarettes 0.3 57 Smokeless Tobacco: Never Comments:Quit 11/2023 Alcohol Use Standard Drinks/Week Comments Yes 7 (1 standard drink = 0.6 oz pure alcohol) 4oz rum with coke daily- varies [facility] Utilities Answer Date Recorded In the [...] place to sleep or slept in a skilled nursing (including now)? No 12/13/2023 Housing Stability Vital [...] time in the past 12 m [facility], were you homeless or living in a skilled nursing (including now)? No 12/21/2023 DH IPV Inpatient [...] Telephone Encounter - Malcolm Wei RN - 01/16/2024 10:10 AM EDT Called and spoke with Jeffrey Annetta Lovelace to see how he is feeling after his first infusion of Nivolumab/Ipilimumab/Abraxane/Carboplatin given yesterday for lung cancer. He reports no changes. He reports he was given a list of symptoms of when to call and has our contact info if he should have any questions or concerns. He was thankful for the follow up call. ----- Message from [place] Palencia RN sent at 01/15/2024 4:32 PM EDT ----- Regarding: First time chemo Jeffrey had his first round of chemo/immunotherapy Monday, 01/14. Please call to check in. documented in this encounter Plan of Treatment Upcoming Encounters Date Type Department Care Team (Late st Contact Info) Description 03/11/2024 12:30 PM EDT Office Visit Hematology/Oncology at [address] [phone] Lennox Spivey MD [facility] DR HEMATOLOGY [place] [address] 03/11/2024 1:00 PM EDT Scheduled View Only Hematology/Oncology at [address] [phone] Trupti Bray RN 03/11/2024 1:00 PM EDT Infusion Hematology Oncology at [address] [phone] 03/25/2024 10:00 AM EDT Office Visit Hematology/Oncology at [address] [phone] Lennox Spivey MD [facility] DR HEMAT[place] [address] Bushra Muniz APRN [address] [place] [address] DR HEMATOLOGY AND ONCOLOGY [place], [place] [address] 03/25/2024 10:30 AM EDT Scheduled View Only Hematology/Oncology at [address] [phone] Trupti Bray RN 03/25/2024 10:30 AM EDT Infusion Hematology Oncology at [address] [phone] documented as of this encounter Visit Diagnoses Not on filedocumented in this encounter Care Teams Fruit Or Nut Farm Worker Relationship Specialty Start Date End Date Karl Quiroz MD [address] [place] [address] PCP - General Family Medicine 01/11/24 documented as of this encounter
--- OUTSIDE RECORDS SUMMARY | 2024-03-11 03:20 | XMS_ITS | Encounter Summary ---
Author Organization [facility] Address [facility] [place] [address] Care Team Providers Care Billet Recorder Name Role Phone Karl Quiroz MD Primary Care Provider [phone] Encounter Details Date Type Department Care Team (Latest Contact Info) Description 01/22/2024 Travel Social History Tobacco Use Types Packs/Day Years Used Date Smoking Tobacco: Former Cigarettes 0.3 57 Smokeless Tobacco: Never Comments:Quit 11/2023 Alcohol Use Standard Drinks/Week Comments Yes 7 (1 standard drink = 0.6 oz pure alcohol) 4oz rum with coke daily- varies [facility] Utilities Answer Date Recorded In the [...] any time in the past 12 m [facility], were you homeless or living in a retirement (including now)? No 12/21/2023 DH IPV Inpatient [...] PM EDT Office Visit Hematology/Oncology at [address] [phone] Lennox Spivey MD [facility] DR HEMATOLOGY [place] [address] 03/11/2024 1:00 PM EDT Scheduled View Only Hematology/Oncology at [address] [phone] Trupti Bray RN 03/11/2024 1:00 PM EDT Infusion Hematology Oncology at [address] [phone] 03/25/2024 10:00 AM EDT Office Visit Hematology/Oncology at [address] [phone] Lennox Spivey MD [facility] DR HEMATOLOGY [place] [address] Bushra Muniz SYSTEMS PROGRAMMER ANALYST [address] [place] [address] DR HEMATOLOGY AND ONCOLOGY [place], [place] [id number] 03/25/2024 10:30 AM EDT Scheduled View Only Hematology/Oncology at [address] [phone] Trupti Bray RN 03/25/2024 10:30 AM EDT Infusion Hematology Oncology at [address] [phone] documented as of this encounter Visit Diagnoses Not on filedocumented in this encounter Care Teams Billet Recorder Relationship Specialty Start Date End Date Karl Quiroz MD [address] [place] [phone] PCP - General Family Medicine 01/11/24 documented as of this encounter
--- OUTSIDE RECORDS SUMMARY | 2024-03-11 03:20 | XMS_ITS | Encounter Summary ---
Author Organization [facility] Address [facility] [place] [address] Care Team Providers Care Case Manager Specialist Name Role Phone Rayo Riley MD Primary Care Provider [phone] Encounter Details Date Type Department Care Team (Latest Contact Info) Description 01/03/2024 6:17 AM EDT - 01/03/2024 11:59 PM EDT Hospital Encounter Laboratory [facility] [place] [phone] Discharge Disposition: Home Social History Tobacco Use Types Packs/Day Years Used Date Smoking Tobacco: Former Cigarettes 0.3 57 Smokeless Tobacco: Never Comments:Quit 11/2023 Alcohol Use Standard Drinks/Week Comments Yes 7 (1 standard drink = 0.6 oz pure alcohol) 4oz rum with coke daily- varies [facility] Utilities Answer Date Recorded In the past [...] on file documented as of this encounter Medications at Time of Discharge Medication Sig Dispensed Refills Start Date End Date acetaminophen (Tylenol) 650 mg ER tablet Take 650 mg by mouth every 8 hours as needed for Pain. Do not exceed 6 tabs in 24 hours docusate sodium (Colace) 100 mg capsule Take 100 mg by mouth 2 times daily. acetaminophen (Tylenol) 500 mg tablet Take 2 tablets by mouth every 6 hours. 11/23/2023 senna (Senokot) 8.6 mg tablet Take 1 tablet by mouth every evening. 11/23/2023 polyethylene glycoL (Miralax) 17 gram oral powder packet Take 17 g by mouth daily. 11/23/2023 triamcinolone (ARISTOCORT) 0.5 % Cream Apply 1 g topically Once daily as needed. ibuprofen (Advil) 200 mg tablet Take 400 mg by mouth Daily @ 0600. multivitamin (THERAGRAN) Tablet Take 1 tablet by mouth daily. tiotropium-olodateroL (Stiolto Respimat) 2.5-2.5 mcg/actuation Mist Inhale into the lungs. atorvastatin (Lipitor) 40 mg tablet Take 40 mg by mouth Daily @ 0600. losartan (Cozaar) 100 mg tablet Take 100 mg by mouth Daily @ 0600. Patient stated he is cutting tablet in half and taking half. omeprazole (PRILOSEC) 20 mg capsule 10/02/2008 aspirin (BABY ASPIRIN) 81 mg chewable tablet 10/02/2008 oxyCODONE CR (OxyCONTIN) 20 mg ER 12 hr tablet (CRUSH RESISTANT) Take 1 tablet by mouth every 12 hours. 56 tablet 12/21/2023 01/04/2024 prochlorperazine (Compazine) 10 mg tablet Take 1 tablet by mouth every 6 hours as needed for Nausea. 30 tablet 3 12/21/2023 03/04/2024 oxyCODONE (Roxicodone) 20 mg tablet TAKE 1 TABLET BY MOUTH EVERY 6 HOURS NEEDED FOR CHEST PAIN 12/08/2023 01/10/2024 magnesium oxide (Mag-Ox) 400 mg (241.3 mg magnesium) Tablet Take 400 mg by mouth 2 times daily. 02/19/2024 FLUOXETINE HCL (PROZAC ORAL) Take 20 mg by mouth 2 times daily. 10/02/2008 02/05/2024 documented as of this encounter Plan of Treatment Upcoming Encounters Date Type Department Care Team (Late st Contact Info) Description 03/11/2024 12:30 PM EDT Office Visit Hematology/Oncology at [address] [phone] Lennox Spivey MD [facility] DR HEMAT[place] [address] 03/11/2024 1:00 PM EDT Scheduled View Only Hematology/Oncology at [address] [phone] Trupti Bray RN 03/11/2024 1:00 PM EDT Infusion Hematology Oncology at [address] [phone] 03/25/2024 10:00 AM EDT Office Visit Hematology/Oncology at [address] [phone] Lennox Spivey MD [facility] DR [place]EMAT[place] [address] Bushra Muniz APRN [address] [place] [address] HEMATOLOGY AND ONCOLOGY [place], [place] [phone] 03/25/2024 10:30 AM EDT Scheduled View Only Hematology/Oncology at [address] [phone] Trupti Bray RN 03/25/2024 10:30 AM EDT Infusion Hematology Oncology at [address] [phone] documented as of this encounter Visit Diagnoses Not on filedocumented in this encounter Care Teams Case Manager Specialist Relationship Specialty Start Date End Date Rayo Riley MD [address] [place] [address] PCP - General 06/22/10 01/10/24 documented as of this encounter
--- OUTSIDE RECORDS SUMMARY | 2024-03-11 03:20 | XMS_ITS | Encounter Summary ---
Author Organization [facility] Address [facility] [place] [address] Care Team Providers Care Hat Marker Name Role Phone Karl Quiroz MD Primary Care Provider [phone] Encounter Details Date Type Department Care Team (Latest Contact Info) Description 01/15/2024 Travel Social History Tobacco Use Types Packs/Day [...] any time in the past 12 m [facility], were you homeless or living in a [...] 12:30 PM EDT Office Visit Hematology/Oncology at [address] [phone] Lennox Spivey MD [facility] DR HEMATOLOGY [place] [address] 03/11/2024 1:00 PM EDT Scheduled View Only Hematology/Oncology at [address] [phone] Trupti Bray RN 03/11/2024 1:00 PM EDT Infusion Hematology Oncology at [address] [phone] 03/25/2024 10:00 AM EDT Office Visit Hematology/Oncology at [address] [phone] Lennox Spivey MD [facility] DR HEMATOLOGY [place] [address] Bushra Muniz INSIDE PLANT SUPERVISOR [address] [place] [address] DR HEMATOLOGY AND ONCOLOGY [place], [place] [id number] 03/25/2024 10:30 AM EDT Scheduled View Only Hematology/Oncology at [address] [phone] Trupti Bray RN 03/25/2024 10:30 AM EDT Infusion Hematology Oncology at [address] [phone] documented as of this encounter Visit Diagnoses Not on filedocumented in this encounter Care Teams Hat Marker Relationship Specialty Start Date End Date Karl Quiroz MD [address] [place] [phone] PCP - General Family Medicine 01/11/24 documented as of this encounter
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
--- OUTSIDE RECORDS SUMMARY | 2024-03-11 03:20 | XMS_ITS | Encounter Summary ---
Author Organization [facility] Address [facility] [place] [address] Care Team Providers Care Roller Skates Assembler Name Role Phone Rayo Riley MD Primary Care Provider [phone] Encounter Details Date Type Department Care Team (Late st Contact Info) Description 12/27/2023 Notes Only Radiation Oncology at [address] [phone] Tammie Recinos, [facility] CARE MANAGEMENT Social History Tobacco Use Types Packs/Day Years Used Date Smoking Tobacco: Former Cigarettes 0.3 57 Smokeless Tobacco: Never Comments:Quit 11/2023 Alcohol Use Standard Drinks/Week Comments Yes 7 (1 standard drink = 0.6 oz pure alcohol) 4oz rum with coke daily- varies [facility] Utilities Answer Date Recorded In the [...] place to sleep or slept in a usp (including now)? No 12/13/2023 Housing Stability Vital Sign Answer Renzo e Recorded In the last 12 months, was t here a time when you were not able to pay the mortgage or rent on time? No 12/21/2023 In the past 12 months, how m any times have you moved where you were living? 0 12/21/2023 At any time in the past 12 m [facility], were you homeless or living in a usp (including now)? No 12/21/2023 IPV Inpatient Questions [...] Progress Notes * Tammie Recinos MSW - 12/27/2023 10:00 AM EDT Follow up with Jeffrey after his sim today. Reviewed information he shared yesterday during our phone call.He drove himself today and was accompanied by a friends. Transportation costs are his primaryconcern. Reminded him to call the [facility] Cancer Survivor group to ask for a gas card. He is getting some assistance with rides through [facility] but indicated he was told by Oksana the funding was limited and she does not have any gas cards either. QUAN will assist with a few gas cards once he starts his RT treatments. The additional information Jeffrey provided was that he has completed his advance directive and requested a copy for his medical record if he wants it on file there. He also indicated he is not connected to any community services or resources at this time. Reminded Jeffrey SILVER SOLDERER mailed him information re [employer] services. Encouraged him to call to apply forfinancial assistance. Will follow up with Jeffrey once he starts his RT treatments and will assist with a few gas cards. Will follow for support and resources. Brief assessment Advance care planning Transportation resources Patient Financial Assistance/Insurance Add: TC from [employer] [place], [facility] [phone]. She indicated she has been helping Jeffrey with rides. The funds available for this are limited. Discussed any possible options. He told SILVER SOLDERER he would drive and/or had others that could help with rides. Ade indicated he has told her he does not have people. If he had people who could drive him she can help with gas cards as can SILVER SOLDERER. If he can not drive or does not have anyone to help she indicated the funds to pay for a service are limited. She plans to further clarify his needs as will SILVER SOLDERER. documented in this encounter Plan of Treatment Upcoming Encounters Date Type Department Care Team (Late st Contact Info) Description 03/11/2024 12:30 PM EDT Office Visit Hematology/Oncology at [address] [phone] Lennox Spivey MD [facility] [address] [place] [address] 03/11/2024 1:00 PM EDT Scheduled View Only Hematology/Oncology at [address] [phone] Trupti Bray RN 03/11/2024 1:00 PM EDT Infusion Hematology Oncology at [address] [phone] 03/25/2024 10:00 AM EDT Office Visit Hematology/Oncology at [address] [phone] Lennox Spivey MD [facility] [place] [address] Bushra Muniz, WASHERETTE MACHINE OPERATOR [address] [place] [address] DR HEMATOLOGY AND ONCOLOGY [place], [place] [id number] 03/25/2024 10:30 AM EDT Scheduled View Only Hematology/Oncology at [address] [phone] Trupti Bray RN 03/25/2024 10:30 AM EDT Infusion Hematology Oncology at [address] [phone] documented as of this encounter Visit Diagnoses Not on filedocumented in this encounter Care Teams Roller Skates Assembler Relationship Specialty Start Date End Date Rayo Riley MD [address] [place], [place] [address] PCP - General 06/22/10 01/10/24 documented as of this encounter
--- OUTSIDE RECORDS SUMMARY | 2024-03-11 03:20 | XMS_ITS | Encounter Summary ---
Author Organization [facility] Address [facility] [place] [address] Care Team Providers Care Brazer Electronic Name Role Phone Rayo Riley MD Primary Care Provider [phone] Encounter Details Date Type Department Care Team (Latest Contact Info) Description 01/08/2024 Travel Social History Tobacco Use Types Packs/Day Years Used Date Smoking Tobacco: Former Cigarettes 0.3 57 Smokeless Tobacco: Never Comments:Quit 11/2023 Alcohol Use Standard Drinks/Week Comments Yes 7 (1 standard drink = 0.6 oz pure alcohol) 4oz rum with coke daily- varies [facility] Utilities Answer Date Recorded In [...] PM EDT Office Visit Hematology/Oncology at [address] [phone] Lennox Spivey MD [facility] [place] [address] 03/11/2024 1:00 PM EDT Scheduled View Only Hematology/Oncology at [address] [phone] Trupti Bray RN 03/11/2024 1:00 PM EDT Infusion Hematology Oncology at [address] [phone] 03/25/2024 10:00 AM EDT Office Visit Hematology/Oncology at [address] [phone] Lennox Spivey MD [facility] DR [place] [address] Bushra Muniz APRN [address] [place] [address] DR HEMATOLOGY AND ONCOLOGY [place], [place] [id number] 03/25/2024 10:30 AM EDT Scheduled View Only Hematology/Oncology at [address] [phone] Trupti Bray RN 03/25/2024 10:30 AM EDT Infusion Hematology Oncology at [address] [phone] documented as of this encounter Visit Diagnoses Not on filedocumented in this encounter Care Teams Brazer Electronic Relationship Specialty Start Date End Date Rayo Riley MD [address] [place] [address] PCP - General 06/22/10 01/10/24 documented as of this encounter
--- OUTSIDE RECORDS SUMMARY | 2024-03-11 03:20 | XMS_ITS | Encounter Summary ---
Author Organization [facility] Address [facility] [place] [address] Care Team Providers Care System Administrator Name Role Phone Rayo Riley MD Primary Care Provider [phone] Encounter Details Date Type Department Care Team (Latest Contact Info) Description 01/03/2024 Travel Social History Tobacco Use Types Packs/Day Years Used Date Smoking Tobacco: Former Cigarettes 0.3 57 Smokeless Tobacco: Never Comments:Quit 11/2023 Alcohol Use Standard Drinks/Week Comments Yes 7 (1 standard drink = 0.6 oz pure alcohol) 4oz rum with coke daily- varies [facility] Utilities Answer Date Recorded In [...] place to sleep or slept in a mcc (including now)? No 12/13/2023 Housing Stability Vital [...] were you homeless or living in a mcc (including now)? No 12/21/2023 DH IPV Inpatient [...] 12:30 PM EDT Office Visit Hematology/Oncology at [address] [phone] Lennox Spivey MD [facility] [place] [address] 03/11/2024 1:00 PM EDT Scheduled View Only Hematology/Oncology at [address] [phone] Trupti Bray RN 03/11/2024 1:00 PM EDT Infusion Hematology Oncology at [address] [phone] 03/25/2024 10:00 AM EDT Office Visit Hematology/Oncology at [address] [phone] Lennox Spivey MD [facility] DR [place] [address] Bushra Muniz APRN [address] [place] [address] DR HEMATOLOGY AND ONCOLOGY [place], [place] [id number] 03/25/2024 10:30 AM EDT Scheduled View Only Hematology/Oncology at [address] [phone] Trupti Bray RN 03/25/2024 10:30 AM EDT Infusion Hematology Oncology at [address] [phone] documented as of this encounter Visit Diagnoses Not on filedocumented in this encounter Care Teams System Administrator Relationship Specialty Start Date End Date Rayo Riley MD [address] [place] [address] PCP - General 06/22/10 01/10/24 documented as of this encounter
--- OUTSIDE RECORDS SUMMARY | 2024-03-11 03:20 | XMS_ITS | Encounter Summary ---
Author Organization [facility] Address [facility] [place] [address] Care Team Providers Care Cable Operator Name Role Phone Karl Quiroz MD Primary Care Provider Encounter Details Date Type Department Care Team ([facility] st Contact Info) Description 01/10/2024 Notes Only [place] [address] Beto Braswell MD [facility] [place] [address] Social History Tobacco Use Types Packs/Day Years [...] any time in the past 12 m [facility], were you homeless or living in a mcc (including now)? No 12/21/2023 IPV Inpatient Questions [...] Progress Notes * Beto Braswell MD - 01/10/2024 11:59 PM EDT Images from the original note were not included. 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 TREATMENT DETAILS Treatment Intent Palliative Site Treated Left chest wall Technique 3D Adaptive Plan Required No Concurrent Chemo No Clinical Trial No TECHNICAL DETAILS Total Dose: 20 Gy / 5 fractions @ 4 Gy / fraction PLAN IMAGES CLINICAL COURSE Jeffrey Lovelace had the following toxicities at the end of treatment: none noted FOLLOW UP Per NCC protocol documented in this encounter Plan of Treatment Upcoming Encounters Date Type Department Care Team (Late [facility] Info) Description 03/11/2024 12:30 PM EDT Office Visit Hematology/Oncology at [address] [phone] Lennox Spivey MD [facility] DR HEMATOLOGY [place] [address] 03/11/2024 1:00 PM EDT Scheduled View Only Hematology/Oncology at [address] [phone] Trupti Bray RN 03/11/2024 1:00 PM EDT Infusion Hematology Oncology at [address] [phone] 03/25/2024 10:00 AM EDT Office Visit Hematology/Oncology at [address] [phone] Lennox Spivey MD [facility] DR [place]EMATOLOGY [place] [address] Bushra Muniz [address] HEMATOLOGY AND ONCOLOGY [place], [place] [id number] 03/25/2024 10:30 AM EDT Scheduled View Only Hematology/Oncology at [address] [phone] Trupti Bray RN 03/25/2024 10:30 AM EDT Infusion Hematology Oncology at [address] [phone] documented as of this encounter Visit Diagnoses Not on filedocumented in this encounter Care Teams Cable Operator Relationship Specialty Start Date End Date Karl Quiroz MD [address] [place] [phone] PCP - General Family Medicine 01/11/24 documented as of this encounter
--- OUTSIDE RECORDS SUMMARY | 2024-03-11 03:20 | XMS_ITS | Encounter Summary ---
Author Organization [facility] Address [facility] [place] [address] Care Team Providers Care Bods Developer Name Role Phone Karl Quiroz MD Primary Care Provider [phone] Encounter Details Date Type Department Care Team (Late st Contact Info) Description 01/22/2024 Notes Only Hematology/Oncology at [address] [phone] Tammie Recinos, DETENTION SERGEANT OFFICE OF CARE MANAGEMENT Social History Tobacco Use Types Packs/Day Years Used Date Smoking Tobacco: Former Cigarettes 0.3 57 Smokeless Tobacco: Never Comments:Quit 11/2023 Alcohol Use Standard Drinks/Week Comments Yes 7 (1 standard drink = 0.6 oz pure alcohol) 4oz rum with coke daily- varies [facility] Utilities Answer Date Recorded In the [...] any time in the past 12 m [facility], were you homeless or [...] this encounter Progress Notes * Tammie Recinos, DETENTION SERGEANT - 01/22/2024 9:43 AM EDT Follow up with Jeffrey during his infusion visit today. He indicated he has lost weight this past week. He indicated he does not feel like eating. Inquired if he has food in his home and he does. He does go to 2 different food pantries each month to supplement what he buys. He spends most of his dayin bed only to get up every 6 hours for his pain meds. He sleeps in a recliner. His friend Tammie acc ompanied him today as he drove himself to his treatment. He indicated Tammie comes most days to spend time and have meals with him. His son in [facility] calls every few weeks. BOSTON Booth has been assisting eJffrey in accessing local resources. DETENTION SERGEANT will continue to follow as a resource for Jeffrey. documented in this encounter Plan of Treatment Upcoming Encounters Date Type Department Care Team (Late st Contact Info) Description 03/11/2024 12:30 PM EDT Office Visit Hematology/Oncology at [address] [phone] Lennox Spivey MD [facility] DR HEMATOLOGY [place] [address] 03/11/2024 1:00 PM EDT Scheduled View Only Hematology/Oncology at [address] [phone] Trupti Bray RN 03/11/2024 1:00 PM EDT Infusion Hematology Oncology at [address] [phone] 03/25/2024 10:00 AM EDT Office Visit Hematology/Oncology at [address] [phone] Lennox Spivey MD [facility] DR HEMATOLOGY [place] [address] Bushra Muniz COMPUTER CONSULTANT [address] [place] [address] DR [place] [address] 03/25/2024 10:30 AM EDT Scheduled View Only Hematology/Oncology at [address] [phone] Trupti Bray RN 03/25/2024 10:30 AM EDT Infusion Hematology Oncology at [address] [phone] documented as of this encounter Visit Diagnoses Not on filedocumented in this encounter Care Teams Bods Developer Relationship Specialty Start Date End Date Karl Quiroz MD [address] [place] [phone] PCP - General Family Medicine 01/11/24 documented as of this encounter
--- OUTSIDE RECORDS SUMMARY | 2024-03-11 03:20 | XMS_ITS | Encounter Summary ---
Author Organization [facility] Address [facility] [place] [address] Care Team Providers Care Hem Inspector Name Role Phone Karl Quiroz MD Primary Care Provider [phone] Encounter Details Date Type Department Care Team (Late st Contact Info) Description 01/15/2024 Notes Only Hematology/Oncology at [address] [phone] Tammie Recinos, [employer] P[employer]ER AND COILER OFFICE OF CARE MANAGEMENT Social History Tobacco Use Types Packs/Day Years Used Date Smoking Tobacco: Former Cigarettes 0.3 57 Smokeless Tobacco: Never Comments:Quit 11/2023 Alcohol Use Standard Drinks/Week Comments Yes 7 (1 standard drink = 0.6 oz pure alcohol) 4oz rum with coke daily- varies [facility] Utilities Answer Date Recorded In [...] place to sleep or slept in a care home (including now)? No 12/13/2023 Housing Stability [...] were you homeless or living in a care home (including now)? No 12/21/2023 IPV Inpatient [...] this encounter Progress Notes * Tammie Recinos, [employer] P[employer]ER AND COILER - 01/15/2024 12:04 PM EDT Follow up with Jeffrey during his first infusion visit today. He completed his 5 RT treatments. Inquired about his plans for transportation going forward. Rides for [employer] drove him today and he is unclear who or how the rides was paid for, He indicated Ade from his PCP office arrange the ride. Hemay drive himself next time if possible. He indicated he did get a gas card from the [facility] Cancer Survivor group. Jeffrey indicated he is managing as best he can day to day. His friend Tammie checks in on him. Inquired about meal and he indicated he is not eating much. Yesterday he has a scoop of ice cream and a half of a burger. ROD PULLER AND COILER asked Rachel Frost RD to follow up with Jeffrey. Reminded Jeffrey of ROD P[employer]ER AND COILER availability and will follow for support and resources. Brief assessment Supportive Counseling Transportation resources Community Resource documented in this encounter Plan of Treatment Upcoming Encounters Date Type Department Care Team (Late st Contact Info) Description 03/11/2024 12:30 PM EDT Office Visit Hematology/Oncology at [address] [phone] [facility] DR HEMATOLOGY [place] [address] 03/11/2024 1:00 PM EDT Scheduled View Only Hematology/Oncology at [address] [phone] Trupti Bray RN 03/11/2024 1:00 PM EDT Infusion Hematology Oncology at [address] [phone] 03/25/2024 10:00 AM EDT Office Visit Hematology/Oncology at [address] [phone] [facility] DR HEMATOLOGY [place] [address] Bushra Muniz APRN [address] [place] [address] DR HEMATOLOGY AND ONCOLOGY [place], [place] [address] 03/25/2024 10:30 AM EDT Scheduled View Only Hematology/Oncology at [address] [phone] Trupti Bray RN 03/25/2024 10:30 AM EDT Infusion Hematology Oncology at [address] [phone] documented as of this encounter Visit Diagnoses Not on filedocumented in this encounter Care Teams Hem Inspector Relationship Specialty Start Date End Date Karl Quiroz MD [address] [place] [phone] PCP - General Family Medicine 01/11/24 documented as of this encounter
--- OUTSIDE RECORDS SUMMARY | 2024-03-11 03:21 | XMS_ITS | Encounter Summary ---
Author Organization [facility] Address [facility] [place] [address] Care Team Providers Care Finished Cloth Checker Name Role Phone Rayo Riley MD Primary Care Provider [phone] Encounter Details Date Type Department Care Team (Late Contact Info) Description 12/01/2023 Telephone Radiation Oncology at [address] [phone] Meena Tomlinson Social History Tobacco Use Types Packs/Day Years Used Date Smoking Tobacco: Every Day Cigarettes 0.3 57 Smokeless Tobacco: Never Comments:Down to 1/4PPD Alcohol Use Standard Drinks/Week Comments Yes 7 (1 standard drink = 0.6 oz pur e alcohol) 4oz rum with coke daily IPV Inpatient Questions Answer Date Recorded Does [...] Encounters Date Type Department Care Team (Late Contact Info) Description 03/11/2024 12:30 PM EDT Office Visit Hematology/Oncology at [address] [phone] Lennox Spivey MD [facility] HEMATOLOGY AND [place] [address] 03/11/2024 1:00 PM EDT Scheduled View Only Hematology/Oncology at [address] [phone] Trupti Bray, RN 03/11/2024 1:00 PM EDT Infusion Hematology Oncology at [address] [phone] 03/25/2024 10:00 AM EDT Office Visit Hematology/Oncology at [address] [phone] Lennox Spivey MD [facility] DR [place] [address] Bushra Muniz APRN [address] [place] [address] DR HEMATOLOGY AND ONCOLOGY [place], [place] [address] 03/25/2024 10:30 AM EDT Scheduled View Only Hematology/Oncology at [address] [phone] Trupti Bray RN 03/25/2024 10:30 AM EDT Infusion Hematology Oncology at [address] [phone] documented as of this encounter Visit Diagnoses Not on filedocumented in this encounter Care Teams Finished Cloth Checker Relationship Specialty Start Date End Date Rayo Riley MD [address] [place], [place] [address] PCP - General 06/22/10 01/10/24 documented as of this encounter
--- OUTSIDE RECORDS SUMMARY | 2024-03-11 03:21 | XMS_ITS | Encounter Summary ---
Author Organization [facility] Address [facility] [place] [address] Care Team Providers Care Delivery Clerk Name Role Phone Rayo Riley MD Primary Care Provider [phone] Encounter Details Date Type Department Care Team (Latest Contact Info) Description 12/13/2023 Travel Social History Tobacco Use Types Packs/Day Years Used Date Smoking Tobacco: Former Cigarettes 0.3 57 Smokeless Tobacco: Never Comments:Quit 11/2023 Alcohol Use Standard Drinks/Week Comments Yes 7 (1 standard drink = 0.6 oz pure alcohol) 4oz rum with coke daily- varies [facility] Utilities Answer Date Recorded In the past 12 months has th e electric, gas, oil, or water company threatened to shut off services in your home? No 12/13/2023 Overall Financial Resource Strain (CARDIA) Answe r Date Recorded How hard is it for you to pa y for the very basics like food, housing, medical care, and heating? Somewhat hard 12/13/2023 Hunger Vital Sign Answer Date Recorded Within the past 12 months, y ou worried that your food would run out before you got the money to buy more. Never true 12/13/19 24 Within the past 12 months, t he food you bought just didn't last and you didn't have money to get more. Never true 12/13/2023 PRAPARE - Transportation Answer Date Re corded In the past 12 months, has l ack of transportation kept you from medical appointments or from getting medications? Yes 11/28 In the past 12 months, has l ack of transportation kept you from meetings, work, or from getting things needed for daily living? No 12/13/2023 Housing Stability Vital Sign Answer [...] in a detention (including now)? No 12/13/2023 DH IPV Inpatient Questions Answer Date Recorded [...] 12:30 PM EDT Office Visit Hematology/Oncology at [address] [phone] Lennox Spivey MD [facility] HEMATOLOGY [place] [address] 03/11/2024 1:00 PM EDT Scheduled View Only Hematology/Oncology at [address] [phone] Trupti Bray RN 03/11/2024 1:00 PM EDT Infusion Hematology Oncology at [address] [phone] 03/25/2024 10:00 AM EDT Office Visit Hematology/Oncology at [address] [phone] Lennox Spivey MD [facility] HEMATOLOGY [place] [address] Bushra Muniz APRN [address] [place] [address] HEMATOLOGY AND ONCOLOGY [place], [place] [address] 03/25/2024 10:30 AM EDT Scheduled View Only Hematology/Oncology at [address] [phone] Trupti Bray RN 03/25/2024 10:30 AM EDT Infusion Hematology Oncology at [address] [phone] documented as of this encounter Visit Diagnoses Not on filedocumented in this encounter Care Teams Delivery Clerk Relationship Specialty Start Date End Date Rayo Riley MD [address] [place] [address] PCP - General 06/22/10 01/10/24 documented as of this encounter
--- OUTSIDE RECORDS SUMMARY | 2024-03-11 03:21 | XMS_ITS | Encounter Summary ---
Author Organization [facility] Address [facility] [place] [address] Care Team Providers Care Optical Instruments Supervisor Name Role Phone Rayo Riley MD Primary Care Provider [phone] Reason for Referral * Consultation (Routine) - Authorized Specialty Diagnoses / Procedures Referred By Elieser lock Referred To Contact Radiation Oncology Diagnoses Non-small cell lung cancer, left Procedures Simulation for Radiation Therapy Planning Beto Braswell MD [facility] [place] [address] [facility] Rad Onc Office [address] [place] [phone] Referral ID Status Reason Start Date Expiration Date Visits Requested Visits Authorized [id number] Authorized Consult, Test & Treat 12/26/2023 12/25/2024 10 16 Encounter Details Date Type Department Care Team (Late st Contact Info) Description 12/26/2023 Orders [place] [address] Beto Braswell MD [facility] [place] [address] Non-small cell lung cancer, left Social History Tobacco Use Types Packs/Day Years Used Date Smoking Tobacco: Former Cigarettes 0.3 57 Smokeless Tobacco: Never Comments:Quit 11/2023 Alcohol Use Standard Drinks/Week Comments Yes 7 (1 standard drink = 0.6 oz pure alcohol) 4oz rum with coke daily- varies [facility] Utilities Answer Date Recorded In the [...] any time in the past 12 m [facility], were you homeless or living in a group home (including now)? No 12/21/2023 IPV Inpatient [...] 12:30 PM EDT Office Visit Hematology/Oncology at [address] [phone] Lennox Spivey MD [facility] DR HEMATOLOGY [place] [address] 03/11/2024 1:00 PM EDT Scheduled View Only Hematology/Oncology at [address] [phone] Trupti Bray RN 03/11/2024 1:00 PM EDT Infusion Hematology Oncology at [address] [phone] 03/25/2024 10:00 AM EDT Office Visit Hematology/Oncology at [address] [phone] Lennox Spivey MD [facility] DR HEMATOLOGY [place] [address] Bushra Muniz [address] HEMATOLOGY AND ONCOLOGY [place], [place] [id number] 03/25/2024 10:30 AM EDT Scheduled View Only Hematology/Oncology at [address] [phone] Trupti Bray RN 03/25/2024 10:30 AM EDT Infusion Hematology Oncology at [address] [phone] Scheduled Orders Name Type Priority Associated Diagnoses Orde r Schedule Simulation for Radiation Therapy Planning Radiation Oncology Routine Non-small cell lung cancer, left Expected: 12/26/2023, Expires: 06/26/2024 documented as of this encounter Visit Diagnoses Diagnosis Non-small cell lung cancer, left Stage 4 lung cancer, left Secondary malignant neoplasm of pleura documented in this encounter Care Teams Optical Instruments Supervisor Relationship Specialty Start Date End Date Rayo Riley MD [address] [place] [address] PCP - General 06/22/10 01/10/24 documented as of this encounter
--- OUTSIDE RECORDS SUMMARY | 2024-03-11 03:21 | XMS_ITS | Encounter Summary ---
Author Organization [facility] Address [facility] [place] [address] Care Team Providers Care Program Writer Name Role Phone Rayo Riley MD Primary Care Provider [phone] Encounter Details Date Type Department Care Team ([facility] st Contact Info) Description 12/15/2023 [place]phone [place] [address] Desilets, Edel Santiago RN Social History Tobacco Use Types Packs/Day Years Used Date Smoking Tobacco: Former Cigarettes 0.3 57 Smokeless Tobacco: Never Comments:Quit 11/2023 Alcohol Use Standard Drinks/Week Comments Yes 7 (1 standard drink = 0.6 oz pure alcohol) 4oz rum with coke daily- varies [facility] Utilities Answer Date Recorded In [...] a group home (including now)? No 12/13/2023 DH IPV Inpatient [...] encounter Miscellaneous Notes * Telephone Encounter - Edel Verdugo RN - 12/15/2023 6:30 AM EDT Copied from [facility] #[id number]. Topic: Specialty Dept CRMs - Orders >> December 14, 2023 12:44 PM Vinicio Bliss wrote: Orders Request Specialist: Dr. Landry Relationship (if other than patient-full name): [facility] Radiology Type of Request: [x] Send orders Type/Name of Order: Imaging If Labs and Imaging list name of specific test(s): CT Head wwo Contrast (Order [id number]) Date of Lab/Imaging/Testing Appt: not currently scheduled Date of Provider Appt: not currently scheduled Appt Type with Provider: n/a Patient Requesting to Have Orders Sent to Facility Outside of [facility]: Yes If Yes, Name of Facility: [facility] Radiology Address: unknown Phone #: [phone] Fax #: unknown Melina called from [facility] Radiology regarding CT order placed by Dr. Landry 11/17/23. Melina stated when they called to scheduled patient he was admitted at [facility] and awaiting transfer to [facility]. Melina is inquiring if patient still needs scan. Please call to advise. documented in this encounter Plan of Treatment Upcoming Encounters Date Type Department Care Team (Late st Contact Info) Description 03/11/2024 12:30 PM EDT Office Visit Hematology/Oncology at [address] [phone] Lennox Spivey MD [facility] DR HEMATOLOGY [place] [address] 03/11/2024 1:00 PM EDT Scheduled View Only Hematology/Oncology at [address] [phone] Trupti Bray RN 03/11/2024 1:00 PM EDT Infusion Hematology Oncology at [address] [phone] 03/25/2024 10:00 AM EDT Office Visit Hematology/Oncology at [address] [phone] Lennox Spivey MD [facility] DR HEMATOLOGY [place] [address] Bushra Muniz [address] HEMATOLOGY AND ONCOLOGY [place], [place] [phone] 03/25/2024 10:30 AM EDT Scheduled View Only Hematology/Oncology at [address] [phone] Trupti Bray RN 03/25/2024 10:30 AM EDT Infusion Hematology Oncology at [address] [phone] documented as of this encounter Visit Diagnoses Not on filedocumented in this encounter Care Teams Program Writer Relationship Specialty Start Date End Date Rayo Riley MD [address] [place] [address] PCP - General 06/22/10 01/10/24 documented as of this encounter
--- OUTSIDE RECORDS SUMMARY | 2024-03-11 03:21 | XMS_ITS | Encounter Summary ---
Author Organization [facility] Address [facility] [place] [address] Care Team Providers Care Glass Inspector Name Role Phone Rayo Riley MD Primary Care Provider [phone] Encounter Details Date Type Department Care Team (Late Contact Info) Description 12/04/2023 Orders [place] [phone] Johnna Jordan RN Pleural mass; Chest wall mass Social History Tobacco Use Types Packs/Day Years Used Date Smoking Tobacco: Every Day Cigarettes 0.3 57 Smokeless Tobacco: Never Comments:Down to 1/4PPD Alcohol Use Standard Drinks/Week Comments Yes 7 (1 standard drink = 0.6 oz pur e alcohol) 4oz rum with coke daily [facility] Inpatient Questions Answer Date Recorded Does Anyone [...] 12:30 PM EDT Office Visit Hematology/Oncology at [address] [phone] Lennox Spivey MD [facility] [place] [address] 03/11/2024 1:00 PM EDT Scheduled View Only Hematology/Oncology at [address] [phone] Trupti Bray RN 03/11/2024 1:00 PM EDT Infusion Hematology Oncology at [address] [phone] 03/25/2024 10:00 AM EDT Office Visit Hematology/Oncology at [address] [phone] Lennox Spivey MD [facility] DR [place] [address] Bushra Muniz APRN [address] [place] [address] DR HEMATOLOGY AND ONCOLOGY [place], [place] [phone] 03/25/2024 10:30 AM EDT Scheduled View Only Hematology/Oncology at [address] [phone] Trupti Bray RN 03/25/2024 10:30 AM EDT Infusion Hematology Oncology at [address] [phone] documented as of this encounter Results * XR Chest PA & Lateral (Generic) (12/05/2023 10:41 AM EDT) [employer] WORKSTATION ID [id number] RAD Anatomical Region Laterality Modality Chest N/A Digital Radiogra phy Impressions 12/05/2023 3:16 PM EDT No pleural effusion or pneumothorax Thank you for letting us participate in the care of this patient. ??If you are a health care provider and have any questions regarding this report, please contact the number below. ??For patients who have questions please contact the health rn complex care that requested your imaging first. ? Electronically signed by: Alon Navarro MD, [facility] ??([phone]), at 12/05/2023 3:16 PM Narrative 12/05/2023 3:16 PM EDT EXAMINATION: XR CHEST PA AND LATERAL (GENERIC) CLINICAL HISTORY: S/P chest wall excision 11/22/2023, eval for PTX/Effusion/changes TECHNIQUE: PA and lateral views of the chest COMPARISON: Chest CT 08/23/2023, chest radiographs 06/12/2023 FINDINGS: The cardiac silhouette is stable. There are extensive left pleural metastasis, progressed since 06/12/2023. No pleural effusion or pneumothorax. Procedure Note Alon Navarro MD - 12/05/2023 EXAMINATION: XR CHEST PA AND LATERAL (GENERIC) CLINICAL HISTORY: S/P chest wall excision 11/22/2023, eval for PTX/Effusion/changes TECHNIQUE: PA and lateral views of the chest COMPARISON: Chest CT 08/23/2023, chest radiographs 06/12/2023 FINDINGS: The cardiac silhouette is stable. There are extensive left pleuralmetastasis, progressed since 06/12/2023. No pleural effusion or pneumothorax. IMPRESSION No pleural effusion or pneumothorax Thank you for letting us participate in the care of this patient. If youare a health care provider and have any questions regarding this report,please contact the number below. For patients who have questions please contactthe health rn complex care that requested your imaging first. Electronically signed by: Alon Navarro MD, [facility]([phone]), at 12/05/2023 3:16 PM Dylan Weldon MD IMG DX ORDERABLES documented in this encounter Visit Diagnoses Diagnosis Pleural mass Swelling, mass, or lump in chest Chest wall mass Swelling, mass, or lump in chest Pleural mass Swelling, mass, or lump in chest Chest wall mass Swelling, mass, or lump in chest Stage 4 lung cancer, left Secondary malignant neoplasm of pleura documented in this encounter Care Teams Glass Inspector Relationship Specialty Start Date End Date Rayo Riley MD [address] [address] [place] [address] PCP - General 06/22/10 01/10/24 documented as of this encounter
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
--- OUTSIDE RECORDS SUMMARY | 2024-03-11 03:21 | XMS_ITS | Encounter Summary ---
Author Organization [facility] Address [facility] [place] [address] Care Team Providers Care Microelectronics Assembler Name Role Phone Rayo Riley MD Primary Care Provider [phone] [phone] Reason for Visit * Consultation (Routine) - Closed Specialty Diagnoses / Procedures Referred By Elieser lock Referred To Contact Radiation Oncology Diagnoses Mass of left lung Mass of chest wall, left Dylan Martinez MD [facility] [address] Beto Braswell MD [facility] [place] [address] Referral ID Status Reason Start Date Expiration Date V isits Requested Visits Authorized [id number] Closed Consult, Test & Treat 11/17/2023 11/16/2024 1 1 Encounter Details Date Type Department Care Team (Late st Contact Info) Description 12/13/2023 2:00 PM EDT Office Visit Radiation Oncology at [address] [phone] Beto Braswell MD [facility] [place] [address] Non-small cell lung cancer, left Social History Tobacco Use Types Packs/Day Years Used Date Smoking Tobacco: Former Cigarettes 0.3 57 Smokeless Tobacco: Never Tobacco Cessation:Counseling Given: Not Answered Comments:Quit 11/2023 Alcohol Use Standard Drinks/Week Comments Yes 7 (1 standard drink = 0.6 oz pure alcohol) 4oz rum with coke daily- varies [facility] Utilities Answer Date Recorded In the past [...] a care home (including now)? No 12/13/2023 DH IPV [...] Sign Reading Time Taken Comments Blood Pressure 135/73 12/13/2023 2:32 PM EDT Pulse 88 12/13/2023 2:32 PM EDT Temperature 37.5 ??C (99.5 ??F) 12/13/2023 2 :32 PM EDT Respiratory Rate 18 12/13/2023 2:32 PM EDT Oxygen Saturation 93% 12/13/2023 2:3 2 PM EDT Inhaled Oxygen Concentration - - Weight 96.1 kg (211 lb 12.8 oz) 12/13/2023 2:32 PM EDT with sandals Height - - Body Mass Index 32.2 12/05/2023 11:06 AM EDT documented in this encounter Progress Notes * Beto Braswell MD - 12/13/2023 2:00 PM EDT Images from the original note were not included. [facility] Medicine Radiation Oncology Radiation Oncology Consultation Patient Identity: Patient name: Jeffrey Lovelace Date of : 1955 Chief complaint: Lung carcinoma Referring: Dylan Martinez MD [facility] [place] [address] ONCOLOGIC HISTORY Overview: Stage IV NSCLC with extensive pleural and soft tissue involvement Details: Narrative History Jeffrey Lovelace is a 68 y.o. male current smoker (~ 58 PY) with PMHx of asbestos exposure, COPD,depression, DM2, GERD, HTN, HLD, inguinal hernia, umbilical hernia. He presented in May 20[facility] to [facility] with dyspnea and was found to have a left pleural effusion. A chest tube was placed; cytology was negative. He was treated for pneumonia, and a the tube was removed with improvement in symptoms. He subsequently presented to his PCP at [facility] with increasing chest pain and a mass [...] testing can be performed upon clinical request. Post Tx Other Concerns: Currently, he has the following symptoms: Symptom Description Intervention Pain Pain is localized to shoulder blade and back, radiating to left breast. Pain is exacerbated bymotion. 10/10 when pain medications wear off, typically at a 3-4/10 Oxycodone 20 mg QID, Ibuprofen 400 mg / 1000 mg Tylenol (QID) Dyspnea Dyspnea with activity Cough Minimal Dysphagia No Issues Voice Changes Denies Nutrition / Weight Loss No issues Actively Smoking Smoking minimally, started at age 13, 1.5 ppd average Pack Years Distance to [facility] 1.5 hours. Notes no barriers to transportation. Other No issues I have personally reviewed the imaging studies referenced above. Review of Systems: I reviewed and agree with the nursing review of systems accompanying this encounter. The remainder of the comprehensive review of systems was negative with the exception of the pertinent positives and negatives noted above. Medications and Allergies: Current Outpatient Medications: acetaminophen (Tylenol) 500 mg tablet, Take 2 tablets by mouth every 6 hours., Disp: , Rfl: senna (Senokot) 8.6 mg tablet, Take 1 tablet by mouth every evening., Disp: , Rfl: polyethylene glycoL (Miralax) 17 gram oral powder packet, Take 17 g by mouth daily., Disp: , Rfl: triamcinolone (ARISTOCORT) 0.5 % Cream, Apply 1 g topically Once daily as needed., Disp: , Rfl: ibuprofen (Advil) 200 mg tablet, Take 400 mg by mouth Daily @ 0600., Disp: , Rfl: multivitamin (THERAGRAN) Tablet, Take 1 tablet by mouth daily., Disp: , Rfl: magnesium oxide (Mag-Ox) 400 mg (241.3 mg magnesium) Tablet, Take 400 mg by mouth daily., Disp: , Rfl: tiotropium-olodateroL (Stiolto Respimat) 2.5-2.5 mcg/actuation Mist, Inhale into the lungs., Disp: , Rfl: atorvastatin (Lipitor) 40 mg tablet, Take 40 mg by mouth Daily @ 0600., Disp: , Rfl: losartan (Cozaar) 100 mg tablet, Take 100 mg by mouth Daily @ 0600., Disp: , Rfl: oxyCODONE (Roxicodone) 15 mg tablet, TAKE 1 TABLET BY MOUTH EVERY 8 HOURS NEEDED FOR LUNG MASS AND CHEST PAIN, Disp: , Rfl: FLUOXETINE HCL (PROZAC ORAL), Take 20 mg by mouth 2 times daily., Disp: , Rfl: omeprazole (PRILOSEC) 20 mg capsule, , Disp: , Rfl: aspirin (BABY ASPIRIN) 81 mg chewable tablet, , Disp: , Rfl: Allergies Allergen Reactions Other [Unclassified Drug] Black fly bites -was hospitalized because of it Penicillins CIS - RASH Exam: No data found. Physical Exam Constitutional: Appearance: He is well-developed. HENT: Mouth/Throat: Comments: Visual inspection of OC and OP revealed no evidence of suspicious masses or lesions. Palpation revealed no suspicious masses and no induration along the posterior tongue. Moisture good. Pt edentulous. Eyes: Pupils: Pupils are equal, round, and reactive to light. Neck: Comments: Palpation reveals no adenopathy in cervical, SCLV, ICLV сергей basins. Cardiovascular: Rate and Rhythm: Normal rate. Pulmonary: Effort: Pulmonary effort is normal. Breath sounds: Normal breath sounds. Comments: Pain localized to left anterior chest, from nipple to lateral chest, radiating around to left scapula. Chest: Chest wall: Tenderness present. Skin: Findings: No erythema. Neurological: Mental Status: He is alert and oriented to person, place, and time. Cranial Nerves: No cranial nerve deficit. Psychiatric: Behavior: Behavior normal. Performance Status: KPS 70-80% ECOG 1 Restricted in physically strenuous activity but ambulatory and able to carry out work of a light or sedentary nature, e.g., light house work, office work Contraindications to Radiotherapy NO YES: Date, site, dose (women only) X Prior Radiotherapy X Collagen-Vascular dz X Summary/Recommendations: Cancer Staging: CT Chest PET-CT Pathologic Evaluation: excisional biopsy Further Staging MRI Brain: pending Impression: Jeffrey Lovelace has been referred to discuss radiotherapy in his care. he has a Stage IV poorly differentiated NSCLC, with extensive pleural disease and soft tissue involvement. We discussed the incurable nature of this disease, that the cornerstone of therapy is systemic therapy, and that radiotherapy can have a role in terms of palliating symptoms. He is in significant pain, and I will discuss with his PCP regarding pain management. We discussed the relative risks and benefits of palliative radiotherapy in the hope of diminishing his pain, and that the benefit was not a survival benefit.We discussed the potential risks in detail. he has not yet seen medical oncology, and I will reach out to Dr. Spivey (who he is seeing in a week) in order to discuss treatment options. We discussed the rationale and logistics (including simulation, planning, and treatment) of palliative radiotherapy. We discussed the risks of therapy, including but not limited to short term sequelae (fatigue, esophagitis, skin erythema, cough) and jail sequelae (radiation pneumonitis, the potential for increased dyspnea, and the possibility of significant damage to soft tissue, bone or skin requiring surgical or medical intervention). Mr. Lovelace expressed an understanding of these risks. The patient had a number of questions regarding optimal therapy and potential side effects. These questions were answered to his satisfaction. Plan: Discuss with Dr. Spivey He will consider his options, potential palliative RT to chest wall Supportive Care: Referrals Decorating Supervisor 4. Referral to palliative care recommended, he will consider this. Thank you for allowing me to participate in the care of Jeffrey Lovelace. Beto Braswell MD, PhD [facility] Radiation oncology [phone] No orders of the defined types were placed in this encounter. The following information is automatically imported from [facility]. It has been reviewed, and pertinent information is noted above in HPI: PAST HISTORY Patient Active Problem List Diagnosis Date Noted Pleural mass 11/21/2023 Chest wall mass 11/21/2023 Social History Socioeconomic History Marital status: Spouse name: Not on file Number of children: Not on file Years of education: Not on file Highest education level: Not on file Occupational History Not on file Tobacco Use Smoking status: Every Day Packs/day: 0.25 Years: 57.00 Additional pack years: 0.00 Total pack years: 14.25 Types: Cigarettes Smokeless tobacco: Never Tobacco comments: Down to 1/4PPD Vaping Use Vaping Use: Never used Substance and Sexual Activity Alcohol use: Yes Alcohol/week: 7.0 standard drinks of alcohol Types: 7 Drinks containing 0.5 oz of alcohol per week Comment: 4oz rum with coke daily Drug use: Yes Types: Marijuana Comment: very rarely Sexual activity: Not on file Other Topics Concern Not on file Social History Narrative Not on file Social Determinants of Health Financial Resource Strain: Not on file Food Insecurity: Not on file Transportation Needs: Not on file Physical Activity: Not on file Intimate Partner Violence: Not At Risk (11/22/2023) [facility] Inpatient Questions Prevent Contact with Others: no Feels Threatened by Someone: no Feels Unsafe at Home: no Physical Signs of Abuse Present: no Housing Stability: Not on file Family History Problem Relation Age of Onset Type 2 Diabetes Father Bladder Cancer Father Leukemia Father Cancer Maternal Grandfather [facility] [employer] Commission on Cancer (ACS [place]) Accredited Cancer Program [employer] (A[employer]) Accredited Radiation Oncology Program * Morena Amin RN - 12/13/2023 2:00 PM EDT RADIATION ONCOLOGY NURSING INITIAL NURSING ASSESSMENT IDENTIFICATION: Jeffrey Lovelace is a 68 y.o. year-old male with lung cancer PRESENTING SYMPTOMS/CHIEF COMPLAINT: NPW Smoking History: 57 years varied cigarette use. Quit again this month. Drug History: None Alcohol History: Rum and Coke daily Family History of Cancer: Yes REVIEW OF SYSTEMS: Review of Systems - Oncology 12/13/2023 1:16 PM REVIEW OF SYSTEMS Constitutional Weakness Fatigue, lack of energy Hot flashes Drowsiness Pain Ear / nose / throat / mouth Dry mouth Respiratory Thick mucous or spit (Sputum or Phlegm) Shortness of breath Gastrointestinal Constipation Musculoskeletal Back pain Reduced range of motion Unable to walk/difficulty walking Hematologic / Lymphatic Don't know Genitourinary Frequent urination IN THE PAST 12 MONTHS HAVE YOU: Fallen more than one time? No Injured yourself as result of the fall? N/A Experienced difficulty with walking/problems with balance? Yes Do you use any assistive devices? No Any history of collagen vascular diseases:No Any Implanted Devices/Hardware: Yes stainless steel in neck, plate screws in jaw. If yes please put alert in ARIA patient summary Prior Radiotherapy: No Prior Chemotherapy: No Prior Hormone Therapy: No LEARNING ASSESSMENT REVIEWED: Yes ADVANCED DIRECTIVE: Has been thinking about completing. PAIN ASSESSMENT: 3 out of 10 *eD-H Adult PCS Flow Sheet if 4 or above SOCIAL ASSESSMENT: See EDH social assessment information entered. Support Systems: Friends. Lives alone. Son in [facility] Barriers to treatment: Patient does not identify any though does mention that transportation to appointments historically has been an issue. Used Rides with [employer] transportation today which was set up by PCP. Referrals/Interventions: APPLICATIONS SYSTEMS ENGINEER per routine RADIATION SPECIFIC TEACHING: To be done by nursing on day of simulation. [facility]iation [facility] and You Site specific teaching : Other: PLAN: Per Dr. Braswell documented in this encounter Plan of Treatment Upcoming Encounters Date Type Department Care Team (Late st Contact Info) Description 03/11/2024 12:30 PM EDT Office Visit Hematology/Oncology at [address] [phone] Lennox Spivey MD [facility] [place] [address] 03/11/2024 1:00 PM EDT Scheduled View Only Hematology/Oncology at [address] [phone] Trupti Bray RN 03/11/2024 1:00 PM EDT Infusion Hematology Oncology at [address] [phone] 03/25/2024 10:00 AM EDT Office Visit Hematology/Oncology at [address] [phone] Lennox Spivey MD [facility] [place] [address] Bushra Muniz APR[address] HEMATOLOGY AND ONCOLOGY [place], [place] [id number] 03/25/2024 10:30 AM EDT Scheduled View Only Hematology/Oncology at [address] [phone] Trupti Bray RN 03/25/2024 10:30 AM EDT Infusion Hematology Oncology at [address] [phone] documented as of this encounter Visit Diagnoses Diagnosis Non-small cell lung cancer, left Stage 4 lung cancer, left Secondary malignant neoplasm of pleura documented in this encounter Care Teams Microelectronics Assembler Relationship Specialty Start Date End Date Rayo Riley MD [address] [place] [address] PCP - General 06/22/10 01/10/24 documented as of this encounter
--- OUTSIDE RECORDS SUMMARY | 2024-03-11 03:21 | XMS_ITS | Encounter Summary ---
Author Organization [facility] Address [facility] [place] [address] Care Team Providers Care Back Tender Paper Machine Name Role Phone Rayo Riley MD Primary Care Provider [phone] [phone] Encounter Details Date Type Department Care Team (Latest Contact Info) Description 12/05/2023 10:32 AM EDT - 12/05/2023 11:59 PM EDT Hospital Encounter XRay at [address] [place] [address] Dylan Weldon MD [facility] DR [place] [address] Pleural mass; Chest wall mass Discharge Disposition: Home Social History Tobacco Use Types Packs/Day Years Used Date Smoking Tobacco: Every Day Cigarettes 0.3 57 Smokeless Tobacco: Never Comments:Down to 1/4PPD Alcohol Use Standard Drinks/Week Comments Yes 7 (1 standard drink = 0.6 oz pur e alcohol) 4oz rum with coke daily [facility] Inpatient Questions Answer Date Recorded Does Anyone [...] Refills Start Date End Date acetaminophen (Tylenol) 500 mg tablet Take 2 [...] (BABY ASPIRIN) 81 mg chewable tablet 10/02/2008 magnesium oxide (Mag-Ox) 400 mg (241.3 mg magnesium) Tablet Take 400 mg by mouth 2 times daily. 02/19/2024 oxyCODONE (Roxicodone) 15 mg tablet TAKE 1 TABLET BY MOUTH EVERY 8 HOURS NEEDED FOR LUNG MASS AND CHEST PAIN 11/10/2023 12/13/2023 FLUOXETINE HCL (PROZAC ORAL) Take 20 mg by mouth 2 times daily. 10/02/2008 02/05/2024 documented as of this encounter Plan of Treatment Upcoming Encounters Date Type Department Care Team (Late st Contact Info) Description 03/11/2024 12:30 PM EDT Office Visit Hematology/Oncology at [address] [phone] Lennox Spivey MD [facility] HEMATOLOGY [place] [address] 03/11/2024 1:00 PM EDT Scheduled View Only Hematology/Oncology at [address] [phone] Trupti Bray RN 03/11/2024 1:00 PM EDT Infusion Hematology Oncology at [address] [phone] 03/25/2024 10:00 AM EDT Office Visit Hematology/Oncology at [address] [phone] Lennox Spivey MD [facility] DR HEMATOLOGY [place] [address] Bushra Muniz APRN [address] [place] [address] DR HEMATOLOGY AND ONCOLOGY [place], [place] [id number] 03/25/2024 10:30 AM EDT Scheduled View Only Hematology/Oncology at [address] [phone] Trupti Bray RN 03/25/2024 10:30 AM EDT Infusion Hematology Oncology at [address] [phone] documented as of this encounter Procedures Procedure Name Priority Date/Time Associated Diagnosis Comments XR CHEST PA AND LATERAL Routine 12/05/2023 10:41 AM EDT Pleural mass Chest wall mass documented in this encounter Results * XR Chest PA & Lateral (Generic) (12/05/2023 10:41 AM EDT) [employer] WORKSTATION ID [id number] RAD Anatomical Region Laterality Modality Chest N/A Digital Radiogra phy Impressions 12/05/2023 3:16 PM EDT No pleural effusion or pneumothorax Thank you for letting us participate in the care of this patient. ??If you are a health care provider and have any questions regarding this report, please contact the number below. ??For patients who have questions please contact the health care coordination manager that requested your imaging first. ? Narrative 12/05/2023 3:16 PM EDT EXAMINATION: XR [...] patients who have questions please contactthe health care coordination manager that requested your imaging first. Dylan Weldon MD IMG DX ORDERABLES documented in this encounter Visit Diagnoses Diagnosis Pleural mass Swelling, mass, or lump in chest Chest wall mass Swelling, mass, or lump in chest Stage 4 lung cancer, left Secondary malignant neoplasm of pleura documented in this encounter Care Teams Back Tender Paper Machine Relationship Specialty Start Date End Date Rayo Riley MD [address] [place] [address] [address] [facility] [address] [place] [address] PCP - General 06/22/10 01/10/24 documented as of this encounter
--- OUTSIDE RECORDS SUMMARY | 2024-03-11 03:21 | XMS_ITS | Encounter Summary ---
Author Organization [facility] Address [facility] [place] [address] Care Team Providers Care Income Tax Auditor Name Role Phone Rayo Riley MD Primary Care Provider [phone] [phone] Encounter Details Date Type Department Care Team ([facility] st Contact Info) Description 12/15/2023 Telephone [place] [phone] Sharon Landry MD [facility] [place] [address] Social History Tobacco Use Types Packs/Day Years Used Date Smoking Tobacco: Former Cigarettes 0.3 57 Smokeless Tobacco: Never Comments:Quit 11/2023 Alcohol Use Standard Drinks/Week Comments Yes 7 (1 standard drink = 0.6 oz pure alcohol) 4oz rum with coke daily- varies [facility] Utilities Answer Date Recorded In the past [...] a senior care (including now)? No 12/13/2023 DH IPV Inpatient [...] 12:30 PM EDT Office Visit Hematology/Oncology at [address] [phone] Lennox Spivey MD [facility] [place] [address] 03/11/2024 1:00 PM EDT Scheduled View Only Hematology/Oncology at [address] [phone] Trupti Bray RN 03/11/2024 1:00 PM EDT Infusion Hematology Oncology at [address] [phone] 03/25/2024 10:00 AM EDT Office Visit Hematology/Oncology at [address] [phone] Lennox Spivey MD [facility] DR [place] [address] Bushra Muniz APRN [address] [place] [address] DR HEMATOLOGY AND ONCOLOGY [place], [place] [id number] 03/25/2024 10:30 AM EDT Scheduled View Only Hematology/Oncology at [address] [phone] Trupti Bray RN 03/25/2024 10:30 AM EDT Infusion Hematology Oncology at [address] [phone] documented as of this encounter Visit Diagnoses Not on filedocumented in this encounter Care Teams Income Tax Auditor Relationship Specialty Start Date End Date Rayo Riley MD [address] [place], [place] [address] PCP - General 06/22/10 01/10/24 documented as of this encounter
--- OUTSIDE RECORDS SUMMARY | 2024-03-11 03:21 | XMS_ITS | Encounter Summary ---
Author Organization [facility] [place] [address] Care Team Providers Care Watch Repairer Apprentice Name Role Phone Rayo Riley MD Primary Care Provider [phone] Encounter Details Date Type Department Care Team ([facility] st Contact Info) Description 11/24/2023 Telephone [place] [address] Johnna Jordan, RN Social History Tobacco Use Types Packs/Day Years Used Date Smoking Tobacco: Every Day Cigarettes 0.3 57 Smokeless Tobacco: Never Comments:Down to 1/4PPD Alcohol Use Standard Drinks/Week Comments Yes 7 (1 standard drink = 0.6 oz pur e alcohol) 4oz rum with coke daily [facility] Inpatient Questions Answer Date Recorded [...] encounter Miscellaneous Notes * Telephone Encounter - Johnna Jordan RN - 11/24/2023 1:23 PM EDT Thoracic Surgery Nursing Post-operative Follow up: Hx: S/P chest wall excision 11/22/2023 with Shiraz POD#: 2 General statement: Call from PCP office that patient is calling them asking for antibiotics. Phone call to patient to check in. Friends are staying with him to help. We discussed antibiotics and thatthey are not needed. Pain: As below and oxycodone from his PCP Extra strength tylenol 1000 mg alternate with ibuprofen 200 mg (2-3 tabs) every 3 hours : ex. Schedule - Extra strength Tylenol 1000 mg at 8am, ibuprofen 200 mg (2-3 tabs) at 11 am, then Extra strength tylenol 1000 mg at 2 pm, then ibuprofen 200 mg (2-3 tabs) at 5 pm. Do not exceed more than 4000 mg of Extra strength tylenol in 24 hour period. GI: appetite: good Diet: regular Hydration: good Voiding: without any difficulty BM: without any difficulty - today, large - What is the Bowel regimen: taking now if needed Respiratory: using IS as directed, yes SOB: denies Difficulty breathing: denies Coughing with or without sputum: denies Activity: up and about without any difficulty, yes, more each day Integumentary: Incisions without any redness, swelling, drainage, fevers, chills, sweats, site hot to touch, bruising and bleeding, everything looks good so far Plan: RTC on 12/05/2023 CXR 1045 at 3T and 3K at 1[address] Dr. Weldon Patient is aware of appointments and know to call with any questions or concerns. documented in this encounter Plan of Treatment Upcoming Encounters Date Type Department Care Team (Late st Contact Info) Description 03/11/2024 12:30 PM EDT Office Visit Hematology/Oncology at [address] [phone] Lennox Spivey MD [facility] DR HEMATOLOGY [place] [address] 03/11/2024 1:00 PM EDT Scheduled View Only Hematology/Oncology at [address] [phone] Trupti Bray RN 03/11/2024 1:00 PM EDT Infusion Hematology Oncology at [address] [phone] 03/25/2024 10:00 AM EDT Office Visit Hematology/Oncology at [address] [phone] Lennox Spivey MD [facility] DR HEMATOLOGY [place] [address] Bushra Muniz APRN [address] [place] [address] DR HEMATOLOGY AND ONCOLOGY [place], [place] [id number] 03/25/2024 10:30 AM EDT Scheduled View Only Hematology/Oncology at [address] [phone] Trupti Bray RN 03/25/2024 10:30 AM EDT Infusion Hematology Oncology at [address] [phone] documented as of this encounter Visit Diagnoses Not on filedocumented in this encounter Care Teams Watch Repairer Apprentice Relationship Specialty Start Date End Date Rayo Riley MD [address] [place] [address] PCP - General 06/22/10 01/10/24 documented as of this encounter
--- OUTSIDE RECORDS SUMMARY | 2024-03-11 03:21 | XMS_ITS | Encounter Summary ---
Author Organization Formerly [facility], [facility] Address [facility] [place] [address] Care Team Providers Care Housecleaner Name Role Phone Rayo Riley MD Primary Care Provider [phone] Encounter Details Date Type Department Care Team (Late st Contact Info) Description 12/14/2023 Orders Only Hematology and Oncology at [facility] [place] [address] Lennox Spivey MD [facility] DR HEMATOLOGY [place] [address] Secondary malignant neoplasm of bone; Stage 4 lung cancer, left Social History [...] th e electric, gas, oil, or water [employer] threatened to shut off services in your [...] PM EDT Office Visit Hematology/Oncology at [address] [phone] Lennox Spivey MD [facility] DR HEMATOLOGY [place] [address] 03/11/2024 1:00 PM EDT Scheduled View Only Hematology/Oncology at [address] [phone] Trupti Bray RN 03/11/2024 1:00 PM EDT Infusion Hematology Oncology at [address] [phone] 03/25/2024 10:00 AM EDT Office Visit Hematology/Oncology at [address] [phone] Lennox Spivey MD [facility] DR HEMATOLOGY [place] [address] Bushra Muniz APRN [address] [place] [address] DR HEMATOLOGY AND ONCOLOGY [place], [place] [phone] 03/25/2024 10:30 AM EDT Scheduled View Only Hematology/Oncology at [address] [phone] Trupti Bray RN 03/25/2024 10:30 AM EDT Infusion Hematology Oncology at [address] [phone] Scheduled Orders Name Type Priority Associated Diagnoses Orde r Schedule Specimen to Pathology Additional Testing Pathology/Cytol ogy STAT Secondary malignant neoplasm of bone Stage 4 lung cancer, left Ordered: 12/14/2023 Specimen to Pathology Additional Testing Pathology/Cytol ogy STAT Secondary malignant neoplasm of bone Stage 4 lung cancer, left Ordered: 12/14/2023 documented as of this encounter Visit Diagnoses Diagnosis 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
--- OUTSIDE RECORDS SUMMARY | 2024-03-11 03:21 | XMS_ITS | Encounter Summary ---
Author Organization [facility] Address [facility] [place] [address] Care Team Providers Care Clothing Cutter Name Role Phone Rayo Riley MD Primary Care Provider [phone] Reason for Visit * Reason Comments Follow-up Encounter Details Date Type Department Care Team ([facility] st Contact Info) Description 12/05/2023 11:30 AM EDT Office [place] [phone] Chantelle Greer PA [facility] [place] [address] Chest wall mass Social History Tobacco Use Types Packs/Day Years Used Date Smoking Tobacco: Every Day Cigarettes 0.3 57 Smokeless Tobacco: Never Comments:Down to 1/4PPD Alcohol Use Standard Drinks/Week Comments Yes 7 (1 standard drink = 0.6 oz pur e alcohol) 4oz rum with coke daily [facility] Inpatient Questions Answer Date Recorded Does Anyone [...] Sign Reading Time Taken Comments Blood Pressure 111/56 12/05/2023 11:06 AM EDT Pulse 100 12/05/2023 11:06 AM EDT Temperature 36.7 ??C (98.1 ??F) 12/05/2023 11:06 AM E DT Respiratory Rate 20 12/05/2023 11:06 AM EDT Oxygen Saturation 93% 12/05/2023 11:06 AM EDT Inhaled Oxygen Concentration - - Weight 95.9 kg (211 lb 6.7 oz) 12/05/2023 11:06 AM EDT Height 172.7 cm (5' 8) 12/05/2023 11:06 AM EDT Body Mass Index 32.15 12/05/2023 11:06 AM EDT documented in this encounter Progress Notes * Chantelle Greer PA - 12/05/2023 11:30 AM EDT Images from the original note were not included. Thoracic Surgery Attending Outpatient Follow Up Note OLIVIA [place] [address] FAX: Pre Op Dx: FDG avid left chest wall mass with pleural based masses Post Op Dx: Left chest wall mass- final path pending Procedure (11/22/23): excision of left chest wall mass Pathology (11/15/23): Chest wall mass, left (FNA): Malignant cells present, favor poorly differentiated carcinoma (see note). Pathology (11/22/23): final path pending Complications: none Treatment: referral to medical oncology, tx plan pending final pathology HPI: Jeffrey Lovelace is a 68 y.o. male current smoker with remote history of asbestos exposure with pleural based nodularity and a large, painful fungating left chest wall mass at the site of his prior chest tube site with biopsy revealing carcinoma now s/p surgical excision of mass. He was discharged on POD1 after an uncomplicated course and presents today for postoperative follow up. Today he reports pain at the incision site that has been present since surgery and is somewhat getting better. He is taking his home Oxycodone 15mg q8h but will sometimes take only half a pill midday. He is also taking ibuprofen 400mg, he is not taking any OTC tylenol. He notes he has chronic constipation secondary to his home narcotic but is on standing Colace and is passing flatus. He is eatingokay. He is continuing to spend most of the day sitting and is smoking approximately half a pack a day and drinking some. He denies f/c/n/v/SOB/abd pain. Medications: Current Outpatient Medications on File Prior to Visit Medication Sig Dispense Refill acetaminophen (Tylenol) 500 mg tablet Take 2 tablets by mouth every 6 hours. senna (Senokot) 8.6 mg tablet Take 1 tablet by mouth every evening. polyethylene glycoL (Miralax) 17 gram oral powder packet Take 17 g by mouth daily. triamcinolone (ARISTOCORT) 0.5 % Cream Apply 1 g topically Once daily as needed. ibuprofen (Advil) 200 mg tablet Take 400 mg by mouth Daily @ 0600. multivitamin (THERAGRAN) Tablet Take 1 tablet by mouth daily. magnesium oxide (Mag-Ox) 400 mg (241.3 mg magnesium) Tablet Take 400 mg by mouth daily. tiotropium-olodateroL (Stiolto Respimat) 2.5-2.5 mcg/actuation Mist Inhale into the lungs. atorvastatin (Lipitor) 40 mg tablet Take 40 mg by mouth Daily @ 0600. losartan (Cozaar) 100 mg tablet Take 100 mg by mouth Daily @ 0600. oxyCODONE (Roxicodone) 15 mg tablet TAKE 1 TABLET BY MOUTH EVERY 8 HOURS NEEDED FOR LUNG MASS AND CHEST PAIN FLUOXETINE HCL (PROZAC ORAL) Take 20 mg by mouth 2 times daily. omeprazole (PRILOSEC) 20 mg capsule aspirin (BABY ASPIRIN) 81 mg chewable tablet No current facility-administered medications on file prior to visit. Physical Exam- limited exam due to patients wish to leave BP 111/56 (Patient Position: Sitting) Pulse 100 Temp 36.7 ??C (98.1 ??F) (Temporal) Resp 20 Ht 172.7 cm (5' 8) Wt 95.9 kg (211 lb 6.7 oz) SpO2 93% BMI 32.15 kg/m?? General Appearance: Alert, cooperative, no distress, appears stated age Nk: Supple, symmetrical, trachea midline Lungs: respirations unlabored on RA Heart: Regular rate Abdomen: Soft, non-tender Extremities: Extremities normal, atraumatic, no cyanosis or edema Wound/Incision: Left anterolateral chest incision clean, dry, intact, with evidence of good wound healing with dermabond in place, mildly tender to palpation Imaging: I have independently visualized the following studies: CXR (12/05/23): pleural based left hemithorax masses noted, no effusion or ptx per my read. Radiologyread pending Assessment: Jeffrey Lovelace is a 68 y.o. male with FDG left pleural bases masses and FDG avid left chest wall mass with core bx revealing carcinoma, now s/p surgical excision of chest all mass with final pathology pending. He is currently recovering well postoperatively but needs to improve pain control. Parish continues to smoke. Of note, briefly began discussion regarding stage of his disease and that it is hard to answer without the final pathology however there is concern for stage IV disease based on imaging. At that time, patient requested to cease the conversation so that he could leave, sit in his car, and taken all the information and next steps. Plan: 1. Needs to follow-up with medical and radiation oncology as scheduled 2. 30 minutes of exercise daily at a minimum, as able 3. RTC PRN 4. follow up final pathology-this can be done by us, medical or radiation oncology. 5. Cancel CT guided needle bx (order placed prior to plan to resect chest wall mass and no longer needed). 6. Discussed adding on Tylenol 500 mg every 6 hours plus increasing the ibuprofen dose to 600 mg (patient denies h/o liver or renal disease, GI bleeding or ulcers). He can continue to take his home oxycodone as prescribed. Monitor area for signs of infection, shower daily, wash with soap and water and pat dry. 7. Smoking cessation briefly discussed 8. Call with any questions 9. CT head as ordered (has metal in body to unable to undergo MRI). 10. Gas card provided by DIAMOND Greer PA-C 12/05/2023 Thoracic Surgery [facility] documented in this encounter Plan of Treatment Upcoming Encounters Date Type Department Care Team (Late st Contact Info) Description 03/11/2024 12:30 PM EDT Office Visit Hematology/Oncology at [address] [phone] Lennox Spivey MD [facility] HEMATOLOGY [place] [address] 03/11/2024 1:00 PM EDT Scheduled View Only Hematology/Oncology at [address] [phone] Trupti Bray RN 03/11/2024 1:00 PM EDT Infusion Hematology Oncology at [address] [phone] 03/25/2024 10:00 AM EDT Office Visit Hematology/Oncology at [address] [phone] Lennox Spivey MD [facility] DR HEMATOLOGY [place] [address] Bushra Muniz [address] HEMATOLOGY AND ONCOLOGY [place], [place] [phone] 03/25/2024 10:30 AM EDT Scheduled View Only Hematology/Oncology at [address] [phone] Trupti Bray, SUZY 03/25/2024 10:30 AM EDT Infusion Hematology Oncology at [address] [phone] documented as of this encounter Visit Diagnoses Diagnosis Chest wall mass Swelling, mass, or lump in chest Stage 4 lung cancer, left Secondary malignant neoplasm of pleura documented in this encounter Care Teams Clothing Cutter Relationship Specialty Start Date End Date Rayo Riley MD [address] [place] [address] PCP - General 06/22/10 01/10/24 documented as of this encounter
--- OUTSIDE RECORDS SUMMARY | 2024-03-11 03:21 | XMS_ITS | Encounter Summary ---
Author Organization [facility] Address [facility] [place] [address] Care Team Providers Care Screen Printing Machine Operator Name Role Phone Rayo Riley MD Primary Care Provider [phone] Encounter Details Date Type Department Care Team ([facility] st Contact Info) Description 12/26/2023 Notes Only Radiology at [facility] [place] [phone] Alpesh Melendrez PA [facility] [place] [address] Social History Tobacco Use Types Packs/Day Years Used Date Smoking Tobacco: Former Cigarettes 0.3 57 Smokeless Tobacco: Never Comments:Quit 11/2023 Alcohol Use Standard Drinks/Week Comments Yes 7 (1 standard drink = 0.6 oz pure alcohol) 4oz rum with coke daily- varies [facility] Utilities Answer Date Recorded In [...] on file documented as of this encounter H&P Notes * Alpesh Melendrez PA - 12/26/2023 9:30 AM EDT Images from the original note were not included. Interventional Radiology Focused Pre-procedure H&P: PCP: Rayo Riley MD Procedure indication: Small cell lung cancer, prison durable venous access for chemotherapy IR workflow: [...] 5.02) performed by Dylan Weldon MD at [facility] OR Social history and habits: [...] 12:30 PM EDT Office Visit Hematology/Oncology at [address] [phone] Lennox Spivey MD [facility] DR HEMATOLOGY [place] [address] 03/11/2024 1:00 PM EDT Scheduled View Only Hematology/Oncology at [address] [phone] Trupti Bray RN 03/11/2024 1:00 PM EDT Infusion Hematology Oncology at [address] [phone] 03/25/2024 10:00 AM EDT Office Visit Hematology/Oncology at [address] [phone] Lennox Spivey MD [facility] H[place] [address] Bushra Muniz APRN [address] [place] [address] [place] [address] 03/25/2024 10:30 AM EDT Scheduled View Only Hematology/Oncology at [address] [phone] Trupti Bray RN 03/25/2024 10:30 AM EDT Infusion Hematology Oncology at [address] [phone] documented as of this encounter Visit Diagnoses Not on filedocumented in this encounter Care Teams Screen Printing Machine Operator Relationship Specialty Start Date End Date Rayo Riley MD [address] [place] [address] PCP - General 06/22/10 01/10/24 documented as of this encounter
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
--- OUTSIDE RECORDS SUMMARY | 2024-03-11 03:21 | XMS_ITS | Encounter Summary ---
Author Organization [facility] Vincent pedraza [place] [id number] Care Team Providers Care Invoice Classification Clerk Name Role Phone Rayo Riley MD Primary Care Provider [phone] Reason for Visit * Auth/Cert (Routine) Specialty Diagnoses / Procedures Referred By Elieser lock Referred To Contact Diagnoses Pleural mass Chest wall mass possible mesothemioma with left chest wall soft tissue mass Procedures PRO EXC SKIN MALIG >4CM TRUNK, ARM, LEG EXC MALIGNANT LESION, SHERRILL > 4.0CM, TRUNK (WRVU 5.02) Ariella Vargas MD [facility] [place] [address] [facility] Referral ID Status Reason Start Date Expiration Date Visits Re quested Visits Authorized [id number] 1 1 Encounter Details Date Type Department Care Team (Latest Contact Info) Description 11/22/2023 7:19 AM EDT - 11/23/2023 10:13 AM EDT Hospital Encounter [place] [id number] Ariella Vargas MD [facility] [place] [address] Chest wall mass; Pleural mass Discharge Disposition: Home Social History Tobacco Use Types Packs/Day Years Used Date Smoking Tobacco: Every Day Cigarettes 0.3 57 Smokeless Tobacco: Never Tobacco Cessation:Ready to Q uit: No; Counseling Given: Not Answered Comments:Down to 1/4PPD Alcohol Use Standard Drinks/Week [...] Sign Reading Time Taken Comments Blood Pressure 107/67 11/23/2023 7:42 AM EDT Pulse 98 11/22/2023 12:15 PM EDT Temperature 36.5 ??C (97.7 ??F) 11/23/2023 7:42 AM ED T Respiratory Rate 16 11/23/2023 7:42 AM EDT Oxygen Saturation 95% 11/23/2023 7:42 AM EDT Inhaled Oxygen Concentration - - Weight 97.8 kg (215 lb 9.6 oz) 11/23/2023 6:00 A M EDT Height 172.7 cm (5' 8) 11/22/2023 8:32 AM EDT Body Mass Index 32.78 11/22/2023 8:32 AM EDT documented in this encounter Discharge Summaries * Didi Mai PA - 11/22/2023 4:55 PM EDT Department of Thoracic Surgery - Discharge Summary Patient Name: Jeffrey Lovelace Patient Age: 68 y.o. Birthdate: 1955 Admit date: 11/22/2023 Discharge date: 11/23/2023 Attending Physician: Ariella Vargas MD Discharge Diagnoses (Hospital Problems) and Secondary Diagnoses (Chronic Problems): Active Hospital Problems Diagnosis Chest wall mass Resolved Hospital Problems No resolved problems to display. Active Non-Hospital Problems Diagnosis Pleural mass Case Date: 11/22/2023 Surgeon: Surgeon(s) and Role: * Ariella Vargas MD - Primary * Kenneth Brady PA - Physician Lawn Technician Procedure: Procedure(s): EXC MALIGNANT LESION, SHERRILL > 4.0CM, TRUNK (WRVU 5.02) History of Presentation: Jeffrey Lovelace is a 68 y.o. male current smoker with PMHx of asbestos exposure, COPD, depression, DM2, GERD, HTN, HLD, inguinal hernia, umbilical hernia with a left chest wall mass and multiple lung nodules. He initially presented in May 2023 to [facility] with SOB and was found to have a left pleural effusion. A chest tube was placed and cytology was negative. This was removedafter a few days with improvement in his breathing, and he was treated for pneumonia. 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 CT Chest 08/23/23 revealed left sided pleural based nodularity and a left chest wall mass. A PET scan performed on 10/13/23 revealed multiple areas of FDG avid left pleural-basednodularity with central necrosis, a left anterolateral chest wall centrally necrotic mass at the site of the previous left chest tube track, and pericardiac and left cardiophrenic сергей metastases. He was referred to interventional pulmonology and on 11/15/[address] 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 Mesothelioma could not be ruled out. [facility] to obtain additional tissue, however after further discussion it was determined that surgical biopsy via chest wall mass removal would be more high yield Hospital Course: Jeffrey Lovelace was admitted to [facility] on 11/22/2023via the Same Day Program. He was brought to the operating room on 11/22/[address] Ariella Vargas performed surgery as described above. He tolerated the procedure well and was brought to the Short Stay Unit for recovery. His postoperative course was uneventful. By postoperative day # 1 he had met all criteria for discharge to home. Pain was controlled on oral medications. He had walked 5 minutes. He was tolerating a regular diet and was passing flatus. Vital signs: Vital Signs Temp: 36.3 ??C (97.3 ??F) Temp src: Temporal Heart Rate from SpO2: 94 bpm Heart Rate: 98 Heart Rate Source: Monitor Resp: 17 BP: 122/71 MAP (NBP): 83 mmHg BP Method: Automatic Patient Position: Lying SpO2: 98 % O2 Flow Rate (L/min): 2 L/min O2 Device: Nasal cannula Admission Wt: 97.98 kg Last Wt: Wt Readings from Last 3 Encounters: 11/23/23 97.8 kg (215 lb 9.6 oz) 11/21/23 98.1 kg (216 lb 4.3 oz) 11/15/23 98.9 kg (218 lb) Pertinent physical exam findings prior to discharge: Gen: NAD, pleasant, sitting upright in bed HEENT: normocephalic, atraumatic, EOMI, sclerae anicteric Neck: supple, trachea midline Card: RRR, no M/R/G appreciated Pulm: CTAB, no wheeze/ronchi/rales appreciated, non-labored breathing on RA Abd: soft, NT, BS+ Ext: warm, dry, no edema Neuro: A&Ox3, CN II-XII grossly intact, nonfocal, conversant Incisions: L anterior chest wall incision open to air, cdi with overlying dermabond Important Lab Data: Lab Results Component Value Date WBC 9.6 (H) 11/22/2023 HGB 13.6 (L) 11/22/2023 HCT 42.1 11/22/2023 MCV 94.0 (H) 11/22/2023 Lab Results Component Value Date NA 140 11/22/2023 K 4.8 11/22/2023 CL 100 11/22/2023 CO2 31 11/22/2023 Lab Results Component Value Date CREATININE 1.03 11/22/2023 Lab Results Component Value Date BUN 20 11/22/2023 No results found for: PREALBUMIN No results for input(s): PT, PTT, INR in the last 168 hours. Pending Studies and Lab Data: No current labs Discharge Conditions/Prognosis: Stable Discharge to: Home Discharge Medications: Your Medications New Medications Dose Details acetaminophen 500 mg tablet Commonly known as: Tylenol Take 2 tablets by mouth every 6 hours. 1,000 mg Refills: 0 docusate sodium 100 mg capsule Commonly known as: Colace Take 1 capsule by mouth 3 times daily for 10 days. 100 mg Refills: 0 polyethylene glycoL 17 gram oral powder packet Commonly known as: Miralax Take 17 g by mouth daily. 17 g Refills: 0 senna 8.6 mg tablet Commonly known as: Senokot Take 1 tablet by mouth every evening. 1 tablet Refills: 0 Continued medications, unchanged Dose Details atorvastatin 40 mg tablet Commonly known as: Lipitor Take 40 mg by mouth Daily @ 0600. 40 mg Refills: 0 Baby Aspirin 81 mg chewable tablet Generic drug: aspirin Refills: 0 ibuprofen 200 mg tablet Commonly known as: Advil Take 400 mg by mouth Daily @ 0600. 400 mg Refills: 0 losartan 100 mg tablet Commonly known as: Cozaar Take 100 mg by mouth Daily @ 0600. 100 mg Refills: 0 magnesium oxide 400 mg (241.3 mg magnesium) Tablet Commonly known as: Mag-Ox Take 400 mg by mouth daily. 400 mg Refills: 0 multivitamin Tablet Commonly known as: THERAGRAN Take 1 tablet by mouth daily. 1 tablet Refills: 0 oxyCODONE 15 mg tablet Commonly known as: Roxicodone TAKE 1 TABLET BY MOUTH EVERY 8 HOURS NEEDED FOR LUNG MASS AND CHEST PAIN Refills: [address] capsule Generic drug: omeprazole Refills: 0 PROZAC ORAL Take 20 mg by mouth 2 times daily. 20 mg Refills: 0 Stiolto Respimat 2.5-2.5 mcg/actuation inhaler Inhale into the lungs. Generic drug: tiotropium-olodateroL Refills: 0 triamcinolone 0.5 % Cream Commonly known as: ARISTOCORT Apply 1 g topically Once daily as needed. 1 g Refills: 0 Updated Allergies/ADRs: Allergies Allergen Reactions Other [Unclassified Drug] Black fly bites -was hospitalized because of it Penicillins CIS - RASH Instructions Given to Patient at Discharge: Patient Instructions THORACIC SURGERY Call if you have a fever of greater than 101 degrees, shaking chills, pain not controlled by the medications you were prescribed, develop redness or drainage from your incision site(s), or if you have questions. During normal business hours, Monday - Monday 8:00 a.m.-5:00 p.m., please call to speakto a nurse in the Thoracic Clinic at [phone]. For emergencies after hours, on weekends or holidays please call: [phone] and ask to speak to the Thoracic Surgeon veterans contact representative. Exercise & Activity Level: As you recover from surgery exercise at least 30 minutes a day. Thiscan be broken up into several times a day to achieve this goal at first, but you will be able to work up to doing all 30 minutes at once. Walking, treadmill, stationary bike, elliptical machine or other stationary exercise equipment is appropriate. Take your incentive spirometer home with you. You should use this every hour while awake, 10 times each. This helps you to exercise your respiratory muscles and to breathe deeply. Taking purposeful deep breaths can be just as effective. Do not lift more than 10 pounds for 6-8 weeks (nothing heavier than a gallon of milk) unless otherwise instructed by Thoracic Surgery. Don???t exhaust yourself. Rest between activities as you recoverfrom your procedure. Diet: You should follow a regular diet. Smoking: If you are a smoker, please avoid smoking. If you are a smoker who needs help quitting, please call the thoracic surgery clinic at [phone]. Driving: No driving for 1 week or while taking narcotic pain medication. New Medications: None Home Medications: You may restart all of your home medications as prescribed, including your home oxycodone. Shower/Bath: You may shower daily starting 2 days after chest tube removal. No soaking in a bath tub and no swimming until your follow-up appointment. Incision care: Wash your incision(s) daily with soap and rinse well, pat dry. Assess for any signs of infection such as increased redness, pain, warmth or drainage. If you had a chest tube, you may remove the dressing over the chest tube site 2 days after the chest tube was removed and leave it open to the air if it is not draining. Otherwise change the dressingtwice a day or as needed. The dressing may remain off once there is no drainage. Drainage from the incision sites: Clear yellow drainage from the incision sites, specifically the chest tube site, is normal. However, if this becomes larger in volume, requiring 5 or more dressing changes in 1-2 hours, you should call the thoracic surgery office to speak with one of the nurses. If you notice worsening pain at the incision sites, redness, swelling, or white/milky/cloudy drainage, please call the office immediately. If you have steri-strips over an incision site, these will remain in place for 7-10 days. You may shower with them, and they will fall off naturally in 7-10 days. If they do not fall off by 10 days, you may remove them. Cough: A dry cough after lung surgery is normal. You may cough up a small amount of blood or blood tinged sputum. This should resolve in 24-48 hours. If it does not or you cough up bright red blood, especially more than 1-2 tablespoons, please call our office immediately. Pain: Pain after surgery is normal. The goal is for you to be able to tolerate pain so you can complete your daily activities. You may notice a burning or numbness on the side of your incision that may include your breast area. This should improve over time but there may be areas that remain numb. You may use a heating pad set on low or medium over your incision to help relax the muscles in the area and decrease discomfort. Please take your medication as prescribed. If you are not having good pain control, please call and speak to the nurse in the Thoracic Surgery Clinic or the Thoracic Surgeon veterans contact representative after hours. Please take over the counter Tylenol 1000mg every 6 hours for baseline pain coverage. DO NOT exceedthe maximum dosing as listed on the labels. Continue taking your home Oxycodone and Ibuprofen as previously prescribed. If you take sleep medications or medications for anxiety, you should not take these while taking narcotic pain medications as this can potentially cause decreased breathing. Sleep: Try to establish normal sleep patterns. Long naps during the day may make it hard for you tosleep at night. Use the pain medication at bedtime for the first week at home if needed. Bowel Movements: After surgery, your bowel movements may not be regular for you, but you should be able to get back to your daily routine quickly. Please make sure to take the stool softeners or mildlaxatives as prescribed to get back to your normal routine. If you do not have a bowel movement formore than 2 days or begin to experience moderate to severe abdominal pain, please call the office. Follow up appointments: You will return to clinic to see Dr. Vargas in 2 weeks for a wound check. Aletter will be mailed to you confirming your appointment information, and you will receive a reminder phone call from the thoracic surgery office. Future Appointments Date Time Provider Department Center 12/07/2023 8:[address] [facility] [address] [facility] [address] [facility] General Instructions None Provider Contact Information: Primary Care Provider: Rayo Riley MD [phone] Discharge References/Attachments: Discharge References/Attachments None For questions regarding this document or issues relating to this hospitalization on the Thoracic Surgery Service, please contact Dr. Vargas's office at . Signed: OLIVIA Headley 11/23/2023 CC: PCP: Rayo Riley MD Referring: Angela Gaines MD [address] [place] [id number] documented in this encounter Discharge Instructions * Patient Instructions* Didi Mai PA - 11/22/2023 10:32 AM EDT THORACIC SURGERY Call if you have a fever of greater than 101 degrees, shaking chills, pain not controlled by the medications you were prescribed, develop redness or drainage from your incision site(s), or if you have questions. During normal business hours, Monday - Monday 8:00 a.m.-5:00 p.m., please call to speakto a nurse in the Thoracic Clinic at [phone]. For emergencies after hours, on weekends or holidays please call: [phone] and ask to speak to the Thoracic Surgeon veterans contact representative. Exercise & Activity Level: As you recover from surgery exercise at least 30 minutes a day. Thiscan be broken up into several times a day to achieve this goal at first, but you will be able to work up to doing all 30 minutes at once. Walking, treadmill, stationary bike, elliptical machine or other stationary exercise equipment is appropriate. Take your incentive spirometer home with you. You should use this every hour while awake, 10 times each. This helps you to exercise your respiratory muscles and to breathe deeply. Taking purposeful deep breaths can be just as effective. Do not lift more than 10 pounds for 6-8 weeks (nothing heavier than a gallon of milk) unless otherwise instructed by Thoracic Surgery. Don???t exhaust yourself. Rest between activities as you recoverfrom your procedure. Diet: You should follow a regular diet. Smoking: If you are a smoker, please avoid smoking. If you are a smoker who needs help quitting, please call the thoracic surgery clinic at [phone]. Driving: No driving for 1 week or while taking narcotic pain medication. New Medications: None Home Medications: You may restart all of your home medications as prescribed, including your home oxycodone. Shower/Bath: You may shower daily starting 2 days after chest tube removal. No soaking in a bath tub and no swimming until your follow-up appointment. Incision care: Wash your incision(s) daily with soap and rinse well, pat dry. Assess for any signs of infection such as increased redness, pain, warmth or drainage. If you had a chest tube, you may remove the dressing over the chest tube site 2 days after the chest tube was removed and leave it open to the air if it is not draining. Otherwise change the dressingtwice a day or as needed. The dressing may remain off once there is no drainage. Drainage from the incision sites: Clear yellow drainage from the incision sites, specifically the chest tube site, is normal. However, if this becomes larger in volume, requiring 5 or more dressing changes in 1-2 hours, you should call the thoracic surgery office to speak with one of the nurses. If you notice worsening pain at the incision sites, redness, swelling, or white/milky/cloudy drainage, please call the office immediately. If you have steri-strips over an incision site, these will remain in place for 7-10 days. You may shower with them, and they will fall off naturally in 7-10 days. If they do not fall off by 10 days, you may remove them. Cough: A dry cough after lung surgery is normal. You may cough up a small amount of blood or blood tinged sputum. This should resolve in 24-48 hours. If it does not or you cough up bright red blood, especially more than 1-2 tablespoons, please call our office immediately. Pain: Pain after surgery is normal. The goal is for you to be able to tolerate pain so you can complete your daily activities. You may notice a burning or numbness on the side of your incision that may include your breast area. This should improve over time but there may be areas that remain numb. You may use a heating pad set on low or medium over your incision to help relax the muscles in the area and decrease discomfort. Please take your medication as prescribed. If you are not having good pain control, please call and speak to the nurse in the Thoracic Surgery Clinic or the Thoracic Surgeon veterans contact representative after hours. Please take over the counter Tylenol 1000mg every 6 hours for baseline pain coverage. DO NOT exceedthe maximum dosing as listed on the labels. Continue taking your home Oxycodone and Ibuprofen as previously prescribed. If you take sleep medications or medications for anxiety, you should not take these while taking narcotic pain medications as this can potentially cause decreased breathing. Sleep: Try to establish normal sleep patterns. Long naps during the day may make it hard for you tosleep at night. Use the pain medication at bedtime for the first week at home if needed. Bowel Movements: After surgery, your bowel movements may not be regular for you, but you should be able to get back to your daily routine quickly. Please make sure to take the stool softeners or mildlaxatives as prescribed to get back to your normal routine. If you do not have a bowel movement formore than 2 days or begin to experience moderate to severe abdominal pain, please call the office. Follow up appointments: You will return to clinic to see Dr. Vargas in 2 weeks for a wound check. Aletter will be mailed to you confirming your appointment information, and you will receive a reminder phone call from the thoracic surgery office. Future Appointments Date Time Provider Department Center 12/07/2023 8:[address] [facility] [address] [facility] [address] [facility] Rad documented in this encounter Medications at Time [...] (BABY ASPIRIN) 81 mg chewable tablet 10/02/2008 docusate sodium (Colace) 100 mg capsule Take 1 capsule by mouth 3 times daily for 10 days. 11/23/2023 12/03/2023 magnesium oxide (Mag-Ox) 400 mg (241.3 mg magnesium) Tablet Take 400 mg by mouth 2 times daily. 02/19/2024 oxyCODONE (Roxicodone) 15 mg tablet TAKE 1 TABLET BY MOUTH EVERY 8 HOURS NEEDED FOR LUNG MASS AND CHEST PAIN 11/10/2023 12/13/2023 FLUOXETINE HCL (PROZAC ORAL) Take 20 mg by mouth 2 times daily. 10/02/2008 02/05/2024 documented as of this encounter Progress Notes * Anyi Guo RN - 11/23/2023 9:54 AM EDT [facility] Short Stay Unit Discharge Note All relevant discharge milestones have been met by the patent. After Visit Summary and discharge teaching reviewed with the patient. IV access has been discontinued. All personal belongings have been returned to the patient/family upon their departure from the unit. Patient has been discharged to home The patient has been discharged without VNA services. * Kenneth Brady PA - 11/22/2023 2:11 PM EDT [facility] Department of Thoracic Surgery Inpatient Post Op Check Note Patient Name: Jeffrey Lovelace Patient : 1955 Patient Patient Location: [address] Attending Surgeon: ARIELLA VARGAS ID: Jeffrey Lovelace is a 68 y.o. male who is Day of Surgery s/p left chest wall mass excision. Subjective: No nausea/vomiting, chest pain, SOB, pain well controlled, offers no complaints. Pain is well controled on home narcotic medication. Patient reports he has voided twice since his operation. Vitals: Temp: [36.4 ??C (97.5 ??F)-36.9 ??C (98.4 ??F)] Heart Rate: [76-106] Resp: [14-25] BP: (72-128)/(45-72) SpO2: [93 %-97 %] Heart Rate from SpO2: [76 bpm-106 bpm] Physical Exam: Gen: NAD, pleasant, sitting in bed HEENT: normocephalic, atraumatic, EOMI, sclerae anicteric Neck: supple, trachea midline Card: RRR, no M/R/G appreciated Pulm: coarse breath sounds bilaterally, non-labored breathing on 1L NC, Ext: warm, dry, no edema Neuro: A&Ox3, CN II-XII grossly intact, nonfocal, conversant Incision: left chest wall incision c/d/i I/O: No intake/output data recorded. Assessment: Jeffrey Lovelace is a 68 y.o. male who is Day of Surgery s/p left chest wall mass excision. He iscurrently in stable condition and recovering well postoperatively. Pain well controled on home narcotic regimen. Plan: Neuro: tylenol, ibuprofen, home oxycodone 15mg Q8h prn, fluoxetine 20mg Card: HDS, monitor vitals, 81mg ASA, Lipitor 40mg, losartan 100mg Pulm: IS/cough/deep breathe/OOB/ambulate. Duoneb, wean supplemental oxygen as tolerated FENGI: Regular diet. RBOs, senna/colace, protonix 40mg Renal/: monitor UOP Heme: SQH PPx: scds; SQH, Ambulate 4x a day. OOB. Dispo: full code, floor status OLIVIA Vidales 11/22/2023 Thoracic Surgery Service Pager [phone] * Sania Diop RN - 11/22/2023 10:37 AM EDT 1025 - Patient arrives via bed to PACU 11 from OR. Patient arrives with oral airway & simple mask in place. Patient arrives hypotensive 70's/40' bilaterally. Anesthesia administered IVP Ephedrine. Patient placed on monitor. All alarms active & audible Report received from OR staff. Assumed care of patient. 1100 - Patient awake & alert. C/O with continuous productive cough - large amount of tenacious clear/blood tinged secretions suctioned from patient's oral cavity. [id number] Lunch coverage by SUZY Spangler. 1148 - Doctor Norbert rounding on patient in response to this RN's page regarding patient's continued productive cough & copious, tenacious secretions. VSS. NAD noted. Patient c/o tickle in throat. 1230 - Patient resting quietly in NAD with eyes closed. VSS. Coughing has become less frequent. 1240 - Report to SUZY Eaotn, SSU. documented in this encounter H&P Notes * Alon Toussaint PA - 11/22/2023 8:30 AM EDT Thoracic Surgery Preop NAME: Jeffrey Lovelace DATE: 11/22/23 SURGEON: ARIELLA VARGAS PROCEDURE: Left chest wall mass excision BRIEF HISTORY: Jeffrey Lovelace is a 68 y.o. male with pleural based masses and a large, painful fungating left chest wall mass at the site of his prior chest tube site, presenting for surgical biopsy for definitive diagnosis as well as for pain control. The patient reports no interval change. There has been no interval medical illness or hospitalizations. Questions have been addressed. Smoking HX: Social History Tobacco Use Smoking Status Every Day Packs/day: 1.00 Years: 57.00 Additional pack years: 0.00 Total pack years: 57.00 Types: Cigarettes Smokeless Tobacco Never Tobacco Comments Down to 08/03PPD PMH: Patient Active Problem List Diagnosis Date Noted Pleural mass 11/21/2023 Chest wall mass 11/21/2023 PSH: Past Surgical History: Procedure Laterality Date CHOLECYSTECTOMY MANDIBLE FRACTURE SURGERY NECK SURGERY PILONIDAL CYST EXCISION MEDS: No current facility-administered medications on file prior to encounter. Current Outpatient Medications on File Prior to Encounter Medication Sig Dispense Refill triamcinolone (ARISTOCORT) 0.5 % Cream Apply 1 [...] aspirin (BABY ASPIRIN) 81 mg chewable tablet ALL: Allergies Allergen Reactions Other [Unclassified Drug] Black fly bites -was hospitalized because of it Penicillins CIS - RASH Physical Exam No data found. Gen: NAD, pleasant, sitting up on stretcher HEENT: normocephalic, atraumatic, EOMI, sclerae anicteric Neck: supple, trachea midline Card: RRR, no M/R/G appreciated Pulm: diminished at Left base, CTA on Right, no wheeze/ronchi/rales appreciated, non-labored breathing on RA, Left chest wall mass present Abd: soft, NT, BS+ Ext: warm, dry, no edema Neuro: A&Ox3, nonfocal, conversant LABS: Lab Results Component Value Date WBC 9.6 (H) 11/22/2023 RBC 4.48 (L) 11/22/2023 HGB 13.6 (L) 11/22/2023 HCT 42.1 11/22/2023 MCV 94.0 (H) 11/22/2023 MCH 30.4 11/22/2023 MCHC 32.3 11/22/2023 PLATELET 299 11/22/2023 RDWCV 14.0 (H) 11/22/2023 No results found for: NA, K, CL, CO2, BUN, CREATININE FILM ON PACS: CT Chest, PET, Pathology, TTE CONSENT: Yes/EMR - Yes Assessment/Plan: Jeffrey Lovelace is a 68 y.o. male presenting today for planned Left chest wall mass excision due to pleural based masses and a large, painful fungating left chest wall mass at thesite of his prior chest tube site, presenting for surgical biopsy for definitive diagnosis as well as for pain control. Consent signed and confirmed in chart. Questions addressed. Will proceed with planned surgery. OLIVIA Alicia 11/22/2023 Thoracic Surgery Service Pager [phone] documented in this encounter Miscellaneous Notes * Brief Op Note - Kenneth Brady PA - 11/22/2023 10:36 AM EDT Brief Operative Note Patient Name: Jeffrey Lovelace : [id number] MR#: [id number] Case Date: 11/22/2023 Surgeon: Surgeon(s) and Role: * Ariella Vargas MD - Primary * Kenneth Brady PA - Physician Lawn Technician Preoperative diagnosis: possible mesothemioma with left chest wall soft tissue mass Postoperative diagnosis: possible mesothemioma with left chest wall soft tissue mass Procedure: Left chest wall mass excision Anesthesia: General Findings: Left chest wall mass was excised from chest wall and sent to pathology. Incision was closed primarily. No drains were placed. Complications: None Estimated Blood Loss: 3 mL* No values recorded between 11/22/2023 9:23 AM and 11/22/2023 10:20 AM * Specimens removed during surgery: Order Name Source Comment Collection Info Order Time SPECIMEN TO PATHOLOGY possible mesothemioma with left chest wall soft tissue mass left chest soft tissue mass excision 11/22/2023 9:35 AM Time specimen removed from patient: 9:35 AM Number of tissue samples (in container) 1 SPECIMEN TO PATHOLOGY possible mesothemioma with left chest wall soft tissue mass superior medial margin excision 11/22/2023 9:39 AM Time specimen removed from patient: 9:35 AM Number of tissue samples (in container) 1 SPECIMEN TO PATHOLOGY possible mesothemioma with left chest wall soft tissue mass inferior medfial margin excision 11/22/2023 9:39 AM Time specimen removed from patient: 9:36 AM Number of tissue samples (in container) 1 Fluids: Intraprocedure Crystalloid Total None PRBCs: none (See Anesthesia Record/Report for Other Blood Products) Urine Output: (no urine output recorded) Drains: None Disposition: awakened from anesthesia, extubated and taken to the recovery room in a stable condition, having suffered no apparent untoward event. Condition: doing well without problems (Please see the Surgical Encounter Summary for any Implant and Specimen details pertinent to this patient.) Surgical Infection Prevention Bundle Used? 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 This mass is eroding through the skin and is going to be an infection risk. Resection of this will both reduce his risk of having significant chest wall fungating tumor and also allow for us to get diagnosis. Operative findings: Left chest wall soft tissue mass approximately 6 cm in size, minimally fixed tothe chest wall. Ability to completely resect the mass and closed the skin primarily with negative gross margins. Operative dictation: After consent was obtained, the patient was marked, brought to the operating room placed in supine position. Single-lumen endotracheal anesthesia was administered without any difficulty, timeout was performed a bump was placed underneath the patient's left side, keeping the left arm down in the right arm tucked. Sterile prep and drape in usual fashion and prior to making incision 0.5% Marcaine was instilled along the incision site and in the deeper soft tissues. Elliptical incision was performed approximately 8 cm long and 3 cm wide at its widest to excise the portion of the skin that was involved with the tumor. We then created small skin flaps and resected the tumor using electrocautery, keeping an approximately 1 cm gross margin. The tumor was abutting and not grossly invading into the chest wall but was somewhat densely adherent, what we are able to find a planebetween the chest wall and the tumor. Adequate hemostasis was ensured throughout the entire cavity.The cavity was irrigated. The tumor was sent for permanent section. We then closed the wound in layers with 0 Vicryl for the deep layers, 2-0 Vicryl for dermal layer, 3-0 Prolene for a subcuticular and Dermabond for the skin. Once the Dermabond cured the Prolene suture was removed. The patient was then woken from anesthesia, extubated and brought to recovery in stable condition. OLIVIA Guzman was my assistant corporate controller during the entire procedure since no qualified resident was available. I was present for the entire procedure and dictated this operative note. Ariella Vargas MD documented in this encounter Plan of Treatment Upcoming Encounters Date Type Department Care Team (Late st Contact Info) Description 03/11/2024 12:30 PM EDT Office Visit Hematology/Oncology at [address] [phone] Lennox Spivey MD [facility] [address] HEMATOLOGY [place] [address] 03/11/2024 1:00 PM EDT Scheduled View Only Hematology/Oncology at [address] [phone] Trupti Bray RN 03/11/2024 1:00 PM EDT Infusion Hematology Oncology at [address] [phone] 03/25/2024 10:00 AM EDT Office Visit Hematology/Oncology at [address] [phone] Lennox Spivey MD [facility] [address] HEMATOLOGY AND ONCOLOGY [place] [address] Bushra Muniz APRN [address] [place] [address] HEMATOLOGY AND ONCOLOGY [place], [place] [phone] 03/25/2024 10:30 AM EDT Scheduled View Only Hematology/Oncology at [address] [phone] Trupti Bray RN 03/25/2024 10:30 AM EDT Infusion Hematology Oncology at [address] [phone] documented as of this encounter Procedures Procedure Name Priority Date/Time Associated Diagnosis Comments SPECIMEN TO PATHOLOGY Routine 11/22/2023 9:39 AM EDT SPECIMEN TO PATHOLOGY Routine 11/22/2023 9:39 AM EDT SOLID TUMOR NGS PANEL Routine 11/22/2023 9:35 AM EDT SURGICAL PATHOLOGY REPORT Routine 11/22/2023 9:35 AM EDT SPECIMEN TO PATHOLOGY Routine 11/22/2023 9:35 AM EDT Exc Skin Malig >4Cm Trunk, Arm, Leg ([id number]) Yes 11/22/2023 8:56 AM EDT Pleural mass Chest wall mass EKG 12-LEAD Routine 11/22/2023 8:36 AM EDT Chest wall mass POCT GLUCOSE Routine 11/22/2023 8:15 AM EDT HEMOGRAM Routine 11/22/2023 7:57 AM EDT Chest wall mass DIFFERENTIAL, AUTOMATED Routine 11/22/2023 7:57 AM EDT Chest wall mass CBC (WITH DIFF) Routine 11/22/2023 7:57 AM EDT Chest wall mass COMPREHENSIVE METABOLIC PANEL Routine 11/22/2023 7:57 AM EDT Chest wall mass EXC MALIGNANT LESION, SHERRILL > 4.0CM, TRUNK Routine 11/22/2023 7:54 AM EDT Pleural mass Chest wall mass documented in this encounter Results * Specimen to Pathology (11/22/2023 9:39 AM EDT) AP Specimen 11/22/2023 9:39 AM EDT 11/22/2023 9:39 AM EDT Narrative [facility] - 11/22/2023 9:39 AM EDT Specimen requisition ordered. ??Separate Pathology report to follow Ariella Vargas MD PATHOLOGY/CYTOLOGY O ADONIS Performing Organization Address [facility]/ZIP Co de Phone Number [facility] [place] [address] * Specimen to Pathology (11/22/2023 9:39 AM EDT) AP Specimen 11/22/2023 9:39 AM EDT 11/22/2023 9:39 AM EDT Narrative [facility] - 11/22/2023 9:39 AM EDT Specimen requisition ordered. ??Separate Pathology report to follow Ariella Vargas MD PATHOLOGY/CYTOLOGY O ADONIS Performing Organization Address City/[facility]/ZIP Co de Phone Number [facility] [place] [address] * Solid Tumor NGS Panel (11/22/2023 9:35 AM EDT) Tissue 11/22/2023 9:35 AM EDT 12/19/2023 7:32 PM EDT Narrative Resulting Agency Comment Spec In Lab Ariella Vargas MD PATHOLOGY/CYTOLOGY O ADONIS Performing Organization Address City/[facility]/ZIP Co de Phone Number [facility] [place] [address] * Surgical Pathology Report (11/22/2023 9:35 AM EDT) Final Diagnosis ? Location: [facility]; [facility]; The signing pathologist has (i) examined the relevant preparation(s) for the specimen(s) and (ii) rendered or confirmed the diagnosis(es). . ? Addendum ADDENDUM DISCUSSION Tissue: left chest soft tissue mass, excision Tumor Proportion Score (TPS): ?% Expression: <1 Interpretation Table: PD-L1 assay (22C3 pharmDX) for Keytruda Tumor Proportion Score (TPS): ? <1% ?PD-L1 Negative ? >=1% ? PD-L1 Expression Immunohistochemical assay was performed on paraffin-embedded tissue sections fixed in 10% neutral buffered formalin for 6-72 hours using the polymer system technique with appropriate controls. The assay was performed according to the crushed stone grader's instructions using Anti-PD-L1 (22C3, pharmDX) antibody. Electronically signed by: ?Young TEAGUE, Vu Victor Verified: ??12/19/2023 16:50 ??Pathologist Performed at: ??-[facility] Dept. of Pathology, [place] [address] Strategic Partner Development Manager: Omar White MD, FCAP, ??CLIA Certificate: [id number] ?Surgical Pathology DIAGNOSIS A - left chest soft tissue mass, excision: - Poorly differentiated carcinoma, see discussion. - Specimen margin negative for carcinoma. B - Superior medial margin, excision: - Fibroadipose tissue, negative for carcinoma. C - inferior medial margin, excision: - Fibroadipose tissue, negative for carcinoma. Electronically signed by: ?Eleuterio Obando MD Verified: ??12/13/2023 10:42 ??Pathologist Performed at: ??-[facility] Dept. of Pathology, [place] [address] Strategic Partner Development Manager: Omar White MD, FCAP, ??CLIA Certificate: [id number] DISCUSSION The clinical impression of a chest [...] technique with appropriate positive and negative controls. ?These IHC studies provide the pathologist with adjunctive diagnostic information. Antibody specificity has been verified by testing antibodies on a series of in-house tissues with known immunohistochemical performance characteristics. The clinical interpretation of any antibody positive staining or its absence is evaluated within the context of clinical presentation, morphology, histopathological criteria and other diagnostic tests. Block ? Antibody ?Result (Positive/Negative) A7 ?CK5 ?Focal positive ?WT1 ?Scattered weak staining ?Calretinin ? Negative ?D2-40 ?Negative ?BAP1 ? Retained (positive) ?p40 ?Focal positive ?p63 ?Focal positive ?CKAE1/3 ?Positive ?[id number] ? Positive ?TTF1 ? Negative ?PAX8 ? Negative ?CD5 ?Background T cells ?CD1a ? Rare, scattered cells ?CD117 ?Negative ?Chromogranin ? Negative ?Synaptophysin ?Negative ?CD56 ? Patchy positive ?NUT ?Negative ?CD34 ? Negative in lesional cells ?Gata3 ?Negative(scattered background/nonspecific ) ?CDX2 ? Negative ?NKX3.1 ? Negative ?OCT3/4 ? Negative ?SOX10 ?Negative ?HMB45 ?Negative ?MelanA ? Negative ?s100 ? Negative in lesional cells ?INI1 ? Retained (positive) Mucicarmine special stain (histochemical study with appropriate controls) is negative for intracytoplasmic mucin. SPECIMEN(S) SUBMITTED A - left chest soft tissue mass, excision (1) B - superior medial margin, excision (1) C - inferior medfial margin, excision (1) CLINICAL INFORMATION Possible mesothelioma with left chest wall soft tissue mass SPECIMEN PROCESSING A - Labeled/Fixative: Left chest soft tissue mass, fresh. Quantity/Size: ??Single, 8.3 x 7.6 x 4.3 cm. . SPECIMEN PROCESSING Resection Specimen: Not oriented Tissue Description: Intact, ellipse resection of soft tissue and skin. ??Segment of skin measures 8.2 x 4.5 cm in area. ??There is a central round lesion bulging into the skin measuring 3.5 x 3.3 cm in area and rises 1.0 cm higher than surrounding skin. Inking: The specimen is inked black. Sectioning: The specimen is sectioned perpendicular to the long axis. Cut Surface: Cut surface reveals firm, fleshy lynn-white well-delineated nodular lesion with hemorrhage and central necrosis measuring 6.7 cm x 6.5 x 3.5 cm. ??The lesion abuts the soft tissue margin inked black. Sections/Processing: Saddle Cutter sections in 7 cassettes as follows: ?A1-A4: ??Saddle Cutter lesion to closest margin inked black ?A5-A7: ??Additional lesion B - Labeled/Fixative: Superior medial margin, fresh. Quantity/Size: Single, 4.5 x 3.0 x 2.0 cm. Tissue Description: Non-oriented segment of adipose tissue. Inking: Specimen is inked black Sections/Processing: Inked, serially sectioned and entirely submitted in 8 cassettes labeled B1-B8. C - Labeled/Fixative: Inferior medial margin, fresh. Quantity/Size: Single, 3.0 x 3.0 x 1.5 cm. Tissue Description: Fragment of adipose tissue. Sections/Processing: Inked, serially sectioned and entirely submitted in 4 cassettes labeled C1-C4. ??jnk 12/19/2023 4:50 PM EDT [facility] SOFT TISSUE MASS / Unknown 11/22/2023 9:35 AM EDT 11/22/2023 9:35 AM EDT Margin 11/22/2023 9:35 AM EDT 11/22/2023 9:35 AM EDT Margin 11/22/2023 9:35 AM EDT 11/22/2023 9:35 AM EDT Ariella Vargas MD PATHOLOGY/CYTOLOGY O RDERABLES [facility] [place] [address] * Specimen to Pathology (11/22/2023 9:35 AM EDT) AP Specimen 11/22/2023 9:35 AM EDT 11/22/2023 9:35 AM EDT Narrative [facility] - 11/22/2023 9:35 AM EDT Specimen requisition ordered. ??Separate Pathology report to follow Ariella Vargas MD PATHOLOGY/CYTOLOGY O RDERABLES Performing Organization Address [facility] Co de Phone Number [facility] [place] [address] * EKG 12 Lead (11/22/2023 8:36 AM EDT) Ventricular rate 89 BPM MUSE SYSTEM Atrial Rate 89 BPM MUSE SYSTEM P-R Interval 154 ms MUSE SYSTEM QRS Duration 96 ms MUSE SYSTEM Q-T Interval 364 ms MUSE SYSTEM QTC Calculated (Bezet) 442 ms MUSE SYSTEM Calculated P [place] 39 degrees MUSE SYSTEM Calculated R [place] 18 degrees MUSE SYSTEM Calculated T [place] 37 degrees MUSE SYSTEM INTERPRETATION Normal sinus rhythm Normal ECG No previous ECGs available Confirmed by MD Kelsea, [place] ([id number]) on 11/22/2023 2:17:24 PM MUSE SYSTEM 11/22/2023 8:36 AM EDT 11/22/2023 2:17 PM EDT Ariella Vargas MD ECG ORDERABLES Performing Organization Address [facility] de Phone Number MUSE SYSTEM * POCT Glucose (11/22/2023 8:15 AM EDT) Pathologist [facility] Glucose, POC 132 65 - 199 mg/dL [facility] Comment: Supplemental ranges: <140 mg/dL before meals <180 mg/dL all other times of the day Blood 11/22/2023 8:15 AM EDT 11/22/2023 8:15 AM EDT Ariella Vargas MD POINT OF CARE TEST O RDERABLES Performing Organization Address [facility] Co de Phone Number [facility] [place] [address] * (ABNORMAL) Differential, Automated (11/22/2023 7:57 AM EDT) Neutrophil % 72.4 % [facility] Neutrophil Absolute 6.99(H) 1.70 - 6.10 x10(3)/mc L [facility] Lymph % 15.8 % [facility] Lymphocytes Abs 1.5 0.9 - 3.2 x10(3)/mc L [facility] Monocyte % 7.9 % [facility] Monocyte Abs 0.8 0.3 - 0.9 x10(3)/mc L [facility] Eos % 3.0 % [facility] Eosinophils Abs 0.3 0.0 - 0.4 x10(3)/ L [facility] Basophil % 0.6 % [facility] Baso Absolute 0.1 0.0 - 0.1 x10(3)/ L [facility] Immature Gran % 0.30 % [facility] Comment: Immature granulocytes(IG's)percentage and absolute count will include metamyelocytes, myelocytes, and promyelocytes. Blood smears from CBCs yielding IG's will be scanned manually for concordance. If this scan disagrees with the automated IG or if promyelocytes are noted, a manual differential will be performed. Immature Gran Absolute 0.03 0.00 - 0.04 x10(3)/ L [facility] Blood 11/22/2023 7:57 AM EDT 11/22/2023 8:00 AM EDT Narrative Resulting Agency Comment Spec In Lab Ariella Vargas MD HEMATOLOGY ORDERABLE S Performing Organization Address City/State/[facility] Co de Phone Number [facility] [place] [address] * (ABNORMAL) Hemogram (11/22/2023 7:57 AM EDT) White Blood Cell 9.6(H) 4.0 - 9.5 x10(3)/ L [facility] Red Blood Cell 4.48(L) 4.58 - 5.54 x10(6)/ L [facility] Hemoglobin 13.6(L) 13.7 - 16.5 g/dL [facility] Hematocrit 42.1 40.5 - 48.5 % [facility] Mean Cell Volume 94.0(H) 82.9 - 93.1 fL [facility] Mean Cell Hemoglobin 30.4 27.5 - 32.1 pg [facility] Mean Cell Hemoglobin Concentration 32.3 32.0 - 35.7 g/dL [facility] Platelet 299 145 - 357 x10(3)/mc L [facility] RDW Standard Deviation 48.2(H) 36.0 - 45.0 fL [facility] RDW coefficient of variation 14.0(H) 11.4 - 13.8 % [facility] Mean Platelet Volume 11.4 7.6 - 12.9 fL [facility] NRBC% auto 0.0 % [facility] NRBC Absolute 0.000 0.000 - 0.000 x10(3)/mc L [facility] Blood 11/22/2023 7:57 AM EDT 11/22/2023 8:00 AM EDT Narrative Resulting Agency Comment Spec In Lab Ariella Vargas MD HEMATOLOGY ORDERABLE S [facility] [place] [address] * (ABNORMAL) Comprehensive metabolic panel (non-fasting) (11/22/2023 7:57 AM EDT) Glucose 147 65 - 199 mg/dL [facility] Comment:Diabetes: >=200 mg/d L plus symptoms Blood Urea Nitrogen 20 10 - 20 mg/dL [facility] Creatinine 1.03 0.80 - 1.50 mg/dL [facility] Sodium 140 135 - 145 mmol/L [facility] Potassium 4.8 3.5 - 5.0 mmol/L [facility] Comment: Please note: ??Patients with WBC >100,000 may have falsely elevated Potassium levels. ??For accurate Potassium quantification in these patients send serum separator tube (gold top) for subsequent determinations. ??Contact the Clinical Chemistry Laboratory if there are any questions. Chloride 100 98 - 107 mmol/L [facility] Carbon Dioxide 31 22 - 31 mmol/L [facility] Anion Gap 9 5 - 15 mmol/L [facility] Calcium 10.3 8.5 - 10.5 mg/dL [facility] Protein, Total 7.3 6.1 - 8.0 g/dL [facility] Albumin 4.0 3.2 - 5.2 g/dL [facility] Aspartate Aminotransferase 28 0 - 39 unit/L [facility] Alanine Aminotransferase 27 0 - 55 unit/L [facility] Alkaline Phosphatase 134(H) 40 - 130 unit/L [facility] Bilirubin, Total 0.3 0.2 - 1.3 mg/dL [facility] Est Glomerular Filtration Rate 80 >=60 mL/min/1. 73 m?? [facility] Comment: This patient's estimated GFR [...] and symptoms in addition to eGFR. Blood 11/22/2023 7:57 AM EDT 11/22/2023 8:00 AM EDT Narrative Resulting Agency Comment Spec In Lab Ariella Vargas MD CHEMISTRY ORDERABLES [facility] [place] [address] documented in this encounter Visit Diagnoses Diagnosis Chest wall mass- Primary Swelling, mass, or lump in chest Chest wall mass Swelling, mass, or lump in chest Pleural mass Swelling, mass, or lump in chest Stage 4 lung cancer, left Secondary malignant neoplasm of pleura documented in this encounter Admitting Diagnoses Diagnosis Chest wall mass Swelling, mass, or lump in chest documented in this encounter Administered Medications Inactive Administered Medications - up to 3 most recent administrations Medication Order MAR Action Action Date Dose Rate Site acetaminophen (Tylenol) tablet 975 mg 975 mg, Oral, ONCE, 1 dose, On Mon11/22/23 at 0845, Administer with a SIP of water only. Maximum dose of acetaminophen is 4,000 mg from all sources in 24 hours., Day of Surgery (Day of Procedure), Routine Given 11/22/2023 8:51 AM EDT 975 mg acetaminophen (Tylenol) tablet 975 mg 975 mg (rounded from 1,000 mg), Oral, EVERY 6 HOURS SCHEDULED, First dose on Mon11/22/23 at 1500, Until Discontinued, Maximum dose of acetaminophen is 4,000 mg from all sources in 24 hours. When ordered for pain, acetaminophen should be given even when other ordered pain medications are indicated., Routine Given 11/23/2023 5:23 AM EDT 975 mg Given 11/23/2023 1:02 AM EDT 975 mg Given 11/22/2023 4:02 PM EDT 975 mg aspirin chewable tablet 81 mg 81 mg, Oral, DAILY, First dose (after last modification) on Mon11/23/23 at 0900, Until Discontinued, Routine Given 11/23/2023 8:21 AM EDT 81 mg docusate sodium (Colace) capsule 100 mg 100 mg, Oral, 3 TIMES DAILY, First dose on Mon11/22/23 at 1500, Until Discontinued, Routine Given 11/23/2023 8:21 AM EDT 100 mg Given 11/22/2023 9:04 PM EDT 100 mg Given 11/22/2023 4:02 PM EDT 100 mg FLUoxetine (PROzac) capsule 20 mg 20 mg, Oral, 2 TIMES DAILY, First dose on Mon11/22/23 at 1800, Until Discontinued Given 11/23/2023 8:21 AM EDT 20 mg heparin (porcine) (5,000 units/1 mL) subcutaneous injection 5,000 Units 5,000 Units, Subcutaneous, ADMIN DIR TO O.R., 1 dose, On Mon11/22/23 at 0845, May be given without time restriction AFTER placement of an epidural. If administered prior to epidural placement WAIT 6 [address] the epidural., Day of Surgery (Day of Procedure), Routine Given 11/22/2023 8:51 AM EDT 5,000 Units Left Arm heparin (porcine) (5,000 units/1 mL) subcutaneous injection 5,000 Units 5,000 Units, Subcutaneous, EVERY 8 HOURS SCHEDULED, First dose on Mon11/22/23 at 1400, Until Discontinued, Routine Given 11/23/2023 5:22 AM EDT 5,000 Units Given 11/22/2023 9:04 PM EDT 5,000 Units Given 11/22/2023 4:02 PM EDT 5,000 Units ibuprofen (Advil) tablet 600 mg 600 mg, Oral, EVERY 6 HOURS, First dose on Mon11/22/23 at 1700, Until Discontinued, Administer orally with milk or food to minimize GI irritation. Maximum dose of 3,200 mg from all sources in 24 hours, Routine Given 11/23/2023 5:23 AM EDT 600 mg Given 11/23/2023 1:02 AM EDT 600 mg Given 11/22/2023 6:24 PM EDT 600 mg ipratropium-albuteroL (Duoneb) 0.5 mg-3 mg(2.5 mg base)/3 mL nebulizer solution 3 mL 3 mL, Nebulization, EVERY 6 HOURS, First dose on Mon11/22/23 at 1445, Until Discontinued, Routine losartan (Cozaar) tablet 100 mg 100 mg, Oral, DAILY, First dose on Mon11/23/23 at 0900, Until Discontinued, Routine Given 11/23/2023 8:21 AM EDT 100 mg oxyCODONE (Roxicodone) tablet 15 mg 15 mg, Oral, EVERY 8 HOURS PRN, Starting on Mon11/22/23 at 1037, Until Mon11/23/23 at 1214, Pain, Routine Given 11/23/2023 8:26 AM EDT 15 mg Given 11/23/2023 1:10 AM EDT 15 mg pantoprazole EC (Protonix) tablet 40 mg 40 mg, Oral, DAILY, First dose on Mon11/23/23 at 0900, Until Discontinued, DO NOT CRUSH OR OPEN Given 11/23/2023 8:21 AM EDT 40 mg sodium chloride 0.9 % (flush) (BD PosiFlush Normal Saline 0.9) flush 5 mL 5 mL, Intravenous, 2 TIMES DAILY, First dose on Mon11/22/23 at 1400, Until Discontinued, Recovery (Recovery-Hospital Unit), Routine Given 11/22/2023 9:00 PM EDT 5 mLs Given 11/22/2023 2:00 PM EDT 5 mLs documented in this encounter Active and Recently Administered Medications Times are shown in EDT. Scheduled Medication Order 11/21/2023 11/22/2023 11/23/2023 acetaminophen (Tylenol) tablet 975 mg (COMPLETED) 975 mg, Oral, ONCE, 1 dose, On Mon11/22/23 at 0845, Administer with a SIP of water only. Maximum dose of acetaminophen is 4,000 mg from all sources in 24 hours., Day of Surgery (Day of Procedure), Routine 0851 (Given - Provider: Loren Rose, RN) acetaminophen (Tylenol) tablet 975 mg 975 mg (rounded from 1,000 mg), Oral, EVERY 6 HOURS SCHEDULED, First dose on Mon11/22/23 at 1500, Until Discontinued, Maximum dose of acetaminophen is 4,000 mg from all sources in 24 hours. When ordered for pain, acetaminophen should be given even when other ordered pain medications are indicated., Routine 1602 (Given - Provider: Sofy Frost LPN) 0102 (Given - Provider: Frances Cherry, SUZY)0523 (Given - Provider: Frances Cherry, SUZY) aspirin chewable tablet 81 mg 81 mg, Oral, DAILY, First dose (after last modification) on Jeannette 11/23/23 at 0900, Until Discontinued, Routine 0821 (Given - Provid er: Anyi Guo, SUZY) atorvastatin (Lipitor) tablet 40 mg 40 mg, Oral, EVERY EVENING, First dose on Jeannette 11/23/23 at 1700, Until Discontinued, Routine ceFAZolin (Ancef) 2 g vial attach to sodium chloride 0.9% 100 mL Mini-Bag Plus (COMPLETED) 2 g, Intravenous, ADMIN DIR TO O.R., 1 dose, On Mon11/22/23 at 0845, Administer over 30 Minutes, Intra-Operative (Intra-Procedure), Indication for (Active or Suspected): Prophylaxis 0908 (New Bag - Provider: Marlee Flowers CRNA) docusate sodium (Colace) capsule 100 mg 100 mg, Oral, 3 TIMES DAILY, First dose on Mon11/22/23 at 1500, Until Discontinued, Routine 1602 (Given - Provider: Sofy Frost LPN)2104 (Given - Provider: Tammy Bullard, SUZY) 0821 (Given - Provider: Anyi Guo RN) FLUoxetine (PROzac) capsule 20 mg 20 mg, Oral, 2 TIMES DAILY, First dose on Mon11/22/23 at 1800, Until Discontinued 1800 (Not Given - Provider: Anyi Guo RN - Reason: Patient/family refused - Comment: pt states he will resume this med tomorrow morning) 08 (Given - Provider: Anyi Guo RN) heparin (porcine) (5,000 units/1 mL) subcutaneous injection 5,000 Units (COMPLETED) 5,000 Units, Subcutaneous, ADMIN DIR TO O.R., 1 dose, On Mon11/22/23 at 0845, May be given without time restriction AFTER placement of an epidural. If administered prior to epidural placement WAIT 6 hours before [address] the epidural., Day of Surgery (Day of Procedure), Routine 0851 (Given - Provider: Marlee Flowers CRNA) heparin (porcine) (5,000 units/1 mL) subcutaneous injection 5,000 Units 5,000 Units, Subcutaneous, EVERY 8 HOURS SCHEDULED, First dose on Mon11/22/23 at 1400, Until Discontinued, Routine 1602 (Given - Provider: Sofy Frost LPN)2103 (Given - Provider: Tammy Bullard RN) 0522 (Given - Provider: Frances Cherry RN) ibuprofen (Advil) tablet 600 mg 600 mg, Oral, EVERY 6 HOURS, First dose on Mon11/22/23 at 1700, Until Discontinued, Administer orally with milk or food to minimize GI irritation. Maximum dose of 3,200 mg from all sources in 24 hours, Routine 1824 (Given - Provider: Anyi Guo RN) 0102 (Given - Provider: Frances Cherry RN)0523 (Given - Provider: Frances Cherry RN) ipratropium-albuteroL (Duoneb) 0.5 mg-3 mg(2.5 mg base)/3 mL nebulizer solution 3 mL 3 mL, Nebulization, EVERY 6 HOURS, First dose on Mon11/22/23 at 1445, Until Discontinued, Routine 1445 (Not Given - Provider: Sofy Frost LPN - Reason: Patient/family refused)2045 (Not Given - Provider: Frances Cherry RN - Reason: Patient/family refused) 0245 (Not Given - Provider: Frances Cherry RN - Reason: Patient/family refused)0845 (Not Given - Provider: Anyi Guo RN - Reason: Patient/family refused) losartan (Cozaar) tablet 100 mg 100 mg, Oral, DAILY, First dose on Mon11/23/23 at 0900, Until Discontinued, Routine 0821 (Given - Provid er: Anyi Guo RN) pantoprazole EC (Protonix) tablet 40 mg 40 mg, Oral, DAILY, First dose on Mon11/23/23 at 0900, Until Discontinued, DO NOT CRUSH OR OPEN 0821 (Given - Provid er: Anyi Guo RN) senna (Senokot) tablet 17.2 mg 17.2 mg, Oral, EVERY EVENING, First dose on Mon11/23/23 at 1700, Until Discontinued, Routine sodium chloride 0.9 % (flush) (BD PosiFlush Normal Saline 0.9) flush 5 mL 5 mL, Intravenous, 2 TIMES DAILY, First dose on Mon11/22/23 at 1400, Until Discontinued, Recovery (Recovery-Hospital Unit), Routine 1400 (Given - Provider: Sofy Frost LPN)2100 (Given - Provider: Tammy Bullard RN) 0827 (Not Given - Provider: Anyi Guo RN - Reason: Patient/family refused - Comment: PIV being removed for discharge) tiotropium (Spiriva Respimat) 2.5 mcg/actuation inhaler 2 puff 2 puff, Inhalation, DAILY, First dose on Mon11/22/23 at 1400, Until Discontinued, Must be primed prior to first administration, Routine 1400 (Not Given - Provider: Anyi Guo RN - Reason: Medication not available) 0812 (Not Given - Provider: Anyi Guo RN - Reason: Medication not available) Continuous Medication Order 11/21/2023 11/22/2023 11/23/2023 lactated ringers infusion (CANCELED) 1,000 mL, at 100 mL/hr, Intravenous, CONTINUOUS, Starting on Mon11/22/23 at 0845, Until Mon11/22/23 at 1211, Day of Surgery (Day of Procedure) 0849 (New Bag - Provider: Marlee Flowers CRNA)1034 (Anesthesia Volume Adjustment - Provider: Marlee Flowers CRNA) PRN Medication Order 11/21/2023 11/22/2023 11/23/2023 BUpivacaine (pf) (Marcaine) (5 mg/mL) 0.5% injection (CANCELED) PRN, Starting on Mon11/22/23 at 0939, Until Jeannette 11/23/23 at 1214, Intra-Operative (Intra-Procedure), Routine 0939 (Given - Provider: Ariella Vargas MD) lidocaine (Xylocaine) 1% (10 mg/mL) injection 3 mg 3 mg (0.3 mL), Subcutaneous, ONCE PRN, 1 dose, Starting on Mon11/22/23 at 1309, Until Jeannette 11/23/23 at 1214, for discomfort with PIV insertion, Recovery (Recovery-Hospital Unit), Routine oxyCODONE (Roxicodone) tablet 15 mg 15 mg, Oral, EVERY 8 HOURS PRN, Starting on Mon11/22/23 at 1037, Until Jeannette 11/23/23 at 1214, Pain, Routine 0110 (Given - Provid er: Frances Cherry RN)0826 (Given - Provider: Anyi Guo RN) sodium chloride 0.9 % (flush) (BD PosiFlush Normal Saline 0.9) flush 5-20 mL 5-20 mL, Intravenous, EVERY 1 MIN PRN, Starting on Mon11/22/23 at 1309, Until Jeannette 11/23/23 at 1214, flush, Flush pertains to all indwelling lines. Flush per protocol found in the job aid using the link provided on this medication record., Recovery (Recovery-Hospital Unit), Routine documented in this encounter Care Teams Invoice Classification Clerk Relationship Specialty Start Date End Date Rayo Riley MD [address] [place] [address] PCP - General 06/22/10 01/10/24 documented as of this encounter
--- OUTSIDE RECORDS SUMMARY | 2024-03-11 03:21 | XMS_ITS | Encounter Summary ---
Author Organization [facility] Address [facility] [place] [address] Care Team Providers Care Pickle Sorter Name Role Phone Rayo Riley MD Primary Care Provider [phone] Encounter Details Date Type Department Care Team (Latest Contact Info) Description 12/26/2023 Travel Social History Tobacco Use Types Packs/Day Years Used Date Smoking Tobacco: Former Cigarettes 0.3 57 Smokeless Tobacco: Never Comments:Quit 11/2023 Alcohol Use Standard Drinks/Week Comments Yes 7 (1 standard drink = 0.6 oz pure alcohol) 4oz rum with coke daily- varies [facility] Utilities Answer Date Recorded [...] health care facility (including now)? No 12/21/2023 DH IPV Inpatient [...] 12:30 PM EDT Office Visit Hematology/Oncology at [address] [phone] Lennox Spivey MD [facility] HEMATOLOGY [place] [address] 03/11/2024 1:00 PM EDT Scheduled View Only Hematology/Oncology at [address] [phone] Trupti Bray RN 03/11/2024 1:00 PM EDT Infusion Hematology Oncology at [address] [phone] 03/25/2024 10:00 AM EDT Office Visit Hematology/Oncology at [address] [phone] Lennox Spivey MD [facility] DR HEMATOLOGY [place] [address] Bushra Muniz APRN [address] [place] [address] DR HEMATOLOGY AND ONCOLOGY [place], [place] [id number] 03/25/2024 10:30 AM EDT Scheduled View Only Hematology/Oncology at [address] [phone] Trupti Bray RN 03/25/2024 10:30 AM EDT Infusion Hematology Oncology at [address] [phone] documented as of this encounter Visit Diagnoses Not on filedocumented in this encounter Care Teams Pickle Sorter Relationship Specialty Start Date End Date Rayo Riley MD [address] [place] [address] PCP - General 06/22/10 01/10/24 documented as of this encounter
--- OUTSIDE RECORDS SUMMARY | 2024-03-11 03:21 | XMS_ITS | Encounter Summary ---
Author Organization [facility] Address [facility] [place] [address] Care Team Providers Care Guest Services Ambassador Name Role Phone Rayo Riley MD Primary Care Provider [phone] Encounter Details Date Type Department Care Team (Late st Contact Info) Description 12/27/2023 8:30 AM EDT Office Visit Radiation Oncology at [address] [phone] Beto Braswell MD [facility] [place] [address] Non-small cell lung cancer, left Social History [...] any time in the past 12 m [facility], were you homeless or living in [...] Sign Reading Time Taken Comments Blood Pressure 118/71 12/27/2023 8:23 AM EDT Pulse 81 12/27/2023 8:23 AM EDT Temperature 36.3 ??C (97.3 ??F) 12/27/2023 8 :23 AM EDT Respiratory Rate 20 12/27/2023 8:23 AM EDT Oxygen Saturation 93% 12/27/2023 8:2 3 AM EDT Inhaled Oxygen Concentration - - Weight 93.4 kg (205 lb 12.8 oz) 12/27/2023 8:23 AM EDT with sandals Height - - Body Mass Index 31.3 12/21/2023 11:45 AM EDT documented in this encounter Progress Notes * Morena Amin RN - 12/27/2023 8:30 AM EDT Section of Radiation Oncology Contrast Information Safety Questions 1. Has the patient ever had an x-ray study before which involved injection of a contrast agent or x-ray dye? yes If yes, did the patient have any reaction to the injection? no If yes, please describe the reaction: 2. Is the patient allergic to any foods, medicines, or other substances? yes Allergies Allergen Reactions Other [Unclassified Drug] Black fly bites -was hospitalized because of it Penicillins CIS - RASH 3. Has the patient received any contrast within the past 48 hours? no 4. Does the patient have any procedures scheduled in the next 48 hours? no 5. Does the patient have a history of renal/kidney problems or kidney surgery? Yes. History of kidney stones. 6. Does the patient have diabetes? Yes. Diet/activity controlled 7. Does the patient have high blood pressure? yes 8. Is the patient currently being treated for gout? no 9. If the answer to any of the questions #5-8 was yes, has the patient had a creatinine level and eGFR drawn within the past 45 days? yes Lab Results Component Value Date CREATININE 1.31 12/21/2023 If no, when will it be drawn? A creatinine less than or equal to 1.6 and a eGFR of 45 or greater OK; to proceed with IV contrast. If the creatinine is greater than 1.6 and the eGFR is less than 45, consult with the ordering provider. If an eGFR is less than 30, IV contrast should not be administered and another contrast agent may be ordered by the provider (Visipaque). 10. Is the patient currently taking any of the following medications? (Actoplus Met, Avandamet, Glucovance, Janumet, Jendadueto, Kombiglyze, Metaglip, PrandiMet, Glugophage, Glumetza, Riomet, Metformin) [x} No If yes, when was last dose taken? 9. If patient is on any of the medications in question #10, consult with the ordering provider if the patient needs to stop the medication and if they will require further lab studies. * Beto Braswell MD - 12/27/2023 8:30 AM EDT Images from the original note were not included. 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 CT simulation was performed withthe following parameters: Simulation for radiation therapy planning was performed in the radiation oncology department. The technical details of the simulation are available in the radiation oncology EMR ([employer]) upon request. IV Contrast Yes Bolus Yes Notes: Start date TBD I was personally present/supervising for the critical portions of the procedure. BETO BRASWELL MD National Cancer [place] (NCI) [facility] [employer] Commission on Cancer (ACS [employer]) Accredited Cancer Program [employer] (A[employer]) Accredited Radiation Oncology Program documented in this encounter Plan of Treatment Upcoming Encounters Date Type Department Care Team (Late st Contact Info) Description 03/11/2024 12:30 PM EDT Office Visit Hematology/Oncology at [address] [phone] Lennox Spivey MD [facility] DR H[place]AT[place] [address] 03/11/2024 1:00 PM EDT Scheduled View Only Hematology/Oncology at [address] [phone] Trupti Bray RN 03/11/2024 1:00 PM EDT Infusion Hematology Oncology at [address] [phone] 03/25/2024 10:00 AM EDT Office Visit Hematology/Oncology at [address] [phone] Lennox Spivey MD [facility] DR [place] [address] Bushra Muniz APRN [address] [place] [address] DR HEMATOLOGY AND ONCOLOGY [place], [place] [id number] 03/25/2024 10:30 AM EDT Scheduled View Only Hematology/Oncology at [address] [phone] Trupti Bray RN 03/25/2024 10:30 AM EDT Infusion Hematology Oncology at [address] [phone] documented as of this encounter Visit Diagnoses Diagnosis Non-small cell lung cancer, left Stage 4 lung cancer, left Secondary malignant neoplasm of pleura documented in this encounter Care Teams Guest Services Ambassador Relationship Specialty Start Date End Date Rayo Riley MD [address] [place] [address] PCP - General 06/22/10 01/10/24 documented as of this encounter
--- OUTSIDE RECORDS SUMMARY | 2024-03-11 03:21 | XMS_ITS | Encounter Summary ---
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 Procedures PRO EXC SKIN MALIG >4CM TRUNK, ARM, LEG EXC MALIGNANT LESION, SHERRILL > 4.0CM, TRUNK (WRVU 5.02) Ariella Vargas MD [facility] [place] [address] [facility] Referral ID Status Reason Start Date Expiration Date Visits Re quested Visits Authorized [id number] 1 1 Encounter Details Date Type Department Care Team (Late st Contact Info) Description 11/22/2023 9:09 AM EDT - 11/22/2023 11:24 AM EDT [place] [phone] Ariella Vargas MD [facility] [place] [address] EXC MALIGNANT LESION, SHERRILL > 4.0CM, TRUNK (WRVU 5.02) Social History Tobacco Use Types Packs/Day Years Used Date Smoking Tobacco: Every Day Cigarettes 0.3 57 Smokeless Tobacco: Never Tobacco Cessation:Ready to Q uit: No; Counseling Given: Not Answered Comments:Down to 1/4PPD Alcohol Use Standard Drinks/Week Comments Yes 7 (1 standard drink = 0.6 oz pur e alcohol) 4oz rum with coke daily DH IPV Inpatient Questions Answer Date Recorded [...] Sign Reading Time Taken Comments Blood Pressure 101/60 11/22/2023 11:15 AM EDT Pulse 98 11/22/2023 11:15 AM EDT Temperature 36.4 ??C (97.5 ??F) 11/22/2023 10:30 AM E DT Respiratory Rate 20 11/22/2023 11:15 AM EDT Oxygen Saturation 95% 11/22/2023 11:15 AM EDT Inhaled Oxygen Concentration - - Weight 98 kg (216 lb) 11/22/2023 8:32 AM EDT Height 172.7 cm (5' 8) 11/22/2023 [...] Primary * Kenneth Brady PA - Physician Research Assistant Member Procedure: Procedure(s): EXC MALIGNANT LESION, SHERRILL > 4.0CM, TRUNK (WRVU 5.02) History of Presentation: Jeffrey Lovelace is a 68 y.o. male current smoker with PMHx of asbestos exposure, COPD, depression, DM2, GERD, HTN, HLD, inguinal hernia, umbilical hernia with a left chest wall mass and multiple lung nodules. He initially presented in May 20[facility] to [facility] with SOB and was found to have a left pleural effusion. A chest tube was placed and cytology was negative. This was removedafter a few days with improvement in his breathing, and he was treated for pneumonia. He then presented to his PCP and asset protection associate at [facility] with complaints of a pain and a [...] be ruled out. [facility] to obtain additional tissue, however after further discussion it was determined that surgical biopsy via chest wall mass removal would be more high yield Hospital Course: Jeffrey Lovelace was admitted to [facility] on 11/22/2023via the Same Day [...] a nurse in the Thoracic Clinic at [phone]. For emergencies after hours, on weekends or holidays please call: [phone] and ask to speak to the Thoracic Surgeon show operations supervisor. Exercise & Activity Level: As you recover [...] please call the thoracic surgery clinic at [phone]. Driving: No driving for 1 week or [...] Thoracic Surgery Clinic or the Thoracic Surgeon show operations supervisor after hours. Please take over the counter [...] Time Provider Department Center 12/07/2023 8:[address] [facility] CT [address] [facility] RAD [facility] Rad General Instructions None Provider Contact Information: Primary Care Provider: Rayo Riley MD [phone] Discharge References/Attachments: Discharge References/Attachments None For questions regarding this document or issues relating to this hospitalization on the Thoracic Surgery Service, please contact Dr. Vargas's office at . Signed: OLIVIA Headley 11/23/2023 CC: PCP: Rayo Riley MD Referring: Angela Gaines MD [address] [place] [address] documented in this encounter Discharge Instructions * [...] a nurse in the Thoracic Clinic at [phone]. For emergencies after hours, on weekends or holidays please call: [phone] and ask to speak to the Thoracic Surgeon show operations supervisor. Exercise & Activity Level: As you recover [...] please call the thoracic surgery clinic at [phone]. Driving: No driving for 1 week or [...] Thoracic Surgery Clinic or the Thoracic Surgeon show operations supervisor after hours. Please take over the counter [...] Time Provider Department Center 12/07/2023 8:[address] [facility] [address] [facility] Rad documented in this encounter Medications at [...] Guo RN - 11/23/2023 9:[address] [facility] Short Stay Unit Discharge Note All relevant [...] Brady PA - 11/22/2023 2:11 PM EDT [facility] Department of Thoracic Surgery Inpatient Post Op Check Note Patient Name: Jeffrey Lovelace Patient : [id number] Patient Patient Location: [address] Attending Surgeon: ARIELLA VARGAS ID: Jeffrey [...] OLIVIA Vidales 11/22/2023 Thoracic Surgery Service Pager [phone] * Sania Diop RN - 11/22/2023 10:37 [...] tinged secretions suctioned from patient's oral cavity. [id number] Lunch coverage by SUZY Spangler. 1148 - Doctor Norbert rounding on patient in response to this RN's page regarding patient's continued productive cough & copious, tenacious secretions. VSS. NAD noted. Patient c/o tickle in throat. 1230 - Patient resting quietly in NAD with eyes closed. VSS. Coughing has become less frequent. 1240 - Report to SUZY Eaton, SSU. documented in this encounter H&P Notes [...] OLIVIA Alicia 11/22/2023 Thoracic Surgery Service Pager [phone] documented in this encounter Miscellaneous Notes * Brief Op Note - Kenneth Brady PA - 11/22/2023 10:36 AM EDT Brief Operative Note Patient Name: Jeffrey Lovelace : [id number] MR#: [id number] Case Date: 11/22/2023 Surgeon: Surgeon(s) and Role: * Ariella Vargas MD - Primary * Kenneth Brady PA - Physician Research Assistant Member Preoperative diagnosis: possible mesothemioma with left chest [...] in stable condition. OLIVIA Guzman was my stonecutter assistant during the entire procedure since no qualified resident was available. I was present for the entire procedure and dictated this operative note. Ariella Vargas MD documented in this encounter Plan of Treatment Upcoming Encounters Date Type Department Care Team (Late st Contact Info) Description 03/11/2024 12:30 PM EDT Office Visit Hematology/Oncology at [address] [phone] Lennox Spivey MD [facility] [place] [address] 03/11/2024 1:00 PM EDT Scheduled View Only Hematology/Oncology at [address] [phone] Trupti Bray RN 03/11/2024 1:00 PM EDT Infusion Hematology Oncology at [address] [phone] 03/25/2024 10:00 AM EDT Office Visit Hematology/Oncology at [address] [phone] Lennox Spivey MD [facility] [address] [place] [address] Bushra Muniz APRN [address] [place] [address] HEMATOLOGY AND ONCOLOGY [place], [place] [phone] 03/25/2024 10:30 AM EDT Scheduled View Only Hematology/Oncology at [address] [phone] Trupti Bray RN 03/25/2024 10:30 AM EDT Infusion Hematology Oncology at [address] [phone] documented as of this encounter Procedures Procedure Name Priority Date/Time Associated Diagnosis Comments SPECIMEN TO PATHOLOGY Routine 11/22/2023 9:39 AM EDT SPECIMEN TO PATHOLOGY Routine 11/22/2023 9:39 AM EDT SOLID TUMOR NGS PANEL Routine 11/22/2023 9:35 AM EDT SURGICAL PATHOLOGY REPORT Routine 11/22/2023 9:35 AM EDT SPECIMEN TO PATHOLOGY Routine 11/22/2023 9:35 AM EDT Exc Skin Malig >4Cm Trunk, Arm, Leg (38201) Yes 11/22/2023 8:56 AM EDT Pleural mass [...] AM EDT 11/22/2023 9:[address] [facility] - 11/22/2023 9:39 AM EDT Specimen requisition ordered. ??Separate Pathology report to follow Ariella Vargas MD PATHOLOGY/CYTOLOGY O ADONIS Performing Organization Address [facility]/ZIP Co de Phone Number [facility] [place] [address] * Specimen to Pathology (11/22/2023 9:39 AM EDT) AP Specimen 11/22/2023 9:39 AM EDT 11/22/2023 9:[address] [facility] - 11/22/2023 9:39 AM EDT Specimen requisition ordered. ??Separate Pathology report to follow Ariella Vargas MD PATHOLOGY/CYTOLOGY O ADONIS Performing Organization Address [facility] Co de Phone Number [facility] [place] [address] * Solid Tumor NGS Panel (11/22/2023 9:35 AM EDT) Tissue 11/22/2023 9:35 AM EDT 12/19/2023 7:32 PM EDT Narrative Resulting Agency Comment Spec In Lab Ariella Vargas MD PATHOLOGY/CYTOLOGY O ADONIS [facility] [place] [phone] * Surgical Pathology Report (11/22/2023 9:35 AM EDT) Final Diagnosis ? Location: [facility]; [facility]; The signing pathologist has (i) examined the [...] The assay was performed according to the staff submarine warfare officer's instructions using Anti-PD-L1 (22C3, pharmDX) antibody. Electronically signed by: ?Young TEAGUE, Vu Victor Verified: ??12/19/2023 16:50 ??Pathologist Performed at: ??-[facility] Dept. of Pathology, [place] [address] Biophysics Teacher: Omar White MD, AP, ??CLIA Certificate: [id number] ?Surgical Pathology DIAGNOSIS A - left chest soft tissue mass, excision: - Poorly differentiated carcinoma, see discussion. - Specimen margin negative for carcinoma. B - Superior medial margin, excision: - Fibroadipose tissue, negative for carcinoma. C - inferior medial margin, excision: - Fibroadipose tissue, negative for carcinoma. Electronically signed by: ?Eleuterio Obando MD Verified: ??12/13/2023 10:42 ??Pathologist Performed at: ??-[facility] Dept. of Pathology, [place] [address] Biophysics Teacher: Oamr White MD, FCAP, ??CLIA Certificate: [id number] DISCUSSION The clinical impression of a chest [...] ?Focal positive ?p63 ?Focal positive ?CKAE1/3 ?Positive ?ALBOS065 ? Positive ?TTF1 ? Negative ?PAX8 ? [...] the soft tissue margin inked black. Sections/Processing: Senior Analysis Specialist sections in 7 cassettes as follows: ?A1-A4: ??Senior Analysis Specialist lesion to closest margin inked black ?A5-A7: [...] labeled C1-C4. ??jnk 12/19/2023 4:[address] [facility] SOFT TISSUE MASS / Unknown 11/22/2023 9:35 AM EDT 11/22/2023 9:35 AM EDT Margin 11/22/2023 9:35 AM EDT 11/22/2023 9:35 AM EDT Margin 11/22/2023 9:35 AM EDT 11/22/2023 9:35 AM EDT Ariella Vargas MD PATHOLOGY/CYTOLOGY O RDERABLES [facility] [place] [address] * Specimen to Pathology (11/22/2023 9:35 AM EDT) AP Specimen 11/22/2023 9:35 AM EDT 11/22/2023 9:[address] [facility] - 11/22/2023 9:35 AM EDT Specimen requisition ordered. ??Separate Pathology report to follow Ariella Vargas MD PATHOLOGY/CYTOLOGY O RDERABLES Performing Organization Address [facility] de Phone Number [facility] [place] [address] * EKG 12 Lead (11/22/2023 8:36 AM EDT) Ventricular rate 89 BPM MUSE SYSTEM Atrial Rate 89 BPM MUSE SYSTEM P-R Interval 154 ms MUSE SYSTEM QRS Duration 96 ms MUSE SYSTEM Q-T Interval 364 ms MUSE SYSTEM QTC Calculated (Bezet) 442 ms MUSE SYSTEM Calculated P Sheridan 39 degrees MUSE SYSTEM Calculated R Sheridan 18 degrees MUSE SYSTEM Calculated T Sheridan 37 degrees MUSE SYSTEM INTERPRETATION Normal sinus rhythm Normal ECG No previous ECGs available Confirmed by MD Kelsea, [place] (1955) on 11/22/2023 2:17:24 PM MUSE SYSTEM 11/22/2023 8:36 AM EDT 11/22/2023 2:17 PM EDT Ariella Vargas MD ECG ORDERABLES Performing Organization Address [facility] de Phone Number MUSE SYSTEM * POCT Glucose (11/22/2023 8:15 AM EDT) Pathologist [facility] Glucose, POC 132 65 - 199 mg/dL [facility] Comment: Supplemental ranges: <140 mg/dL before meals <180 mg/dL all other times of the day Blood 11/22/2023 8:15 AM EDT 11/22/2023 8:15 AM EDT Ariella Vargas MD POINT OF CARE TEST O RDERABLES Performing Organization Address [facility] Co de Phone Number [facility] [place] [address] * (ABNORMAL) Differential, Automated (11/22/2023 7:57 AM EDT) Neutrophil % 72.4 % [facility] Neutrophil Absolute 6.99(H) 1.70 - 6.10 x10(3)/mc L [facility] Lymph % 15.8 % [facility] Lymphocytes Abs 1.5 0.9 - 3.2 x10(3)/ L [facility] Monocyte % 7.9 % [facility] Monocyte Abs 0.8 0.3 - 0.9 x10(3)/ L [facility] Eos % 3.0 % [facility] Eosinophils Abs 0.3 0.0 - 0.4 x10(3)/[facility] Basophil % 0.6 % [facility] Baso Absolute 0.1 0.0 - 0.1 x10(3)/[facility] Immature Gran % 0.30 % [facility] Comment: Immature granulocytes(IG's)percentage and absolute count will include metamyelocytes, myelocytes, and promyelocytes. Blood smears from CBCs yielding IG's will be scanned manually for concordance. If this scan disagrees with the automated IG or if promyelocytes are noted, a manual differential will be performed. Immature Gran Absolute 0.03 0.00 - 0.04 x10(3)/ L [facility] Blood 11/22/2023 7:57 AM EDT 11/22/2023 8:00 AM EDT Narrative Resulting Agency Comment Spec In Lab Ariella Vargas MD HEMATOLOGY ORDERABLE S [facility] [place] [address] * (ABNORMAL) Hemogram (11/22/2023 7:57 AM EDT) White Blood Cell 9.6(H) 4.0 - 9.5 x10(3)/[facility] Red Blood Cell 4.48(L) 4.58 - 5.54 x10(6)/ L [facility] Hemoglobin 13.6(L) 13.7 - 16.5 g/dL [facility] Hematocrit 42.1 40.5 - 48.5 % [facility] Mean Cell Volume 94.0(H) 82.9 - 93.[address] [facility] Mean Cell Hemoglobin 30.4 27.5 - 32.[address] [facility] Mean Cell Hemoglobin Concentration 32.3 32.0 - 35.7 g/dL [facility] Platelet 299 145 - 357 x10(3)/mc L [facility] RDW Standard Deviation 48.2(H) 36.0 - 45.[address] [facility] RDW coefficient of variation 14.0(H) 11.4 - 13.8 % [facility] Mean Platelet Volume 11.4 7.6 - 12.[address] [facility] NRBC% auto 0.0 % [facility] NRBC Absolute 0.000 0.000 - 0.000 x10(3)/mc L [facility] Blood 11/22/2023 7:57 AM EDT 11/22/2023 8:00 AM EDT Narrative Resulting Agency Comment Spec In Lab Ariella Vargas MD HEMATOLOGY ORDERABLE S [facility] [place] [address] * (ABNORMAL) Comprehensive metabolic panel (non-fasting) (11/22/2023 7:57 AM EDT) Glucose 147 65 - 199 mg/dL [facility] Comment:Diabetes: >=200 mg/d L plus symptoms Blood Urea Nitrogen 20 10 - 20 mg/dL [facility] Creatinine 1.03 0.80 - 1.50 mg/dL [facility] Sodium 140 135 - 145 mmol/L [facility] Potassium 4.8 3.5 - 5.0 mmol/L [facility] Comment: Please note: ??Patients with WBC >100,000 may have falsely elevated Potassium levels. ??For accurate Potassium quantification in these patients send serum separator tube (gold top) for subsequent determinations. ??Contact the Clinical Chemistry Laboratory if there are any questions. Chloride 100 98 - 107 mmol/L [facility] Carbon Dioxide 31 22 - 31 mmol/L [facility] Anion Gap 9 5 - 15 mmol/L [facility] Calcium 10.3 8.5 - 10.5 mg/dL [facility] Protein, Total 7.3 6.1 - 8.0 g/dL [facility] Albumin 4.0 3.2 - 5.2 g/dL [facility] Aspartate Aminotransferase 28 0 - 39 unit/L [facility] Alanine Aminotransferase 27 0 - 55 unit/L [facility] Alkaline Phosphatase 134(H) 40 - 130 unit/L [facility] Bilirubin, Total 0.3 0.2 - 1.3 mg/dL [facility] Est Glomerular Filtration Rate 80 >=60 mL/min/1. 73 m?? [facility] Comment: This patient's estimated GFR [...] In Lab Ariella Vargas MD CHEMISTRY ORDERABLES [facility] [place] [address] documented in this encounter Visit Diagnoses Diagnosis [...] Given 11/23/2023 8:21 AM EDT 81 mg BUpivacaine (pf) (Marcaine) (5 mg/mL) 0.5% injection PRN, Starting on Mon11/22/23 at 0939, Until Mon11/23/23 at 1214, Intra-Operative (Intra-Procedure), Routine Given 11/22/2023 9:39 AM EDT 30 mLs 19- Surgical Site docusate sodium (Colace) capsule 100 mg 100 [...] subcutaneous injection 5,000 Units 5,000 Units, Subcutaneous, EXECUTIVE KITCHEN MANAGER TO O.R., 1 dose, On Mon11/22/23 at [...] Procedure), Routine 0851 (Given - Provider: Loren Rose RN) acetaminophen (Tylenol) tablet 975 mg 975 [...] Frances Cherry, SUZY)0523 (Given - Provider: Frances Cherry RN) aspirin chewable tablet 81 mg 81 mg, Oral, DAILY, First dose (after last modification) on Mon11/23/23 at 0900, Until Discontinued, Routine 0821 (Given - Provid er: Anyi Guo RN) atorvastatin (Lipitor) tablet 40 mg 40 mg, Oral, EVERY EVENING, First dose on Jeannette 11/23/23 at 1700, Until Discontinued, Routine ceFAZolin (Ancef) 2 g vial attach to sodium chloride 0.9% 100 mL Mini-Bag Plus (COMPLETED) 2 g, Intravenous, EXECUTIVE KITCHEN MANAGER TO O.R., 1 dose, On Mon11/22/23 at 0845, Administer over 30 Minutes, Intra-Operative (Intra-Procedure), Indication for (Active or Suspected): Prophylaxis 0908 (New Bag - Provider: Marlee Flowers CRNA) docusate sodium (Colace) capsule 100 mg 100 mg, Oral, 3 TIMES DAILY, First dose on Mon11/22/23 at 1500, Until Discontinued, Routine 1602 (Given - Provider: Sofy Frost LPN)210 (Given - Provider: Tammy Bullard RN) 0821 (Given - Provider: Anyi Guo RN) FLUoxetine (PROzac) capsule 20 mg 20 mg, Oral, 2 TIMES DAILY, First dose on Mon11/22/23 at 1800, Until Discontinued 1800 (Not Given - Provider: Anyi Guo RN - Reason: Patient/family refused - Comment: pt states he will resume this med tomorrow morning) 0821 (Given - Provider: Anyi Guo RN) heparin (porcine) (5,000 units/1 mL) subcutaneous injection 5,000 Units (COMPLETED) 5,000 Units, Subcutaneous, EXECUTIVE KITCHEN MANAGER TO O.R., 1 dose, On Mon11/22/23 at [...] Routine 1602 (Given - Provider: Sofy Frost LPN)210 (Given - Provider: Tammy Bullard RN) 0522 [...] Intravenous, EVERY 1 MIN PRN, Starting on 11/22/23 at 1309, Until Jeannette 11/23/23 at 1214, flush, Flush pertains to all indwelling lines. Flush per protocol found in the job aid using the link provided on this medication record., Recovery (Recovery-Hospital Unit), Routine documented in this encounter Care Teams Beauty Culturist Relationship Specialty Start Date End Date Rayo Riley MD [address] [place] [address] [address] [facility] [address] [place] [address] PCP - General 06/22/10 01/10/24 documented as of this encounter
--- OUTSIDE RECORDS SUMMARY | 2024-03-11 03:21 | XMS_ITS | Encounter Summary ---
Author Organization [facility] Address [facility] [place] [address] Care Team Providers Care Manganese Breaker Name Role Phone Rayo Riley MD Primary Care Provider [phone] Reason for Visit * Reason Comments IV Access Encounter Details Date Type Department Care Team (Late st Contact Info) Description 12/27/2023 9:00 AM EDT Infusion Hematology Oncology at [address] [phone] Stage 4 lung cancer, left Social History Tobacco Use Types Packs/Day Years Used Date Smoking Tobacco: Former Cigarettes 0.3 57 Smokeless Tobacco: Never Comments:Quit 11/2023 Alcohol Use Standard Drinks/Week Comments Yes 7 (1 standard drink = 0.6 oz pure alcohol) 4oz rum with coke daily- varies [facility] Utilities Answer Date Recorded In [...] as of this encounter Progress Notes * Bryanna Gilmore RN - 12/27/2023 9:00 AM EDT Patient arrived in infusion. #20g PIV placed without difficulty in left arm. Positive blood return noted. [facility]. documented in this encounter Plan of Treatment Upcoming Encounters Date Type Department Care Team (Late st Contact Info) Description 03/11/2024 12:30 PM EDT Office Visit Hematology/Oncology at [address] [phone] Lennox Spivey MD [facility] [address] HEMATOLOGY [place] [address] 03/11/2024 1:00 PM EDT Scheduled View Only Hematology/Oncology at [address] [phone] Trupti Bray RN 03/11/2024 1:00 PM EDT Infusion Hematology Oncology at [address] [phone] 03/25/2024 10:00 AM EDT Office Visit Hematology/Oncology at [address] [phone] Lennox Spivey MD [facility] [address] HEMATOLOGY [place] [address] Bushra Muniz [address] HEMATOLOGY AND ONCOLOGY [place], [place] [phone] 03/25/2024 10:30 AM EDT Scheduled View Only Hematology/Oncology at [address] [phone] Trupti Bray RN 03/25/2024 10:30 AM EDT Infusion Hematology Oncology at [address] [phone] documented as of this encounter Visit Diagnoses Diagnosis Stage 4 lung cancer, left Stage 4 lung cancer, left Secondary malignant neoplasm of pleura documented in this encounter Care Teams Manganese Breaker Relationship Specialty Start Date End Date Rayo Riley MD [address] [place] [address] [address] [place] [address] PCP - General 06/22/10 01/10/24 documented as of this encounter
--- OUTSIDE RECORDS SUMMARY | 2024-03-11 03:21 | XMS_ITS | Encounter Summary ---
Author Organization [facility] Address [facility] [place] [address] Care Team Providers Care Poultry Offal Worker Name Role Phone Rayo Riley MD Primary Care Provider +1 [phone] Encounter Details Date Type Department Care Team (Latest Contact Info) Description 12/21/2023 Travel Social History Tobacco Use Types Packs/Day Years Used Date Smoking Tobacco: Former Cigarettes 0.3 57 Smokeless Tobacco: Never Comments:Quit 11/2023 Alcohol Use Standard Drinks/Week Comments Yes 7 (1 standard drink = 0.6 oz pure alcohol) 4oz rum with coke daily- varies [facility] Utilities Answer Date Recorded In the [...] 12:30 PM EDT Office Visit Hematology/Oncology at [address] [phone] Lennox Spivey MD [facility] [place] [address] 03/11/2024 1:00 PM EDT Scheduled View Only Hematology/Oncology at [address] [phone] Trupti Bray RN 03/11/2024 1:00 PM EDT Infusion Hematology Oncology at [address] [phone] 03/25/2024 10:00 AM EDT Office Visit Hematology/Oncology at [address] [phone] Lennox Spivey MD [facility] DR [place] [address] Bushra Muniz APRN [address] [place] [address] DR HEMATOLOGY AND ONCOLOGY [place], [place] [id number] 03/25/2024 10:30 AM EDT Scheduled View Only Hematology/Oncology at [address] [phone] Trupti Bray RN 03/25/2024 10:30 AM EDT Infusion Hematology Oncology at [address] [phone] documented as of this encounter Visit Diagnoses Not on filedocumented in this encounter Care Teams Poultry Offal Worker Relationship Specialty Start Date End Date Rayo Riley MD [address] [place] [address] PCP - General 06/22/10 01/10/24 documented as of this encounter
--- OUTSIDE RECORDS SUMMARY | 2024-03-11 03:21 | XMS_ITS | Encounter Summary ---
Author Organization [facility] Address [facility] [place] [address] Care Team Providers Care Department Head [employer] Name Role Phone Rayo Riley MD Primary Care Provider [phone] [phone] Encounter Details Date Type Department Care Team (Late st Contact Info) Description 12/01/2023 Telephone Radiation Oncology at [address] [phone] Meena Tomlinson Social History Tobacco [...] encounter Miscellaneous Notes * Telephone Encounter - Meena Tomlinson - 12/01/2023 2:42 PM EDT I called to speak with Jeffrey and let him know about the referral with Dr. Braswell. He is aware of the day and time of the appt, I will mail out an appt letter and directions to the cancer center. documented in this encounter Plan of Treatment Upcoming Encounters Date Type Department Care Team (Late st Contact Info) Description 03/11/2024 12:30 PM EDT Office Visit Hematology/Oncology at [address] [phone] Lennox Spivey MD [facility] DR [place] [address] 03/11/2024 1:00 PM EDT Scheduled View Only Hematology/Oncology at [address] [phone] Trupti Bray RN 03/11/2024 1:00 PM EDT Infusion Hematology Oncology at [address] [phone] 03/25/2024 10:00 AM EDT Office Visit Hematology/Oncology at [address] [phone] Lennox Spivey MD [facility] DR [place] [address] Bushra Muniz [address] HEMATOLOGY AND ONCOLOGY [place], [place] [id number] 03/25/2024 10:30 AM EDT Scheduled View Only Hematology/Oncology at [address] [phone] Trupti Bray RN 03/25/2024 10:30 AM EDT Infusion Hematology Oncology at [address] [phone] documented as of this encounter Visit Diagnoses Not on filedocumented in this encounter Care Teams Department Head [employer] Relationship Specialty Start Date End Date Rayo Riley MD [address] [place] [address] [address] [place], [place] [address] PCP - General 06/22/10 01/10/24 documented as of this encounter
--- OUTSIDE RECORDS SUMMARY | 2024-03-11 03:21 | XMS_ITS | Encounter Summary ---
Author Organization [facility] Address [facility] [place] [address] Care Team Providers Care Relay Telegrapher Name Role Phone Rayo Riley MD Primary Care Provider +1 [phone] Encounter Details Date Type Department Care Team ([facility] st Contact Info) Description 11/21/2023 Notes Only Hematology and Oncology at [facility] [place] [address] Vesna Plata MSW Social History Tobacco Use Types Packs/Day Years Used Date Smoking Tobacco: Every Day Cigarettes 1 57 Smokeless Tobacco: Never Comments:Down to 1/4PPD Alcohol Use Standard Drinks/Week Comments Yes 0 (1 standard drink = 0.6 oz pur e alcohol) 4oz rum with coke daily [facility] Inpatient Questions Answer Date Recorded Does Anyone [...] as of this encounter Progress Notes * Vesna Plata MSW - 11/21/2023 4:33 PM EDT [facility] in Thoracic SW's absence was contacted by Theo Mathur RN to help with patient's transportation issue. 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 Thoracic Surgery urgently wanted to take him to surgery tomorrow AM (11/22/23), and were even willing to admit him tonight to facilitate. The challengewas getting his friend, David Casanova home. As private transport was cost-prohibitive ($448), Dr. Weldon got Jeffrey switched from 1st surgery tomorrow to 2nd. [facility] offered gas cards (Theo gave him $50) to help with trip cost. Jeffrey knows that he must reportto 4W tomorrow preferably at 0730, but absolutely NLT 0800. He knows he can't eat anything after midnight, and can only have his medications and a sip of water in the morning. He will be admitted overnight after his surgery, and barring complications can drive himself home on 11/23/23. SW Intervention: Transportation resources documented in this encounter Plan of Treatment Upcoming Encounters Date Type Department Care Team (Late st Contact Info) Description 03/11/2024 12:30 PM EDT Office Visit Hematology/Oncology at [address] [phone] Lennox Spivey MD [facility] DR [place] [address] 03/11/2024 1:00 PM EDT Scheduled View Only Hematology/Oncology at [address] [phone] Trupti Bray RN 03/11/2024 1:00 PM EDT Infusion Hematology Oncology at [address] [phone] 03/25/2024 10:00 AM EDT Office Visit Hematology/Oncology at [address] [phone] Lennox Spivey MD [facility] HEMATOLOGY AND [place] [address] Bushra Muniz APRN [address] [place] [address] DR HEMATOLOGY AND ONCOLOGY [place], [place] [address] 03/25/2024 10:30 AM EDT Scheduled View Only Hematology/Oncology at [address] [phone] Trupti Bray RN 03/25/2024 10:30 AM EDT Infusion Hematology Oncology at [address] [phone] documented as of this encounter Visit Diagnoses Not on filedocumented in this encounter Care Teams Relay Telegrapher Relationship Specialty Start Date End Date Rayo Riley MD [address] [facility] [address] [place], [place] [address] PCP - General 06/22/10 01/10/24 documented as of this encounter
--- OUTSIDE RECORDS SUMMARY | 2024-03-11 03:21 | XMS_ITS | Encounter Summary ---
Author Organization [facility] Address [facility] [place] [address] Care Team Providers Care School Curriculum Developer Name Role Phone Rayo Riley MD Primary Care Provider [phone] [phone] Encounter Details Date Type Department Care Team (Latest Contact Info) Description 12/05/2023 Travel Social History Tobacco Use Types Packs/Day [...] 12:30 PM EDT Office Visit Hematology/Oncology at [address] [phone] Lennox Spivey MD [facility] DR [place] [address] 03/11/2024 1:00 PM EDT Scheduled View Only Hematology/Oncology at [address] [phone] Trupti Bray RN 03/11/2024 1:00 PM EDT Infusion Hematology Oncology at [address] [phone] 03/25/2024 10:00 AM EDT Office Visit Hematology/Oncology at [address] [phone] Lennox Spivey MD [facility] DR [place] [address] Bushra Muniz [address] HEMATOLOGY AND ONCOLOGY [place], [place] [phone] 03/25/2024 10:30 AM EDT Scheduled View Only Hematology/Oncology at [address] [phone] Trupti Bray RN 03/25/2024 10:30 AM EDT Infusion Hematology Oncology at [address] [phone] documented as of this encounter Visit Diagnoses Not on filedocumented in this encounter Care Teams School Curriculum Developer Relationship Specialty Start Date End Date Rayo Riley MD [address] [place] [address] PCP - General 06/22/10 01/10/24 documented as of this encounter
--- OUTSIDE RECORDS SUMMARY | 2024-03-11 03:21 | XMS_ITS | Encounter Summary ---
Author Organization [facility] Address [facility] [place] [address] Care Team Providers Care Sr Solutions Consultant Name Role Phone Rayo Riley MD Primary Care Provider [phone] [phone] Encounter Details Date Type Department Care Team ([facility] st Contact Info) Description 12/21/2023 Orders Only Hematology and Oncology at [facility] [place] [address] Lennox Spivey MD [facility] DR HEMATOLOGY [place] [address] Social History Tobacco Use Types Packs/Day Years Used Date Smoking Tobacco: Former Cigarettes 0.3 57 Smokeless Tobacco: Never Comments:Quit 11/2023 Alcohol Use Standard Drinks/Week Comments Yes 7 (1 standard drink = 0.6 oz pure alcohol) 4oz rum with coke daily- varies [facility] Utilities Answer Date Recorded In the [...] place to sleep or slept in a residential (including now)? No 12/13/2023 Housing Stability Vital [...] time in the past 12 m [facility], were you homeless or living in a residential (including now)? No 12/21/2023 IPV Inpatient Questions [...] 12:30 PM EDT Office Visit Hematology/Oncology at [address] [phone] Lennox Spivey MD [facility] HEMATOLOGY [place] [address] 03/11/2024 1:00 PM EDT Scheduled View Only Hematology/Oncology at [address] [phone] Trupti Bray RN 03/11/2024 1:00 PM EDT Infusion Hematology Oncology at [address] [phone] 03/25/2024 10:00 AM EDT Office Visit Hematology/Oncology at [address] [phone] Lennox Spivey MD [facility] DR [place] [address] Bushra Muniz APRN [address] [place] [address] DR HEMATOLOGY AND ONCOLOGY [place], [place] [phone] 03/25/2024 10:30 AM EDT Scheduled View Only Hematology/Oncology at [address] [phone] Trupti Bray RN 03/25/2024 10:30 AM EDT Infusion Hematology Oncology at [address] [phone] documented as of this encounter Visit Diagnoses Not on filedocumented in this encounter Care Teams Sr Solutions Consultant Relationship Specialty Start Date End Date Rayo Riley MD [address] [place] [address] PCP - General 06/22/10 01/10/24 documented as of this encounter
--- OUTSIDE RECORDS SUMMARY | 2024-03-11 03:21 | XMS_ITS | Encounter Summary ---
Author Organization [facility] Address [facility] [place] [address] Care Team Providers Care Energy Rater Name Role Phone Rayo Riley MD Primary Care Provider [phone] [phone] Reason for Visit * Reason Onset Date Comments Other 12/26/2023 outreach Encounter Details Date Type Department Care Team (Late st Contact Info) Description 12/26/2023 Telephone Hematology/Oncology at [address] [phone] Tammie Recinos, EQUINE BREEDER OFFICE OF CARE MANAGEMENT Other (outreach) Social History Tobacco Use Types Packs/Day Years Used Date Smoking Tobacco: Former Cigarettes 0.3 57 Smokeless Tobacco: Never Comments:Quit 11/2023 Alcohol Use Standard Drinks/Week Comments Yes 7 (1 standard drink = 0.6 oz pure alcohol) 4oz rum with coke daily- varies [facility] Utilities Answer Date Recorded In the past 12 months has e Ygle, gas, oil, or water company threatened to [...] any time in the past 12 m [facility], were you homeless or living [...] Miscellaneous Notes * Telephone Encounter - Tammie Recinos, EQUINE BREEDER - 12/26/2023 9:34 AM EDT Request from Pirsca Simpson RN, Nurse Navigator to reach out to Jeffrey about some needs he has identified. He expects to be treated at [facility]. GALLO Murphy and discussed the following - Social Support: Jeffrey identified several friends that check on him and help his as needs. Transportation: Jeffrey drives himself. He has been able to get a few rides from [employer] which were arranged by Oksana from [facility]. He has been in contact with [facility] but they do not have a volunteer drive available at this time. Mailed Jeffrey the contact information to the [facility] Cancer Survivor group to request a gas card. Insurance: Jeffrey has Medicare A&B only. Mailed Jeffrey the information to Eduard to apply for financial assistance to help with out of pocket costs. Jeffrey indicated he can not afford a secondary insurance. He indicated he does have a prescription plan. Daily Activities: Jeffrey indicated he manages at home. He has a friend that assists him with personal care about 3 times a week. He indicated he has enough food. He does go to a couple of food pantries to supplement his food supplies. Finances: Jeffrey lives on income from . He manages his financial obligations. He does get fuel assistance. He feels he is managing otherwise. EQUINE BREEDER will plan to meet Jeffrey once he starts here at [facility]. Mailed him my contact information is he has any questions. Brief assessment Transportation resources [facility] Patient Financial Assistance/Insurance documented in this encounter Plan of Treatment Upcoming Encounters Date Type Department Care Team (Late st Contact Info) Description 03/11/2024 12:30 PM EDT Office Visit Hematology/Oncology at [address] [phone] Lennox Spivey MD [facility] [place] [address] 03/11/2024 1:00 PM EDT Scheduled View Only Hematology/Oncology at [address] [phone] Trupti Bray RN 03/11/2024 1:00 PM EDT Infusion Hematology Oncology at [address] [phone] 03/25/2024 10:00 AM EDT Office Visit Hematology/Oncology at [address] [phone] Lennox Spivey MD [facility] [place] [address] Bushra Muniz APRN [address] [place] [address] DR HEMATOLOGY AND ONCOLOGY [place], [place] [id number] 03/25/2024 10:30 AM EDT Scheduled View Only Hematology/Oncology at [address] [phone] Trupti Bray RN 03/25/2024 10:30 AM EDT Infusion Hematology Oncology at [address] [phone] documented as of this encounter Visit Diagnoses Not on filedocumented in this encounter Care Teams Energy Rater Relationship Specialty Start Date End Date Rayo Riley MD [address] [place] [address] [address] [place], [place] [id number] PCP - General 06/22/10 01/10/24 documented as of this encounter
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
--- OUTSIDE RECORDS SUMMARY | 2024-03-11 03:21 | XMS_ITS | Encounter Summary ---
Author Organization [facility] Address [facility] [place] [address] Care Team Providers Care Fuels Engineer Name Role Phone Rayo Riley MD Primary Care Provider [phone] Encounter Details Date Type Department Care Team (Latest Contact Info) Description 12/21/2023 11:00 AM EDT - 12/21/2023 11:59 PM EDT Hospital Encounter Hematology and Oncology at [facility] [place] [phone] Stage 4 lung cancer, left Discharge Disposition: Home Social History Tobacco Use Types Packs/Day Years Used Date Smoking Tobacco: Former Cigarettes 0.3 57 Smokeless Tobacco: Never Comments:Quit 11/2023 Alcohol Use Standard Drinks/Week Comments Yes 7 (1 standard drink = 0.6 oz pure alcohol) 4oz rum with coke daily- varies [facility] Utilities Answer Date Recorded In the past [...] in a chcf (including now)? No 12/21/2023 DH IPV Inpatient [...] PM EDT Office Visit Hematology/Oncology at [address] [phone] Lennox Spivey MD [facility] HEMATOLOGY AND ONCOLOGY [place], [place] [phone] 03/11/2024 1:00 PM EDT Scheduled View Only Hematology/Oncology at [address] [phone] Trupti Bray RN 03/11/2024 1:00 PM EDT Infusion Hematology Oncology at [address] [phone] 03/25/2024 10:00 AM EDT Office Visit Hematology/Oncology at [address] [phone] Lennox Spivey MD [facility] DR HEMATOLOGY [place] [address] Bushra Muniz APRN [address] [place] [address] HEMATOLOGY AND ONCOLOGY [place], [place] [phone] 03/25/2024 10:30 AM EDT Scheduled View Only Hematology/Oncology at [address] [phone] Trupti Bray RN 03/25/2024 10:30 AM EDT Infusion Hematology Oncology at [address] [phone] documented as of this encounter Procedures Procedure Name Priority Date/Time Associated Diagnosis Comments HEMOGRAM STAT 12/21/2023 11:14 AM EDT Stage 4 lung cancer, left DIFFERENTIAL, AUTOMATED STAT 12/21/2023 11:14 AM EDT Stage 4 lung cancer, left CBC (WITH DIFF) STAT 12/21/2023 11:14 AM EDT Stage 4 lung cancer, left MAGNESIUM STAT 12/21/2023 11:14 AM EDT Stage 4 lung cancer, left COMPREHENSIVE METABOLIC PANEL STAT 12/21/2023 11:14 AM EDT Stage 4 lung cancer, left documented in this encounter Results * (ABNORMAL) Differential, Automated (12/21/2023 11:14 AM EDT) Neutrophil % 75.3 % [facility] Neutrophil Absolute 8.70(H) 1.70 - 6.10 x10(3)/[facility] Lymph % 15.1 % [facility] Lymphocytes Abs 1.7 0.9 - 3.2 x10(3)/[facility] Monocyte % 6.7 % [facility] Monocyte Abs 0.8 0.3 - 0.9 x10(3)/[facility] Eos % 1.9 % [facility] Eosinophils Abs 0.2 0.0 - 0.4 x10(3)/[facility] Basophil % 0.5 % [facility] Baso Absolute 0.1 0.0 - 0.1 x10(3)/[facility] Immature Gran % 0.50 % [facility] Comment: Immature granulocytes(IG's)percentage and absolute count will include metamyelocytes, myelocytes, and promyelocytes. Blood smears from CBCs yielding IG's will be scanned manually for concordance. If this scan disagrees with the automated IG or if promyelocytes are noted, a manual differential will be performed. Immature Gran Absolute 0.06(H) 0.00 - 0.04 x10(3)/[facility] Blood 12/21/2023 11:1 4 AM EDT 12/21/2023 11:25 AM EDT Narrative Resulting Agency Comment Spec In Lab Marilee Zavaleta APRN HEMATOLOGY ORDERAB LES [facility] [place] [address] * (ABNORMAL) Hemogram (12/21/2023 11:14 AM EDT) White Blood Cell 11.6(H) 4.0 - 9.5 x10(3)/[facility] Red Blood Cell 4.76 4.58 - 5.54 x10(6)/[facility] Hemoglobin 14.1 13.7 - 16.5 g/dL [facility] Hematocrit 43.3 40.5 - 48.5 % [facility] Mean Cell Volume 91.0 82.9 - 93.1 fL [facility] Mean Cell Hemoglobin 29.6 27.5 - 32.1 pg [facility] Mean Cell Hemoglobin Concentration 32.6 32.0 - 35.7 g/dL [facility] Platelet 319 145 - 357 x10(3)/mc L [facility] RDW Standard Deviation 48.3(H) 36.0 - 45.0 fL [facility] RDW coefficient of variation 14.4(H) 11.4 - 13.8 % [facility] Mean Platelet Volume 11.1 7.6 - 12.9 fL [facility] NRBC% auto 0.0 % [facility] NRBC Absolute 0.000 0.000 - 0.000 x10(3)/mc L [facility] Blood 12/21/2023 11:1 4 AM EDT 12/21/2023 11:25 AM EDT Narrative Resulting Agency Comment Spec In Lab Marilee Zavaleta APRN HEMATOLOGY ORDERAB LES [facility] [place] [address] * (ABNORMAL) Comprehensive metabolic panel (non-fasting) (12/21/2023 11:14 AM EDT) Glucose 131 65 - 199 mg/dL [facility] Comment:Diabetes: >=200 mg/d L plus symptoms Blood Urea Nitrogen 27(H) 10 - 20 mg/dL [facility] Creatinine 1.31 0.80 - 1.50 mg/dL [facility] Sodium 141 135 - 145 mmol/L [facility] Potassium 4.6 3.5 - 5.0 mmol/L [facility] Comment: Please note: ??Patients with WBC >100,000 may have falsely elevated Potassium levels. ??For accurate Potassium quantification in these patients send serum separator tube (gold top) for subsequent determinations. ??Contact the Clinical Chemistry Laboratory if there are any questions. Chloride 100 98 - 107 mmol/L [facility] Carbon Dioxide 28 22 - 31 mmol/L [facility] Anion Gap 13 5 - 15 mmol/L [facility] Calcium 10.5 8.5 - 10.5 mg/dL [facility] Protein, Total 8.1(H) 6.1 - 8.0 g/dL [facility] Albumin 4.2 3.2 - 5.2 g/dL [facility] Aspartate Aminotransferase 23 0 - 39 unit/L [facility] Alanine Aminotransferase 22 0 - 55 unit/L [facility] Alkaline Phosphatase 150(H) 40 - 130 unit/L [facility] Bilirubin, Total 0.3 0.2 - 1.3 mg/dL [facility] Est Glomerular Filtration Rate 60 >=60 mL/min/1. 73 m?? [facility] Comment: This patient's estimated [...] Lab Marilee Zavaleta APRN CHEMISTRY ORDERABL ES [facility] [place] [address] * Magnesium (12/21/2023 11:14 AM EDT) Magnesium 0.87 0.69 - 1.07 mmol/L [facility] Blood 12/21/2023 11:1 4 AM EDT 12/21/2023 11:25 AM EDT Narrative Resulting Agency Comment Spec In Lab Marilee Zavaleta RHINEST[employer] SETTER CHEMISTRY ORDERABL ES [facility] [place] [address] documented in this encounter Visit Diagnoses Diagnosis Stage 4 lung cancer, left Stage 4 lung cancer, left Secondary malignant neoplasm of pleura documented in this encounter Care Teams Fuels Engineer Relationship Specialty Start Date End Date Rayo Riley MD [address] [place] [address] PCP - General 06/22/10 01/10/24 documented as of this encounter
--- OUTSIDE RECORDS SUMMARY | 2024-03-11 03:21 | XMS_ITS | Encounter Summary ---
Author Organization [facility] Address [facility] [place] [address] Care Team Providers Care Aesthetician Name Role Phone Rayo Riley MD Primary Care Provider [phone] Encounter Details Date Type Department Care Team ([facility] st Contact Info) Description 12/26/2023 Notes Only Clinical Research [facility] [place] [phone] Lisy Laura Social History Tobacco Use Types Packs/Day Years Used Date Smoking Tobacco: Former Cigarettes 0.3 57 Smokeless Tobacco: Never Comments:Quit 11/2023 Alcohol Use Standard Drinks/Week Comments Yes 7 (1 standard drink = 0.6 oz pure alcohol) 4oz rum with coke daily- varies [facility] Utilities Answer Date Recorded In [...] time in the past [facility], were you homeless or living in a residential (including now)? No 12/21/2023 DH IPV Inpatient [...] as of this encounter Progress Notes * Lisy Laura - 12/26/2023 11:09 AM Beth: Financial Counselor Mr. Lovelace has been referred to me by Prisca Simpson RN, on December 26, 2023. I contacted the patient today and went over Medicare insurance benefits. Patient does not have a supplement and he is aware that Medicare will push 20% of the allowable charge to his responsibility. Patient is having a hard time paying [id number] cost and cannot afford a supplement. I have sent a referral over to [facility] to reach out to the patient and assist with Financial Applications. I will reach out to the patient frequently to make sure he is getting the help he needs. My contact information was given to the patient. documented in this encounter Plan of Treatment Upcoming Encounters Date Type Department Care Team (Late st Contact Info) Description 03/11/2024 12:30 PM EDT Office Visit Hematology/Oncology at [address] [phone] Lennox Spivey MD [facility] [place] [address] 03/11/2024 1:00 PM EDT Scheduled View Only Hematology/Oncology at [address] [phone] Trupti Bray RN 03/11/2024 1:00 PM EDT Infusion Hematology Oncology at [address] [phone] 03/25/2024 10:00 AM EDT Office Visit Hematology/Oncology at [address] [phone] Lennox Spivey MD [facility] [place] [address] Bushra Muniz [address] HEMATOLOGY AND ONCOLOGY [place], [place] [phone] 03/25/2024 10:30 AM EDT Scheduled View Only Hematology/Oncology at [address] [phone] Trupti Bray RN 03/25/2024 10:30 AM EDT Infusion Hematology Oncology at [address] [phone] documented as of this encounter Visit Diagnoses Not on filedocumented in this encounter Care Teams Aesthetician Relationship Specialty Start Date End Date Rayo Riley MD [address] [place] [address] [address] [place] [id number] PCP - General 06/22/10 01/10/24 documented as of this encounter
--- OUTSIDE RECORDS SUMMARY | 2024-03-11 03:22 | XMS_ITS | Encounter Summary ---
Author Organization Formerly [facility], [facility] Address [facility] [place] [address] Care Team Providers Care Convertible Top Installer Name Role Phone Rayo Riley MD Primary Care Provider +1 [phone] Encounter Details Date Type Department Care Team (Late st Contact Info) Description 11/17/2023 Orders [place] [address] Sharon Landry MD [facility] [place] [address] Mass of left lung Social History Tobacco Use Types Packs/Day Years Used Date Smoking Tobacco: Every Day Cigarettes Smokeless Tobacco: Never Sex and Gender Information Value Date Recorded Sex Assigned at Not on file Gender Identity Not on file Sexual Orientation Not on file documented as of this encounter Plan of Treatment Upcoming Encounters Date Type Department Care Team (Late st Contact Info) Description 03/11/2024 12:30 PM EDT Office Visit Hematology/Oncology at [address] [phone] Lennox Spivey MD [facility] [address] [place] [address] 03/11/2024 1:00 PM EDT Scheduled View Only Hematology/Oncology at [address] [phone] Trupti Bray RN 03/11/2024 1:00 PM EDT Infusion Hematology Oncology at [address] [phone] 03/25/2024 10:00 AM EDT Office Visit Hematology/Oncology at [address] [phone] Lennox Spivey MD [facility] [place] [address] Bushra Muniz APRN [address] [place] [address] DR HEMATOLOGY AND ONCOLOGY [place], [place] [id number] 03/25/2024 10:30 AM EDT Scheduled View Only Hematology/Oncology at [address] [phone] Trupti Bray RN 03/25/2024 10:30 AM EDT Infusion Hematology Oncology at [address] [phone] Scheduled Orders Name Type Priority Associated Diagnoses Orde r Schedule Comprehensive metabolic panel (non-fasting) Lab STAT Mass of left lung Expected: 11/17/2023, Expires: 11/16/2024 CBC (with Diff) Lab Routine Mass of left lung Expected: 11/17/2023, Expires: 11/16/2024 documented as of this encounter Visit Diagnoses Diagnosis Mass of left lung Stage 4 lung cancer, left Secondary malignant neoplasm of pleura documented in this encounter Care Teams Convertible Top Installer Relationship Specialty Start Date End Date Rayo Riley MD [address] [place] [address] [address] [place] [address] PCP - General 06/22/10 01/10/24 documented as of this encounter
--- OUTSIDE RECORDS SUMMARY | 2024-03-11 03:22 | XMS_ITS | Encounter Summary ---
Author Organization [facility] [place] [address] Care Team Providers Care Suture Gauger Name Role Phone Rayo Riley MD Primary Care Provider +1 [phone] Reason for Referral * Consultation (Urgent) - Authorized Specialty Diagnoses / Procedures Referred By Contac t Referred To Contact Pulmonology Diagnoses Other nonspecific abnormal finding of lung field Abnormal findings on diagnostic imaging of other specified body structures NOTED ON PET SCAN FAIRLY DIFFUSE PLEURAL BASED FDG AVID NODULARITY INVOLVING THE LEFT HEMITHORAX,LEFT MAJOR FISSURE WITH INCREASE IN SIZE MEASURING 49X29 MM WITH CENTRAL AREAS CINSISTENT WITH NECROSIS. MULTIPLE AREAS OF FDG AVID LEFT PLEURAL-BASED NODULARITY WITH CENTRAL NECROSIS, HIGHLY SUSPICIOUS FOR MESOTHELIOMA VS PLEURAL METASTASIS. SENT FOR BIOPSY. Angela Gaines MD [address] [place] [address] [facility] [address] [place] [phone] Referral ID Status Reason Start Date Expiration Date Visits Requested Visits Authorized [id number] Authorized Consult, Test & Treat PCP Updated and/or Approved 10/31/2023 10/30/2024 6 6 Encounter Details Date Type Department Care Team (Latest Contact Info) Description 10/31/2023 Transcribe Orders eDH Incoming Referrals [phone] Angela Gaines MD [address] [place] [address] Other nonspecific abnormal finding of lung field; Abnormal findings on diagnostic imaging of other specified body structures Social History Tobacco Use Types Packs/Day Years Used Date Smoking Tobacco: Never Assessed Sex and Gender Information Value Date Recorded Sex Assigned at Not on file Gender Identity Not on file Sexual Orientation Not on file documented as of this encounter Plan of Treatment Upcoming Encounters Date Type Department Care Team (Late st Contact Info) Description 03/11/2024 12:30 PM EDT Office Visit Hematology/Oncology at [address] [phone] Lennox Spivey MD [facility] HEMATOLOGY [place] [address] 03/11/2024 1:00 PM EDT Scheduled View Only Hematology/Oncology at [address] [phone] Trupti Bray RN 03/11/2024 1:00 PM EDT Infusion Hematology Oncology at [address] [phone] 03/25/2024 10:00 AM EDT Office Visit Hematology/Oncology at [address] [phone] Lennox Spivey MD [facility] HEMATOLOGY [place] [address] Bushra Muniz APRN [address] [place] [address] DR HEMATOLOGY AND ONCOLOGY [place], [place] [id number] 03/25/2024 10:30 AM EDT Scheduled View Only Hematology/Oncology at [address] [phone] Trupti Bray RN 03/25/2024 10:30 AM EDT Infusion Hematology Oncology at [address] [phone] Scheduled Referrals Name Type Priority Associated Diagnoses Orde r Schedule Referral to Pulmonology Outpatient Referral Urgent Other nonspecific abnormal finding of lung field Abnormal findings on diagnostic imaging of other specified body structures Ordered: 10/31/2023 documented as of this encounter Visit Diagnoses Diagnosis Other nonspecific abnormal finding of lung field Abnormal findings on diagnostic imaging of other specified body structures Stage 4 lung cancer, left Secondary malignant neoplasm of pleura documented in this encounter Care Teams Suture Gauger Relationship Specialty Start Date End Date Rayo Riley MD [address] [place] [address] PCP - General 06/22/10 01/10/24 documented as of this encounter
--- OUTSIDE RECORDS SUMMARY | 2024-03-11 03:22 | XMS_ITS | Encounter Summary ---
Author Organization [facility] Address [facility] [place] [address] Care Team Providers Care Casework Supervisor Name Role Phone Rayo Riley MD Primary Care Provider [phone] [phone] Encounter Details Date Type Department Care Team (Late st Contact Info) Description 06/12/2023 Ancillary Procedure [place] [address] Rayo Riley MD [address] [id number] Social History Tobacco Use Types Packs/Day Years [...] PM EDT Office Visit Hematology/Oncology at [address] [phone] Lennox Spivey MD [facility] DR [place] [address] 03/11/2024 1:00 PM EDT Scheduled View Only Hematology/Oncology at [address] [phone] Trupti Bray RN 03/11/2024 1:00 PM EDT Infusion Hematology Oncology at [address] [phone] 03/25/2024 10:00 AM EDT Office Visit Hematology/Oncology at [address] [phone] Lennox Spivey MD [facility] DR [place] [address] Bushra Muniz [address] [place] [address] 03/25/2024 10:30 AM EDT Scheduled View Only Hematology/Oncology at [address] [phone] Trupti Bray RN 03/25/2024 10:30 AM EDT Infusion Hematology Oncology at [address] [phone] documented as of this encounter Procedures Procedure Name Priority Date/Time Associated Diagnosis Comments FILM LIBRARY STORAGE ONLY DX CHEST Routine 06/12/2023 12:00 AM EST documented in this encounter Results * Film Library- Storage Only DX Chest (06/12/2023 12:00 AM EST) Narrative [facility] - 09/14/2023 6:51 PM EST This exam is auto-finalizing. It's purpose is for storage only. Rayo Riley MD IMG FILM LIBRARY ORDERABLES Performing Organization Address City/State/[facility] Co de Phone Number [place], [place] documented in this encounter Visit Diagnoses Not on filedocumented in this encounter Care Teams Casework Supervisor Relationship Specialty Start Date End Date Rayo Riley MD [address] [place] [address] [address] [place], [place] [id number] PCP - General 06/22/10 01/10/24 documented as of this encounter
--- OUTSIDE RECORDS SUMMARY | 2024-03-11 03:22 | XMS_ITS | Encounter Summary ---
Author Organization [facility] Address [facility] [place] [address] Care Team Providers Care Washing Machine Loader Name Role Phone Rayo Riley MD Primary Care Provider +1 [phone] Encounter Details Date Type Department Care Team (Late st Contact Info) Description 11/17/2023 Orders [place] [address] Sharon Landry MD [facility] [place] [address] Mass of left lung Social History Tobacco [...] 12:30 PM EDT Office Visit Hematology/Oncology at [address] [phone] Lennox Spivey MD [facility] DR HEMATOLOGY [place] [address] 03/11/2024 1:00 PM EDT Scheduled View Only Hematology/Oncology at [address] [phone] Trupti Bray RN 03/11/2024 1:00 PM EDT Infusion Hematology Oncology at [address] [phone] 03/25/2024 10:00 AM EDT Office Visit Hematology/Oncology at [address] [phone] Lennox Spivey MD [facility] DR HEMATOLOGY [place] [address] Bushra Muniz APRN [address] [place] [address] DR HEMATOLOGY AND ONCOLOGY [place], [place] [id number] 03/25/2024 10:30 AM EDT Scheduled View Only Hematology/Oncology at [address] [phone] Trupti Bray RN 03/25/2024 10:30 AM EDT Infusion Hematology Oncology at [address] [phone] documented as of this encounter Visit Diagnoses Diagnosis Mass of left lung Stage 4 lung cancer, left Secondary malignant neoplasm of pleura documented in this encounter Care Teams Washing Machine Loader Relationship Specialty Start Date End Date Rayo Riley MD [address] [place], [place] [address] PCP - General 06/22/10 01/10/24 documented as of this encounter
--- OUTSIDE RECORDS SUMMARY | 2024-03-11 03:22 | XMS_ITS | Encounter Summary ---
Author Organization [facility] Address [facility] [place] [address] Care Team Providers Care Trader Name Role Phone Rayo Riley MD Primary Care Provider [phone] [phone] Encounter Details Date Type Department Care Team (Late st Contact Info) Description 06/07/2023 12:10 AM EST Ancillary Procedure [place] [address] Rayo Riley MD [address] [place] [address] [address] [place] [address] Social History Tobacco Use Types Packs/Day Years [...] 12:30 PM EDT Office Visit Hematology/Oncology at [address] [phone] Lennox Spivey MD [facility] DR [place] [address] 03/11/2024 1:00 PM EDT Scheduled View Only Hematology/Oncology at [address] [phone] Trupti Bray RN 03/11/2024 1:00 PM EDT Infusion Hematology Oncology at [address] [phone] 03/25/2024 10:00 AM EDT Office Visit Hematology/Oncology at [address] [phone] Lennox Spivey MD [facility] DR [place] [address] Bushra Muniz APRN [address] [place] [address] DR HEMATOLOGY AND ONCOLOGY [place], [place] [id number] 03/25/2024 10:30 AM EDT Scheduled View Only Hematology/Oncology at [address] [phone] Trupti Bray RN 03/25/2024 10:30 AM EDT Infusion Hematology Oncology at [address] [phone] documented as of this encounter Procedures Procedure Name Priority Date/Time Associated Diagnosis Comments FILM LIBRARY STORAGE ONLY DX CHEST Routine 06/07/2023 12:10 AM EST documented in this encounter Results * Film Library- Storage Only DX Chest (06/07/2023 12:10 AM EST) Narrative [facility] - 09/14/2023 6:51 PM EST This exam is auto-finalizing. It's purpose is for storage only. Rayo Riley MD IMG FILM LIBRARY ORDERABLES [place] documented in this encounter Visit Diagnoses Not on filedocumented in this encounter Care Teams Trader Relationship Specialty Start Date End Date Rayo Riley MD [address] [facility] [address] [place] [address] PCP - General 06/22/10 01/10/24 documented as of this encounter
--- OUTSIDE RECORDS SUMMARY | 2024-03-11 03:22 | XMS_ITS | Encounter Summary ---
Author Organization [facility] Address [facility] [place] [address] Care Team Providers Care Car Sales Consultant Name Role Phone Rayo Riley MD Primary Care Provider [phone] [phone] Encounter Details Date Type Department Care Team (Latest Contact Info) Description 11/21/2023 Travel Social History Tobacco Use Types Packs/Day [...] PM EDT Office Visit Hematology/Oncology at [address] [phone] Lennox Spivey MD [facility] DR HEMATOLOGY [place] [address] 03/11/2024 1:00 PM EDT Scheduled View Only Hematology/Oncology at [address] [phone] Trupti Bray RN 03/11/2024 1:00 PM EDT Infusion Hematology Oncology at [address] [phone] 03/25/2024 10:00 AM EDT Office Visit Hematology/Oncology at [address] [phone] Lennox Spivey MD [facility] DR HEMATOLOGY [place] [address] Bushra Muniz [address] HEMATOLOGY AND ONCOLOGY [place], [place] [id number] 03/25/2024 10:30 AM EDT Scheduled View Only Hematology/Oncology at [address] [phone] Trupti Bray RN 03/25/2024 10:30 AM EDT Infusion Hematology Oncology at [address] [phone] documented as of this encounter Visit Diagnoses Not on filedocumented in this encounter Care Teams Car Sales Consultant Relationship Specialty Start Date End Date Rayo Riley MD [address] [place] [address] PCP - General 06/22/10 01/10/24 documented as of this encounter
--- OUTSIDE RECORDS SUMMARY | 2024-03-11 03:22 | XMS_ITS | Encounter Summary ---
Author Organization [facility] Address [facility] [place] [address] Care Team Providers Care Cell Liner Name Role Phone Rayo Riley MD Primary Care Provider +1 [phone] Encounter Details Date Type Department Care Team (Late st Contact Info) Description 06/10/2023 Ancillary Procedure [place] [address] Rayo Riley MD [address] [id number] Social History Tobacco Use Types Packs/Day Years [...] PM EDT Office Visit Hematology/Oncology at [address] [phone] Lennox Spivey MD [facility] [place] [address] 03/11/2024 1:00 PM EDT Scheduled View Only Hematology/Oncology at [address] [phone] Trupti Bray RN 03/11/2024 1:00 PM EDT Infusion Hematology Oncology at [address] [phone] 03/25/2024 10:00 AM EDT Office Visit Hematology/Oncology at [address] [phone] Lennox Spivey MD [facility] [place] [address] Bushra Mun[address] [place] [address] 03/25/2024 10:30 AM EDT Scheduled View Only Hematology/Oncology at [address] [phone] Trupti Bray RN 03/25/2024 10:30 AM EDT Infusion Hematology Oncology at [address] [phone] documented as of this encounter Procedures Procedure Name Priority Date/Time Associated Diagnosis Comments FILM LIBRARY STORAGE ONLY DX CHEST Routine 06/10/2023 12:00 AM EST documented in this encounter Results * Film Library- Storage Only DX Chest (06/10/2023 12:00 AM EST) Narrative [facility] - 09/14/2023 6:51 PM EST This exam is auto-finalizing. It's purpose is for storage only. Rayo Riley MD IMG FILM LIBRARY ORDERABLES Performing Organization Address City/State/[facility] Co de Phone Number [place], [place] documented in this encounter Visit Diagnoses Not on filedocumented in this encounter Care Teams Cell Liner Relationship Specialty Start Date End Date Rayo Riley MD [address] [facility] [address] [place], [place] [id number] PCP - General 06/22/10 01/10/24 documented as of this encounter
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
--- OUTSIDE RECORDS SUMMARY | 2024-03-11 03:22 | XMS_ITS | Encounter Summary ---
Author Organization [facility] [place] [address] Care Team Providers Care Product Promoter Retail Pet Name Role Phone Rayo Riley MD Primary Care Provider [phone] [phone] Encounter Details Date Type Department Care Team (Latest Contact Info) Description 11/15/2023 Travel Social History Tobacco Use Types Packs/Day [...] PM EDT Office Visit Hematology/Oncology at [address] [phone] Lennox Spivey MD [facility] DR [place] [address] 03/11/2024 1:00 PM EDT Scheduled View Only Hematology/Oncology at [address] [phone] Trupti Bray RN 03/11/2024 1:00 PM EDT Infusion Hematology Oncology at [address] [phone] 03/25/2024 10:00 AM EDT Office Visit Hematology/Oncology at [address] [phone] Lennox Spivey MD [facility] DR [place] [address] Bushra Muniz APRN [address] [place] [address] DR HEMATOLOGY AND ONCOLOGY [place], [place] [id number] 03/25/2024 10:30 AM EDT Scheduled View Only Hematology/Oncology at [address] [phone] Trupti Bray RN 03/25/2024 10:30 AM EDT Infusion Hematology Oncology at [address] [phone] documented as of this encounter Visit Diagnoses Not on filedocumented in this encounter Care Teams Product Promoter Retail Pet Relationship Specialty Start Date End Date Rayo Riley MD [address] [place], [place] [address] PCP - General 06/22/10 01/10/24 documented as of this encounter
--- OUTSIDE RECORDS SUMMARY | 2024-03-11 03:22 | XMS_ITS | Encounter Summary ---
Author Organization [facility] Address [facility] [place] [address] Care Team Providers Care Machine Filler Shredder Name Role Phone Rayo Riley MD Primary Care Provider [phone] [phone] Encounter Details Date Type Department Care Team (Late Contact Info) Description 11/01/2023 Telephone [place] [phone] Johnna Jordan, RN Social History Tobacco Use Types Packs/Day Years Used Date Smoking Tobacco: Never Assessed Sex and Gender Information Value Date Recorded Sex Assigned at Not on file Gender Identity Not on file Sexual Orientation Not on file documented as of this encounter Miscellaneous Notes * Telephone Encounter - Johnna Jordan, RN - 11/01/2023 2:19 PM EDT Phone call to nurse a [facility]. Left message to let them know that the patient has declined the referral to us twice. They should call back with any questions. documented in this encounter Plan of Treatment Upcoming Encounters Date Type Department Care Team (Late st Contact Info) Description 03/11/2024 12:30 PM EDT Office Visit Hematology/Oncology at [address] [phone] Lennox Spivey MD [facility] DR HEMATOLOGY [place] [address] 03/11/2024 1:00 PM EDT Scheduled View Only Hematology/Oncology at [address] [phone] Trupti Bray RN 03/11/2024 1:00 PM EDT Infusion Hematology Oncology at [address] [phone] 03/25/2024 10:00 AM EDT Office Visit Hematology/Oncology at [address] [phone] Lennox Spivey MD [facility] DR HEMATOLOGY [place] [address] Bushra Muniz APRN [address] [place] [address] DR HEMATOLOGY AND ONCOLOGY [place], [place] [id number] 03/25/2024 10:30 AM EDT Scheduled View Only Hematology/Oncology at [address] [phone] Trupti Bray RN 03/25/2024 10:30 AM EDT Infusion Hematology Oncology at [address] [phone] documented as of this encounter Visit Diagnoses Not on filedocumented in this encounter Care Teams Machine Filler Shredder Relationship Specialty Start Date End Date Rayo Riley MD [address] [place] [address] PCP - General 06/22/10 01/10/24 documented as of this encounter
--- OUTSIDE RECORDS SUMMARY | 2024-03-11 03:22 | XMS_ITS | Encounter Summary ---
Author Organization [facility] Address [facility] [place] [address] Care Team Providers Care Test Eng Name Role Phone Rayo Riley MD Primary Care Provider [phone] [phone] Encounter Details Date Type Department Care Team (Late st Contact Info) Description 06/07/2023 12:05 AM EST Ancillary Procedure [place] [address] Rayo Riley MD [address] [place] [address] [address] [place] [address] Social History Tobacco Use Types Packs/Day Years [...] 12:30 PM EDT Office Visit Hematology/Oncology at [address] [phone] Lennox Spivey MD [facility] [place] [address] 03/11/2024 1:00 PM EDT Scheduled View Only Hematology/Oncology at [address] [phone] Trupti Bray RN 03/11/2024 1:00 PM EDT Infusion Hematology Oncology at [address] [phone] 03/25/2024 10:00 AM EDT Office Visit Hematology/Oncology at [address] [phone] Lennox Spivey MD [facility] [place] [address] Bushra Muniz APRN [address] [place] [address] DR HEMATOLOGY AND ONCOLOGY [place], [place] [id number] 03/25/2024 10:30 AM EDT Scheduled View Only Hematology/Oncology at [address] [phone] Trupti Bray RN 03/25/2024 10:30 AM EDT Infusion Hematology Oncology at [address] [phone] documented as of this encounter Procedures Procedure Name Priority Date/Time Associated Diagnosis Comments FILM LIBRARY STORAGE ONLY CT CHEST Routine 06/07/2023 12:05 AM EST documented in this encounter Results * Film Library- Storage Only CT Chest (06/07/2023 12:05 AM EST) Narrative [facility] - 09/14/2023 6:51 PM EST This exam is auto-finalizing. It's purpose is for storage only. Rayo Riley MD IMG FILM LIBRARY ORDERABLES [place], [place] documented in this encounter Visit Diagnoses Not on filedocumented in this encounter Care Teams Test Eng Relationship Specialty Start Date End Date Rayo Riley MD [address] [facility] [place] [address] PCP - General 06/22/10 01/10/24 documented as of this encounter
--- OUTSIDE RECORDS SUMMARY | 2024-03-11 03:22 | XMS_ITS | Encounter Summary ---
Author Organization [facility] Address [facility] [place] [address] Care Team Providers Care Fibrous Wallboard Inspector Name Role Phone Rayo Riley MD Primary Care Provider [phone] Reason for Referral * Consultation (Urgent) - Closed Specialty Diagnoses / Procedures Referred By Elieser lock Referred To Contact Thoracic Surgery Diagnoses Mass of left lung Sharon Landry MD [facility] [place] [address] [facility] [address] [place] [address] Referral ID Status Reason Start Date Expiration Date V isits Requested Visits Authorized [id number] Closed Consult, Test & Treat 11/17/2023 11/16/2024 1 1 Encounter Details Date Type Department Care Team (Late st Contact Info) Description 11/17/2023 Orders [place] [address] Sharon Landry MD [facility] [place] [address] Mass of left lung Social History Tobacco [...] 12:30 PM EDT Office Visit Hematology/Oncology at [address] [phone] Lennox Spivey MD [facility] DR HEMATOLOGY [place] [address] 03/11/2024 1:00 PM EDT Scheduled View Only Hematology/Oncology at [address] [phone] Trupti Bray RN 03/11/2024 1:00 PM EDT Infusion Hematology Oncology at [address] [phone] 03/25/2024 10:00 AM EDT Office Visit Hematology/Oncology at [address] [phone] Lennox Spivey MD [facility] DR [place]Y [place] [address] Bushra Muniz [address] HEMATOLOGY AND ONCOLOGY [place], [place] [phone] 03/25/2024 10:30 AM EDT Scheduled View Only Hematology/Oncology at [address] [phone] Trupti Bray RN 03/25/2024 10:30 AM EDT Infusion Hematology Oncology at [address] [phone] Scheduled Referrals Name Type Priority Associated Diagnoses Orde r Schedule Amb Ref To Thoracic Surgery Outpatient Referral Urgent Mass of left lung Ordered: 11/17/2023 documented as of this encounter Visit Diagnoses Diagnosis Mass of left lung Stage 4 lung cancer, left Secondary malignant neoplasm of pleura documented in this encounter Care Teams Fibrous Wallboard Inspector Relationship Specialty Start Date End Date Rayo Riley MD [address] [place] [address] [id number] PCP - General 06/22/10 01/10/24 documented as of this encounter
--- OUTSIDE RECORDS SUMMARY | 2024-03-11 03:22 | XMS_ITS | Encounter Summary ---
Author Organization [facility] [place] [address] Care Team Providers Care Utilization Management Nurse Name Role Phone Rayo Riley MD Primary Care Provider [phone] Encounter Details Date Type Department Care Team (Late st Contact Info) Description 09/18/2023 Telephone [place] [phone] Karol Barrera Social History Tobacco Use Types Packs/Day Years [...] PM EDT Office Visit Hematology/Oncology at [address] [phone] Lennox Spivey MD [facility] DR HEMATOLOGY [place] [address] 03/11/2024 1:00 PM EDT Scheduled View Only Hematology/Oncology at [address] [phone] Trupti Bray RN 03/11/2024 1:00 PM EDT Infusion Hematology Oncology at [address] [phone] 03/25/2024 10:00 AM EDT Office Visit Hematology/Oncology at [address] [phone] Lennox Spivey MD [facility] DR HEMATOLOGY [place] [address] Bushra Muniz APRN [address] [place] [address] DR HEMATOLOGY AND ONCOLOGY [place], [place] [id number] 03/25/2024 10:30 AM EDT Scheduled View Only Hematology/Oncology at [address] [phone] Trupti Bray RN 03/25/2024 10:30 AM EDT Infusion Hematology Oncology at [address] [phone] documented as of this encounter Visit Diagnoses Not on filedocumented in this encounter Care Teams Utilization Management Nurse Relationship Specialty Start Date End Date Rayo Riley MD [address] [facility] [address] [place], [place] [phone] PCP - General 06/22/10 01/10/24 documented as of this encounter
--- OUTSIDE RECORDS SUMMARY | 2024-03-11 03:22 | XMS_ITS | Encounter Summary ---
Author Organization [facility] [place] [address] Care Team Providers Care Water Chaser Name Role Phone Rayo Riley MD Primary Care Provider [phone] Encounter Details Date Type Department Care Team (Late st Contact Info) Description 11/17/2023 [place] [address] Dylan Cedeno, [facility] [place] [address] Social History Tobacco Use Types Packs/Day Years [...] 12:30 PM EDT Office Visit Hematology/Oncology at [address] [phone] Lennox Spivey MD [facility] DR HEMATOLOGY [place] [address] 03/11/2024 1:00 PM EDT Scheduled View Only Hematology/Oncology at [address] [phone] Trupti Bray RN 03/11/2024 1:00 PM EDT Infusion Hematology Oncology at [address] [phone] 03/25/2024 10:00 AM EDT Office Visit Hematology/Oncology at [address] [phone] Lennox Spivey MD [facility] DR [place] [address] Bushra Muniz APRN [address] [place] [address] [place] [address] 03/25/2024 10:30 AM EDT Scheduled View Only Hematology/Oncology at [address] [phone] Trupti Bray RN 03/25/2024 10:30 AM EDT Infusion Hematology Oncology at [address] [phone] documented as of this encounter Visit Diagnoses Not on filedocumented in this encounter Care Teams Water Chaser Relationship Specialty Start Date End Date Rayo Riley MD [address] [place], [place] [phone] PCP - General 06/22/10 01/10/24 documented as of this encounter
--- OUTSIDE RECORDS SUMMARY | 2024-03-11 03:22 | XMS_ITS | Encounter Summary ---
Author Organization [facility] Address [facility] [place] [address] Care Team Providers Care Stapling Machine Operator Name Role Phone Rayo Riley MD Primary Care Provider [phone] [phone] Encounter Details Date Type Department Care Team (Late st Contact Info) Description 06/07/2023 Ancillary Procedure [place] [address] Rayo Riley MD [address] [phone] Social History Tobacco Use Types Packs/Day Years [...] PM EDT Office Visit Hematology/Oncology at [address] [phone] Lennox Spivey MD [facility] [place] [address] 03/11/2024 1:00 PM EDT Scheduled View Only Hematology/Oncology at [address] [phone] Trupti Bray RN 03/11/2024 1:00 PM EDT Infusion Hematology Oncology at [address] [phone] 03/25/2024 10:00 AM EDT Office Visit Hematology/Oncology at [address] [phone] Lennox Spivey MD [facility] [place] [address] Bushra Muniz [address] [place] [address] 03/25/2024 10:30 AM EDT Scheduled View Only Hematology/Oncology at [address] [phone] Trupti Bray RN 03/25/2024 10:30 AM EDT Infusion Hematology Oncology at [address] [phone] documented as of this encounter Procedures Procedure Name Priority Date/Time Associated Diagnosis Comments FILM LIBRARY STORAGE ONLY DX CHEST Routine 06/07/2023 12:00 AM EST documented in this encounter Results * Film Library- Storage Only DX Chest (06/07/2023 12:00 AM EST) Narrative [facility] - 09/14/2023 6:51 PM EST This exam is auto-finalizing. It's purpose is for storage only. Rayo Riley MD IMG FILM LIBRARY ORDERABLES Performing Organization Address City/State/[facility] Co de Phone Number [place], [place] documented in this encounter Visit Diagnoses Not on filedocumented in this encounter Care Teams Stapling Machine Operator Relationship Specialty Start Date End Date Rayo Riley MD [address] [place] [address] [address] [place], [place] [phone] PCP - General 06/22/10 01/10/24 documented as of this encounter
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
--- OUTSIDE RECORDS SUMMARY | 2024-03-11 03:22 | XMS_ITS | Clinical Summary ---
Author Organization [facility] Address [address] [place] [address] Care Team Providers Care News Reporter Name Role Phone Karl Quiroz MD Unavailable [phone] Allergies Active Allergy Reactions Criticality Noted Date Comments Penicillins Unknown - not noted in history 12/2021 Medications Medication Sig Dispensed Refills Start Date End Date Status FLUoxetine (PROzac) 20 MG Cap Take 40 mg by mouth daily 0 Active metFORMIN (Glucophage) 500 MG Tab Take 500 mg by mouth 2 times daily 0 Active omeprazole (PriLOSEC) 20 MG Capsule Delayed Release Take 20 mg by mouth daily 0 Active valsartan (Diovan) 160 MG Tab Take 160 mg by mouth daily 0 Active aspirin 81 MG Tablet Delayed Response Take 81 mg by mouth daily 0 Active atorvastatin (Lipitor) 40 MG Tab Take 40 mg by mouth daily 0 Active amLODIPine (Norvasc) 5 MG Tab Take 5 mg by mouth daily 0 Active losartan (Cozaar) 100 MG Tab Take 100 mg by mouth daily 0 Active Sildenafil Citrate (VIAGRA) 100 MG Tab Take 100 mg by mouth as needed for Erectile Dysfunction 0 Active triamcinolone (Kenalog) 0.5 % Cream Apply 1 gm topically daily as needed Apply to affected area as instructed. 0 Active ibuprofen 200 MG Tab Take 400 mg by mouth daily Take with food. 0 Active Immunizations Name Administration Dates Next Due Tdap Vaccine Age 7+ 05/06/2022 Social History Tobacco Use Types Packs/Day Years [...] - - Body Mass Index - - Plan of Treatment Health Maintenance Due Date Last Done Comments Statin Therapy (Lipid Profil e): Medication Monitoring 1956 Pneumococcal: 66 + Immunizat ion Scheduling (1 of 2 - PCV) 1962 Depression Screening 1968 Colonoscopy 1974 Colorectal Cancer Screening 1974 Hepatitis C Screening 1974 Annual Wellness Visit 1976 CT Colonography 1976 FIT 1976 Sigmoidoscopy 1976 Stool DNA 1976 Lipid Screening 1991 Herpes Zoster Vaccine (1 of 2) 2006 AAA Screening 2021 Fall Risk Assessment 2021 COVID-19 Vaccine ( season) 2023 YVONNE/ARB/ARNI Therapy: Medica tion Monitoring 05/05/2023 05/05/2022 Influenza Vaccine (#1) 2024 Pre-Diabetes/Diabetes Screening 05/06/2025 2, 05/05/2022 TDAP/TD Vaccine 18+ 05/06/2032 05/06/2022 Insurance Payer Benefit Plan / Group Subscriber ID Effective Dates Phone Address Type MEDICARE MEDICARE A AND B [id number] 2013-Present [address] [place] [address] Medicare Care Teams News Reporter Relationship Specialty Start Date End Date Karl Quiroz MD [address] [place] [address] PCP - Generic [facility] PCP Family Medicine 05/05/22
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
--- OUTSIDE RECORDS SUMMARY | 2024-03-11 03:22 | XMS_ITS | Encounter Summary ---
Author Organization [facility] [place] [address] Care Team Providers Care Senior Foreman Name Role Phone Rayo Riley MD Primary Care Provider [phone] Encounter Details Date Type Department Care Team (Late st Contact Info) Description 11/17/2023 Telephone [place] [address] Edel Quinones Social History Tobacco Use Types Packs/Day Years [...] PM EDT Office Visit Hematology/Oncology at [address] [phone] Lennox Spivey MD [facility] DR [place] [address] 03/11/2024 1:00 PM EDT Scheduled View Only Hematology/Oncology at [address] [phone] Trupti Bray RN 03/11/2024 1:00 PM EDT Infusion Hematology Oncology at [address] [phone] 03/25/2024 10:00 AM EDT Office Visit Hematology/Oncology at [address] [phone] Lennox Spivey MD [facility] DR HEMAT[place] [address] Bushra Muniz APRN [address] [place] [address] DR HEMATOLOGY AND ONCOLOGY [place], [place] [id number] 03/25/2024 10:30 AM EDT Scheduled View Only Hematology/Oncology at [address] [phone] rTupti Bray RN 03/25/2024 10:30 AM EDT Infusion Hematology Oncology at [address] [phone] documented as of this encounter Visit Diagnoses Not on filedocumented in this encounter Care Teams Senior Foreman Relationship Specialty Start Date End Date Rayo Riley MD [address] [place] [address] [address] [place], [place] [address] PCP - General 06/22/10 01/10/24 documented as of this encounter
--- OUTSIDE RECORDS SUMMARY | 2024-03-11 03:22 | XMS_ITS | Encounter Summary ---
[place] [address] Care Team Providers Care Helicopter Engineer Name Role Phone Rayo Riley MD Primary Care Provider [phone] Reason for Referral * Diagnostic Test (Routine) - Closed Specialty Diagnoses / Procedures Referred By Contac t Referred To Contact Radiology Diagnoses Lung nodules Lung mass Procedures NM [place] PET CT Skull Base to Mid-thigh Angela Gaines MD [address] [place] [address] [place] [address] Referral ID Status Reason Start Date Expiration Date V isits Requested Visits Authorized [id number] Closed Specialty Service Requested 09/15/2023 03/15/2025 1 1 Reason for Visit * Diagnostic Test (Routine) - Closed Specialty Diagnoses / Procedures Referred By Contac t Referred To Contact Radiology Diagnoses Lung nodules Lung mass Procedures NM [place] PET CT Skull Base to Mid-thigh Angela Gaines MD [address] [place] [address] [place] [address] Referral ID Status Reason Start Date Expiration Date V isits Requested Visits Authorized [id number] Closed Specialty Service Requested 09/15/2023 03/15/2025 1 1 Encounter Details Date Type Department Care Team (Latest Contact Info) Description 10/13/2023 11:00 AM EDT - 10/13/2023 11:59 PM EDT Hospital Encounter [place] [address] Angela Gaines MD [address] [place] [address] Lung nodules; Lung mass Discharge Disposition: Home Social History Tobacco Use Types Packs/Day Years Used Date Smoking Tobacco: Never Assessed Sex and Gender Information Value Date Recorded Sex Assigned at Not on file Gender Identity Not on file Sexual Orientation Not on file documented as of this encounter Medications at Time of Discharge Medication Sig Dispensed Refills Start Date End Date omeprazole (PRILOSEC) 20 mg capsule 10/02/2008 aspirin (BABY ASPIRIN) 81 mg chewable tablet 10/02/2008 OXYcodone-acetaminophen (ROXICET) 5-325 mg per tablet 5-10ml, PO, Q4-6H PRN 10/02/2008 11/15/2023 fentaNYL (DURAGESIC) 50 mcg/hr 10/02/2008 11/15/2023 FLUOXETINE HCL (PROZAC ORAL) Take 20 mg by mouth 2 times daily. 10/02/2008 02/05/2024 gabapentin (NEURONTIN) 600 mg tablet 10/02/2008 11/15/2023 documented as of this encounter Plan of Treatment Upcoming Encounters Date Type Department Care Team (Late st Contact Info) Description 03/11/2024 12:30 PM EDT Office Visit Hematology/Oncology at [address] [phone] Lennox Spivey MD [facility] DR HEMATOLOGY [place] [address] 03/11/2024 1:00 PM EDT Scheduled View Only Hematology/Oncology at [address] [phone] Trupti Bray RN 03/11/2024 1:00 PM EDT Infusion Hematology Oncology at [address] [phone] 03/25/2024 10:00 AM EDT Office Visit Hematology/Oncology at [address] [phone] Lennox Spivey MD [facility] DR HEMATOLOGY [place] [address] Bushra Muniz APRN [address] [place] [address] [place] [address] 03/25/2024 10:30 AM EDT Scheduled View Only Hematology/Oncology at [address] [phone] Trupti Bray RN 03/25/2024 10:30 AM EDT Infusion Hematology Oncology at [address] [phone] documented as of this encounter Procedures Procedure Name Priority Date/Time Associated Diagnosis Comments NM [place] PET CT SKULL BASE TO MID-THIGH Routine 10/13/2023 11:00 AM EDT Lung nodules Lung mass documented in this encounter Results * NM [place] PET CT Skull Base to Mid-thigh (10/13/2023 11:00 AM EDT) Anatomical Region Laterality Modality Positron Emissio n Tomography (PET) Impressions 10/19/2023 3:17 PM EDT 1. ??Multiple areas of FDG avid left pleural-based nodularity with central necrosis, highly suspicious for mesothelioma versus pleural metastases. 2. ??Enlarging left anterolateral chest wall centrally necrotic mass/metastasis, at site of a previous left chest tube track. 3. ??Pericardiac and left cardiophrenic сергей metastases. 4. ??No FDG avid subdiaphragmatic metastases identified. 5. ??Incidental CT findings as above. Thank you for letting us participate in the care of this patient. ??If you are a health care provider and have any questions regarding this report, please contact the number below. ??For patients who have questions please contact the health health care coach that requested your imaging first. ? Electronically signed by: Bushra Huitron MD, [facility] ([phone]), at 10/19/2023 3:17 PM Narrative 10/19/2023 3:17 PM EDT EXAMINATION: [facility] PET CT SKULL BASE TO MID-THIGH CLINICAL HISTORY: abnormal chest ct R91.8, Other nonspecific abnormal finding of lung field - R91.8, Other nonspecific abnormal finding of lung field TECHNIQUE: Following IV injection of 53-eiezpt-9-deoxyglucose (FDG) a standard uptake of approximately 60 minutes, a noncontrast CT scan followed by a PET scan were acquired from the base of the skull to mid thighs. The noncontrast CT was used for anatomic localization and photon attenuation correction of the PET scan. Blood glucose level: 113 (mg/dL) FDG dose: 11.8 mCi COMPARISON: Noncontrast CT chest 08/23/2023, abdominal ultrasound 09/29/2011- from [facility]. FINDINGS: HEAD/NECK: No FDG avid cervical lymphadenopathy. Grossly normal activity in the imaged lower head. Incidental CT visualized partial opacification of the inferior right maxillary sinus, likely representing a mucous retention cyst versus polyp. CHEST: Fairly diffuse pleural based FDG avid nodularity involving the left hemithorax with central areas of absent FDG activity consistent with necrosis, with also involvement of the left major fissure. That along the medial left upper hemithorax extends into the mediastinum. There is anatomically appears largely unchanged from the CT chest of 08/23/2023. Interval increase in size of now approximately 49 x 29 mm FDG avid centrally necrotic, thick walled left anterolateral chest wall mass, previously measuring approximately 28 x 21 mm (series 3, image 103). This is at the site of a previous chest tube track when compared to 06/08/2023 CT. Anatomically largely unchanged centrally necrotic FDG avid left cardiophrenic lymph node measuring 22 x 31 mm (axial image 144). Anatomically similar 13 x 17 mm pericardiac lymph node (axial image 131) which is mildly FDG avid. Small to borderline-enlarged mediastinal lymph nodes measuring up to approximately 10 mm in short axis at the level of the AP window (axial image 95) are not FDG avid. CT visualized mild right basilar scarring. Aortic and coronary artery calcifications redemonstrated. ABDOMEN/PELVIS: Normal activity in all soft tissue regions. Incidental CT findings: Subcentimeter in short axis portacaval/periportal lymph nodes, unchanged. Post cholecystectomy surgical clips. Three fluid attenuation left renal cysts, that arising from the superior pole is new from 2012 ultrasound. The two in the mid to inferior pole have increased in size, the largest of which measures nearly 7 cm in greatest axial diameter. Additional note made of an 8 mm nonobstructing left inferior pole renal calculus. Vascular calcifications. Colonic diverticulosis without acuity. Bilateral fat-containing inguinal hernias. Equivocal nonspecific diffuse thickening of the bladder wall versus incomplete distention. SKELETON/EXTREMITIES: Normal activity in the axial and visualized appendicular skeleton. CT visualized cortical thickening and sclerosis of the right first rib without FDG avidity, may represent sequela of prior trauma. Postsurgical changes in the mid to lower cervical spine. Procedure Note Bushra Huitron MD - 10/19/2023 EXAMINATION: [facility] PET CT SKULL BASE TO MID-THIGH CLINICAL HISTORY: abnormal chest ct R91.8, Other nonspecific abnormal finding of lung field - R91.8, Other nonspecific abnormal finding of lung field TECHNIQUE: Following IV injection of 46-drtuxv-6-deoxyglucose (FDG) astandard uptake of approximately 60 minutes, a noncontrast CT scan followed by aPET scan were acquired from the base of the skull to mid thighs. The noncontrast CTwas used for anatomic localization and photon attenuation correction of thePET scan. Blood glucose level: 113 (mg/dL) FDG dose: 11.8 mCi COMPARISON: Noncontrast CT chest 08/23/2023, abdominal ultrasound 09/29/2011- [facility]. FINDINGS: HEAD/NECK: No FDG avid cervical lymphadenopathy. Grossly normal activity in theimaged lower head. Incidental CT visualized partial opacification of the inferior rightmaxillary sinus, likely representing a mucous retention cyst versus polyp. CHEST: Fairly diffuse pleural based FDG avid nodularity involving the lefthemithorax with central areas of absent FDG activity consistent with necrosis, withalso involvement of the left major fissure. That along the medial left upper hemithorax extends into the mediastinum. There is anatomically appearslargely unchanged from the CT chest of 08/23/2023. Interval increase in size of now approximately 49 x 29 mm FDG avidcentrally necrotic, thick walled left anterolateral chest wall mass, previouslymeasuring approximately 28 x 21 mm (series 3, image 103). This is at the site of a previous chest tube track when compared to 06/08/2023 CT. Anatomically largely unchanged centrally necrotic FDG avid leftcardiophrenic lymph node measuring 22 x 31 mm (axial image 144). Anatomically similar 13 x 17 mm pericardiac lymph node (axial image 131)which is mildly FDG avid. Small to borderline-enlarged mediastinal lymph nodes measuring up to approximately 10 mm in short axis at the level of the AP window (axialimage 95) are not FDG avid. CT visualized mild right basilar scarring. Aortic and coronary artery calcifications redemonstrated. ABDOMEN/PELVIS: Normal activity in all soft tissue regions. Incidental CT findings: Subcentimeter in short axis portacaval/periportallymph nodes, unchanged. Post cholecystectomy surgical clips. Three fluidattenuation left renal cysts, that arising from the superior pole is new from 2012 ultrasound. The two in the mid to inferior pole have increased in size,the largest of which measures nearly 7 cm in greatest axial diameter.Additional note made of an 8 mm nonobstructing left inferior pole renal calculus.Vascular calcifications. Colonic diverticulosis without acuity. Bilateralfat-containing inguinal hernias. Equivocal nonspecific diffuse thickening of the bladderwall versus incomplete distention. SKELETON/EXTREMITIES: Normal activity in the axial and visualized appendicular skeleton. CT visualized cortical thickening and sclerosis of the right first ribwithout FDG avidity, may represent sequela of prior trauma. Postsurgical changesin the mid to lower cervical spine. IMPRESSION 1. Multiple areas of FDG avid left pleural-based nodularity withcentral necrosis, highly suspicious for mesothelioma versus pleural metastases. 2. Enlarging left anterolateral chest wall centrally necroticmass/metastasis, at site of a previous left chest tube track. 3. Pericardiac and left cardiophrenic сергей metastases. 4. No FDG avid subdiaphragmatic metastases identified. 5. Incidental CT findings as above. Thank you for letting us participate in the care of this patient. If youare a health care provider and have any questions regarding this report,please contact the number below. For patients who have questions please contactthe health health care coach that requested your imaging first. Electronically signed by: Bushra Huitron MD, [facility]([phone]), at 10/19/2023 3:17 PM Angela Gaines MD IMG PET ORDERABLES documented in this encounter Visit Diagnoses Diagnosis Lung nodules Other nonspecific abnormal finding of lung field Lung mass Swelling, mass, or lump in chest Stage 4 lung cancer, left Secondary malignant neoplasm of pleura documented in this encounter Administered Medications Inactive Administered Medications - up to 3 most recent administrations Medication Order MAR Action Action Date Dose Rate Site fludeoxyglucose (F-18) FDG injection 0-20 mCi 0-20 mCi, Intravenous, ONCE PRN, 1 dose, Starting on Mon10/13/23 at 1203, Until Mon10/13/23 at 0915, Per Protocol, Radiology Contrast, Routine Given 10/13/2023 9:15 AM EDT 11.8 mCi documented in this encounter Care Teams Helicopter Engineer Relationship Specialty Start Date End Date Rayo Riley MD [address] [place] [address] PCP - General 06/22/10 01/10/24 documented as of this encounter
--- OUTSIDE RECORDS SUMMARY | 2024-03-11 03:22 | XMS_ITS | Encounter Summary ---
Author Organization [facility] [place] [address] Care Team Providers Care Furnace Maintenance Name Role Phone Rayo Riley MD Primary Care Provider [phone] Encounter Details Date Type Department Care Team (Late Contact Info) Description 11/02/2023 [place] [phone] Edel Quinones Social History Tobacco Use Types Packs/Day Years Used Date Smoking Tobacco: Never Assessed Sex and Gender Information Value Date Recorded Sex Assigned at Not on file Gender Identity Not on file Sexual Orientation Not on file documented as of this encounter Miscellaneous Notes * Telephone Encounter - Edel Verdugo RN - 11/03/2023 9:08 AM EDT Chart review complete. Pt is not on major blood thinners at this time. Pt is on ASA 81 mg, ok to continue to take. Edel Verdugo RN Department of Pulmonary 5C, [facility] [place] Pager: [phone] documented in this encounter Plan of Treatment Upcoming Encounters Date Type Department Care Team (Late st Contact Info) Description 03/11/2024 12:30 PM EDT Office Visit Hematology/Oncology at [address] [phone] Lennox Spivey MD [facility] DR [place] [address] 03/11/2024 1:00 PM EDT Scheduled View Only Hematology/Oncology at [address] [phone] Trupti Bray RN 03/11/2024 1:00 PM EDT Infusion Hematology Oncology at [address] [phone] 03/25/2024 10:00 AM EDT Office Visit Hematology/Oncology at [address] [phone] Lennox Spivey MD [facility] DR [place] [address] Bushra Muniz [address] HEMATOLOGY AND ONCOLOGY [place], [place] [id number] 03/25/2024 10:30 AM EDT Scheduled View Only Hematology/Oncology at [address] [phone] Trupti Bray RN 03/25/2024 10:30 AM EDT Infusion Hematology Oncology at [address] [phone] documented as of this encounter Visit Diagnoses Not on filedocumented in this encounter Care Teams Furnace Maintenance Relationship Specialty Start Date End Date Rayo Riley MD [address] [place] [address] [address] PCP - General 06/22/10 01/10/24 documented as of this encounter
--- OUTSIDE RECORDS SUMMARY | 2024-03-11 03:22 | XMS_ITS | Encounter Summary ---
Author Organization Pending Sale To [facility] Address [facility] [place] [address] Care Team Providers Care Greenskeeper Head Name Role Phone Rayo Riley MD Primary Care Provider [phone] Encounter Details Date Type Department Care Team (Late st Contact Info) Description 06/08/2023 Ancillary Procedure [place] [address] Rayo Riley MD [address] [id number] Social History Tobacco Use Types Packs/Day Years [...] PM EDT Office Visit Hematology/Oncology at [address] [phone] Lennox Spivey MD [facility] DR HEMATOLOGY [place] [address] 03/11/2024 1:00 PM EDT Scheduled View Only Hematology/Oncology at [address] [phone] Trupti Bray RN 03/11/2024 1:00 PM EDT Infusion Hematology Oncology at [address] [phone] 03/25/2024 10:00 AM EDT Office Visit Hematology/Oncology at [address] [phone] Lennox Spivey MD [facility] DR HEMATOLOGY [place] [address] Bushra Muniz APR[address] [place] [address] 03/25/2024 10:30 AM EDT Scheduled View Only Hematology/Oncology at [address] [phone] Trupti Bray RN 03/25/2024 10:30 AM EDT Infusion Hematology Oncology at [address] [phone] documented as of this encounter Procedures Procedure Name Priority Date/Time Associated Diagnosis Comments FILM LIBRARY STORAGE ONLY CT CHEST Routine 06/08/2023 12:00 AM EST documented in this encounter Results * Film Library- Storage Only CT Chest (06/08/2023 12:00 AM EST) Narrative [facility] - 09/14/2023 6:51 PM EST This exam is auto-finalizing. It's purpose is for storage only. Rayo Riley MD IMG FILM LIBRARY ORDERABLES Performing Organization Address City/State/[facility] Co de Phone Number [place], [place] documented in this encounter Visit Diagnoses Not on filedocumented in this encounter Care Teams Greenskeeper Head Relationship Specialty Start Date End Date Rayo Riley MD [address] [place] [address] [address] [place], [place] [id number] PCP - General 06/22/10 01/10/24 documented as of this encounter
--- OUTSIDE RECORDS SUMMARY | 2024-03-11 03:22 | XMS_ITS | Encounter Summary ---
Author Organization Formerly [facility], 1928–1983 Address [facility] [place] [address] Care Team Providers Care End Frazer Name Role Phone Rayo Riley MD Primary Care Provider [phone] Reason for Visit * Reason Comments Advice Only Mass * Consultation (Urgent) - Closed Specialty Diagnoses / Procedures Referred By Elieser lock Referred To Contact Thoracic Surgery Diagnoses Mass of left lung Sharon Landry MD [facility] [place] [address] [facility] [address] [place] [phone] Referral ID Status Reason Start Date Expiration Date V isits Requested Visits Authorized [id number] Closed Consult, Test & Treat 11/17/2023 11/16/2024 1 1 Encounter Details Date Type Department Care Team (Late st Contact Info) Description 11/21/2023 1:00 PM EDT Office Visit [place] [phone] Ariella Vargas MD [facility] [place] [address] Pleural mass; Chest wall mass Social History Tobacco Use Types Packs/Day Years Used Date Smoking Tobacco: Every Day Cigarettes 1 57 Smokeless Tobacco: Never Tobacco Cessation:Ready to Q uit: Not Asked; Counseling Given: Not Answered Comments:Down to 1/4PPD Alcohol Use Standard Drinks/Week Comments Yes 0 (1 standard drink = 0.6 oz pur e alcohol) 4oz rum with coke daily [facility] Inpatient Questions Answer Date Recorded [...] Sign Reading Time Taken Comments Blood Pressure 131/69 11/21/2023 1:06 PM EDT Pulse 99 11/21/2023 1:06 PM EDT Temperature 36.5 ??C (97.7 ??F) 11/21/2023 1:06 PM ED T Respiratory Rate 19 11/21/2023 1:06 PM EDT Oxygen Saturation 97% 11/21/2023 1:06 PM EDT Inhaled Oxygen Concentration - - Weight 98.1 kg (216 lb 4.3 oz) 11/21/2023 1:06 P M EDT Height 172.2 cm (5' 7.8) 11/21/2023 1:06 PM EDT Body Mass Index 33.08 11/21/2023 1:06 PM EDT documented in this encounter Patient Instructions * Patient Instructions* Angelica Neal RN - 11/21/2023 1:00 PM EDT Thank you for visiting Dr. Vargas in clinic 11/21/23 Dr. Vargas has recommended you have a Chest Wall Mass Incision. Your procedure is scheduled for 11/22/23. You will receive a phone call from the OR nurses on 11/21/23 after 2pm through 6 pm. They will confirm your arrival time, review what medications to take and when to stop eating and drinking. Your procedure will occur in silk spreader area 4W. Please park in the parking garage and you will come into the medical center on level 4. Go straight, all the way to theend of the langley, that is Same day surgery wooden desk also silk spreader area 4W. Before your Surgery: PLEASE WASH WITH HIBICLENS SOAP included in this package. Please wash your chest, sides and back. You may shower either the night before or the morning of surgery and please place clean clothes on after your shower. Exercise: Daily aerobic exercise for at least 30 minutes will help improve your endurance and improve the breathing capacity of your lungs. This means that you are breathing hard, your heart is beating fast and that you are sweating. Examples of this include walking, biking, swimming, and using a treadmill or stationary bike. You will be expected to exercise after surgery as well. Incentive Spirometer: Place the Incentive spirometer in your mouth when you are ready to take a slow deep breath in through your mouth (sucking motion, DO NOT BLOW into the device). Use your incentive spirometer as you were shown in clinic: 6 times daily/10 breaths each time (total of at least 60 breaths in a day). It is a sucking motion when you take a slow deep breath in, DO NOT BLOW INTO THIS MACHINE! Take a slow, deep breath in through your mouth. While the piston rises, the indicator on the right should move upwards. It should stay between the 2 arrows for 2 to 4 seconds with each breath. If theindicator does not stay between the arrows, you are breathing either too fast or too slowly. The incentive spirometer will help you expand your lungs and encourage you to breathe deeply and fully. You will use the incentive spirometer as part of your recovery process and to prevent complications such as pneumonia. Things to bring to your hospital stay. You may bring your cellphone, and multi care technician, pajama pants and shirts, under garments, comfy clothes for the ride home (a button down shirt may be the easiest to put on), sneakers or slippers with rubber soles, any toiletries that you prefer over hospital supplied toothbrush, toothpaste, deodorant. Please keep your valuables at home. Some things to expect during your surgery and while you are in the hospital: You will leave the operating room with a urinary catheter. The catheter is usually removed a day ortwo after surgery. You will have a chest tube placed while you are in surgery. A Chest tube is a flexible tube that isused to drain blood, fluid and air from around your lungs after surgery. The tube enters your body between your ribs and goes into the space where the piece of lung was removed. The chest tube will come out a day after surgery, if there is no air leak in your lung. If there is an air leak, the chest tube will stay in until it stops. The nurse and doctor will be watching for the air leak to clear up regularly throughout the day. You may cough up some sputum and this sputum may have some blood noted. The blood may be dark in color and this can be common for a couple days after your surgery. If this blood is bright red in color (like the skin of a tomato) please call the office at [phone]. You may also have a dry cough after surgery. This may last a few days to a few weeks. Please make sure that you are drinking and staying hydrated. You may take some cough drops or over the counter cough medicine. Please call the office if you have any questions or concerns. Post Surgery Instructions at home: Bowel regimen while at home. Please obtain senna (Senokot) tablets, colace tablets, and Miralax powder. You will need to take senna once a day, colace three times a day and miralax once a day to keep your bowels moving. If you do not have a bowel movement in 2 days you will need to call the office as you will need to obtain either Milk of Magnesia (MOM), a Fleet's enema or glycerin suppositories. If you are having diarrhea, then you may back off on the bowel medications. If you are taking narcotics, you need to continue the bowel medications while you are taking the narcotics. Example of what you will be taking for pain control after your surgery. Please make sure that you have Extra strength Tylenol (acetaminophen) and Motrin (ibuprofen) at home before you are discharged. Extra strength acetaminophen 1000 mg alternate with ibuprofen 200 mg (2-3 tabs) take both medications together every 6 hours: ex. Schedule - Extra strength acetaminophen 1000 mg and Ibuprofen 200 mg (2-3 tabs) at 8am,then Extra strength acetaminophen 1000 mg and Ibuprofen 200 mg (2-3 tabs) at 2 pm,Extra strength acetaminophen 1000 mg and Ibuprofen 200 mg (2-3 tabs) at 8pm. You may experience some numbness. This numbness can last a few days to a few weeks. This numbness may not be near your incisions, but you may experience this near your rib cage and like a bandlike numbness near your abdomen. Dr. Vargas 's team will see you twice per day while you are in the hospital. Two weeks after you leave the hospital, you will be scheduled to see Dr. Vargas in his clinic and will also have a chest x-ray before you see him on this day. Please call the Thoracic Surgery nurse if you have any questions before or after your surgery at . documented in this encounter H&P Notes * Ariella Vargas MD - 11/21/2023 1:00 PM EDT Images from the original note were not included. Thoracic Surgery Attending Outpatient Consultation Note MD Jessie Cota PA-C [place] [address] FAX: Date of Consultation: 11/21/2023 This consultation has been requested by PCP: Rayo Riley MD Referring Physician: Sharon Landry MD Purpose for Consultation: Left lung mass HPI: Jeffrey Lovelace is a 68 y.o. male current smoker with PMHx of asbestos exposure, COPD, depression, DM2, GERD, HTN, HLD, inguinal hernia, umbilical hernia with a left chest wall mass and multiple lung nodules. He initially presented in May 2023 to [facility] with SOB and was found to have a left pleural effusion. A chest tube was placed and cytology was negative. This was removed after a few days with improvement in his breathing, and he was treated for pneumonia. 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 CT Chest 08/23/23 revealed left sided pleural based nodularity and a left c hest wall mass. A PET scan performed on 10/13/23 revealed multiple areas of FDG avid left pleural-based nodularity with central necrosis, a left anterolateral chest wall centrally necrotic mass at thesite of the previous left chest tube track, and pericardiac and left cardiophrenic сергей metastases. He was referred to interventional pulmonology and on 11/15/[address] 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 Mesothelioma could not be ruled out. It was initially recommendedhe undergo a CT guided lung biopsy to obtain additional tissue, however after further discussion itwas determined that surgical biopsy via chest wall mass removal would be more high yield. Today he r eports having a mass at the left chest tube site that is very painful and also endorses dyspnea with exertion. He is a current smoker with an approximately 57 pack year smoking history. He has cut back to /4PPD from 1PPD although is struggling to quit. He is mainly sedentary and would not be able to climb a flight of stairs partially due to deconditioning and partially due to dyspnea. Past Medical History: There are no problems to display for this patient. Past Medical History: Diagnosis Date Asbestos exposure COPD (chronic obstructive pulmonary disease) Depression DM2 (diabetes mellitus, type 2) controlled without medication GERD (gastroesophageal reflux disease) HLD (hyperlipidemia) HTN (hypertension) Inguinal hernia Umbilical hernia Past Surgical History: Past Surgical History: Procedure Laterality Date CHOLECYSTECTOMY MANDIBLE FRACTURE SURGERY NECK SURGERY PILONIDAL CYST EXCISION Medications: Outpatient Medications Marked as Taking for the 11/21/23 encounter (Office Visit) with Jaqueline Vargas MD Medication Sig Dispense Refill triamcinolone (ARISTOCORT) 0.5 [...] aspirin (BABY ASPIRIN) 81 mg chewable tablet Allergies: Allergies Allergen Reactions Other [Unclassified Drug] Black fly bites -was hospitalized because of it Penicillins CIS - RASH Family History: Family History Problem Relation Age of Onset Type 2 Diabetes Father Bladder Cancer Father Leukemia Father Cancer Maternal Grandfather Social History: Social History Socioeconomic History Marital status: Spouse name: Not on file Number of children: Not on file Years of education: Not on file Highest education level: Not on file Occupational History Not on file Tobacco Use Smoking status: Every Day Packs/day: 1.00 Years: 57.00 Additional pack years: 0.00 Total pack years: 57.00 Types: Cigarettes Smokeless tobacco: Never Tobacco comments: Down to 1/4PPD Vaping Use Vaping Use: Never used Substance and Sexual Activity Alcohol use: Yes Comment: 4oz rum with coke daily Drug use: Not Currently Sexual activity: Not on file Other Topics Concern Not on file Social History Narrative Not on file Social Determinants of Health Financial Resource Strain: Not on file Food Insecurity: Not on file Transportation Needs: Not on file Physical Activity: Not on file Intimate Partner Violence: Not on file Housing Stability: Not on file REVIEW OF SYSTEMS: General: Denies fatigue, weight loss, chills Neuro: +Weakness in right hand secondary to trauma in past. Denies seizure, TIA, CVA, SNELL, visual changes, diplopia, weakness/numbness in extremities Psychiatric: +Depression Cardiovascular: +HTN, HLD. Denies arrythmias, CHF. Respiratory: +Emphysema, dyspnea. Denies asthma, cough, wheezing, stridor, hemoptysis, respiratory infection GI: denies change in bowel habits : denies change in voiding habits Hematologic: Denies history of DVT, PE Endocrine: +DM2 (well controlled). denies thyroid disease. Musculoskeletal: Denies fractures, arthritis Integument: Denies skin cancer. Physical Exam: BP 131/69 (Patient Position: Sitting) Pulse 99 Temp 36.5 ??C (97.7 ??F) (Temporal) Resp 19 Ht 172.2 cm (5' 7.8) Wt 98.1 kg (216 lb 4.3 oz) SpO2 97% BMI 33.08 kg/m?? General Appearance: Alert, pleasant, no distress HEENT: PERRL, MMM, non-icteric, EOMI Neck: Supple, symmetrical, trachea midline, no palpable cervical or supraclavicular adenopathy; thyroid: not enlarged, symmetric, no tenderness/mass/nodules Lungs: Left lung base diminished, respirations unlabored, no wheezes, crackles or ronchi. 5-6cm indurated, erythematous mass on left anterolateral chest that is TTP. No drainage present. Heart: Regular rate and rhythm, S1 and S2 normal, I/ systolic murmur Abdomen: Soft, non-tender, small umbilical hernia palpated Extremities: Extremities normal, no cyanosis, clubbing. No edema Neurologic: A+Ox3, cranial nerves II-XII grossly intact Musculoskeletal: Decreased strength with right hand office support specialist. Unable to step onto exam table due to lack of balance Diagnostics: I have independently visualized all relevant imaging studies, including: CT Chest (06/08/23): CT Chest (08/23/23): PET (10/13/23): IMPRESSION 1. Multiple areas of FDG avid left pleural-based nodularity with central necrosis, highly suspicious for mesothelioma versus pleural metastases. 2. Enlarging left anterolateral chest wall centrally necrotic mass/metastasis, at site of a previous left chest tube track. 3. Pericardiac and left cardiophrenic сергей metastases. 4. No FDG avid subdiaphragmatic metastases identified. 5. Incidental CT findings as above. Pathology (11/15/23): Chest wall mass, left (FNA): Malignant cells present, favor poorly differentiated carcinoma (see note). Echo (06/12/23): Assessment: This is a 68 y.o. male current smoker with remote history of asbestos exposure with pleural based nodularity and a large, painful fungating left chest wall mass at the site of his prior chest tube site s/p biopsy with pathology revealing malignancy but non-diagnostic. He will need surgical biopsy for definitive diagnosis as well as for pain control. Plan of Management: Consented today in clinic for left chest wall mass resection, scheduled for tomorrow 11/22/23 Encouraged smoking cessation. He declined smoking cessation referral at this time. Encouraged 30 minutes of aerobic exercise daily Call with any questions Patient seen and examined with Dr. Vargas. OLIVIA Espana 11/21/23 Thoracic Surgery I have seen the patient and reviewed the PA/resident's above history and I agree with the details as written. The assessment and plan were formulated in discussion with me and I agree with them as documented. Assessment: This is a 68 y.o. male current smoker with remote history of asbestos exposure with pleural based masses and a large, painful fungating left chest wall mass at the site of his prior chesttube site, he is s/p core biopsy with pathology revealing malignancy but unable to further classify. He will need surgical biopsy for definitive diagnosis as well as for pain control. Plan of Management: 1. Consented today in clinic for left chest wall mass resection, scheduled for tomorrow 11/22/23. I explained that we will do an excisional biopsy for both diagnosis as well as some palliation. This most likely comes through the chest wall but we will not resect any of the muscle or chest wall at this time. He understands and agrees with the plan. 2. Encouraged smoking cessation. He declined smoking cessation referral at this time. 3. He will need referral to medical oncology for palliative chemotherapy 4. Due to transportation issues, he will head home tonight and come back tomorrow. We will keep himovernight (SDON) and he will discharged the day after surgery. 5. Call with any questions ARIELLA VARGAS MD documented in this encounter Plan of Treatment Upcoming Encounters Date Type Department Care Team (Late st Contact Info) Description 03/11/2024 12:30 PM EDT Office Visit Hematology/Oncology at [address] [phone] Lennox Spivey MD [facility] DR [place] [address] 03/11/2024 1:00 PM EDT Scheduled View Only Hematology/Oncology at [address] [phone] Trupti Bray RN 03/11/2024 1:00 PM EDT Infusion Hematology Oncology at [address] [phone] 03/25/2024 10:00 AM EDT Office Visit Hematology/Oncology at [address] [place] [phone] Lennox Spivey MD [facility] DR [place] [address] Bushra Muniz APRN [address] [place] [address] DR HEMATOLOGY [place] [address] 03/25/2024 10:30 AM EDT Scheduled View Only Hematology/Oncology at [address] [place] [phone] Trupti Bray RN 03/25/2024 10:30 AM EDT Infusion Hematology Oncology at [address] [place] [phone] documented as of this encounter Results * EKG 12 Lead (11/22/2023 8:36 AM EDT) Pathologist [facility] Ventricular rate 89 BPM MUSE SYSTEM Atrial Rate 89 BPM MUSE SYSTEM P-R Interval 154 ms MUSE SYSTEM QRS Duration 96 ms MUSE SYSTEM Q-T Interval 364 ms MUSE SYSTEM QTC Calculated (Bezet) 442 ms MUSE SYSTEM Calculated P [place] 39 degrees MUSE SYSTEM Calculated R [place] 18 degrees MUSE SYSTEM Calculated T [place] 37 degrees MUSE SYSTEM INTERPRETATION Normal sinus rhythm Normal ECG No previous ECGs available Confirmed by MD Kelsea, Dinorah ([id number]) on 11/22/2023 2:17:24 PM MUSE SYSTEM 11/22/2023 8:36 AM EDT 11/22/2023 2:17 PM EDT Ariella Vargas MD ECG ORDERABLES MUSE SYSTEM * (ABNORMAL) Comprehensive metabolic panel (non-fasting) (11/22/2023 7:57 AM EDT) [facility] Glucose 147 65 - 199 mg/dL [facility] Comment:Diabetes: >=200 mg/d L plus symptoms Blood Urea Nitrogen 20 10 - 20 mg/dL [facility] Creatinine 1.03 0.80 - 1.50 mg/dL [facility] Sodium 140 135 - 145 mmol/L [facility] Potassium 4.8 3.5 - 5.0 mmol/L [facility] Comment: Please note: ??Patients with WBC >100,000 may have falsely elevated Potassium levels. ??For accurate Potassium quantification in these patients send serum separator tube (gold top) for subsequent determinations. ??Contact the Clinical Chemistry Laboratory if there are any questions. Chloride 100 98 - 107 mmol/L [facility] Carbon Dioxide 31 22 - 31 mmol/L [facility] Anion Gap 9 5 - 15 mmol/L [facility] Calcium 10.3 8.5 - 10.5 mg/dL [facility] Protein, Total 7.3 6.1 - 8.0 g/dL [facility] Albumin 4.0 3.2 - 5.2 g/dL [facility] Aspartate Aminotransferase 28 0 - 39 unit/L [facility] Alanine Aminotransferase 27 0 - 55 unit/L [facility] Alkaline Phosphatase 134(H) 40 - 130 unit/L [facility] Bilirubin, Total 0.3 0.2 - 1.3 mg/dL [facility] Est Glomerular Filtration Rate 80 >=60 mL/min/1. 73 m?? [facility] Comment: This patient's estimated GFR [...] In Lab Ariella Vargas MD CHEMISTRY ORDERABLES [facility] [place] [address] documented in this encounter Visit Diagnoses Diagnosis Pleural mass Swelling, mass, or lump in chest Chest wall mass Swelling, mass, or lump in chest Stage 4 lung cancer, left Secondary malignant neoplasm of pleura documented in this encounter Care Teams End Frazer Relationship Specialty Start Date End Date Rayo Riley MD [address] [place] [address] PCP - General 06/22/10 01/10/24 documented as of this encounter
--- OUTSIDE RECORDS SUMMARY | 2024-03-11 03:22 | XMS_ITS | Encounter Summary ---
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 Name Role Phone Rayo Riley MD Primary Care Provider [phone] Reason for Visit * Reason Onset Date Comments Establish Care 11/21/2023 Encounter Details Date Type Department Care Team (Late st Contact Info) Description 11/21/2023 Patient Outreach Hematology and Oncology at [facility] [place] [phone] Theo Mathur, RN Establish Care Social History Tobacco Use Types Packs/Day Years Used Date Smoking Tobacco: Every Day Cigarettes 1 57 Smokeless Tobacco: Never Comments:Down to 1/4PPD Alcohol Use Standard Drinks/Week Comments Yes 0 (1 standard drink = 0.6 oz pur e alcohol) 4oz rum with coke daily [facility] Inpatient Questions Answer Date Recorded [...] as of this encounter Progress Notes * Theo Mathur RN - 11/22/2023 9:45 AM EDT Referred by thoracic surgery department for transportation assistance. Patient is here in clinic today from [place], [place], with his friend David for support. Dr. Weldon would like to take patient to the OR urgently tomorrow AM for chest wall resection, and is willing to admit for the night to facilitate. However, David does not drive and would be stuck in [place]. Discussed options with patient, assisted by QUAN Macario. Providing a cab home for David not an option due to cost ($450). Dr. Weldon and surgery team was able to move the schedule so that patient was second case, as he is not comfortable driving in the dark. Decided with patient and staff that they will go home tonight, and patient will return in the morning for the later procedure without having to drive in the dark. 2 $50 gas cards provided to support patient. ONN available as needed. documented in this encounter Plan of Treatment Upcoming Encounters Date Type Department Care Team (Late st Contact Info) Description 03/11/2024 12:30 PM EDT Office Visit Hematology/Oncology at [address] [phone] Lennox Spivey MD [facility] DR [place] [address] 03/11/2024 1:00 PM EDT Scheduled View Only Hematology/Oncology at [address] [phone] Trupti Bray RN 03/11/2024 1:00 PM EDT Infusion Hematology Oncology at [address] [phone] 03/25/2024 10:00 AM EDT Office Visit Hematology/Oncology at [address] [phone] Lennox Spivey MD [facility] DR [place] [address] Bushra Muniz APRN [address] [place] [address] [place] [address] 03/25/2024 10:30 AM EDT Scheduled View Only Hematology/Oncology at [address] [phone] Trupti Bray RN 03/25/2024 10:30 AM EDT Infusion Hematology Oncology at [address] [phone] documented as of this encounter Visit Diagnoses Not on filedocumented in this encounter Care Teams Wood Preserving Plant Laborer Relationship Specialty Start Date End Date Rayo Riley MD [address] [place] [address] PCP - General 06/22/10 01/10/24 documented as of this encounter
--- OUTSIDE RECORDS SUMMARY | 2024-03-11 03:22 | XMS_ITS | Encounter Summary ---
Author Organization [facility] Address [facility] [place] [address] Care Team Providers Care Mesh Worker Name Role Phone Rayo Riley MD Primary Care Provider +1 [phone] Encounter Details Date Type Department Care Team (Late st Contact Info) Description 08/23/2023 Ancillary Procedure [place] [address] Rayo Riley MD [address] [id number] Social History Tobacco Use Types Packs/Day Years [...] PM EDT Office Visit Hematology/Oncology at [address] [phone] Lennox Spivey MD [facility] [address] [place] [address] 03/11/2024 1:00 PM EDT Scheduled View Only Hematology/Oncology at [address] [phone] Trupti Bray RN 03/11/2024 1:00 PM EDT Infusion Hematology Oncology at [address] [phone] 03/25/2024 10:00 AM EDT Office Visit Hematology/Oncology at [address] [phone] Lennox Spivey MD [facility] [address] [place] [address] Bushra Muniz [address] [place] [address] 03/25/2024 10:30 AM EDT Scheduled View Only Hematology/Oncology at [address] [phone] Trupti Bray RN 03/25/2024 10:30 AM EDT Infusion Hematology Oncology at [address] [phone] documented as of this encounter Procedures Procedure Name Priority Date/Time Associated Diagnosis Comments FILM LIBRARY STORAGE ONLY CT CHEST Routine 08/23/2023 12:00 AM EST documented in this encounter Results * Film Library- Storage Only CT Chest (08/23/2023 12:00 AM EST) Narrative [facility] - 09/14/2023 7:31 PM EST This exam is auto-finalizing. It's purpose is for storage only. Rayo Riley MD IMG FILM LIBRARY ORDERABLES Performing Organization Address City/State/[facility] Co de Phone Number [place], [place] documented in this encounter Visit Diagnoses Not on filedocumented in this encounter Care Teams Mesh Worker Relationship Specialty Start Date End Date Rayo Riley MD [address] [place] [address] [address] [place], [place] [id number] PCP - General 06/22/10 01/10/24 documented as of this encounter
--- OUTSIDE RECORDS SUMMARY | 2024-03-11 03:22 | XMS_ITS | Encounter Summary ---
Author Organization [facility] Address [facility] [place] [address] Care Team Providers Care Drupal Programmer Name Role Phone Rayo Riley MD Primary Care Provider [phone] [phone] Encounter Details Date Type Department Care Team (Late st Contact Info) Description 05/05/2022 5:35 PM EDT Ancillary Procedure [place] [address] Akira Lynch MD [facility] [place] [address] Social History Tobacco Use Types Packs/Day Years [...] PM EDT Office Visit Hematology/Oncology at [address] [phone] Lennox Spivey MD [facility] [place] [address] 03/11/2024 1:00 PM EDT Scheduled View Only Hematology/Oncology at [address] [phone] Trupti Bray RN 03/11/2024 1:00 PM EDT Infusion Hematology Oncology at [address] [phone] 03/25/2024 10:00 AM EDT Office Visit Hematology/Oncology at [address] [phone] Lennox Spivey MD [facility] [address] [place] [address] Bushra Muniz APRN [address] [place] [address] [place] [address] 03/25/2024 10:30 AM EDT Scheduled View Only Hematology/Oncology at [address] [phone] Trupti Bray RN 03/25/2024 10:30 AM EDT Infusion Hematology Oncology at [address] [phone] documented as of this encounter Procedures Procedure Name Priority Date/Time Associated Diagnosis Comments FILM LIBRARY STORAGE ONLY CT HEAD Routine 05/05/2022 5:30 PM EDT documented in this encounter Results * Film Library- Storage Only CT Head (05/05/2022 5:30 PM EDT) Narrative [facility] - 05/05/2022 5:30 PM EDT This exam is auto-finalizing. It's purpose is for storage only. Champion Richelle Echt IMG FILM LIBRARY ORD ERABLES [place], [place] documented in this encounter Visit Diagnoses Not on filedocumented in this encounter Care Teams Drupal Programmer Relationship Specialty Start Date End Date Rayo Riley MD [address] [place], [place] [address] PCP - General 06/22/10 01/10/24 documented as of this encounter
--- OUTSIDE RECORDS SUMMARY | 2024-03-11 03:22 | XMS_ITS | Encounter Summary ---
Author Organization [facility] Address [facility] [place] [address] Care Team Providers Care Surgery Aide Name Role Phone Rayo Riley MD Primary Care Provider [phone] Encounter Details Date Type Department Care Team (Late Contact Info) Description 11/17/2023 [place] [phone] Sharon Landry MD [facility] DR [place]MONARY [place] [address] Social History Tobacco Use Types Packs/Day Years Used Date Smoking Tobacco: Every Day Cigarettes Smokeless Tobacco: Never Sex and Gender Information Value Date Recorded Sex Assigned at Not on file Gender Identity Not on file Sexual Orientation Not on file documented as of this encounter Miscellaneous Notes * Telephone Encounter - Sharon Landry MD - 11/17/2023 3:11 PM EDT Multidisciplinary discussion with IP and CT surgery about pleural based tumor with surgical biopsy and chest wall mass removal, they are in favor and have availability. Discussed plan with Mr. Lovelace who is also in agreement. Thoracic surgery referral placed. documented in this encounter Plan of Treatment Upcoming Encounters Date Type Department Care Team (Late st Contact Info) Description 03/11/2024 12:30 PM EDT Office Visit Hematology/Oncology at [address] [phone] Lennox Spivey MD [facility] DR HEMATOLOGY [place] [address] 03/11/2024 1:00 PM EDT Scheduled View Only Hematology/Oncology at [address] [phone] Trupti Bray RN 03/11/2024 1:00 PM EDT Infusion Hematology Oncology at [address] [phone] 03/25/2024 10:00 AM EDT Office Visit Hematology/Oncology at [address] [phone] Lennox Spivey MD [facility] DR HEMATOLOGY [place] [address] Bushra Muniz [address] HEMATOLOGY AND ONCOLOGY [place], [place] [phone] 03/25/2024 10:30 AM EDT Scheduled View Only Hematology/Oncology at [address] [phone] Trupti Bray, SUZY 03/25/2024 10:30 AM EDT Infusion Hematology Oncology at [address] [phone] documented as of this encounter Visit Diagnoses Not on filedocumented in this encounter Care Teams Surgery Aide Relationship Specialty Start Date End Date Rayo Riley MD [address] [place] [address] [address] [place] [address] PCP - General 06/22/10 01/10/24 documented as of this encounter
--- OUTSIDE RECORDS SUMMARY | 2024-03-11 03:22 | XMS_ITS | Encounter Summary ---
Author Organization [facility] Address [facility] [address] Care Team Providers Care Nail Kegger Name Role Phone Rayo Riley MD Primary Care Provider [phone] [phone] Reason for Referral * Diagnostic Test (STAT) - Pending Review Specialty Diagnoses / Procedures Referred By Elieser lock Referred To Contact Radiology Diagnoses Mass of left lung Procedures CT Head wwo Contrast Sharon Landry MD [facility] [place] [address] Referral ID Status Reason Start Date Expiration Date Visits Requested Visits Authorized [id number] Pending Review Specialty Service Requested 11/17/2023 05/18/2025 1 1 Encounter Details Date Type Department Care Team (Late st Contact Info) Description 11/17/2023 Orders [place] [address] Sharon Landry MD [facility] [place] [address] Mass of left lung Social History Tobacco [...] PM EDT Office Visit Hematology/Oncology at [address] [phone] Lennox Spivey MD [facility] DR [place] [address] 03/11/2024 1:00 PM EDT Scheduled View Only Hematology/Oncology at [address] [phone] Trupti Bray RN 03/11/2024 1:00 PM EDT Infusion Hematology Oncology at [address] [phone] 03/25/2024 10:00 AM EDT Office Visit Hematology/Oncology at [address] [phone] Lennox Spivey MD [facility] DR [place] [address] Bushra Muniz [address] HEMATOLOGY AND ONCOLOGY [place], [place] [phone] 03/25/2024 10:30 AM EDT Scheduled View Only Hematology/Oncology at [address] [phone] Trupti Bray, SUZY 03/25/2024 10:30 AM EDT Infusion Hematology Oncology at [address] [phone] Scheduled Orders Name Type Priority Associated Diagnoses Orde r Schedule CT Head wwo Contrast Imaging STAT Mass of left lung Expected: 11/17/2023, Expires: 11/16/2024 documented as of this encounter Visit Diagnoses Diagnosis Mass of left lung Stage 4 lung cancer, left Secondary malignant neoplasm of pleura documented in this encounter Care Teams Nail Kegger Relationship Specialty Start Date End Date Rayo Riley MD [address] [address] [place], [place] [address] PCP - General 06/22/10 01/10/24 documented as of this encounter
--- OUTSIDE RECORDS SUMMARY | 2024-03-11 03:22 | XMS_ITS | Encounter Summary ---
Author Organization [facility] Address [facility] [place] [address] Care Team Providers Care Operation Shift Supervisor Name Role Phone Rayo Riley MD Primary Care Provider [phone] [phone] Encounter Details Date Type Department Care Team (Late st Contact Info) Description 05/05/2022 Ancillary Procedure [place] [address] Rayo Riley MD [address] [id number] Social History Tobacco Use Types Packs/Day Years [...] PM EDT Office Visit Hematology/Oncology at [address] [phone] Lennox Spivey MD [facility] DR HEMATOLOGY [place] [address] 03/11/2024 1:00 PM EDT Scheduled View Only Hematology/Oncology at [address] [phone] Trupti Bray RN 03/11/2024 1:00 PM EDT Infusion Hematology Oncology at [address] [phone] 03/25/2024 10:00 AM EDT Office Visit Hematology/Oncology at [address] [phone] Lennox Spivey MD [facility] DR [place]EMATOLOGY [place] [address] Bushra Muniz APRN [address] [place] [address] [place] [address] 03/25/2024 10:30 AM EDT Scheduled View Only Hematology/Oncology at [address] [phone] Trupti Bray RN 03/25/2024 10:30 AM EDT Infusion Hematology Oncology at [address] [phone] documented as of this encounter Procedures Procedure Name Priority Date/Time Associated Diagnosis Comments FILM LIBRARY STORAGE ONLY CT CHEST ABDOMEN PELVIS Routine 05/05/2022 12:00 AM EDT documented in this encounter Results * Film Library- Storage Only CT Chest Abdomen Pelvis (05/05/2022 12:00 AM EDT) Narrative [facility] - 09/15/2023 10:57 PM EST This exam is auto-finalizing. It's purpose is for storage only. Rayo Riley MD IMG FILM LIBRARY ORDERABLES [place], [place] documented in this encounter Visit Diagnoses Not on filedocumented in this encounter Care Teams Operation Shift Supervisor Relationship Specialty Start Date End Date Rayo Riley MD [address] [place], [place] [address] PCP - General 06/22/10 01/10/24 documented as of this encounter
--- OUTSIDE RECORDS SUMMARY | 2024-03-11 03:22 | XMS_ITS | Encounter Summary ---
Author Organization [facility] [place] [address] Care Team Providers Care Etl Informatica Architect Name Role Phone Rayo Riley MD Primary Care Provider [phone] [phone] Encounter Details Date Type Department Care Team ([facility] st Contact Info) Description 11/17/2023 [place] [address] Dylan Cedeno, [facility] [place] [address] Social History Tobacco Use Types Packs/Day Years Used Date Smoking Tobacco: Every Day Cigarettes Smokeless Tobacco: Never Sex and Gender Information Value Date Recorded Sex Assigned at Not on file Gender Identity Not on file Sexual Orientation Not on file documented as of this encounter H&P Notes * Dylan Cedeno, - 11/17/2023 12:02 PM EDT Images from the original note were not included. INTERVENTIONAL RADIOLOGY FOCUSED H&P and PRE-PROCEDURE NOTE: PCP: Rayo Riley MD Referring Provider: E. Backer Planned Procedure: Planned procedure: Left lung mass biopsy Procedure Indication: Prior chest wall biopsy revealing carcinoma not otherwise specified; concern for mesothelioma versus metastatic lung carcinoma. Request for biopsy of one of the left lung masses/nodules to aid in diagnosis. Procedure Request: Procedure request received through the Interventional Radiology eDH order queue. Presenting Diagnosis/ Complaint: Jeffrey Lovelace is a 68 y.o. male presenting to IR for left lung mass biopsy. Past medical history is significant for former smoker with progressive shortness of breath found to have a chest wall mass as well as pulmonary parenchymal masses. Patient underwent biopsy of the chest wall mass which revealed carcinoma not otherwise specified; there is a concern of me sothelioma versus metastatic primary lung cancer. Request for biopsy of one of the lung parenchymalnodules to aid in histopathologic diagnosis IR History: None at [facility]. Antiplatelets: Aspirin 81 mg daily. Anticoagulants: None. Recent Laboratories: None Getting Laboratories Before Procedure: Yes, platelet count and coagulation panel. Allergies: None pertinent. Past Medical/Surgical History: There is no problem list on file for this patient. No past medical history on file. No past surgical history on file. Medications: Current Outpatient Medications on File Prior to Visit Medication Sig Dispense Refill ibuprofen (Advil) 200 mg tablet Take 400 [...] facility-administered medications on file prior to visit. Allergies: Other [unclassified drug] and Penicillins Social History and Habits: Social History Socioeconomic History Marital status: Spouse name: Not on file Number of children: Not on file Years of education: Not on file Highest education level: Not on file Occupational History Not on file Tobacco Use Smoking status: Every Day Packs/day: .5 Types: Cigarettes Smokeless tobacco: Never Vaping Use Vaping Use: Never used Substance and Sexual Activity Alcohol use: Not on file Drug use: Not on file Sexual activity: Not on file Other Topics Concern Not on file Social History Narrative Not on file Social Determinants of Health Financial Resource Strain: Not on file Food Insecurity: Not on file Transportation Needs: Not on file Physical Activity: Not on file Intimate Partner Violence: Not on file Housing Stability: Not on file Significant Family History: No family history on file. Pertinent ROS: as per HPI Labs: Imaging: Physical Exam: Pending (to be performed in angio the day of procedure) ASA: Pending (to be assessed in angio the day of procedure) Mallampati Class: Pending (to be assessed in angio the day of procedure) Assessment: 68 y.o. male presenting to IR for left lung mass biopsy. Past medical history is significant for former smoker with progressive shortness of breath found to have a chest wall mass as wellas pulmonary parenchymal masses. Patient underwent biopsy of the chest wall mass which revealed carcinoma not otherwise specified; there is a concern of mesothelioma versus metastatic primary lung cancer. Request for biopsy of one of the lung parenchymal nodules to aid in histopathologic diagnosis Reviewed with Attending: Dr. Cedeno Plan: Planned procedure: Left lung mass biopsy Labs to be performed day of procedure: PLT; Coags Sedation: Moderate (Conscious sedation) Prophylactic antibiotic : None Contrast: No contrast Additional medications for procedure: Lidocaine Planned access site: Left posterior lateral thorax Position: Prone Consent: Pending Medications to discontinue (and days held): Aspirin (5 days) Case Urgency:: G2- Elective Outpatient intervention within 8-14 days 11/17/2023 documented in this encounter Plan of Treatment Upcoming Encounters Date Type Department Care Team (Late st Contact Info) Description 03/11/2024 12:30 PM EDT Office Visit Hematology/Oncology at [address] [phone] Lennox Spivey MD [facility] HEMATOLOGY [place] [address] 03/11/2024 1:00 PM EDT Scheduled View Only Hematology/Oncology at [address] [phone] Trupti Bray RN 03/11/2024 1:00 PM EDT Infusion Hematology Oncology at [address] [phone] 03/25/2024 10:00 AM EDT Office Visit Hematology/Oncology at [address] [phone] Lennox Spivey MD [facility] DR HEMATOLOGY [place] [address] Bushra Muniz APRN [address] [place] [address] DR HEMATOLOGY AND ONCOLOGY [place], [place] [phone] 03/25/2024 10:30 AM EDT Scheduled View Only Hematology/Oncology at [address] [phone] Trupti Bray RN 03/25/2024 10:30 AM EDT Infusion Hematology Oncology at [address] [phone] documented as of this encounter Visit Diagnoses Not on filedocumented in this encounter Care Teams Etl Informatica Architect Relationship Specialty Start Date End Date Rayo Riley MD [address] [place] [address] PCP - General 06/22/10 01/10/24 documented as of this encounter
--- OUTSIDE RECORDS SUMMARY | 2024-03-11 03:22 | XMS_ITS | Encounter Summary ---
Author Organization [facility] [place] [address] Care Team Providers Care Real Estate Services Coordinator Name Role Phone Rayo Riley MD Primary Care Provider [phone] [phone] Reason for Referral * Consultation (Routine) - Closed Specialty Diagnoses / Procedures Referred By Contac t Referred To Contact Hematology and Oncology Diagnoses Mass of left lung Mass of chest wall, left Sharon Landry MD [facility] [place] [address] [facility] Hem [facility]c [address] [place] [address] Referral ID Status Reason Start Date Expiration Date V isits Requested Visits Authorized [id number] Closed Consult, Test & Treat 11/17/2023 11/16/2024 1 1 * Consultation (Routine) - Closed Specialty Diagnoses / Procedures Referred By Contac t Referred To Contact Radiation Oncology Diagnoses Mass of left lung Mass of chest wall, left Dylan Martinez MD [facility] [place] [address] Beto Braswell MD [facility] [place] [address] Referral ID Status Reason Start Date Expiration Date V isits Requested Visits Authorized [id number] Closed Consult, Test & Treat 11/17/2023 11/16/2024 1 1 Encounter Details Date Type Department Care Team (Late st Contact Info) Description 11/17/2023 Telephone [place] [address] Sharon Landry MD [facility] [place] [address] Social History Tobacco Use Types Packs/Day Years Used Date Smoking Tobacco: Every Day Cigarettes Smokeless Tobacco: Never Sex and Gender Information Value Date Recorded Sex Assigned at Not on file Gender Identity Not on file Sexual Orientation Not on file documented as of this encounter Miscellaneous Notes * Telephone Encounter - Sharon Landry MD - 11/17/2023 11:19 AM EDT Spoke with Dr. Jean Paul Ackerman who reported the results as malignant cell present, poorly differentiated carcinoma. Unable to further specify as there was crush injury and necrosis of the tissue. Additionally WT-1 positive but weak, deemed equivocal. Cannot rule out mesothelioma. Recommend core biopsy. Called Mr. Lovelace to update him on pathology results and recommendation for additional sampling.Will arrange clinic appointment for transthoracic biopsy of L lung mass. Will additionally send a referral to radiation oncology and medical oncology of which he is aware an din agreement. documented in this encounter Plan of Treatment Upcoming Encounters Date Type Department Care Team (Late st Contact Info) Description 03/11/2024 12:30 PM EDT Office Visit Hematology/Oncology at [address] [phone] Lennox Spivey MD [facility] DR [place] [address] 03/11/2024 1:00 PM EDT Scheduled View Only Hematology/Oncology at [address] [phone] Trupti Bray RN 03/11/2024 1:00 PM EDT Infusion Hematology Oncology at [address] [phone] 03/25/2024 10:00 AM EDT Office Visit Hematology/Oncology at [address] [phone] Lennox Spivey MD [facility] DR [place] [address] Bushra Muniz DIRECTOR OF SPEECH PATHOLOGY [address] [place] [address] DR HEMATOLOGY AND ONCOLOGY [place], [place] [address] 03/25/2024 10:30 AM EDT Scheduled View Only Hematology/Oncology at [address] [phone] Trupti Bray RN 03/25/2024 10:30 AM EDT Infusion Hematology Oncology at [address] [phone] Scheduled Referrals Name Type Priority Associated Diagnoses Order Schedule Referral to Radiation Oncology Outpatient Referral Routine Mass of left lung Mass of chest wall, left Ordered: 11/17/2023 Referral to Hematology and Oncology Outpatient Referral Routine Mass of left lung Mass of chest wall, left Ordered: 11/17/2023 documented as of this encounter Visit Diagnoses Diagnosis Mass of left lung Mass of chest wall, left Stage 4 lung cancer, left Secondary malignant neoplasm of pleura documented in this encounter Care Teams Real Estate Services Coordinator Relationship Specialty Start Date End Date Rayo Riley MD [address] [place] [address] PCP - General 06/22/10 01/10/24 documented as of this encounter
--- OUTSIDE RECORDS SUMMARY | 2024-03-11 03:22 | XMS_ITS | Encounter Summary ---
Author Organization [facility] Address [facility] [place] [address] Care Team Providers Care Services Tech Name Role Phone Rayo Riley MD Primary Care Provider [phone] Encounter Details Date Type Department Care Team (Late st Contact Info) Description 06/10/2023 12:05 AM EST Ancillary Procedure [place] [address] Rayo Riley MD [address] [place] [address] [address] [place] [address] Social History Tobacco Use Types Packs/Day Years [...] 12:30 PM EDT Office Visit Hematology/Oncology at [address] [phone] Lennox Spivey MD [facility] DR [place] [address] 03/11/2024 1:00 PM EDT Scheduled View Only Hematology/Oncology at [address] [phone] Trupti Bray RN 03/11/2024 1:00 PM EDT Infusion Hematology Oncology at [address] [phone] 03/25/2024 10:00 AM EDT Office Visit Hematology/Oncology at [address] [phone] Lennox Spivey MD [facility] DR [place] [address] Bushra Muniz APRN [address] [place] [address] DR HEMATOLOGY AND ONCOLOGY [place], [place] [id number] 03/25/2024 10:30 AM EDT Scheduled View Only Hematology/Oncology at [address] [phone] Trupti Bray RN 03/25/2024 10:30 AM EDT Infusion Hematology Oncology at [address] [phone] documented as of this encounter Procedures Procedure Name Priority Date/Time Associated Diagnosis Comments FILM LIBRARY STORAGE ONLY DX CHEST Routine 06/10/2023 12:05 AM EST documented in this encounter Results * Film Library- Storage Only DX Chest (06/10/2023 12:05 AM EST) Narrative [facility] - 09/14/2023 6:51 PM EST This exam is auto-finalizing. It's purpose is for storage only. Rayo Riley MD IMG FILM LIBRARY ORDERABLES [place], [place] documented in this encounter Visit Diagnoses Not on filedocumented in this encounter Care Teams Services Tech Relationship Specialty Start Date End Date Rayo Riley MD [address] [place] [address] PCP - General 06/22/10 01/10/24 documented as of this encounter
--- OUTSIDE RECORDS SUMMARY | 2024-03-11 03:22 | XMS_ITS | Encounter Summary ---
Author Organization [facility] Address [facility] [place] [address] Care Team Providers Care Retail Department Reset Name Role Phone Rayo Riley MD Primary Care Provider [phone] Encounter Details Date Type Department Care Team (Late st Contact Info) Description 11/01/2023 Telephone [place] [address] Edel Quinones Social History Tobacco Use Types [...] 12:30 PM EDT Office Visit Hematology/Oncology at [address] [phone] Lennox Spivey MD [facility] DR HEMATOLOGY [place] [address] 03/11/2024 1:00 PM EDT Scheduled View Only Hematology/Oncology at [address] [phone] Trupti Bray RN 03/11/2024 1:00 PM EDT Infusion Hematology Oncology at [address] [phone] 03/25/2024 10:00 AM EDT Office Visit Hematology/Oncology at [address] [phone] Lennox Spivey MD [facility] DR [place]AT[place] [address] Bushra Muniz APRN [address] [place] [address] DR HEMATOLOGY AND ONCOLOGY [place], [place] [phone] 03/25/2024 10:30 AM EDT Scheduled View Only Hematology/Oncology at [address] [phone] Trupti Bray RN 03/25/2024 10:30 AM EDT Infusion Hematology Oncology at [address] [phone] documented as of this encounter Visit Diagnoses Not on filedocumented in this encounter Care Teams Retail Department Reset Relationship Specialty Start Date End Date Rayo Riley MD [address] [place], [place] [phone] PCP - General 06/22/10 01/10/24 documented as of this encounter
--- OUTSIDE RECORDS SUMMARY | 2024-03-11 03:22 | XMS_ITS | Referral Summary ---
Author Organization [facility] Address [address] [place] [address] Care Team Providers Care Flight Surgeon Name Role Phone Karl Quiroz MD Unavailable [phone] Allergies Active Allergy Reactions Criticality Noted [...] Mass Index - - Plan of Treatment Not on file Insurance Payer Benefit Plan / Group Subscriber ID Effective Dates Phone Address Type MEDICARE MEDICARE A AND B [id number] 2013-Present [address] [place] [address] Medicare Care Teams Flight Surgeon Relationship Specialty Start Date End Date Karl Quiroz MD [address] [place] [address] PCP - Generic [facility] PCP Family Medicine 05/05/22
--- OUTSIDE RECORDS SUMMARY | 2024-03-11 03:22 | XMS_ITS | Encounter Summary ---
Author Organization [facility] Address [facility] [place] [address] Care Team Providers Care Felt Dyeing Machine Tender Name Role Phone Rayo Riley MD Primary Care Provider [phone] Encounter Details Date Type Department Care Team (Late st Contact Info) Description 02/10/2005 Orders [place] [address] Bryon Cai III, MD [facility] [place] [address] Social History Tobacco Use Types Packs/Day Years Used Date Smoking Tobacco: Never Assessed [facility] Inpatient Questions Answer Date Recorded Does Anyone [...] PM EDT Office Visit Hematology/Oncology at [address] [phone] Lennox Spivey MD [facility] DR HEMATOLOGY [place] [address] 03/11/2024 1:00 PM EDT Scheduled View Only Hematology/Oncology at [address] [phone] Trupti Bray RN 03/11/2024 1:00 PM EDT Infusion Hematology Oncology at [address] [phone] 03/25/2024 10:00 AM EDT Office Visit Hematology/Oncology at [address] [phone] Lennox Spivey MD [facility] DR HEMATOLOGY [place] [address] Bushra Muniz APRN [address] [place] [address] DR [place] [address] 03/25/2024 10:30 AM EDT Scheduled View Only Hematology/Oncology at [address] [phone] Trupti Bray RN 03/25/2024 10:30 AM EDT Infusion Hematology Oncology at [address] [phone] documented as of this encounter Procedures Procedure Name Priority Date/Time Associated Diagnosis Comments SURGICAL PATHOLOGY REPORT Routine 02/15/2005 12:20 PM EDT documented in this encounter Results * Surgical Pathology Report (02/15/2005 12:20 PM EDT) Surgical Pathology Report [id number] ? [facility]; A The signing pathologist has (i) examined the relevant preparation(s) for the specimen(s) and (ii) rendered or confirmed the diagnosis(es). . ?Pathology Surgical Pathology Final Report Clinical Information Specimen Submitted: A - C-4-5 Disc cervical disc Clinical History: C4 injury Gross Description Labeled/Fixativ e: ? C4-5 disc, cervical disc; saline. Quantity/Size: ?Multiple, 2.0 x 2.0 x 1.0 cm. Tissue Description: ?? Dense, farmer-white, friable fragments. Sections/Proces sing: ??No sections are submitted. ??aje/EJR Diagnosis Intervertebral disc, C4-5. ?? Gross surgical pathology examination. CR-0 02/16/05 AJE 02/16/05 Verified by: ? Domo Foster MD ?Pathologist ?(Electronic Signature) The attending pathologist whose signature appears on this report has reviewed all diagnostic slides and has edited the gross and/or microscopic portion of the report in rendering the final pathologic diagnosis. [facility] 02/15/2005 12:2 0 PM EDT Bryon Cai III, MD PATHOLOGY/CYT OLOGY ORDERABLES [facility]I [facility] documented in this encounter Visit Diagnoses Not on filedocumented in this encounter Care Teams Felt Dyeing Machine Tender Relationship Specialty Start Date End Date Rayo Riley MD [address] [place] [address] PCP - General 06/22/10 01/10/24 documented as of this encounter
--- OUTSIDE RECORDS SUMMARY | 2024-03-11 03:22 | XMS_ITS | Encounter Summary ---
Author Organization [facility] Address [facility] [place] [address] Care Team Providers Care Proposal Development Manager Name Role Phone Rayo Riley MD Primary Care Provider [phone] Encounter Details Date Type Department Care Team (Latest Contact Info) Description 06/07/2023 5:33 PM EST - 06/07/2023 11:59 PM EST Hospital [place] [phone] Discharge Disposition: Home Social History Tobacco Use [...] PM EDT Office Visit Hematology/Oncology at [address] [phone] Lennox Spivey MD [facility] DR [place] [address] 03/11/2024 1:00 PM EDT Scheduled View Only Hematology/Oncology at [address] [phone] Trupti Bray RN 03/11/2024 1:00 PM EDT Infusion Hematology Oncology at [address] [phone] 03/25/2024 10:00 AM EDT Office Visit Hematology/Oncology at [address] [phone] Lennox Spivey MD [facility] DR [place] [address] Bushra Muniz [address] HEMATOLOGY AND ONCOLOGY [place], [place] [phone] 03/25/2024 10:30 AM EDT Scheduled View Only Hematology/Oncology at [address] [phone] Trupti Bray RN 03/25/2024 10:30 AM EDT Infusion Hematology Oncology at [address] [phone] documented as of this encounter Procedures Procedure Name Priority Date/Time Associated Diagnosis Comments NON-NURSE'S COMPANION FINAL REPORT Routine 06/07/2023 3:03 PM EST documented in this encounter Results * Non-Cattle Examiner Final Report (06/07/2023 3:03 PM EST) Diagnosis Discussion [id number] ? Location: [facility] The signing pathologist has (i) examined the relevant preparation(s) for the specimen(s) and (ii) rendered or confirmed the diagnosis(es). . ? Non-Cattle Examiner Final DIAGNOSIS Negative for Malignancy Electronically signed by: ?Mendez TEAGUE, Alon Kaur Verified: ??06/09/2023 15:52 ??Pathologist Performed at: ??-[facility] [facility] [place], [place] [address] Eight Arm Operator: Omar White MD, FCAP, ??CLIA Certificate: [id number] DISCUSSION Pleural fluid, left: Many small lymphocytes, few mesothelial cells, eosinophils and macrophages present. Cell block was examined. CLINICAL INFORMATION Specimen Source : Pleural fluid, left Pertinent Clinical Data and Significant Therapy: Left pleural effusion Clinical Impression : (not provided) Pertinent Radiologic Findings ??: (not provided) Gross Description: Received ??fresh, approximately 200 mL total volume of ?? cloudy, chelsey fluid, with clots. Total Preparation: Liquid-Based Prep 1; Cell Block 1. Referring Identifier: ??[id number] 06/09/2023 3:52 PM EST [facility] LEFT PLEURAL FLUID / Unknown 06/07/2023 3:03 PM EST 06/07/2023 3:03 PM EST Narrative Resulting Agency Comment Spec In Lab / [facility] Jhon Jacobsen MD PATHOLOGY/CYTOLOGY ORDERABLES Performing Organization Address City/State/[facility] Co de Phone Number [facility] [address] [place] [address] documented in this encounter Visit Diagnoses Not on filedocumented in this encounter Care Teams Proposal Development Manager Relationship Specialty Start Date End Date Rayo Riley MD [address] [place] [address] PCP - General 06/22/10 01/10/24 documented as of this encounter
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
[2024-03-11] MEDS: Normal Saline Flush 10 ML SYR IVP (10:44)
[2024-03-11 11:13] LABS: Abs Immature Grans 0.03 10^3/uL (0.0-0.06); Absolute Basophil Count 0.02 10^3/uL (0.0-0.2); Absolute Eosinophil Count 0.17 10^3/uL (0.0-0.7); Absolute Lymphocyte Count 0.92 10^3/uL (1.2-3.4); Absolute Monocyte Count 0.63 10^3/uL (0.1-0.8); Absolute Neutrophil Count 4.04 10^3/uL (1.2-6.7); Basophils % 0.3 %; Eosinophils % 2.9 %; HCT 34.1 % (40.0-50.0); HGB 11.1 g/dL (13.5-17.5); Immature Grans % 0.5 %; Lymphocytes % 15.8 %; MCH 31.9 pg (27.0-33.0); MCHC 32.6 % (32.0-36.0); MCV 98 fL (80-95); MPV 10.2 fL (8.0-11.0); Monocytes % 10.8 %; Neutrophils % 69.7 %; Platelet Count 385 10^3/uL (130-400); RBC 3.48 10^6/uL (4.36-5.78); RDW 19.8 % (11.8-14.1); RDW-SD 69.3 fL; WBC 5.81 10^3/uL (4.4-10.8)
[2024-03-11 11:43] LABS: ALT 42 U/L (16-63); AST 26 U/L (15-37); Albumin 3.3 g/dL (3.4-5.0); Alkaline Phosphatase 162 U/L (46-116); BUN 22 mg/dL (7-18); CREATININE 1.1 mg/dL (0.70-1.30); Calcium 9.6 mg/dL (8.5-10.1); Chloride 102 mmol/L (98-107); Estimated GFR 73.58 (mL/min/1.73m2); FREE T4 1.14 ng/dL (0.76-1.46); Glucose 143 mg/dL (74-106); Magnesium 1.7 mg/dL (1.8-2.4); Sodium 140 mmol/L (136-145); TSH 1.68 uIU/Ml (0.36-3.74); Total Protein 7.7 g/dL (6.4-8.2)
== END 2024-03-30 23:59 | disposition home or self-care (01) ==
LOC: INF 03:07
PROVIDERS: PCP Family Medicine; Visit Provider Internal Medicine Medical Oncology
DX: C34.92 Malignant neoplasm of unspecified part of left bronchus or lung (principal); Z79.899 Other long term (current) drug therapy; Z45.2 Encounter for adjustment and management of vascular access device
CPT/HCPCS: 36591; 80053; 83735; 84439; 84443; 85025

== ENCOUNTER 2024-04-17 02:42 | Outpatient (RCR) | payer MEDICARE, SELFPAY ==
[2024-04-17] MEDS: Normal Saline Flush 10 ML SYR IVP (09:07)
[2024-04-17 09:34] LABS: Abs Immature Grans 0.05 10^3/uL (0.0-0.06); Absolute Basophil Count 0.03 10^3/uL (0.0-0.2); Absolute Eosinophil Count 0.09 10^3/uL (0.0-0.7); Absolute Monocyte Count 1.02 10^3/uL (0.1-0.8); Absolute Neutrophil Count 8.01 10^3/uL (1.2-6.7); Basophils % 0.3 %; Eosinophils % 0.9 %; HCT 37.2 % (40.0-50.0); HGB 12.1 g/dL (13.5-17.5); Immature Grans % 0.5 %; Lymphocytes % 8.9 %; MCH 31.6 pg (27.0-33.0); MCHC 32.5 % (32.0-36.0); MCV 97 fL (80-95); MPV 11.7 fL (8.0-11.0); Monocytes % 10.1 %; Neutrophils % 79.3 %; Platelet Count 215 10^3/uL (130-400); RBC 3.83 10^6/uL (4.36-5.78); RDW 16.3 % (11.8-14.1); RDW-SD 58.4 fL
[2024-04-17 10:14] LABS: ALT 52 U/L (16-63); AST 49 U/L (15-37); Albumin 2.6 g/dL (3.4-5.0); Alkaline Phosphatase 153 U/L (46-116); Anion Gap 9.8 mmol/L (3-11); BUN 27 mg/dL (7-18); Bilirubin, Total 0.43 mg/dL (0.2-1.0); CO2 28.2 mmol/L (21.0-32.0); CREATININE 1.1 mg/dL (0.70-1.30); Calcium 9.6 mg/dL (8.5-10.1); Chloride 101 mmol/L (98-107); Estimated GFR 73.58 (mL/min/1.73m2); FREE T4 1.34 ng/dL (0.76-1.46); Glucose 178 mg/dL (74-106); Magnesium 1.5 mg/dL (1.8-2.4); Sodium 139 mmol/L (136-145); TSH 1.34 uIU/Ml (0.36-3.74); Total Protein 7.6 g/dL (6.4-8.2)
[2024-04-17 10:24] LABS: Potassium 2.8 mmol/L (3.5-5.1)
== END 2024-04-29 23:59 | disposition home or self-care (01) ==
LOC: INF 02:42
PROVIDERS: PCP Family Medicine; Visit Provider Internal Medicine Medical Oncology
DX: C34.92 Malignant neoplasm of unspecified part of left bronchus or lung (principal); Z79.899 Other long term (current) drug therapy
CPT/HCPCS: 36591; 80053; 83735; 84439; 84443; 85025

== ENCOUNTER 2024-04-17 10:46 | Emergency (ER) | payer MEDICARE, SELFPAY ==
[2024-04-17] VITALS (40 sets, daily range): BP systolic 92–114; BP diastolic 58–101; PULSE 98–129; RESP 15–25; TEMP 36.9; O2SAT 91–100
--- NOTE | 2024-04-17 10:45 | RT.EKG_ITS ---
APPROVED REPORT Exam: Resting ECG Reason for Exam: DIZZINESS Patient Location: E HR:122 bpm ECG Measurements Heart Rate 122 AXIS ME 132 P 61 QRSd 91 QRS 32 QT 312 T 239 QTc 445 Conclusion Sinus tachycardia...rate> 99 Multiple ventricular premature complexes...V complexes w/ short R-R intervls Repol abnrm suggests ischemia, anterolateral...ST dep, T neg, I aVL V2-V6
--- NOTE | 2024-04-17 11:08 | ED.GENADUL_ITS ---
Discharge Plan Disposition Patient Disposition: Home Condition: Stable Discharge Details Clinical Impression: Hypokalemia, Hypomagnesemia, COVID Primary Care Provider: Rayo Riley ED Provider: Karl Samuels [place] Meds and New Rx's Prescriptions: New potassium chloride 20 mEq tablet extended release 20 meq PO BID Qty: 30 0RF Continued acetaminophen 500 mg tablet 1,000 mg PO Q6H PRN aspirin 81 mg capsule 81 mg PO DAILY atorvastatin 40 mg tablet 40 mg PO DAILY docusate sodium 100 mg capsule 100 mg PO BID fluoxetine 20 mg capsule 40 mg PO DAILY Patient Comments: TAKE 2 CAPSULES ONE TIME DAILY ibuprofen 600 mg tablet 600 mg PO DAILY losartan 100 mg tablet 100 mg PO DAILY magnesium oxide 400 mg (241.3 mg magnesium) tablet 400 mg PO TID omeprazole 20 mg capsule,delayed release(DR/EC) 20 mg PO DAILY Patient Comments: TAKE 1 CAPSULE TWICE DAILY morphine 15 mg tablet extended release 15 mg PO BID therapeutic multivitamin Tablet 1 tab PO DAILY oxycodone 20 mg tablet 20 mg PO Q6H Patient Comments: 1-2 tabs q6h polyethylene glycol Powder 17 pwd miscellaneous DAILY Patient Comments: 17 grams PO daily prochlorperazine maleate 10 mg tablet 10 mg PO Q6H PRN Stiolto Respimat 2.5-2.5 mcg/actuation mist 2 inh inhalation DAILY triamcinolone acetonide 0.1 % ointment 1 applic TOPICAL DAILY PRN Discharge Instructions Instructions: Hypokalemia, Hypomagnesemia Additional Instructions: Your potassium and magnesium levels were found to be low but came up after repletion. You are positive for COVID Follow-up with your primary care provider or oncologist within 1 to 2 weeks If you feel more ill or have new symptoms such as severe difficulty breathing or persistent vomiting return to your closest emergency department HPI General Mode of arrival: wheelchair . Date/Time Provider Initiated Documentation: 04/17/24 10:49 . Limitations to Documentation: no limitations . Information obtained by: patient . History of Present Illness 68 year old M presents to the emergency department with the chief complaint of general weakness, not eating, described as moderate, Patient reports no radiation. and it has been constant. No relieving factors improve symptom(s), No exacerbating factors reported . Patient notes denies chest pain, fever/chills and shortness of breath. Patient did receive the following treatments prior to arrival, none Related Data Home Medications ?Medication ?Instructions ?Recorded ?Confirmed acetaminophen 500 mg tablet 1,000 mg PO Q6H PRN 04/17/24 04/17/24 aspirin 81 mg capsule 81 mg PO DAILY 04/17/24 04/17/24 atorvastatin 40 mg tablet 40 mg PO DAILY 04/17/24 04/17/24 docusate sodium 100 mg capsule 100 mg PO BID 04/17/24 04/17/24 fluoxetine 20 mg capsule 40 mg PO DAILY 04/17/24 04/17/24 ibuprofen 600 mg tablet 600 mg PO DAILY 04/17/24 04/17/24 losartan 100 mg tablet 100 mg PO DAILY 04/17/24 04/17/24 magnesium oxide 400 mg (241.3 mg 400 mg PO TID 04/17/24 04/17/24 magnesium) tablet morphine 15 mg tablet,extended 15 mg PO BID 04/17/24 04/17/24 release omeprazole 20 mg capsule,delayed 20 mg PO DAILY 04/17/24 04/17/24 release oxycodone 20 mg tablet 20 mg PO Q6H 04/17/24 04/17/24 polyethylene glycol 17 pwd miscellaneous DAILY 04/17/24 04/17/24 potassium chloride 20 mEq 20 meq PO BID #30 tabs 04/17/24 tablet,extended release prochlorperazine maleate 10 mg 10 mg PO Q6H PRN 04/17/24 04/17/24 tablet therapeutic multivitamin 1 tab PO DAILY 04/17/24 04/17/24 tiotropium 2.5 mcg-olodaterol 2.5 2 inh inhalation DAILY 04/17/24 04/17/24 mcg/actuation mist for inhalation (Stiolto Respimat) triamcinolone acetonide 0.1 % 1 applic topical DAILY PRN 04/17/24 04/17/24 topical ointment Previous Rx's ?Medication ?Instructions ?Recorded potassium chloride 20 mEq 20 meq PO BID #30 tabs 04/17/24 tablet,extended release Allergies Allergy/AdvReac Type Severity Reaction Status Date / Time penicillin G Allergy Intermediate Skin Rash Verified 04/17/24 11:07 black fly Allergy Intermediate Other (See Uncoded 04/17/24 11:07 Comment) General Stated Complaint: GenMedical GAVIN: 2 Review of Systems All systems reviewed & are unremarkable except as noted in HPI and below Constitutional Constitutional: Denies chills, Denies fever(s) and Reports weakness Cardiovascular Cardiovascular: Denies chest pain and Denies dyspnea Respiratory Respiratory: Denies cough and Denies dyspnea Gastrointestinal Gastrointestinal: Denies abdominal pain and Denies vomiting Integumentary/Breasts Skin/Breast: Denies rash Neurologic Neurologic: Reports weakness Exam Const General: no acute distress Orientation: alert HENOK Head: normal to inspection Ears: external ears normal General nose exam: external nose normal Mouth: mucous membranes dry Eyes General: appearance normal, both eyes and all related structures Neck Neck: normal visual inspection Resp Effort & Inspection: normal respiratory effort and able to speak in complete sentences Cardio Rate: regular rate GI Palpation: soft and nontender Skin General skin exam: no rashes or lesions noted Neuro General: patient alert and patient oriented x3 Extrem General: normal to inspection Psych Mental Status: mental status grossly normal Course Vital Signs Vital signs: Vital Signs Temperature 36.9 C 04/17/24 10:53 Pulse 125 H 04/17/24 10:53 Respiratory Rate 17 04/17/24 10:53 Blood Pressure 109/84 04/17/24 10:53 Pulse Oximetry 95 04/17/24 10:53 Temperature 36.9 C 04/17/24 10:53 Temperature Source Axillary 04/17/24 10:53 Pulse 125 H 04/17/24 10:53 Respiratory Rate 17 04/17/24 10:53 Blood Pressure 109/84 04/17/24 10:53 Pulse Oximetry 95 04/17/24 10:53 Oxygen Delivery Method Room Air 04/17/24 10:53 Oxygen Flow Rate 0 04/17/24 10:53 Pain Level 0 04/17/24 10:53 Medical Decision Making 68-year-old male with a history of lung cancer (nonsmall cell lung cancer) last chemotherapy 6 weeks ago and apparently was hospitalized at a hospital in [facility] for pneumonia 2 weeks ago comes in from the cancer center with general malaise and had labs done showing a low potassium and magnesium. He says he has had issues with nausea but has none today. He denies any fevers, difficulty breathing, abdominal, chest pain. He does appear thin, mucous membranes are dry, his abdomen is soft and nontender, clear lung sounds. Will check cta, ua and recheck cmp after he gets repletion. He is tachycardic as well, will check CTA to eval for PE vvs infiltrate. Spoke with provider at [facility] emergency department who states patient has lost a lot of weight recently so suspect he could be nearing end stage of his cancer. patient vomited the oral potassium, will add on ct abd/pelvis as well to exclude etiologies such as sbo Patient is stable and tolerating p.o. His repeat potassium after oral potassium 3.6 is suspected to 2.3 could have been falsely low as it was taken from his report. CTA does not show any PE or acute infiltrate does have evidence of cancer with lytic lesions in the bones. He is stable feels comfortable with discharge home. He has positive for COVID but has not requiring any oxygen. He says he is vaccinated for COVID I offered to start him on Paxlovid but he declined at this time. He will follow-up with his oncologist and PCP and return precautions given. Differential Diagnosis Differential Diagnosis: dehydration, electrolyte abnormality Imaging Data Radiologic Study: Attestation: I personally reviewed and interpreted this imaging study as follows: Imaging: CT Scan Radiologist's impression: MPRESSION: 1. No evidence of acute pulmonary emboli nor pulmonary infarction. 2. Abnormal left-sided lobulated pleural thickening over the posterior aspect of the left upper lobe and superior segment left lower lobe as well as within the upper aspect of the left major fissure. There is associated lytic destruction of the posterior aspect of the left 4th rib and possibly minimal similar involvement of the anterior cortex of the subjacent posterior aspect of the left 5th rib.Findings suspicious for neoplasm. There are no significant findings in the right lung. There is no obvious hilar nor mediastinal adenopathy. 3. No evidence of acute pulmonary emboli, as per request. 4. There are 2 large cysts in left kidney, with the larger of these 2 benign cysts measuring 75 x 55 x 45 mm. There is also nonobstructive 6 x 5 mm calculus in the lower pole the ipsilateral left kidney. No hydronephrosis nor hydroureter. 5. Diffusely thickened wall the urinary bladder although this may be exaggerated by under distension here. There are no radiopaque calculi in the bladder lumen evident. Prostate size appears normal. Findings as above. Lab Data Lab results reviewed: Yes I reviewed the patient's lab results. ECG Data Attestation: I personally reviewed and interpreted this ECG (s) as follows: Prior ECG tracings: not available for review Interpretation: sinus tachycardia rate of 122, pr 132, no stemi, oes have lateral depressions suspect he does have underlying coronary artery disease Quality:SDOH Health Related Social Needs: No Data to Display PFSH All Active Problems (Updated 04/17/24 @ 15:24 by Karl Samuels MD) COVID (Acute) Hypomagnesemia (Acute) Hypokalemia (Acute) Social History Smoking risk assessment performed?: No Do you feel safe at home: Yes Do you feel safe in your relationship?: Yes
[2024-04-17 11:39] LABS: Abs Immature Grans 0.07 10^3/uL (0.0-0.06); Absolute Basophil Count 0.05 10^3/uL (0.0-0.2); Absolute Eosinophil Count 0.08 10^3/uL (0.0-0.7); Absolute Monocyte Count 1.02 10^3/uL (0.1-0.8); Absolute Neutrophil Count 7.97 10^3/uL (1.2-6.7); Basophils % 0.5 %; Eosinophils % 0.8 %; HGB 13.7 g/dL (13.5-17.5); Immature Grans % 0.7 %; Lymphocytes % 8.9 %; MCHC 33.4 % (32.0-36.0); MCV 96 fL (80-95); MPV 11.1 fL (8.0-11.0); Monocytes % 10.1 %; Platelet Count 200 10^3/uL (130-400); RBC 4.28 10^6/uL (4.36-5.78); RDW 16.2 % (11.8-14.1); RDW-SD 57.5 fL; WBC 10.09 10^3/uL (4.4-10.8)
--- NOTE | 2024-04-17 11:45 | DI.CT_ITS ---
Exam(s) CT CHEST PE ABD PELVIS W EXAM: CT CHEST PE ABD PELVIS W CLINICAL HISTORY: tachycardia, vomiting, hx of lung cancer. TECHNIQUE: Imaging Protocol: Axial CT angiography was performed with multi-slice acquisition and m ulti-planar and/or 3D reconstructions. CONTRAST MATERIAL: Intravenous: Omnipaque 350 Contrast volume:100 ml Oral: None COMPARISON: No prior CT other exams were available for comparison FINDINGS: CHEST: PULMONARY ARTERIES: There are no intra-arterial filling defects to suggest the presence of acute pulm onary emboli. LUNGS: No significant right lung findings..There is pleural thickening noted posteriorly on the left side over the left upper lobe and superior segment left lower lobe as well as abnormal thickening wit hin the upper aspect of the left major fissure. There is lytic involvement of the posterior aspect o f the left 4th rib and less so of the left 5th rib over this area of abnormal pleural thickening. No other lytic osseous involvement seen in the field of view of this study. There is also some pleural based infiltrate over the superior lingular segment of the left lung, this not associated with overl kate rib destruction. No layering pleural effusion. No findings in the trachea and mainstem bronchi appear there are no pleural effusions. MEDIASTINUM: There is no hilar nor mediastinal adenopathy. Visualized thyroid unremarkable. CARDIAC: Heart size is normal. There is no pericardial effusion. There is no significant shift of t he interventricular septum.Caliber of the thoracic aorta is within normal limits. No evidence of aor tic dissection. OSSEOUS: Left rib destruction as described above. ABDOMEN: There is no ascites. LIVER: There are no focal hepatic lesions nor dilatation of intrahepatic ducts. GALLBLADDER/BILIARY: Gallbladder surgically absent . CBD is not dilated. PANCREAS: No evidence of pancreatic mass nor dilatation of the pancreatic duct. SPLEEN: Spleen is not enlarged. There are no intrasplenic lesions. Splenic and portal veins are mars nt. ADRENALS: There are no significant adrenal masses. KIDNEYS:Right kidney unremarkable. There are large cysts in the left kidney which are parapelvic and towards the inferior pole. The largest of these cysts measures 7.5 by 5.5 by 4.5 cm. There is also a calculus in the lower pole the left kidney which measures 6 x 5 mm. No calculi in the right kidne y. There are no solid renal masses. No hydronephrosis.. ABDOMINAL AORTA: Abdominal aorta is atherosclerotic. There is a mild fusiform infrarenal abdominal a ortic aneurysm in the distal abdominal aorta which exhibits maximum external diameter of 2.4 cm. Com mon iliac arteries are calcified but not enlarged. LYMPH NODES: There is no retroperitoneal or para-aortic adenopathy. ABDOMINAL WALL/GI: Fat only containing inguinal hernias. No bowel obstruction. PELVIS: LYMPH NODES: There is no intrapelvic nor inguinal adenopathy. GI: No evidence of appendicitis.Sigmoid diverticuli without obvious acute diverticulitis. URINARY BLADDER: Diffuse thickening of the urinary bladder wall but this may be exaggerated by signif icant under distension here. There are no radiopaque calculi in the urinary bladder. Pelvic ureters are not dilated. REPRODUCTIVE: Prostate size appears normal. Calcifications prostate noted. Seminal vesicles unremar kable. OSSEOUS: No significant osseous lesions. Mild height loss of anterior aspect of superior endplate of L3 noted. Appears chronic. IMPRESSION: 1. No evidence of acute pulmonary emboli nor pulmonary infarction. 2. Abnormal left-sided lobulated pleural thickening over the posterior aspect of the left upper lobe and superior segment left lower lobe as well as within the upper aspect of the left major fissure. T here is associated lytic destruction of the posterior aspect of the left 4th rib and possibly minimal similar involvement of the anterior cortex of the subjacent posterior aspect of the left 5th rib.Fin dings suspicious for neoplasm. There are no significant findings in the right lung. There is no obv ious hilar nor mediastinal adenopathy. 3. No evidence of acute pulmonary emboli, as per request. 4. There are 2 large cysts in left kidney, with the larger of these 2 benign cysts measuring 75 x 55 x 45 mm. There is also nonobstructive 6 x 5 mm calculus in the lower pole the ipsilateral left kidne y. No hydronephrosis nor hydroureter. 5. Diffusely thickened wall the urinary bladder although this may be exaggerated by under distension here. There are no radiopaque calculi in the bladder lumen evident. Prostate size appears normal. Findings as above. Report called by myself to ER physician following completion of this study 04/17/2024 RADIATION DOSE DELIVERED: 554.55mGy.cm Total DLP DATA REPOSITORY: All CT scans at this facility are submitted to the National Radiology Data Registry (NRDR) Dose Index Registry (DIR) with the [employer] (A[employer]). RADIATION OPTIMIZATION: All CT scans at this facility use at least one of these dose optimization te chniques: automated exposure control; mA and/or kV adjustment per patient size (includes targeted exa ms where dose is matched to clinical indication); or iterative reconstruction.
[2024-04-17] MEDS: MAGNESIUM SULFATE 2 GM/50 ML BAG IVINF (11:52)
[2024-04-17] MEDS: Normal Saline 1,000 ML 1000 ML IV (11:53)
[2024-04-17 11:54] LABS: INR 1.2 (0.9-1.1); PTT Activated 28.8 sec (23.6-32.8)
[2024-04-17] MEDS: Prochlorperazine 10 MG/2 ML VIAL IVP (12:00)
[2024-04-17 12:04] LABS: ALT 53 U/L (16-63); AST 41 U/L (15-37); Albumin 2.5 g/dL (3.4-5.0); Alkaline Phosphatase 146 U/L (46-116); BUN 29 mg/dL (7-18); Bilirubin, Total 0.43 mg/dL (0.2-1.0); CREATININE 1.2 mg/dL (0.70-1.30); Chloride 101 mmol/L (98-107); Estimated GFR 66.28 (mL/min/1.73m2); Glucose 166 mg/dL (74-106); Lipase 110 U/L (16-77); Sodium 140 mmol/L (136-145); TSH (W/Ref FT4) 1.33 uIU/mL (0.36-3.74); Total Protein 7.4 g/dL (6.4-8.2)
[2024-04-17 12:09] LABS: Potassium 2.3 mmol/L (3.5-5.1)
[2024-04-17 12:10] LABS: Procalcitonin 0.1 ng/mL
[2024-04-17] MEDS: Omnipaque 350 MG/ML 100 ML BTL IJ (12:10)
[2024-04-17 12:11] LABS: Calcium 9.4 mg/dL (8.5-10.1)
[2024-04-17 12:11] LABS: Bilirubin Moderate (Negative); Blood Negative (Negative); Clarity Clear (Clear); Glucose Negative (Negative); Ketones 15 mg/dL (Negative); Leukocyte Esterase Negative (Negative); Nitrite Negative (Negative); Specific Gravity >= 1.030 (1.005-1.025); Urobilinogen 0.2 mg/dL (Up to 0.2)
--- NOTE | 2024-04-17 12:16 | NUR.NOTE ---
Access pt [facility] chart to see if he has a power port placed. He does: Power-injectable, Medcomp Dignity Mini 8 F low profile single lumen port in right chest with tip in the mid right atrium. Nursing Note:
[2024-04-17 12:22] LABS: Epithelial Cells Rare HPF (Negative); RBC 0-2 HPF (0-2)
[2024-04-17 12:23] LABS: Bacteria Few HPF (Negative); Casts 0-2 Hyaline LPF (Negative); Mucus Moderate (Negative); Other Cells Few Spermatozoa (Negative)
[2024-04-17 12:24] LABS: C & S Indicated? No
[2024-04-17 12:25] LABS: Crystals Negative HPF (Negative)
[2024-04-17] MEDS: Normal Saline - Diluent 50 ML VIAL IJ (12:29)
[2024-04-17 12:44] LABS: Influenza A PCR Negative (Negative); Influenza B PCR Negative (Negative); RSV PCR Negative (Negative)
[2024-04-17 12:45] LABS: Source Nasopharynx
[2024-04-17 12:47] LABS: COVID-19 PCR Positive (Negative)
--- OUTSIDE RECORDS SUMMARY | 2024-04-17 12:52 | XMS_ITS | Encounter Summary ---
Author Organization [facility] Address [facility] Vincent [place] [address] Care Team Providers Care Bottom Liquor Attendant Name Role Phone Karl Quiroz MD Primary Care Provider [phone] Encounter Details Date Type Department Care Team (Late st Contact Info) Description 03/04/2024 10:20 AM EDT Ancillary Procedure Radiology Library at [place] [address] Lennox Spivey MD [facility] [place] [address] Social History Tobacco Use Types Packs/Day Years Used Date Smoking Tobacco: Some Days Cigarettes 0.3 57 Smokeless Tobacco: Current Comments:Quit 11/2023 Alcohol Use Standard Drinks/Week Comments Yes 7 (1 standard drink = 0.6 oz pure alcohol) 4oz rum with coke daily- varies [facility] Utilities Answer Date Recorded In the past 12 months has th e [employer], gas, oil, or water [employer] threatened to shut off services in your [...] the past [address] [facility], were you homeless or living in a fpc (including now)? No 12/21/2023 IPV Inpatient Questions [...] as of this encounter Plan of Treatment Not on file documented as of this encounter Procedures Procedure [...] Spivey MD IM FILM LIBRARY ORD ERABLES [place], [place] documented in this encounter Visit Diagnoses Not on filedocumented in this encounter Care Teams Bottom Liquor Attendant Relationship Specialty Start Date End Date Karl Quiroz MD [address] [place] [address] PCP - General Family Medicine 01/11/24 documented as of this encounter
--- OUTSIDE RECORDS SUMMARY | 2024-04-17 12:52 | XMS_ITS | Encounter Summary ---
Author Organization [facility] Address [facility] [place] [address] Care Team Providers Care Family Day Care Provider Name Role Phone Karl Quiroz MD Primary Care Provider [phone] Encounter Details Date Type Department Care Team ([facility] st Contact Info) Description 04/01/2024 Ancillary Procedure Radiology Library at [facility] [place] [address] Unknown None Social History Tobacco Use Types Packs/Day Years Used Date Smoking Tobacco: Every Day Cigarettes 0.3 57 Smokeless Tobacco: Current Comments:Quit 11/2023 Alcohol Use Standard Drinks/Week Comments Yes 7 (1 standard drink = 0.6 oz pure alcohol) 4oz rum with coke daily- varies [facility] Utilities Answer Date Recorded In the [...] in the past 12 m [facility], were you homeless or living in a [...] Diagnosis Comments FILM LIBRARY STORAGE ONLY CT ABDOMEN AND PELVIS Routine 04/01/2024 12:00 AM EDT documented in this encounter Results * Film Library- Storage Only CT Abdomen & Pelvis (04/01/2024 12:00 AM EDT) 04/14/2024 7:26 AM EDT Narrative LUCILA Nguyen 04/14/2024 7:27 AM EDT This exam is auto-finalizing. It's purpose is for storage only. Unknown IMG FILM LIBRARY ORD ERABLES [place] documented in this encounter Visit Diagnoses Not on filedocumented in this encounter Care Teams Family Day Care Provider Relationship Specialty Start Date End Date Karl Quiroz MD [address] [place] [address] PCP - General Family Medicine 01/11/24 documented as of this encounter
--- OUTSIDE RECORDS SUMMARY | 2024-04-17 12:52 | XMS_ITS | Encounter Summary ---
Author Organization [facility] Address [facility] [place] [address] Care Team Providers Care Tour Driver Name Role Phone Karl Quiroz MD Primary Care Provider [phone] Encounter Details Date Type Department Care Team (Late st Contact Info) Description 03/04/2024 Interpretation Only Radiology Library at [facility] [place] [id number] Lennox Spivey MD [facility] [place] [address] Social History Tobacco Use Types Packs/Day Years Used Date Smoking Tobacco: Some Days Cigarettes 0.3 57 Smokeless Tobacco: Current Comments:Quit 11/2023 Alcohol Use Standard Drinks/Week Comments Yes 7 (1 standard drink = 0.6 oz pure alcohol) 4oz rum with coke daily- varies [facility] Utilities Answer Date Recorded In the [...] in the past 12 m [facility], were you homeless or living in a [...] AM EDT) 03/04/2024 9:02 PM EDT Narrative [facility] - 03/04/2024 9:02 PM EDT This exam is auto-finalizing. It's purpose is for storage only. Lennox Spivey MD IMG FILM LIBRARY ORD ERABLES [facility] [place], [place] documented in this encounter Visit Diagnoses Not on filedocumented in this encounter Care Teams Tour Driver Relationship Specialty Start Date End Date Karl Quiroz MD [address] [place] [address] PCP - General Family Medicine 01/11/24 documented as of this encounter
--- OUTSIDE RECORDS SUMMARY | 2024-04-17 12:52 | XMS_ITS | Encounter Summary ---
Author Organization [facility] Address [facility] [place] [address] Care Team Providers Care Garbage Truck Driver Name Role Phone Karl Quiroz MD Primary Care Provider [phone] Reason for Visit * Reason Comments Chemotherapy Cycle 2, Day 1; Ipi/ Nivo * Treatment/Therapy Plan Authorization (Routine) - Authorized [...] bound (Abraxane) Lennox Spivey MD [facility] [address] [place] [address] Stj Hem Onc Infusion [address] [place] [id number] Referral ID Status Reason Start Date Expiration Date V isits Requested Visits Authorized [id number] Authorized 12/26/2023 12/25/2024 99 102 Encounter Details Date Type Department Care Team (Late st Contact Info) Description 03/11/2024 1:00 PM EDT Infusion Hematology Oncology at [address] [address] High risk medication use; Secondary malignant neoplasm of pleura; Stage 4 lung cancer, left Social History Tobacco Use Types Packs/Day Years Used Date Smoking Tobacco: Every Day Cigarettes 0.3 57 Smokeless Tobacco: Current Comments:Quit 11/2023 Alcohol Use Standard Drinks/Week Comments Yes 7 (1 standard drink = 0.6 oz pure alcohol) 4oz rum with coke daily- varies [facility] Utilities Answer Date Recorded In [...] as of this encounter Progress Notes * Vicki Pickard RN - 03/11/2024 1:00 PM EDT INFUSION THERAPY ADMINISTRATION NOTES DIAGNOSIS: Stage IV SCLC CYCLE #: Cycle 2, Day - Paclitaxel Protein-bound and magnesium. REASON FOR VISIT: To receive chemotherapy. SUBJECTIVE: Jeffrey is fatigued but states he is hungry and is looking forward to Hebrew food today. OBJECTIVE: Seen by provider. Ready to treat. LAB DATA: WBC - 5.81, Hg - 11.1, Plt Ct - 385, ANC - 4.04, Lytes wnl, BUN/Cr - 22/1.1, MG++ - 1.7 IV ACCESS: Port accessed off site. Flushes readily with brisk blood return. Pre administration: Chemotherapy orders independently verified for drug name, route, and dosage per patient's height, weight and BSA by Vicki Pickard, SUZY and Staff Pharmacist(s). REACTIONS (DESCRIPTION, TIME, INTERVENTION AND EFFECTIVENESS) none ASSESSMENT: Jeffrey was awake, alert and tolerated treatment well. Port flushed with 20 cc's of NS and de-accessed. PLAN: Return to clinic as schedule. 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 92.4 kg Treatment plan Recorded weight), Intravenous, ONCE, 1 dose, On Mon03/11/24 at 1500, Administer over 30 Minutes, Final concentration between 1-2 mg/mL. Flush line with NS after each dose. , This agent is restricted to outpatient use. Is this drug being given as an outpatient? Yes Given 03/11/2024 2:40 PM EDT 100 mg 140 mL/hr nivolumab (Opdivo) 360 mg in sodium chloride 0.9% 136 mL infusion 360 mg, Intravenous, ONCE, 1 dose, On Mon03/11/24 at 1430, Administer over 30 Minutes, Flush line with NS after each dose, This agent is restricted to outpatient use. Is this drug being given as an outpatient? Yes New Bag 03/11/2024 2:05 PM EDT 360 mg 272 mL/hr sodium chloride 0.9 % (flush) (BD PosiFlush Normal Saline 0.9) flush 5-20 mL 5-20 mL, Intravenous, EVERY 1 MIN PRN, Starting on Mon03/11/24 at 1302, Until Mon03/11/24 at 1833, Line Care, Flush pertains to all indwelling lines. Flush per protocol found in the job aid using the link provided on this medication record. Refer to Intravenous (IV) Job Aid: Adult Flushing & Catheter Care (2213) job aid for additional information regarding guidelines and administration., Routine Given 03/11/2024 3:09 PM EDT 20 mLs Given 03/11/2024 2:38 PM EDT 20 mLs documented in this encounter Care Teams Garbage Truck Driver Relationship Specialty Start Date End Date Karl Quiroz MD [address] [place] [phone] PCP - General Family Medicine 01/11/24 documented as of this encounter
--- OUTSIDE RECORDS SUMMARY | 2024-04-17 12:52 | XMS_ITS | Encounter Summary ---
Author Organization [facility] Address [facility] [place] [address] Care Team Providers Care Tunnel Elastic Operator Lockstitch Name Role Phone Karl Quiroz MD Primary Care Provider [phone] Encounter Details Date Type Department Care Team ([facility] st Contact Info) Description 04/01/2024 10:15 PM EDT Ancillary Procedure Radiology Library [place] [facility] [place] [address] Unknown None Social History Tobacco Use Types Packs/Day Years Used Date Smoking Tobacco: Every Day Cigarettes 0.3 57 Smokeless Tobacco: Current Comments:Quit 11/2023 Alcohol Use Standard Drinks/Week Comments Yes 7 (1 standard drink = 0.6 oz pure alcohol) 4oz rum with coke daily- varies [facility] Utilities Answer Date Recorded In the past 12 months has e electric, gas, oil, or water [employer] threatened to shut off services in your [...] in the past 12 m [facility], were you homeless or living in a skilled nursing (including now)? No 12/21/2023 IPV Inpatient Questions [...] FILM LIBRARY STORAGE ONLY DX CHEST Routine 04/01/2024 10:15 PM EDT documented in this encounter Results * Film Library- Storage Only DX Chest (04/01/2024 10:15 PM EDT) 04/14/2024 7:26 AM EDT Narrative LUCILA Nguyen 04/14/2024 7:26 AM EDT This exam is auto-finalizing. It's purpose is for storage only. Unknown IMG FILM LIBRARY ORD ERABLES BASILIA [place] documented in this encounter Visit Diagnoses Not on filedocumented in this encounter Care Teams Tunnel Elastic Operator Lockstitch Relationship Specialty Start Date End Date Karl Quiroz MD [address] [place] [phone] PCP - General Family Medicine 01/11/24 documented as of this encounter
--- OUTSIDE RECORDS SUMMARY | 2024-04-17 12:52 | XMS_ITS | Encounter Summary ---
Author Organization [facility] Address [facility] [place] [address] Care Team Providers Care Processing Clerk Name Role Phone Karl Quiroz MD Primary Care Provider [phone] Encounter Details Date Type Department Care Team (Latest Contact Info) Description 03/11/2024 Travel Social History Tobacco Use Types Packs/Day Years Used Date Smoking Tobacco: Every Day Cigarettes 0.3 57 Smokeless Tobacco: Current Comments:Quit 11/2023 Alcohol Use Standard Drinks/Week Comments Yes 7 (1 standard drink = 0.6 oz pure alcohol) 4oz rum with coke daily- varies [facility] Utilities Answer Date Recorded In the [...] any time in the past 12 m [facility], were you homeless or living in [...] on filedocumented in this encounter Care Teams Processing Clerk Relationship Specialty Start Date End Date Karl Quiroz MD [address] [place] [phone] PCP - General Family Medicine 01/11/24 documented as of this encounter
--- OUTSIDE RECORDS SUMMARY | 2024-04-17 12:52 | XMS_ITS | Encounter Summary ---
Author Organization [facility] Address [facility] [place] [address] Care Team Providers Care Business Project Manager Name Role Phone Karl Quiroz MD Primary Care Provider [phone] Encounter Details Date Type Department Care Team (Late st Contact Info) Description 04/03/2024 Telephone Hematology/Oncology at [address] [phone] Pratibha Haywood Social History Tobacco Use Types Packs/Day Years Used Date Smoking Tobacco: Every Day Cigarettes 0.3 57 Smokeless Tobacco: Current Comments:Quit 11/2023 Alcohol Use Standard Drinks/Week Comments Yes 7 (1 standard drink = 0.6 oz pure alcohol) 4oz rum with coke daily- varies [facility] Utilities Answer Date Recorded In the [...] any time in the past 12 m [facility], were you homeless or living [...] encounter Miscellaneous Notes * Telephone Encounter - Pratibha Haywood - 04/03/2024 9:50 AM EDT I received a call from Ciera at [facility]. She wanted to inform us that Jeffrey is current inpatient at [facility] with pneumonia. He will be going home (per pt request) on hospice 04/05. He would like to cancel all upcoming appointments. documented in this encounter Plan of Treatment Not on file documented as of this encounter Visit Diagnoses Not on filedocumented in this encounter Care Teams Business Project Manager Relationship Specialty Start Date End Date Karl Quiroz MD [address] [place] [phone] PCP - General Family Medicine 01/11/24 documented as of this encounter
--- OUTSIDE RECORDS SUMMARY | 2024-04-17 12:52 | XMS_ITS | Encounter Summary ---
Author Organization [facility] Address [facility] [place] [address] Care Team Providers Care Occupational Health Nurse Manager Name Role Phone Karl Quiroz MD Primary Care Provider [phone] Encounter Details Date Type Department Care Team (Late st Contact Info) Description 03/11/2024 Notes Only Hematology/Oncology at [address] [phone] Trupti Bray, RN Social History Tobacco Use Types Packs/Day Years Used Date Smoking Tobacco: Every Day Cigarettes 0.3 57 Smokeless Tobacco: Current Comments:Quit 11/2023 Alcohol Use Standard Drinks/Week Comments Yes 7 (1 standard drink = 0.6 oz pure alcohol) 4oz rum with coke daily- varies [facility] Utilities Answer Date Recorded In the [...] Progress Notes * Trupti Bray RN - 03/11/2024 1:24 PM EDT Clinical Research Nurse Note [place], [place] Miscellaneous lab kit draw for: Study Number:[id number] Description:Immune profiling for cancer Immunotherapy response Misc lab kit draw prior to infusion today. Date: 03/11/24 Time: 13:15 [ ] misc lab kit blood drawn from venipuncture performed by manager search [ ] medi port by manager search. [ x ] medi port was accessed by [facility] for SOC labs earlier today. Misc lab kit blood drawn from accessed port and flushed with 20 mls of saline per institutional policy. Specimens sent to : [x ] [facility] 4th floor pathology lab in cooler via city clerk [ ] Study ,via Fed ex per protocol requirements documented in this encounter Plan of Treatment Not on file documented as of this encounter Visit Diagnoses Not on filedocumented in this encounter Care Teams Occupational Health Nurse Manager Relationship Specialty Start Date End Date Karl Quirzo MD [address] [place] [phone] PCP - General Family Medicine 01/11/24 documented as of this encounter
--- OUTSIDE RECORDS SUMMARY | 2024-04-17 12:52 | XMS_ITS | Encounter Summary ---
Author Organization [facility] Address [facility] [place] [address] Care Team Providers Care Top Waddy Name Role Phone Karl Quiroz MD Primary Care Provider [phone] Reason for Visit * Reason Onset Date Comments Other 03/28/2024 transportation Encounter Details Date Type Department Care Team (Late st Contact Info) Description 03/28/2024 Telephone Hematology/Oncology at [address] [phone] Tammie Recinos, MATERIAL REQUISITIONER OFFICE OF CARE MANAGEMENT Other (transportation) Social History Tobacco Use Types Packs/Day Years Used Date Smoking Tobacco: Every Day Cigarettes 0.3 57 Smokeless Tobacco: Current Comments:Quit 11/2023 Alcohol Use Standard Drinks/Week Comments Yes 7 (1 standard drink = 0.6 oz pure alcohol) 4oz rum with coke daily- varies [facility] Utilities Answer Date Recorded In the past 12 months has e [employer], gas, oil, or water company threatened to [...] Notes * Telephone Encounter - Tammie Recinos, MATERIAL REQUISITIONER - 03/28/2024 1:11 PM EDT GALLO Murphy after receiving message from Lisy Ross, Research Financial Counselor yoni Murphy's request for help with transportation costs. Jeffrey has utilized a number of [employer] cards and funding for free rides. He has also gotten free rides from [facility] He has an appointment 04/10/24 at this facility. GALLO Murphy to discuss his needs. Jeffrey did report the free rides he has received from [employer] with [employer] but the community funding has dried up for that. He has received gas cards from other resources. He has received rides through [employer] at no cost too. He reports he tried to get a ride through [employer] for his 04/10/24 appointment but the volunteer diesel truck driver is not available. Jeffrey will be driving himself. MATERIAL REQUISITIONER will meet with Jeffrey to discuss his needs at his next visit. Updated MsNadege Ross of this. Brief assessment Financial resources Transportation resources documented in this encounter Plan of Treatment Not on file documented as of this encounter Visit Diagnoses Not on filedocumented in this encounter Care Teams Top Waddy Relationship Specialty Start Date End Date Karl Quiroz MD [address] [place] [phone] PCP - General Family Medicine 01/11/24 documented as of this encounter
--- OUTSIDE RECORDS SUMMARY | 2024-04-17 12:52 | XMS_ITS | Encounter Summary ---
Author Organization [facility] Address [facility] [place] [address] Care Team Providers Care Inventory Management Specialist Name Role Phone Karl Quiroz MD Primary Care Provider [phone] Reason for Visit * Reason Onset Date Comments Follow-up 04/05/2024 Pt going on hosp ice Encounter Details Date Type Department Care Team (Late st Contact Info) Description 04/05/2024 Telephone Hematology/Oncology at [address] [phone] Jazmine Gonzalez RN Follow-up (Pt going on hospice) Social History Tobacco Use Types Packs/Day Years Used Date Smoking Tobacco: Every Day Cigarettes 0.3 57 Smokeless Tobacco: Current Comments:Quit 11/2023 Alcohol Use Standard Drinks/Week Comments Yes 7 (1 standard drink = 0.6 oz pure alcohol) 4oz rum with coke daily- varies [facility] Utilities Answer Date Recorded In [...] in a fci (including now)? No 12/21/2023 IPV Inpatient Questions [...] encounter Miscellaneous Notes * Telephone Encounter - Jazmine Gonzalez RN - 04/05/2024 10:55 AM EDT Unable to speak with Jeffrey or his directly, left messages to return my call. Spoke with Christina ALMONTE from [facility] she states pt is being discharged to day on hospice. Providers updated via this note. documented in this encounter Plan of Treatment Not on file documented as of this encounter Visit Diagnoses Not on filedocumented in this encounter Care Teams Inventory Management Specialist Relationship Specialty Start Date End Date Karl Quiroz MD [address] [place] [address] PCP - General Family Medicine 01/11/24 documented as of this encounter
--- OUTSIDE RECORDS SUMMARY | 2024-04-17 12:52 | XMS_ITS | Encounter Summary ---
Author Organization [facility] Address [facility] [place] [address] Care Team Providers Care Road Gang Supervisor Name Role Phone Karl Quiroz MD Primary Care Provider [phone] Encounter Details Date Type Department Care Team ([facility] st Contact Info) Description 04/04/2024 Interpretation Only Radiology Library at [facility] [place] [phone] Unknown None Social History Tobacco Use Types Packs/Day Years Used Date Smoking Tobacco: Every Day Cigarettes 0.3 57 Smokeless Tobacco: Current Comments:Quit 11/2023 Alcohol Use Standard Drinks/Week Comments Yes 7 (1 standard drink = 0.6 oz pure alcohol) 4oz rum with coke daily- varies [facility] Utilities Answer Date Recorded In [...] time in the past 12 m [facility], were you homeless or living in [...] FILM LIBRARY STORAGE ONLY DX CHEST Routine 04/04/2024 4:00 PM EDT documented in this encounter Results * Film Library- Storage Only DX Chest (04/04/2024 4:00 PM EDT) 04/14/2024 7:26 AM EDT Narrative LUCILA Nguyen 04/14/2024 7:27 AM EDT This exam is auto-finalizing. It's purpose is for storage only. Unknown IMG FILM LIBRARY ORD ERABLES LUCILA [place] documented in this encounter Visit Diagnoses Not on filedocumented in this encounter Care Teams Road Gang Supervisor Relationship Specialty Start Date End Date Karl Quiroz MD [address] [place] [phone] PCP - General Family Medicine 01/11/24 documented as of this encounter
--- OUTSIDE RECORDS SUMMARY | 2024-04-17 12:52 | XMS_ITS | Encounter Summary ---
Author Organization [facility] Address [facility] [place] [address] Care Team Providers Care Tire Fabric Impregnating Range Tender Name Role Phone Karl Quiroz MD Primary Care Provider [phone] Encounter Details Date Type Department Care Team (Latest Contact Info) Description 02/19/2024 12:30 PM EDT Clinical Support Hematology/Oncology at [address] [phone] [address] [facility] DR [place] [address] Stage 4 lung cancer, left Social History Tobacco Use Types Packs/Day Years Used Date Smoking Tobacco: Some Days Cigarettes 0.3 57 Smokeless Tobacco: Current Comments:Quit 11/2023 Alcohol Use Standard Drinks/Week Comments Yes 7 (1 standard drink = 0.6 oz pure alcohol) 4oz rum with coke daily- varies [facility] Utilities Answer Date Recorded In the past 12 months has e [employer], gas, oil, or water company threatened to [...] any time in the past 12 m [facility], were you homeless or living in [...] stimulant. Did not discuss whether he contacted [place] [employer] as he voiced interest in this last week. Will continue to follow (next appointments not yet scheduled). RTC in [address] chest prior per Manfred Mccloud's note today. documented in this encounter Plan of Treatment Not on file documented as of this encounter Visit Diagnoses Diagnosis Stage 4 lung cancer, left documented in this encounter Care Teams Tire Fabric Impregnating Range Tender Relationship Specialty Start Date End Date Karl Quiroz MD [address] [place] [phone] PCP - General Family Medicine 01/11/24 documented as of this encounter
--- OUTSIDE RECORDS SUMMARY | 2024-04-17 12:52 | XMS_ITS | Encounter Summary ---
Author Organization [facility] Address [facility] [place] [address] Care Team Providers Care Ship Worker Name Role Phone Karl Quiroz MD Primary Care Provider [phone] Encounter Details Date Type Department Care Team (Late st Contact Info) Description 04/04/2024 4:00 PM EDT Ancillary Procedure Radiology Library at [facility] [place] [address] Unknown None Social History Tobacco Use Types Packs/Day Years Used Date Smoking Tobacco: Every Day Cigarettes 0.3 57 Smokeless Tobacco: Current Comments:Quit 11/2023 Alcohol Use Standard Drinks/Week Comments Yes 7 (1 standard drink = 0.6 oz pure alcohol) 4oz rum with coke daily- varies [facility] Utilities Answer Date Recorded In the past 12 months has e electric, gas, oil, or water [employer] threatened to shut off services in your [...] any time in the past 12 m [facility], were you homeless or living [...] IMG FILM LIBRARY ORD ERABLES BASILIA [place] documented in this encounter Visit Diagnoses Not on filedocumented in this encounter Care Teams Ship Worker Relationship Specialty Start Date End Date Karl Quiroz MD [address] [place] [phone] PCP - General Family Medicine 01/11/24 documented as of this encounter
--- OUTSIDE RECORDS SUMMARY | 2024-04-17 12:52 | XMS_ITS | Encounter Summary ---
Author Organization [facility] Address [facility] [place] [address] Care Team Providers Care House Fellow Name Role Phone Karl Quiroz MD Primary Care Provider [phone] Encounter Details Date Type Department Care Team ([facility] st Contact Info) Description 04/05/2024 [place] [address] Dylan Macdnoald, RN Social History Tobacco Use Types Packs/Day Years Used Date Smoking Tobacco: Every Day Cigarettes 0.3 57 Smokeless Tobacco: Current Comments:Quit 11/2023 Alcohol Use Standard Drinks/Week Comments Yes 7 (1 standard drink = 0.6 oz pure alcohol) 4oz rum with coke daily- varies [facility] Utilities Answer Date Recorded In the [...] encounter Miscellaneous Notes * Telephone Encounter - Dylan Macdonald RN - 04/05/2024 7:14 AM EDT Per Provider regarding the order for MRI Brain ordered 11/17/2023, Sharon Landry MD sent to [facility] Covid-19 Nurse Triage Dylan, It appears he is admitted with PNA and now going home with hospice so further imaging is no longer needed and may be candled, thank you so much! Sharon Donnelly documented in this encounter Plan of Treatment Not on file documented as of this encounter Visit Diagnoses Not on filedocumented in this encounter Care Teams House Fellow Relationship Specialty Start Date End Date Karl Quiroz MD [address] [place], [place] [phone] PCP - General Family Medicine 01/11/24 documented as of this encounter
--- OUTSIDE RECORDS SUMMARY | 2024-04-17 12:52 | XMS_ITS ---
Author Organization [facility] Address [facility] [place] [address] Care Team Providers Care Report Manager Name Role Phone Karl Quiroz MD Primary Care Provider [phone] Active Problems Problem Noted Date Diagnosed Date Stage 4 lung cancer, left 12/26/2023 Secondary malignant neoplasm of pleura High risk medication use 12/26/2023 Pleural mass 11/21/2023 Chest wall mass 11/21/2023 Current Oncology Plans [facility] ONC NONSMALL CELL LUNG CANCER - [...] cancer, left Treatment Medications Current Day (Day 2 2, Cycle 2 - Planned for 04/08/2024) Next Day (Day 1, Cycle 3 - Planned for 04/29/2024) CARBOplatin (Paraplatin) in 150 mL infusionipilimumab (Yervoy) in sodium chloride 0.9% 50 mL infusion (doses 91.6-137.5 mg)nivolumab (Opdivo) in sodium chloride 0.9% 100 mL infusionPACLitaxeL albumin-bound (Abraxane) nivolumab (Opdivo) 360 mg in sodium chloride 0.9% 136 mL infusion ipilimumab (Yervoy) 100 mg in sodium chloride 0.9% 70 mL infusionnivolumab (Opdivo) 360 mg in sodium chloride 0.9% 136 mL infusion Past Plans No past plan information found. Radiation Treatments * No radiation treatments are documented for this patient in [facility]. Treatments may have been administered in another system.
--- OUTSIDE RECORDS SUMMARY | 2024-04-17 12:52 | XMS_ITS | Encounter Summary ---
Author Organization [facility] Address [facility] [place] [address] Care Team Providers Care Development Engineer Name Role Phone Karl Quiroz MD Primary Care Provider [phone] Encounter Details Date Type Department Care Team ([facility] st Contact Info) Description 04/01/2024 Interpretation Only Radiology Library [place] [phone] Unknown None Social History Tobacco Use Types Packs/Day Years Used Date Smoking Tobacco: Every Day Cigarettes 0.3 57 Smokeless Tobacco: Current Comments:Quit 11/2023 Alcohol Use Standard Drinks/Week Comments Yes 7 (1 standard drink = 0.6 oz pure alcohol) 4oz rum with coke daily- varies [facility] Utilities Answer Date Recorded In the past [...] any time in the past 12 m [facility], were you homeless or [...] IMG FILM LIBRARY ORD ERABLES LUCILA [place] CT documented in this encounter Visit Diagnoses Not on filedocumented in this encounter Care Teams Development Engineer Relationship Specialty Start Date End Date Karl Quiroz MD [address] [place] [phone] PCP - General Family Medicine 01/11/24 documented as of this encounter
--- OUTSIDE RECORDS SUMMARY | 2024-04-17 12:52 | XMS_ITS | Encounter Summary ---
Author Organization [facility] Address [facility] [place] [address] Care Team Providers Care Actuarial Science Teacher Name Role Phone Karl Quiroz MD Primary Care Provider [phone] Encounter Details Date Type Department Care Team (Late st Contact Info) Description 03/04/2024 Orders Only Hematology/Oncology at [address] [phone] Bushra Muniz APRN [address] [place] [address] [place] [address] Social History Tobacco Use Types Packs/Day Years Used Date Smoking Tobacco: Some Days Cigarettes 0.3 57 Smokeless Tobacco: Current Comments:Quit 11/2023 Alcohol Use Standard Drinks/Week Comments Yes 7 (1 standard drink = 0.6 oz pure alcohol) 4oz rum with coke daily- varies [facility] Utilities Answer Date Recorded In the [...] any time in the past 12 m [facility], were you homeless or [...] on filedocumented in this encounter Care Teams Actuarial Science Teacher Relationship Specialty Start Date End Date Karl Quiroz MD [address] [place] [phone] PCP - General Family Medicine 01/11/24 documented as of this encounter
--- OUTSIDE RECORDS SUMMARY | 2024-04-17 12:52 | XMS_ITS | Encounter Summary ---
Author Organization [facility] Address [facility] [place] [address] Care Team Providers Care Chuck Wagon Cook Name Role Phone Karl Quiroz MD Primary Care Provider [phone] Encounter Details Date Type Department Care Team (Late st Contact Info) Description 02/12/2024 Orders Only Hematology Oncology at [address] [phone] Vicki Pickard RN Stage IV adenocarcinoma of lung, left; Cancer associated pain Social History Tobacco Use Types Packs/Day Years Used Date Smoking Tobacco: Former Cigarettes 0.3 57 Smokeless Tobacco: Never Comments:Quit 11/2023 Alcohol Use Standard Drinks/Week Comments Yes 7 (1 standard drink = 0.6 oz pure alcohol) 4oz rum with coke daily- varies [facility] Utilities Answer Date Recorded In the [...] any time in the past 12 m [facility], were you homeless or living in [...] associated pain Neoplasm related pain (acute) (chronic) documented in this encounter Care Teams Chuck Wagon Cook Relationship Specialty Start Date End Date Karl Quiroz MD [address] [place] [phone] PCP - General Family Medicine 01/11/24 documented as of this encounter
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
--- OUTSIDE RECORDS SUMMARY | 2024-04-17 12:52 | XMS_ITS | Encounter Summary ---
Author Organization [facility] Address [facility] [place] [address] Care Team Providers Care Unloader Name Role Phone Karl Quiroz MD Primary Care Provider [phone] Encounter Details Date Type Department Care Team (Latest Contact Info) Description 04/17/2024 Travel Social History Tobacco Use Types Packs/Day Years Used Date Smoking Tobacco: Former Cigarettes 0.3 57 Smokeless Tobacco: Current Comments:Quit 11/2023 Alcohol Use Standard Drinks/Week Comments Yes 7 (1 standard drink = 0.6 oz pure alcohol) 4oz rum with coke daily- varies [facility] Utilities Answer Date Recorded In the past [...] on filedocumented in this encounter Care Teams Unloader Relationship Specialty Start Date End Date Karl Quiroz MD [address] [place] [phone] PCP - General Family Medicine 01/11/24 documented as of this encounter
--- OUTSIDE RECORDS SUMMARY | 2024-04-17 12:52 | XMS_ITS | Clinical Summary ---
Author Organization [facility] Address [facility] [place] [address] Care Team Providers Care Herb Counselor Name Role Phone Karl Quiroz MD Primary Care Provider [phone] Allergies Active Allergy Reactions Criticality Noted Date [...] Take 1 tablet by mouth daily. Active tiotropium-olodatero L (Stiolto Respimat) 2.5-2.5 mcg/actuation Mist Inhale into [...] by mouth every 6 hours. 11/23/2023 Active Additional Information Patient not taking.Reported on 04/17/2024 senna (Senokot) 8.6 mg tablet Take 1 tablet by mouth every evening. 11/23/2023 Active Additional Information Patient not taking.Reported on 04/17/2024 polyethylene glycoL (Miralax) 17 gram oral powder packet Take 17 g by mouth daily. 11/23/2023 Active Additional Information Patient not taking.Reported on 04/17/2024 acetaminophen (Tylenol) 650 mg ER tablet Take 650 mg by mouth every 8 hours as needed for Pain. Do not exceed 6 tabs in 24 hours Active docusate sodium (Colace) 100 mg capsule Take 100 mg by mouth 2 times daily. Active FLUoxetine (PROzac) 20 mg capsule Take 40 mg by mouth Daily @ 0600. Active magnesium oxide (Mag-Ox) 400 mg (241.3 mg magnesium) TabletIndications:Hy pomagnesemia Take 1 tablet by mouth 3 times daily. 90 tablet 3 02/19/2024 Active Additional Information Patient not taking.Reported on 04/17/2024 prochlorperazine (Compazine) 10 mg tablet Take 1 tablet by mouth every 6 hours as needed for Nausea. 30 tablet 3 03/04/2024 Active morphine CR (MS Contin) 15 mg ER tabletIndications:Ca ncer associated pain Take 1 tablet by mouth 2 times daily. 56 tablet 04/08/2024 Active oxyCODONE (Roxicodone) 20 mg tabletIndications:St age IV adenocarcinoma of lung, left Take 1-2 tablets by mouth every 6 hours as needed for Pain. 220 tablet 04/08/2024 Active Active Problems Problem Noted Date Diagnosed Date Stage 4 lung cancer, left 12/26/2023 Secondary malignant neoplasm of pleura High risk medication use 12/26/2023 Pleural mass 11/21/2023 Chest wall mass 11/21/2023 Encounters Date Type Department Care Team Description 04/17/2024 10:30 AM EDT Infusion Hematology Oncology at [address] [phone] Arrived 04/17/2024 10:00 AM EDT Office Visit Hematology/Oncolo gy at [address] [phone] Bushra Muniz APRN Stage IV adenocarcinoma of lung, left 04/17/2024 Travel 04/08/2024 Orders Only Hematology/Oncolo gy at [address] [phone] Bushra Muniz APRN Cancer associated pain; Stage IV adenocarcinoma of lung, left 04/05/2024 Telephone Hematology/Oncolo gy at [address] [phone] Jazmine Gonzalez, SUZY Follow-up (Pt going on hospice) 04/05/2024 [place] [phone] Dylan Macdonald RN 04/04/2024 4:00 PM EDT Ancillary Procedure Radiology Library at [facility] [place] [address] Unknown 04/04/2024 Interpretation Only Radiology Library at [facility] [place] [address] Unknown 04/03/2024 Telephone Hematology/Oncolo gy at [address] [phone] Pratibha Haywood 04/01/2024 10:15 PM EDT Ancillary Procedure Radiology Library at [facility] [place] [address] Unknown 04/01/2024 Ancillary Procedure Radiology Library at [facility] [place] [address] Unknown 04/01/2024 Interpretation Only Radiology Library at [facility] [place] [address] Unknown 04/01/2024 Interpretation Only Radiology Library at [facility] [place] [address] Unknown 03/28/2024 Travel 03/28/2024 Telephone Hematology/Oncolo gy at [address] [phone] Tammie Recinos, STRAW HAT MACHINE OPERATOR Other (transportation) 03/28/2024 Notes [place] [phone] Lisy Laura 03/15/2024 Telephone Hematology/Oncolo gy at [address] [phone] Malcolm Wei RN Questions 03/11/2024 1:00 PM EDT Infusion Hematology Oncology at [address] [phone] High risk medication use; Secondary malignant neoplasm of pleura; Stage 4 lung cancer, left 03/11/2024 12:30 PM EDT Office Visit Hematology/Oncolo gy at [address] [phone] Lennox Spivey MD Stage 4 lung cancer, left; Secondary malignant neoplasm of pleura; Cancer associated pain; Stage IV adenocarcinoma of lung, left 03/11/2024 Notes Only Hematology/Oncolo gy at [address] [phone] Trupti Bray RN 03/11/2024 Travel 03/04/2024 10:20 AM EDT Ancillary Procedure Radiology Library at [facility] [place] [address] Lennox Spivey MD 03/04/2024 Interpretation Only Radiology Library at [facility] [place] [address] Lennox Spivey MD 03/04/2024 Orders Only Hematology/Oncolo gy at [address] [phone] Bushra Mnuiz APRN 02/19/2024 12:30 PM EDT Infusion Hematology Oncology at [address] [phone] High risk medication use; Secondary malignant neoplasm of pleura; Stage 4 lung cancer, left; Hypomagnesemia 02/19/2024 12:30 PM EDT Clinical Support Hematology/Oncolo gy at [address] [phone] Rachel Frost, RD Stage 4 lung cancer, left 02/19/2024 12:00 PM EDT Office Visit Hematology/Oncolo gy at [address] [phone] Bushra Muniz, COUNTY RECORDS MANAGEMENT OFFICER Trupti Bray RN Stage IV adenocarcinoma of lung, left; Hypomagnesemia 02/19/2024 Notes Only Hematology/Oncolo gy at [address] [phone] Tammie Recinos, STRAW HAT MACHINE OPERATOR 02/19/2024 Travel 02/12/2024 11:30 AM EDT Infusion Hematology Oncology at [address] [place] [phone] High risk medication use; Secondary malignant neoplasm of pleura; Stage 4 lung cancer, left 02/12/2024 Orders Only Hematology Oncology at [address] [place] [phone] Vicki Pickard RN Stage IV adenocarcinoma of lung, left; Cancer associated pain 02/12/2024 Unscheduled Encounter Hematology/Oncolo gy at [address] [place] [phone] Rachel Frost, RD Stage 4 lung cancer, left 02/12/2024 Travel 02/05/2024 12:00 PM EDT Clinical Support Hematology/Oncolo gy at [address] [place] [phone] Rachel Frost, RD Stage 4 lung cancer, left 02/05/2024 11:30 AM EDT Infusion Hematology Oncology at [address] [place] [phone] Hypotension, unspecified hypotension type 02/05/2024 11:00 AM EDT Office Visit Hematology/Oncolo gy [place] [address] [place] [phone] Lennox Spivey MD LaRoza, Stephanie A, COUNTY RECORDS MANAGEMENT OFFICER Stage 4 lung cancer, left; Hypotension, unspecified hypotension type 02/05/2024 Notes Only Hematology/Oncolo gy at [address] [place] [phone] Tammie Recinos, STRAW HAT MACHINE OPERATOR 02/05/2024 Travel 01/24/2024 10:30 AM EDT TH Visit (TeleHealth) Radiation Oncology at [address] [place] [address] Beto Braswell MD Non-small cell lung cancer, left 01/22/2024 9:30 AM EDT Clinical Support Hematology/Oncolo gy at [address] [phone] Rachel Frost, RD Stage 4 lung cancer, left 01/22/2024 8:30 AM EDT Infusion Hematology Oncology at [address] [phone] High risk medication use; Secondary malignant neoplasm of pleura; Stage 4 lung cancer, left; Dehydration 01/22/2024 8:00 AM EDT Office Visit Hematology/Oncolo gy at [address] [phone] Lennox Spivey MD LaRoza, Stephanie A, COUNTY RECORDS MANAGEMENT OFFICER Stage 4 lung cancer, left; Dehydration 01/22/2024 Notes Only Hematology/Oncolo gy at [address] [phone] Tammie Recinos, STRAW HAT MACHINE OPERATOR 01/22/2024 Travel 01/16/2024 Telephone Hematology/Oncolo gy at [address] [phone] Malcolm Wei, SUZY Follow-up from Last 3 Months Family History Medical History Relation Comments Bladder Cancer Father Leukemia Father Type 2 Diabetes Father Cancer Maternal Grandfather Relation Status Comments Father Maternal Grandfather Social History Tobacco Use Types Packs/Day Years Used Date Smoking Tobacco: Former Cigarettes 0.3 57 Smokeless Tobacco: Current Tobacco Cessation:Ready to Q uit: Not Asked; Counseling Given: Not Answered Comments:Quit 11/2023 Alcohol Use Standard Drinks/Week Comments Yes 7 (1 standard drink = 0.6 oz pure alcohol) 4oz rum with coke daily- varies [facility] Utilities Answer Date Recorded In the past 12 months has e electric, gas, oil, or water [employer] threatened to shut off services in your [...] any time in the past 12 m [facility], were you homeless or living [...] Sign Reading Time Taken Comments Blood Pressure 102/70 04/17/2024 9:47 AM EDT Pulse 135 04/17/2024 9:47 AM EDT Temperature 36 ??C (96.8 ??F) 04/17/2024 9:47 AM EDT Respiratory Rate 16 04/17/2024 9:47 AM EDT Oxygen Saturation 97% 04/17/2024 9:47 AM EDT Inhaled Oxygen Concentration - - Weight 70 kg (154 lb 5.2 oz) 04/17/2024 9:47 AM EDT Height 171 cm (5' 7.32) 04/17/2024 9:47 AM EDT Body Mass Index 23.94 04/17/2024 9:47 AM EDT Plan of Treatment Health Maintenance Due Date Last Done Comments CT Colonography 1956 Colonoscopy 1956 Colorectal Cancer Screening 1956 FIT DNA 1956 FIT 1956 Sigmoidoscopy (10 year) with FIT yearly 1956 Sigmoidoscopy 1956 Hepatitis C Screening 1974 Tdap adult 1975 Tetanus vaccine 1975 Zoster vaccine (1 of 2) 2006 Advance Directive 2011 AAA Screen 2021 Pneumoccocal Vaccine: 65+ (1 of 1 - PCV) 2021 Covid-19 Vaccine (1 - season) 2024 Influenza (Flu) vaccine (1 o f 1 - Influenza standard series) 03/31/2024 Diabetes Screening (HgbA1C or Glucose) Discontinued , 11/22/2023 Medical Devices Implanted Type Area Electronic Technologist Device Identifier Shelf Expiration Date Model / Serial / Lot [facility]-2023 Implanted:Qty: 1 on 01/08/2024 by Alpesh Melendrez PA [facility] Right: Chest Wall / / [id number] Description:[id number] Mi dsized CT Port Procedures Procedure Name Priority Date/Time Associated Diagnosis Comments LAB SCAN 04/17/2024 12:00 AM EDT FILM LIBRARY STORAGE ONLY DX CHEST Routine 04/04/2024 4:00 PM EDT FILM LIBRARY STORAGE ONLY DX CHEST Routine 04/01/2024 10:15 PM EDT FILM LIBRARY STORAGE ONLY CT ABDOMEN AND PELVIS Routine 04/01/2024 12:00 AM EDT LAB SCAN 03/11/2024 12:[address] SCAN (SCAN) 03/07/2024 12:00 AM EDT FILM LIBRARY STORAGE ONLY CT CHEST Routine 03/04/2024 10:20 AM EDT LAB SCAN 02/19/2024 12:00 AM EDT LAB SCAN 02/12/2024 12:00 AM EDT LAB SCAN 02/05/2024 12:00 AM EDT LAB SCAN 01/22/2024 12:00 AM EDT LAB SCAN 01/16/2024 12:00 AM EDT COMPREHENSIVE METABOLIC PANEL STAT 12/21/2023 11:14 AM EDT Stage 4 lung cancer, left from Last 3 Months or Most Recently Relevant to Health Maintenance Results * Scan Doc: Lab (04/17/2024 12:00 AM EDT) Only the most recent of7 resultswithin the time period is included. Narrative 04/17/2024 12:00 AM EDT Ordered by an unspecified provider. Scanning Provider MEDIA MGR SCAN EXT O RDR/RSLT * Film Library- Storage Only DX Chest (04/04/2024 4:00 PM EDT) Only the most recent of2 resultswithin the time period is included. 04/14/2024 7:26 AM EDT Narrative [facility] - 04/14/2024 7:27 AM EDT This exam is auto-finalizing. It's purpose is for storage only. Unknown IMG FILM LIBRARY ORD ERABLES [place], [place] * Film Library- Storage Only CT Abdomen & Pelvis (04/01/2024 12:00 AM EDT) 04/14/2024 7:26 AM EDT Narrative [facility] - 04/14/2024 7:27 AM EDT This exam is auto-finalizing. It's purpose is for storage only. Unknown [facility] FILM LIBRARY ORD ERABLES Performing Organization Address [facility] de Phone Number [place], [place] * Scan Doc: CT Scan (03/07/2024 12:00 AM EDT) Anatomical Region Laterality Modality Other Narrative 03/07/2024 12:00 AM EDT Ordered by an unspecified provider. Scanning Provider MEDIA MGR SCAN EXT O RDR/RSLT * Film Library- Storage Only CT Chest (03/04/2024 10:20 AM EDT) 03/04/2024 9:02 PM EDT Narrative [facility] - 03/04/2024 9:02 PM EDT This exam is auto-finalizing. It's purpose is for storage only. Lennox Spivey MD [facility] [employer] ORD [employer] Performing Organization Address [facility] Co de Phone Number [place], [place] * (ABNORMAL) Comprehensive metabolic panel (non-fasting) (12/21/2023 [...] CHEMISTRY ORDERABL ES [facility] [place] [address] from Last 3 Months or Most Recently Relevant to Health Maintenance Advance Directives * Attempt Cardiopulmonary Resuscitation - [...] Status decision made by: Patient Care Teams Herb Counselor Relationship Specialty Start Date End Date Karl Quiroz MD [address] [place] [phone] PCP - General Family Medicine 01/11/24
--- OUTSIDE RECORDS SUMMARY | 2024-04-17 12:52 | XMS_ITS | Encounter Summary ---
Author Organization [facility] Address [facility] [place] [address] Care Team Providers Care Insolvency Consultant Name Role Phone Karl Quiroz MD Primary Care Provider [phone] Reason for Visit * Reason Comments Chemotherapy [...] [facility] [place] [address] Stj Hem Onc Infusion [address] [place] [phone] Referral ID Status Reason Start Date Expiration Date V isits Requested Visits Authorized [id number] Authorized 12/26/2023 12/25/2024 99 102 Encounter Details Date Type Department Care Team (Late st Contact Info) Description 02/19/2024 12:30 PM EDT Infusion Hematology Oncology at [address] [phone] High risk medication use; Secondary malignant neoplasm of pleura; Stage 4 lung cancer, left; Hypomagnesemia Social History Tobacco Use Types Packs/Day Years Used Date Smoking Tobacco: Some Days Cigarettes 0.3 57 Smokeless Tobacco: Current Comments:Quit 11/2023 Alcohol Use Standard Drinks/Week Comments Yes 7 (1 standard drink = 0.6 oz pure alcohol) 4oz rum with coke daily- varies [facility] Utilities Answer Date Recorded In the [...] is hungry and is looking forward to Japanese food today. OBJECTIVE: Seen by provider. Ready [...] patient's height, weight and BSA by Cecilia Ochoa RN and Staff Pharmacist(s). REACTIONS (DESCRIPTION, TIME, [...] cancer, left Hypomagnesemia Disorders of magnesium metabolism documented in this encounter Administered Medications Inactive Administered Medications - up to 3 most recent administrations Medication Order MAR Action Action Date Dose Rate Site magnesium sulfate 2 g in sterile water 50 mL infusion 2 g, Intravenous, ONCE, 1 dose, On 02/19/24 at 1230, Administer over 120 Minutes New [...] Job Aid: Adult Flushing & Catheter Care (1447) job aid for additional information regarding guidelines and administration., Routine Given 02/19/2024 3:13 PM EDT 20 mLs documented in this encounter Care Teams Insolvency Consultant Relationship Specialty Start Date End Date Karl Quiroz MD [address] [place] [phone] PCP - General Family Medicine 01/11/24 documented as of this encounter
--- OUTSIDE RECORDS SUMMARY | 2024-04-17 12:52 | XMS_ITS | Encounter Summary ---
Author Organization [facility] Address [facility] [place] [address] Care Team Providers Care Metal Coater Operator Name Role Phone Karl Quiroz MD Primary Care Provider [phone] Encounter Details Date Type Department Care Team (Late st Contact Info) Description 02/19/2024 Notes Only Hematology/Oncology at [address] [phone] Tammie Recinos, [facility] OFFICE OF CARE MANAGEMENT Social History Tobacco Use Types Packs/Day Years Used Date Smoking Tobacco: Some Days Cigarettes 0.3 57 Smokeless Tobacco: Current Comments:Quit 11/2023 Alcohol Use Standard Drinks/Week Comments Yes 7 (1 standard drink = 0.6 oz pure alcohol) 4oz rum with coke daily- varies [facility] Utilities Answer Date Recorded In [...] in a correction (including now)? No 12/21/2023 IPV Inpatient Questions [...] Jeffrey indicated he got a ride from [facility] [employer] as they have another long distance transfer driver. He was informed the funding to [...] on filedocumented in this encounter Care Teams Metal Coater Operator Relationship Specialty Start Date End Date Karl Quiroz MD [address] [place] [phone] PCP - General Family Medicine 01/11/24 documented as of this encounter
--- OUTSIDE RECORDS SUMMARY | 2024-04-17 12:52 | XMS_ITS | Encounter Summary ---
Author Organization [facility] Address [facility] [place] [address] Care Team Providers Care Senior Database Programmer Name Role Phone Karl Quiroz MD Primary Care Provider [phone] Encounter Details Date Type Department Care Team (Late st Contact Info) Description 04/17/2024 10:00 AM EDT Office Visit Hematology/Oncology at [address] [phone] Bushra Muniz APRN [address] [place] [address] DR HEMATOLOGY AND ONCOLOGY [place], [place] [id number] Stage IV adenocarcinoma of lung, left Social History Tobacco Use Types Packs/Day Years Used Date Smoking Tobacco: Former Cigarettes 0.3 57 Smokeless Tobacco: Current Tobacco Cessation:Ready to Q uit: Not Asked; Counseling Given: Not Answered Comments:Quit 11/2023 Alcohol Use Standard Drinks/Week Comments Yes 7 (1 standard drink = 0.6 oz pure alcohol) 4oz rum with coke daily- varies [facility] Utilities Answer Date Recorded In the past 12 months has [employer], gas, oil, or water [employer] threatened to shut off services in your [...] any time in the past 12 m [facility], were you homeless or living in a [...] Mass Index 23.94 04/17/2024 9:47 AM EDT documented in this encounter Plan of Treatment Not on file documented as of this encounter Visit Diagnoses Diagnosis Stage IV adenocarcinoma of lung, left documented in this encounter Care Teams Senior Database Programmer Relationship Specialty Start Date End Date Karl Quiroz MD [address] [place] [phone] PCP - General Family Medicine 01/11/24 documented as of this encounter
--- OUTSIDE RECORDS SUMMARY | 2024-04-17 12:52 | XMS_ITS | Encounter Summary ---
Author Organization [facility] Address [facility] [place] [address] Care Team Providers Care Software Consultant Name Role Phone Karl Quiroz MD Primary Care Provider Reason for Visit * Reason Onset Date Comments Questions 03/15/2024 Encounter Details Date Type Department Care Team (Late st Contact Info) Description 03/15/2024 Telephone Hematology/Oncology at [address] [phone] Malcolm Wei RN Questions Social History Tobacco Use Types Packs/Day Years Used Date Smoking Tobacco: Every Day Cigarettes 0.3 57 Smokeless Tobacco: Current Comments:Quit 11/2023 Alcohol Use Standard Drinks/Week Comments Yes 7 (1 standard drink = 0.6 oz pure alcohol) 4oz rum with coke daily- varies [facility] Utilities Answer Date Recorded In the [...] in a long-term (including now)? No 12/21/2023 IPV Inpatient Questions [...] Telephone Encounter - Malcolm Wei RN - 03/15/2024 4:58 PM EDT Called and LM for pt to return call to discuss. ----- Message from Petty Bliss sent at 03/15/2024 2:56 PM EDT ----- Jeffrey called in with complaints of his hair falling out in clumps, he would like to know if this is normal now that he is on the immunotherapy. Best call back number [phone] documented in this encounter Plan of Treatment Not on file documented as of this encounter Visit Diagnoses Not on filedocumented in this encounter Care Teams Software Consultant Relationship Specialty Start Date End Date Karl Quiroz MD [address] [place] [phone] PCP - General Family Medicine 01/11/24 documented as of this encounter
--- OUTSIDE RECORDS SUMMARY | 2024-04-17 12:52 | XMS_ITS | Encounter Summary ---
Author Organization [facility] Address [facility] [place] [address] Care Team Providers Care Knitted Goods Shaper Name Role Phone Karl Quiroz MD Primary Care Provider [phone] Encounter Details Date Type Department Care Team ([facility] st Contact Info) Description 04/01/2024 Interpretation Only Radiology Library at [facility] [place] [phone] Unknown None Social History Tobacco Use Types Packs/Day Years Used Date Smoking Tobacco: Every Day Cigarettes 0.3 57 Smokeless Tobacco: Current Comments:Quit 11/2023 Alcohol Use Standard Drinks/Week Comments Yes 7 (1 standard drink = 0.6 oz pure alcohol) 4oz rum with coke daily- varies [facility] Utilities Answer Date Recorded In the past [...] IMG FILM LIBRARY ORD ERABLES [place]UCILA [place] documented in this encounter Visit Diagnoses Not on filedocumented in this encounter Care Teams Knitted Goods Shaper Relationship Specialty Start Date End Date Karl Quiroz MD [address] [place] [address] PCP - General Family Medicine 01/11/24 documented as of this encounter
--- OUTSIDE RECORDS SUMMARY | 2024-04-17 12:52 | XMS_ITS | Encounter Summary ---
Author Organization [facility] Address [facility] [place] [address] Care Team Providers Care Suture Winder Hand Name Role Phone Karl Quiroz MD Primary Care Provider [phone] Encounter Details Date Type Department Care Team (Latest Contact Info) Description 02/12/2024 Unscheduled Encounter Hematology/Oncology at [address] [phone] [facility] [place] [address] Stage 4 lung cancer, left Social History Tobacco Use Types Packs/Day Years Used Date Smoking Tobacco: Former Cigarettes 0.3 57 Smokeless Tobacco: Never Comments:Quit 11/2023 Alcohol Use Standard Drinks/Week Comments Yes 7 (1 standard drink = 0.6 oz pure alcohol) 4oz rum with coke daily- varies [facility] Utilities Answer Date Recorded [...] lately. He ate 3 eggs and an saudi arabian muffin this morning. Taking compazine in the [...] Eating more eggs (3 eggs and an saudi arabian muffin this morning). Also ate 1/2 sub [...] contact info for [employer] in [place], [place] as patient requested. Provided 20 bottles vanilla Ensure Complete. His insurance does not cover this. Suggested buying [employer] brand. Encouraged continuing with regular meals/snacks plus supplementing with Ensure (drinking 2-3 bottles/day). Will f/u on 02/18. documented in this encounter Plan of Treatment Not on file documented as of this encounter Visit Diagnoses Diagnosis Stage 4 lung cancer, left documented in this encounter Care Teams Suture Winder Hand Relationship Specialty Start Date End Date Karl Quiroz MD [address] [place] [phone] PCP - General Family Medicine 01/11/24 documented as of this encounter
--- OUTSIDE RECORDS SUMMARY | 2024-04-17 12:52 | XMS_ITS | Encounter Summary ---
Author Organization [facility] Address [facility] [place] [address] Care Team Providers Care Trimmer Sawyer Name Role Phone Karl Quiroz MD Primary Care Provider [phone] Reason for Visit * Treatment/Therapy Plan Authorization [...] [facility] [place] [address] Stj Hem Onc Infusion [address] [place] [phone] Referral ID Status Reason Start Date Expiration Date V isits Requested Visits Authorized [id number] Authorized 12/26/2023 12/25/2024 99 102 Encounter Details Date Type Department Care Team (Late st Contact Info) Description 04/17/2024 10:30 AM EDT Infusion Hematology Oncology at [address] [phone] Arrived Social History Tobacco Use Types Packs/Day Years Used Date Smoking Tobacco: Former Cigarettes 0.3 57 Smokeless Tobacco: Current Comments:Quit 11/2023 Alcohol Use Standard Drinks/Week Comments Yes 7 (1 standard drink = 0.6 oz pure alcohol) 4oz rum with coke daily- varies [facility] Utilities Answer Date Recorded In [...] on filedocumented in this encounter Care Teams Trimmer Sawyer Relationship Specialty Start Date End Date Karl Quiroz MD [address] [place] [address] PCP - General Family Medicine 01/11/24 documented as of this encounter
--- OUTSIDE RECORDS SUMMARY | 2024-04-17 12:52 | XMS_ITS | Encounter Summary ---
Author Organization [facility] Address [facility] [place] [address] Care Team Providers Care Senior Data Integration Developer Name Role Phone Karl Quiroz MD Primary Care Provider [phone] Encounter Details Date Type Department Care Team [...] any time in the past 12 m [facility], were you homeless or living in a jail (including now)? No 12/21/2023 DH IPV Inpatient [...] filedocumented in this encounter Care Teams Senior Data Integration Developer Relationship Specialty Start Date End Date Karl Quiroz MD [address] [place] [phone] PCP - General Family Medicine 01/11/24 documented as of this encounter
--- OUTSIDE RECORDS SUMMARY | 2024-04-17 12:52 | XMS_ITS | Encounter Summary ---
Author Organization [facility] Address [facility] [place] [address] Care Team Providers Care Hay Farmer Name Role Phone Karl Quiroz MD Primary Care Provider [phone] Encounter Details Date Type Department Care Team (Late st Contact Info) Description 04/08/2024 Orders Only Hematology/Oncology at [address] [phone] Bushra Muniz APRN [address] [place] [address] DR HEMATOLOGY [place] [address] Cancer associated pain; Stage IV adenocarcinoma of lung, left Social History Tobacco Use Types Packs/Day Years Used Date Smoking Tobacco: Every Day Cigarettes 0.3 57 Smokeless Tobacco: Current Comments:Quit 11/2023 Alcohol Use Standard Drinks/Week Comments Yes 7 (1 standard drink = 0.6 oz pure alcohol) 4oz rum with coke daily- varies [facility] Utilities Answer Date Recorded In the past 12 months has [employer], gas, oil, or water [employer] threatened to shut off services in your [...] left documented in this encounter Care Teams Hay Farmer Relationship Specialty Start Date End Date Karl Quiroz MD [address] [place] [phone] PCP - General Family Medicine 01/11/24 documented as of this encounter
--- OUTSIDE RECORDS SUMMARY | 2024-04-17 12:52 | XMS_ITS | Encounter Summary ---
Author Organization [facility] Address [facility] [place] [address] Care Team Providers Care Parliamentary Archivist Name Role Phone Karl Quiorz MD Primary Care Provider [phone] Reason for Referral * Diagnostic Test (Routine) - Closed Specialty Diagnoses / Procedures Referred By Elieser lock Referred To Contact Radiology Diagnoses Stage IV adenocarcinoma of lung, left Procedures CT Chest w Contrast Bushra Muniz APRN [address] [place] [address] DR HEMATOLOGY [place] [address] [phone] Referral ID Status Reason Start Date Expiration Date V isits Requested Visits Authorized [id number] Closed Specialty Service Requested 02/19/2024 08/21/2025 1 1 Encounter Details Date Type Department Care Team (Late st Contact Info) Description 02/19/2024 12:00 PM EDT Office Visit Hematology/Oncology at [address] [phone] Bushra Muniz APRN [address] [place] [address] DR HEMATOLOGY [place] [address] Trupti Bray RN Stage IV adenocarcinoma of [...] any time in the past 12 m [facility], were you homeless or living in a custodial (including now)? No 12/21/2023 DH IPV Inpatient [...] original note were not included. Thoracic Oncology [facility] [place] [address] [phone] Jeffrey Lovelace is being seen for the [...] -Recommended involvement of local palliative care at [place] though he is hesitant to pursue thisright now -Palliative radiation to chest wall sites completed - Controlled on extended release morphine 15mg BID and oxycodone PRN for breakthrough. Bushra Muniz, SPECIAL DIET COOK 02/19/2024 Thoracic Oncology [facility] CC: Karl Quiroz MD HPI/Interval History/Subjective: [...] Network: Home situation: and . Lives in [facility]. Two children - one passe away from suicide Gerry would be his deciosn maker and support. Lives in [place]. 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 Previously worked in proximity to [employer]. In his 20s Tobacco use: 50+ pk [...] Present: no Utilities: Not At Risk (12/13/2023) [facility] Utilities Threatened with loss of utilities: [...] wall mass excision CT Brain 01/01/24 Pathology: [id number] ADDENDUM DISCUSSION Tissue: left chest soft tissue [...] The assay was performed according to the medical aide's instructions using Anti-PD-L1 (22C3, pharmDX) antibody. Electronically signed by: Vu Vidal MD Verified: 12/19/2023 16:50 Pathologist Performed at: -[facility] Dept. of Pathology, [place] [address] Sole Polisher: Omar White MD, FCAP, CLIA Certificate: [id number] Surgical Pathology DIAGNOSIS A - left chest soft tissue mass, excision: - Poorly differentiated carcinoma, see discussion. - Specimen margin negative for carcinoma. B - Superior medial margin, excision: - Fibroadipose tissue, negative for carcinoma. C - inferior medial margin, excision: - Fibroadipose tissue, negative for carcinoma. Electronically signed by: Eleuterio Obando MD Verified: 12/13/2023 10:42 Pathologist Performed at: -[facility] Dept. of Pathology, [place] [address] Sole Polisher: Omar White MD, FCAP, CLIA Certificate: [id number] DISCUSSION The clinical impression of a chest [...] Focal positive p63 Focal positive CKAE1/3 Positive [id number] Positive TTF1 Negative PAX8 Negative CD5 Background [...] 1L IVF, encouraged increased calories/fat/protein at home 7 [id number] 01/15/2024 1:42 PM 01/15/2024 2:12 PM [...] in this encounter Plan of Treatment Scheduled Orders Name Type Priority Associated Diagnoses Orde r Schedule CT Chest w Contrast Imaging Routine Stage IV adenocarcinoma of lung, left Expected: 03/04/2024 (Approximate), Expires: 02/18/2025 documented as of this encounter Visit Diagnoses Diagnosis Stage IV adenocarcinoma of lung, left Hypomagnesemia Disorders of magnesium metabolism documented in this encounter Care Teams Parliamentary Archivist Relationship Specialty Start Date End Date Karl Quiroz MD [address] [place] [phone] PCP - General Family Medicine 01/11/24 documented as of this encounter
--- OUTSIDE RECORDS SUMMARY | 2024-04-17 12:52 | XMS_ITS | Encounter Summary ---
Author Organization [facility] Address [facility] [place] [address] Care Team Providers Care Short Goods Drier Name Role Phone Karl Quiroz MD Primary Care Provider [phone] Encounter Details Date Type Department Care Team [...] time in the past 12 m [facility], were you homeless or living in a [...] on filedocumented in this encounter Care Teams Short Goods Drier Relationship Specialty Start Date End Date Karl Quiroz MD [address] [place] [phone] PCP - General Family Medicine 01/11/24 documented as of this encounter
--- OUTSIDE RECORDS SUMMARY | 2024-04-17 12:52 | XMS_ITS | Encounter Summary ---
Author Organization [facility] Address [facility] [place] [address] Care Team Providers Care Educational Aid Name Role Phone Karl Quiroz MD Primary Care Provider [phone] Encounter Details Date Type Department Care Team ([facility] st Contact Info) Description 03/28/2024 Notes Only Clinical Research [facility] [place] [phone] Lisy Laura Social History Tobacco Use Types Packs/Day Years Used Date Smoking Tobacco: Every Day Cigarettes 0.3 57 Smokeless Tobacco: Current Comments:Quit 11/2023 Alcohol Use Standard Drinks/Week Comments Yes 7 (1 standard drink = 0.6 oz pure alcohol) 4oz rum with coke daily- varies [facility] Utilities Answer Date Recorded [...] encounter Progress Notes * Lisy Laura - 03/28/2024 11:35 AM EDTSumvarinder: Financial Counselor The patient was contacted by the financial counselor today to check on how he was doing.The patientstated he was still doing well and that he is getting assistance with transportation and gas cost. The patient agreed to reach out to me if he has questions, concerns, or needs financial support. The patient did ask for another gas card and I informed the patient that I will have QUAN Fernández reach out and assess with that. No further action is needed. documented in this encounter Plan of Treatment Not on file documented as of this encounter Visit Diagnoses Not on filedocumented in this encounter Care Teams Educational Aid Relationship Specialty Start Date End Date Karl Quiroz MD [address] [place] [phone] PCP - General Family Medicine 01/11/24 documented as of this encounter
--- OUTSIDE RECORDS SUMMARY | 2024-04-17 12:52 | XMS_ITS | Encounter Summary ---
Author Organization [facility] Address [facility] [place] [address] Care Team Providers Care Manager Application Name Role Phone Karl Quiroz MD Primary Care Provider [phone] Encounter Details Date Type Department Care Team (Latest Contact Info) Description 03/28/2024 Travel Social History Tobacco Use Types Packs/Day [...] time in the past 12 m [facility], were you homeless or living in a usp (including now)? No 12/21/2023 DH IPV Inpatient [...] filedocumented in this encounter Care Teams Manager Application Relationship Specialty Start Date End Date Karl Quiroz MD [address] [place] [phone] PCP - General Family Medicine 01/11/24 documented as of this encounter
--- OUTSIDE RECORDS SUMMARY | 2024-04-17 12:53 | XMS_ITS | Encounter Summary ---
Author Organization [facility] Address [facility] [place] [address] Care Team Providers Care Provider Service Representative Name Role Phone Karl Quiroz MD Primary Care Provider [phone] Encounter Details Date Type Department Care Team (Latest Contact Info) Description 01/15/2024 Travel Social History Tobacco Use Types Packs/Day Years Used Date Smoking Tobacco: Former Cigarettes 0.3 57 Smokeless Tobacco: Never Comments:Quit 11/2023 Alcohol Use Standard Drinks/Week Comments Yes 7 (1 standard drink = 0.6 oz pure alcohol) 4oz rum with coke daily- varies [facility] Utilities Answer Date Recorded In the [...] any time in the past 12 m [facility], were you homeless or [...] on filedocumented in this encounter Care Teams Provider Service Representative Relationship Specialty Start Date End Date Karl Quiroz MD [address] [place] [phone] PCP - General Family Medicine 01/11/24 documented as of this encounter
--- OUTSIDE RECORDS SUMMARY | 2024-04-17 12:53 | XMS_ITS | Encounter Summary ---
Author Organization [facility] Address [facility] [place] [address] Care Team Providers Care Internal Medicine Hospitalist Name Role Phone Rayo Riley MD Primary Care Provider [phone] Encounter Details Date Type Department Care Team (Latest Contact Info) Description 01/08/2024 Travel Social History Tobacco Use Types Packs/Day Years Used Date Smoking Tobacco: Former Cigarettes 0.3 57 Smokeless Tobacco: Never Comments:Quit 11/2023 Alcohol Use Standard Drinks/Week Comments Yes 7 (1 standard drink = 0.6 oz pure alcohol) 4oz rum with coke daily- varies [facility] Utilities Answer Date Recorded In [...] any time in the past 12 m [facility], were you homeless or [...] on filedocumented in this encounter Care Teams Internal Medicine Hospitalist Relationship Specialty Start Date End Date Rayo Riley MD [address] [place] [address] PCP - General 06/22/10 01/10/24 documented as of this encounter
--- OUTSIDE RECORDS SUMMARY | 2024-04-17 12:53 | XMS_ITS | Encounter Summary ---
Author Organization [facility] Address [facility] [place] [address] Care Team Providers Care Logging Crew Supervisor Name Role Phone aKrl Quiroz MD Primary Care Provider [phone] Encounter Details Date Type Department Care Team (Latest Contact Info) Description 01/15/2024 Unscheduled Encounter Hematology/Oncology at [address] [phone] [address] [facility] DR HEMATOLOGY [place] [address] Stage 4 lung cancer, left Social History Tobacco Use Types Packs/Day Years Used Date Smoking Tobacco: Former Cigarettes 0.3 57 Smokeless Tobacco: Never Comments:Quit 11/2023 Alcohol Use Standard Drinks/Week Comments Yes 7 (1 standard drink = 0.6 oz pure alcohol) 4oz rum with coke daily- varies [facility] Utilities Answer Date Recorded In the [...] in the past 12 m [facility], were you homeless or living [...] Frost, RD - 01/15/2024 12:07 PM EDT [facility] Initial Assessment Patient Name: Jeffrey Lovelace Diagnosis: [...] not significant Social: and , lives in [place], [place] PMH: depression, DM2, GERD, HTN, HLD [...] left documented in this encounter Care Teams Logging Crew Supervisor Relationship Specialty Start Date End Date Karl Quiroz MD [address] [place] [phone] PCP - General Family Medicine 01/11/24 documented as of this encounter
--- OUTSIDE RECORDS SUMMARY | 2024-04-17 12:53 | XMS_ITS | Encounter Summary ---
Author Organization [facility] Address [facility] [place] [address] Care Team Providers Care Line Fixer Name Role Phone Rayo Riley MD Primary Care Provider [phone] Encounter Details Date Type Department Care Team (Late st Contact Info) Description 01/04/2024 Orders Only Hematology and Oncology at [facility] [place] [address] Lennox Spivey MD [facility] DR [place] [address] Stage 4 lung cancer, left; Neoplasm related [...] related pain Neoplasm related pain (acute) (chronic) documented in this encounter Care Teams Line Fixer Relationship Specialty Start Date End Date Rayo Riley MD [address] [place] [address] PCP - General 06/22/10 01/10/24 documented as of this encounter
--- OUTSIDE RECORDS SUMMARY | 2024-04-17 12:53 | XMS_ITS | Encounter Summary ---
Author Organization [facility] Address [facility] [place] [address] Care Team Providers Care Management Consulting Name Role Phone Karl Quiroz MD Primary Care Provider [phone] Reason for Visit * Reason Comments IV Medication Encounter Details Date Type Department Care Team ([facility] st Contact Info) Description 02/05/2024 11:30 AM EDT Infusion Hematology Oncology at [address] [phone] Hypotension, unspecified hypotension type Social History Tobacco Use Types Packs/Day Years Used Date Smoking Tobacco: Former Cigarettes 0.3 57 Smokeless Tobacco: Never Comments:Quit 11/2023 Alcohol Use Standard Drinks/Week Comments Yes 7 (1 standard drink = 0.6 oz pure alcohol) 4oz rum with coke daily- varies [facility] Utilities Answer Date Recorded In the [...] time in the past 12 m [facility], were you homeless or living in [...] Visit Diagnoses Diagnosis Hypotension, unspecified hypotension type documented in this encounter Administered Medications Inactive [...] mL/hr documented in this encounter Care Teams Management Consulting Relationship Specialty Start Date End Date Karl Quiroz MD [address] [place] [address] PCP - General Family Medicine 01/11/24 documented as of this encounter
--- OUTSIDE RECORDS SUMMARY | 2024-04-17 12:53 | XMS_ITS | Encounter Summary ---
Author Organization [facility] Address [facility] [place] [address] Care Team Providers Care Repair Welder Name Role Phone Rayo Riley MD Primary Care Provider [phone] Encounter Details Date Type Department Care Team (Late st Contact Info) Description 01/10/2024 3:30 PM EDT Office Visit Hematology/Oncology at [address] [phone] Bushra Muniz APRN [address] [place] [address] DR HEMATOLOGY AND ONCOLOGY [place], [place] [id number] Cancer associated pain; Stage 4 lung cancer, [...] Recorded In the past 12 months has [employer], gas, oil, or water [employer] threatened to shut off services in your [...] any time in the past 12 m [facility], were you homeless or living in a nursing home (including now)? No 12/21/2023 DH IPV [...] note were not included. Thoracic Oncology [facility] [place] [address] [phone] Jeffrey Lovelace is being seen for the [...] -Recommended involvement of local palliative care at [facility] though he is hesitant to pursue thisright [...] documents provided Bushra MunizCECILIA 01/10/2024 Thoracic Oncology [facility] CC: Karl Quiroz MD Answers submitted by [...] Network: Home situation: and . Lives in [facility]. Two children - one passe away from suicide Gerry would be his deciosn maker and support. Lives in [place]. 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 Previously worked in proximity to [employer] In his 20s Tobacco use: 50+ [...] Present: no Utilities: Not At Risk (12/13/2023) [facility] Utilities Threatened with loss of utilities: No [...] The assay was performed according to the grounds person's instructions using Anti-PD-L1 (22C3, pharmDX) antibody. Electronically signed by: Vu Vidal MD Verified: 12/19/2023 16:50 Pathologist Performed at: -[facility] [place], [place] [address] Department Mgr: Omar White MD, FCAP, CLIA Certificate: [id number] Surgical Pathology DIAGNOSIS A - left chest soft tissue mass, excision: - Poorly differentiated carcinoma, see discussion. - Specimen margin negative for carcinoma. B - Superior medial margin, excision: - Fibroadipose tissue, negative for carcinoma. C - inferior medial margin, excision: - Fibroadipose tissue, negative for carcinoma. Electronically signed by: Eleuterio Obando MD Verified: 12/13/2023 10:42 Pathologist Performed at: -[facility] [place], [place] [address] Department Mgr: Omar White MD, FCAP, CLIA Certificate: [id number] DISCUSSION The clinical impression of a chest [...] Focal positive p63 Focal positive CKAE1/3 Positive HLAQB839 Positive TTF1 Negative PAX8 Negative CD5 Background [...] 5 Ca, Mg, Phos Recent Labs 12/21/23 111 CALCIUM 10.5 MAGNESIUM 0.87 Review of Imaging Data: No new data Review of Pathology Data: No new data documented in this encounter Plan of Treatment Not on file documented as of this encounter Visit Diagnoses Diagnosis Cancer associated pain Neoplasm related pain (acute) (chronic) Stage 4 lung cancer, left Stage IV adenocarcinoma of lung, left documented in this encounter Care Teams Repair Welder Relationship Specialty Start Date End Date Rayo Riley MD [address] [place] [address] PCP - General 06/22/10 01/10/24 documented as of this encounter
--- OUTSIDE RECORDS SUMMARY | 2024-04-17 12:53 | XMS_ITS | Encounter Summary ---
Author Organization [facility] Address [facility] [place] [address] Care Team Providers Care Collar Feller Name Role Phone Rayo Riley MD Primary Care Provider [phone] Reason for Visit * Reason Onset Date Comments Other 01/03/2024 Gas cards Encounter Details Date Type Department Care Team (Late st Contact Info) Description 01/03/2024 Telephone Radiation Oncology at [address] [phone] Tammie Recinos, LEAD ADVISOR OFFICE OF CARE MANAGEMENT Other (Gas cards) Social History Tobacco Use Types Packs/Day Years Used Date Smoking Tobacco: Former Cigarettes 0.3 57 Smokeless Tobacco: Never Comments:Quit 11/2023 Alcohol Use Standard Drinks/Week Comments Yes 7 (1 standard drink = 0.6 oz pure alcohol) 4oz rum with coke daily- varies [facility] Utilities Answer Date Recorded In the past 12 months has e [employer], gas, oil, or water company threatened to [...] cost of all of his travel and LEAD ADVISOR will leave 2/$50 gas cards from the [facility] for Jeffrey for when he comes in later this afternoon. Again suggested he reach out to the [facility] Cancer Survivor group as they assist with gas cards. EVIE Haynes at his PCP office to notify her what LEAD ADVISOR is helping with. Care Coordination Transportation resources Community Resource documented in this encounter Plan of Treatment Not on file documented as of this encounter Visit Diagnoses Not on filedocumented in this encounter Care Teams Collar Feller Relationship Specialty Start Date End Date Rayo Riley MD [address] [place] [address] PCP - General 06/22/10 01/10/24 documented as of this encounter
--- OUTSIDE RECORDS SUMMARY | 2024-04-17 12:53 | XMS_ITS | Encounter Summary ---
Author Organization Count Includes [facility] Address [facility] [place] [address] Care Team Providers Care Client Associate Name Role Phone Rayo Riley MD Primary Care Provider [phone] Reason for Visit * Reason Onset Date Comments Prior Authorization 01/04/2024 Molecular ca ncer testing CPT 63777 is a covered benefit. Encounter Details Date Type Department Care Team (Late st Contact Info) Description 01/04/2024 Telephone [place] [address] Lisseth Jurado Prior Authorization (Molecular cancer testing CPT 27255 is a covered benefit. ) Social History Tobacco Use Types Packs/Day Years Used Date Smoking Tobacco: Former Cigarettes 0.3 57 Smokeless Tobacco: Never Comments:Quit 11/2023 Alcohol Use Standard Drinks/Week Comments Yes 7 (1 standard drink = 0.6 oz pure alcohol) 4oz rum with coke daily- varies [facility] Utilities Answer Date Recorded In the [...] any time in the past 12 m [facility], were you homeless or living in a m[facility]p (including now)? No 12/21/2023 IPV Inpatient Questions [...] 12:51 PM EDTSummary: Molecular cancer testing CPT 81477 is a covered benefit. NO PATIENT ACTION NEEED_VOICEMAIL OR AUTHORIZATION_INFORMATIONAL ONLY Molecular cancer testing: CPT 02756 is a covered benefit: E-mail from Phoebe in [facility] ([id number]) requesting coverage review for CPT 37657 being done on the patient???s lung tissue obtained on 11/22/23. Ordering provider: Dylan Weldon. [facility] is returning the patient's traditional Medicare A&B policy [id number] as active. No secondary policy was found. Per Medicare's website, CPT 44517 is a covered benefit with no authorization needed. Will update Phoebe to let her know of approved coverage. documented in this encounter Plan of Treatment Not on file documented as of this encounter Visit Diagnoses Not on filedocumented in this encounter Care Teams Client Associate Relationship Specialty Start Date End Date Rayo iRley MD [address] [place] [address] PCP - General 06/22/10 01/10/24 documented as of this encounter
--- OUTSIDE RECORDS SUMMARY | 2024-04-17 12:53 | XMS_ITS | Encounter Summary ---
Author Organization [facility] Address [facility] [place] [address] Care Team Providers Care Operations Program Manager Name Role Phone Rayo Riley MD Primary Care Provider [phone] Encounter Details Date Type Department Care Team (Late st Contact Info) Description 01/10/2024 4:30 PM EDT Office Visit Radiation Oncology at [address] [phone] Beto Braswell MD [facility] [place] [address] Non-small cell lung cancer, left Social History Tobacco Use Types Packs/Day Years Used Date Smoking Tobacco: Former Cigarettes 0.3 57 Smokeless Tobacco: Never Comments:Quit 11/2023 Alcohol Use Standard Drinks/Week Comments Yes 7 (1 standard drink = 0.6 oz pure alcohol) 4oz rum with coke daily- varies [facility] Utilities Answer Date Recorded In [...] from the original note were not included. [facility] Medicine Radiation Oncology Radiation Oncology [...] hernia. He presented in May 2023 to [facility] with dyspnea and was found to have a left pleural effusion. A chest tube was placed; cytology was negative. He was treated for pneumonia, and a the tube was removed with improvement in symptoms. He subsequently presented to his PCP at [facility] with increasing chest pain and a [...] Office Visit from 01/10/2024 in Hematology/Oncology at [facility] Weight 92.4 kg (203 lb 9.6 oz) [...] Pratibha Fu MD Radiation Oncology Resident PGY-2 [facility] Radiation Oncology Attending Statement: I saw [...] including predominantly whispered speech NA National Cancer [place] (NCI) Comprehensive Cancer Center [employer] Commission on Cancer (ACS Rubin) Accredited Cancer Program [employer] (ACR) Accredited Radiation Oncology Program documented in this encounter Plan of Treatment Not on file documented as of this encounter Visit Diagnoses Diagnosis Non-small cell lung cancer, left documented in this encounter Care Teams Operations Program Manager Relationship Specialty Start Date End Date Rayo Riley MD [address] [facility] [address] [place] [address] PCP - General 06/22/10 01/10/24 documented as of this encounter
--- OUTSIDE RECORDS SUMMARY | 2024-04-17 12:53 | XMS_ITS | Encounter Summary ---
Author Organization [facility] Address [facility] [place] [address] Care Team Providers Care Controller Mechanic Name Role Phone Karl Quiroz MD Primary Care Provider Encounter Details Date Type Department Care Team (Latest Contact Info) Description 02/05/2024 12:00 PM EDT Clinical Support Hematology/Oncology at [address] [phone] [address] [facility] DR [place] [address] Stage 4 lung cancer, left Social History [...] any time in the past 12 m [facility], were you homeless or [...] left documented in this encounter Care Teams Controller Mechanic Relationship Specialty Start Date End Date Karl Quiroz MD [address] [place] [phone] PCP - General Family Medicine 01/11/24 documented as of this encounter
--- OUTSIDE RECORDS SUMMARY | 2024-04-17 12:53 | XMS_ITS | Encounter Summary ---
Author Organization [facility] Address [facility] [place] [address] Care Team Providers Care Business Intelligence Consultant Name Role Phone Karl Quiroz MD Primary Care Provider [phone] Encounter Details Date Type Department Care Team ([facility] st Contact Info) Description 01/10/2024 Notes [place] [address] Beto Braswell MD [facility] DR [place] [address] Social History Tobacco Use Types Packs/Day Years [...] time in the past 12 m [facility], were you homeless or living in [...] of treatment: none noted FOLLOW UP Per [email or web address] protocol documented in this encounter Plan of Treatment Not on file documented as of this encounter Visit Diagnoses Not on filedocumented in this encounter Care Teams Business Intelligence Consultant Relationship Specialty Start Date End Date Karl Quiroz MD [address] [place] [phone] PCP - General Family Medicine 01/11/24 documented as of this encounter
--- OUTSIDE RECORDS SUMMARY | 2024-04-17 12:53 | XMS_ITS | Encounter Summary ---
Author Organization [facility] Address [facility] [place] [address] Care Team Providers Care Pre K Special Education Teacher Name Role Phone Rayo Riley MD Primary Care Provider [phone] Reason for Visit * Reason Onset Date Comments Prior Authorization 01/04/2024 Oxycontin Encounter Details Date Type Department Care Team (Late st Contact Info) Description 01/04/2024 Telephone Hematology/Oncology at [address] [phone] Malcolm Wei license distributor (Oxycontin ) Social History Tobacco Use Types Packs/Day Years Used Date Smoking Tobacco: Former Cigarettes 0.3 57 Smokeless Tobacco: Never Comments:Quit 11/2023 Alcohol Use Standard Drinks/Week Comments Yes 7 (1 standard drink = 0.6 oz pure alcohol) 4oz rum with coke daily- varies [facility] Utilities Answer Date Recorded In [...] in a alf (including now)? No 12/21/2023 IPV Inpatient Questions [...] RN - 01/04/2024 2:06 PM EDT Called [facility]. They then sent fax with insurance info to initiate PA. Called [facility] phonelisted on fax, they said to use CoverMyMeds to submit. CoverMyMeds doesn't recognize pt's insurancenumber and unable to submit. [facility] and they said they do run [...] him. [place] ----- Message ----- From: Malcolm Wie RN Sent: 01/04/2024 11:46 AM EDT To: [facility] Rad Onc Nurse I have not seen anything come through in fax about it, was the pharmacy going to fax us PA request? A-L ----- Message ----- From: Morena Amin RN Sent: 01/03/2024 5:53 PM EDT To: [facility] Hem Onc Nurse; [facility] Rad Onc Nurse The prescription for [...] on filedocumented in this encounter Care Teams Pre K Special Education Teacher Relationship Specialty Start Date End Date Rayo Riley MD [address] [place] [address] PCP - General 06/22/10 01/10/24 documented as of this encounter
--- OUTSIDE RECORDS SUMMARY | 2024-04-17 12:53 | XMS_ITS | Encounter Summary ---
Author Organization [facility] Address [facility] [place] [address] Care Team Providers Care Community Facilitator Name Role Phone Rayo Riley MD Primary Care Provider [phone] Reason for Visit * Consultation (Routine) - Authorized Specialty Diagnoses / Procedures Referred By Elieser lock Referred To Contact Radiation Oncology Diagnoses Non-small cell lung cancer, left Procedures Simulation for Radiation Therapy Planning Beto Braswell MD [facility] [place] [address] [facility] Rad Onc Office [address] [place] [id number] Referral ID Status Reason Start Date Expiration Date Visits Requested Visits Authorized [id number] Authorized Consult, Test & Treat 12/26/2023 12/25/2024 10 16 Encounter Details Date Type Department Care Team (Latest Contact Info) Description 12/27/2023 9:00 AM EDT Ancillary Appointment Radiation Oncology at [address] [phone] Beto Braswell MD [facility] [place] [address] Non-small cell lung cancer, left Social History Tobacco Use Types Packs/Day Years Used Date Smoking Tobacco: Former Cigarettes 0.3 57 Smokeless Tobacco: Never Comments:Quit 11/2023 Alcohol Use Standard Drinks/Week Comments Yes 7 (1 standard drink = 0.6 oz pure alcohol) 4oz rum with coke daily- varies [facility] Utilities Answer Date Recorded In the past 12 months has th e [employer], gas, oil, or water company threatened to [...] in the past 12 m [facility], were you homeless or living [...] do to help manage the side effects. Tube Cleaning Operator - They take the doctors radiation prescription [...] a well balanced diet is recommended. The button sawyer and nurse will inform you of any special diet requirements. Avoid shaving the treatment area with a razor. If you must shave use an electric razor. Our Contact numbers Section of Radiation Oncology Our normal business hours are: Monday - Monday: 8:00 AM to 5:00 PM [facility]: [facility]: If you have questions about your [...] in injury A Radiation Oncology doctor is integration architect after our normal hours and on weekends. To call for urgent medical issues from radiation treatments that can not wait until normal businesshours: Call for either location and have the felting machine operator helper page the Radiation Oncologist integration architect. documented in this encounter Plan of Treatment Not on file documented as of this encounter Visit Diagnoses Diagnosis Non-small cell lung cancer, left documented in this encounter Care Teams Community Facilitator Relationship Specialty Start Date End Date Rayo Riley MD [address] [place] [address] PCP - General 06/22/10 01/10/24 documented as of this encounter
--- OUTSIDE RECORDS SUMMARY | 2024-04-17 12:53 | XMS_ITS | Encounter Summary ---
Author Organization [facility] Address [facility] [place] [address] Care Team Providers Care Swimmer Name Role Phone Karl Quiroz MD Primary Care Provider [phone] Encounter Details Date Type Department Care Team (Late st Contact Info) Description 01/22/2024 Notes Only Hematology/Oncology at [address] [phone] Tammie Recinos, ACID CHANGER OFFICE OF CARE MANAGEMENT Social History Tobacco Use Types Packs/Day Years Used Date Smoking Tobacco: Former Cigarettes 0.3 57 Smokeless Tobacco: Never Comments:Quit 11/2023 Alcohol Use Standard Drinks/Week Comments Yes 7 (1 standard drink = 0.6 oz pure alcohol) 4oz rum with coke daily- varies [facility] Utilities Answer Date Recorded In [...] any time in the past 12 m [facility], were you homeless or living [...] this encounter Progress Notes * Tammie Recinos, ACID CHANGER - 01/22/2024 9:43 AM EDT Follow up [...] have meals with him. His son in [facility] calls every few weeks. BOSTON Booth has been assisting Jeffrey in accessing local resources. ACID CHANGER will continue to follow as a resource for Jeffrey. documented in this encounter Plan of Treatment Not on file documented as of this encounter Visit Diagnoses Not on filedocumented in this encounter Care Teams Swimmer Relationship Specialty Start Date End Date Karl Quiroz MD [address] [place] [phone] PCP - General Family Medicine 01/11/24 documented as of this encounter
--- OUTSIDE RECORDS SUMMARY | 2024-04-17 12:53 | XMS_ITS | Encounter Summary ---
Author Organization [facility] Address [facility] [place] [address] Care Team Providers Care Retort Operator Name Role Phone Rayo Riley MD Primary Care Provider [phone] Encounter Details Date Type Department Care Team (Latest Contact Info) Description 01/10/2024 Travel Social History Tobacco Use Types Packs/Day Years Used Date Smoking Tobacco: Former Cigarettes 0.3 57 Smokeless Tobacco: Never Comments:Quit 11/2023 Alcohol Use Standard Drinks/Week Comments Yes 7 (1 standard drink = 0.6 oz pure alcohol) 4oz rum with coke daily- varies [facility] Utilities Answer Date Recorded In [...] any time in the past 12 m [facility], were you homeless or living in [...] on filedocumented in this encounter Care Teams Retort Operator Relationship Specialty Start Date End Date Rayo Riley MD [address] [place] [address] PCP - General 06/22/10 01/10/24 documented as of this encounter
--- OUTSIDE RECORDS SUMMARY | 2024-04-17 12:53 | XMS_ITS | Encounter Summary ---
Author Organization [facility] Address [facility] Vincent [place] [address] Care Team Providers Care Mergers And Acquisitions Attorney Name Role Phone Rayo Riley MD Primary Care Provider [phone] Encounter Details Date Type Department Care Team (Late st Contact Info) Description 12/27/2023 8:30 AM EDT Office Visit Radiation Oncology at [address] [phone] Beto Braswell MD [facility] [place] [address] Non-small cell lung cancer, left Social History Tobacco Use Types Packs/Day Years Used Date Smoking Tobacco: Former Cigarettes 0.3 57 Smokeless Tobacco: Never Comments:Quit 11/2023 Alcohol Use Standard Drinks/Week Comments Yes 7 (1 standard drink = 0.6 oz pure alcohol) 4oz rum with coke daily- varies [facility] Utilities Answer Date Recorded In the past 12 months has [facility] electric, gas, oil, or water company threatened [...] any time in the past 12 m [facility], were you homeless or living in [...] from the original note were not included. [facility] Medicine Radiation Oncology Radiation Oncology [...] the procedure. BETO BRASWELL MD National Cancer [place] (NCI) Comprehensive Cancer Center [employer] Commission on Cancer (ACS Rubin) Accredited Cancer Program [employer] (ACR) Accredited Radiation Oncology Program documented in this encounter Plan of Treatment Not on file documented as of this encounter Visit Diagnoses Diagnosis Non-small cell lung cancer, left documented in this encounter Care Teams Mergers And Acquisitions Attorney Relationship Specialty Start Date End Date Rayo Riley MD [address] [facility] [address] [place] [address] PCP - General 06/22/10 01/10/24 documented as of this encounter
--- OUTSIDE RECORDS SUMMARY | 2024-04-17 12:53 | XMS_ITS | Encounter Summary ---
Author Organization [facility] Address [facility] [place] [address] Care Team Providers Care Automotive Metalsmith Name Role Phone Karl Quiroz MD Primary Care Provider [phone] Reason for Visit * Reason Onset Date Comments Follow-up 01/16/2024 Encounter Details Date Type Department Care Team (Late st Contact Info) Description 01/16/2024 Telephone Hematology/Oncology at [address] [phone] Malcolm Wei RN Follow-up Social History Tobacco Use Types Packs/Day Years Used Date Smoking Tobacco: Former Cigarettes 0.3 57 Smokeless Tobacco: Never Comments:Quit 11/2023 Alcohol Use Standard Drinks/Week Comments Yes 7 (1 standard drink = 0.6 oz pure alcohol) 4oz rum with coke daily- varies [facility] Utilities Answer Date Recorded In [...] the past 12 m [facility], were you homeless or living in a [...] on filedocumented in this encounter Care Teams Automotive Metalsmith Relationship Specialty Start Date End Date Karl Quiroz MD [address] [place] [phone] PCP - General Family Medicine 01/11/24 documented as of this encounter
--- OUTSIDE RECORDS SUMMARY | 2024-04-17 12:53 | XMS_ITS | Encounter Summary ---
Author Organization [facility] Address [facility] [place] [address] Care Team Providers Care Icer Machine Operator Name Role Phone Karl Quiroz MD Primary Care Provider [phone] Encounter Details Date Type Department Care Team (Late st Contact Info) Description 02/05/2024 Notes Only Hematology/Oncology at [address] [phone] Tammie Recinos, HOG BUYER OFFICE OF CARE MANAGEMENT Social History Tobacco Use Types Packs/Day Years Used Date Smoking Tobacco: Former Cigarettes 0.3 57 Smokeless Tobacco: Never Comments:Quit 11/2023 Alcohol Use Standard Drinks/Week Comments Yes 7 (1 standard drink = 0.6 oz pure alcohol) 4oz rum with coke daily- varies [facility] Utilities Answer Date Recorded In the past [...] any time in the past 12 m [facility], were you homeless or living [...] this encounter Progress Notes * Tammie Recinos, HOG BUYER - 02/05/2024 11:35 AM EDT Follow up [...] on filedocumented in this encounter Care Teams Icer Machine Operator Relationship Specialty Start Date End Date Karl Quiroz MD [address] [place] [phone] PCP - General Family Medicine 01/11/24 documented as of this encounter
--- OUTSIDE RECORDS SUMMARY | 2024-04-17 12:53 | XMS_ITS | Encounter Summary ---
Author Organization [facility] Address [facility] [place] [address] Care Team Providers Care Solar System Installer Name Role Phone Rayo Riley MD Primary Care Provider [phone] Encounter Details Date Type Department Care Team (Late st Contact Info) Description 12/27/2023 9:00 AM EDT Ancillary Procedure Radiation Oncology at [address] [phone] Beto Braswell MD [facility] [place] [address] Social History Tobacco Use Types Packs/Day Years Used Date Smoking Tobacco: Former Cigarettes 0.3 57 Smokeless Tobacco: Never Comments:Quit 11/2023 Alcohol Use Standard Drinks/Week Comments Yes 7 (1 standard drink = 0.6 oz pure alcohol) 4oz rum with coke daily- varies [facility] Utilities Answer Date Recorded In [...] in the past 12 m [facility], were you homeless or living [...] as of this encounter Plan of Treatment Pending Results Name Type Priority Associated Diagnoses [...] mLs documented in this encounter Care Teams Solar System Installer Relationship Specialty Start Date End Date Rayo Riley MD [address] [place] [address] PCP - General 06/22/10 01/10/24 documented as of this encounter
--- OUTSIDE RECORDS SUMMARY | 2024-04-17 12:53 | XMS_ITS | Encounter Summary ---
Author Organization [facility] Address [facility] [place] [address] Care Team Providers Care Fisher Diver Net Name Role Phone Rayo Riley MD Primary Care Provider [phone] Encounter Details Date Type Department Care Team (Latest Contact Info) Description 01/03/2024 6:17 AM EDT - 01/03/2024 11:59 PM EDT Hospital Encounter Laboratory [facility] [place] [phone] Discharge Disposition: Home Social History Tobacco Use Types Packs/Day Years Used Date Smoking Tobacco: Former Cigarettes 0.3 57 Smokeless Tobacco: Never Comments:Quit 11/2023 Alcohol Use Standard Drinks/Week Comments Yes 7 (1 standard drink = 0.6 oz pure alcohol) 4oz rum with coke daily- varies [facility] Utilities Answer Date Recorded In the [...] on filedocumented in this encounter Care Teams Fisher Diver Net Relationship Specialty Start Date End Date Rayo Riley MD [address] [place] [address] [address] [place] [address] PCP - General 06/22/10 01/10/24 documented as of this encounter
--- OUTSIDE RECORDS SUMMARY | 2024-04-17 12:53 | XMS_ITS | Encounter Summary ---
Author Organization [facility] Address [facility] [place] [address] Care Team Providers Care Angiography Technologist Name Role Phone Karl Quiroz MD Primary Care Provider [phone] Encounter Details Date Type Department Care Team (Latest Contact Info) Description 01/24/2024 10:30 AM EDT TH Visit (TeleHealth) Radiation Oncology at [address] [phone] Beto Braswell MD [facility] [place] [address] Non-small cell lung cancer, left Social History [...] from the original note were not included. [facility] Medicine Radiation Oncology Radiation Oncology Follow Up [...] hernia. He presented in May [address] [facility] with dyspnea and was found to have a left pleural effusion. A chest tube was placed; cytology was negative. He was treated for pneumonia, and a the tube was removed with improvement in symptoms. He subsequently presented to his PCP at [facility] with increasing chest pain and [...] including predominantly whispered speech NA National Cancer [place] (NCI) Comprehensive Cancer Center [employer] Commission on Cancer (ACS [place]) Accredited Cancer Program [employer] (ACR) Accredited Radiation Oncology Program documented in this encounter Plan of Treatment Not on file documented as of this encounter Visit Diagnoses Diagnosis Non-small cell lung cancer, left documented in this encounter Care Teams Angiography Technologist Relationship Specialty Start Date End Date Karl Quiroz MD [address] [place] [phone] PCP - General Family Medicine 01/11/24 documented as of this encounter
--- OUTSIDE RECORDS SUMMARY | 2024-04-17 12:53 | XMS_ITS | Encounter Summary ---
Author Organization [facility] Address [facility] [place] [address] Care Team Providers Care Peripatologist Name Role Phone Karl Quiroz MD Primary Care Provider Encounter Details Date Type Department Care Team (Late st Contact Info) Description 01/15/2024 Notes Only Hematology/Oncology at [address] [phone] Tammie Recinos, INFORMATION TECHNOLOGY MANAGER OFFICE OF CARE MANAGEMENT Social History Tobacco [...] this encounter Progress Notes * Tammie Recinos, INFORMATION TECHNOLOGY MANAGER - 01/15/2024 12:04 PM EDT Follow up [...] did get a gas card from the [facility] Cancer Survivor group. Jeffrey indicated he is managing as best he can day to day. His friend Tammie checks in on him. Inquired about meal and he indicated he is not eating much. Yesterday he has a scoop of ice cream and a half of a burger. INFORMATION TECHNOLOGY MANAGER asked Rachel Frost RD to follow up with Jeffrey. Reminded Jeffrey of INFORMATION TECHNOLOGY MANAGER availability and will follow for support and resources. Brief assessment Supportive Counseling Transportation resources Community Resource documented in this encounter Plan of Treatment Not on file documented as of this encounter Visit Diagnoses Not on filedocumented in this encounter Care Teams Peripatologist Relationship Specialty Start Date End Date Karl Quiroz MD [address] [place] [phone] PCP - General Family Medicine 01/11/24 documented as of this encounter
--- OUTSIDE RECORDS SUMMARY | 2024-04-17 12:53 | XMS_ITS | Encounter Summary ---
Author Organization [facility] Address [facility] [place] [address] Care Team Providers Care Retail Seasonal Specialist Name Role Phone Karl Quiroz MD Primary Care Provider [phone] Reason for Visit * Reason Comments Chemotherapy [...] [id number] PACLitaxeL-protein bound (Abraxane) Lennox Spivey MD [facility] [place] [address] Stj Hem Onc Infusion [address] [place] [phone] Referral ID Status Reason Start Date Expiration Date V isits Requested Visits Authorized [id number] Authorized 12/26/2023 12/25/2024 99 102 Encounter Details Date Type Department Care Team (Late st Contact Info) Description 01/22/2024 8:30 AM EDT Infusion Hematology Oncology at [address] [phone] High risk medication use; Secondary [...] pleura Stage 4 lung cancer, left Dehydration documented in this encounter Administered Medications Inactive Administered Medications - up to 3 most recent administrations Medication Order MAR Action Action Date Dose Rate Site ondansetron (Zofran) tablet 8 mg 8 mg, Oral, ONCE, 1 dose, On 01/22/24 at 0945, Administer prior to chemotherapy, Routine [...] Job Aid: Adult Flushing & Catheter Care (1797) job aid for additional information regarding guidelines and administration., Routine Given 01/22/2024 10:56 AM EDT 20 mLs sodium chloride 0.9% infusion 500 mL/hr, Intravenous, CONTINUOUS, Starting on Mon01/22/24 at 0945, Until Mon01/22/24 at 1323, Please infuse 1 L of normal saline of 1-2 hours New Bag 01/22/2024 9:15 AM EDT 500 mL/hr 500 mL/hr documented in this encounter Care Teams Retail Seasonal Specialist Relationship Specialty Start Date End Date Karl Quiroz MD [address] [place] [phone] PCP - General Family Medicine 01/11/24 documented as of this encounter
--- OUTSIDE RECORDS SUMMARY | 2024-04-17 12:53 | XMS_ITS | Encounter Summary ---
Author Organization [facility] Address [facility] [place] [address] Care Team Providers Care Mice Raiser Name Role Phone Rayo Riley MD Primary Care Provider [phone] Encounter Details Date Type Department Care Team (Late st Contact Info) Description 01/03/2024 5:15 PM EDT Office Visit Radiation Oncology at [address] [phone] Beto Braswell MD [facility] [place] [address] Non-small cell lung cancer, left Social History Tobacco Use Types Packs/Day Years Used Date Smoking Tobacco: Former Cigarettes 0.3 57 Smokeless Tobacco: Never Comments:Quit 11/2023 Alcohol Use Standard Drinks/Week Comments Yes 7 (1 standard drink = 0.6 oz pure alcohol) 4oz rum with coke daily- varies [facility] Utilities Answer Date Recorded In the past 12 months has [facility] electric, gas, oil, or water company threatened [...] in a intermediate (including now)? No 12/21/2023 IPV Inpatient Questions [...] from the original note were not included. [facility] Medicine Radiation Oncology Radiation [...] hernia. He presented in May 2023 to [facility] with dyspnea and was found to have a left pleural effusion. A chest tube was placed; cytology was negative. He was treated for pneumonia, and a the tube was removed with improvement in symptoms. He subsequently presented to his PCP at [facility] with increasing chest pain and a [...] Asked to increase oxycodone to 30 mg. nursing home pain medication was denied, Rx by , [...] including predominantly whispered speech NA National Cancer [place] (NCI) Comprehensive Cancer Center [employer] Commission on Cancer (ACS Rubin) Accredited Cancer Program [employer] (ACR) Accredited Radiation Oncology Program documented in this encounter Plan of Treatment Not on file documented as of this encounter Visit Diagnoses Diagnosis Non-small cell lung cancer, left documented in this encounter Care Teams Mice Raiser Relationship Specialty Start Date End Date Rayo Riley MD [address] [place] [address] PCP - General 06/22/10 01/10/24 documented as of this encounter
--- OUTSIDE RECORDS SUMMARY | 2024-04-17 12:53 | XMS_ITS | Encounter Summary ---
Author Organization [facility] Address [facility] [place] [address] Care Team Providers Care Short Order Fry Cook Name Role Phone Karl Quiroz MD Primary Care Provider [phone] Encounter Details Date Type Department Care Team (Late st Contact Info) Description 01/10/2024 Orders Only Hematology/Oncology at [address] [phone] Bushra Muniz APRN [address] [place] [address] DR HEMATOLOGY [place] [address] Stage 4 lung cancer, left [...] as of this encounter Plan of Treatment Scheduled Orders Name Type Priority Associated Diagnoses Orde r Schedule Miscellaneous Lab request Lab Routine Stage 4 lung cancer, left Every 4 Weeks for 12 Occurrences starting 01/11/2024 until 01/09/2025, 2 completed documented as of this encounter Visit Diagnoses Diagnosis Stage 4 lung cancer, left documented in this encounter Care Teams Short Order Fry Cook Relationship Specialty Start Date End Date Karl Quiroz MD [address] [place] [phone] PCP - General Family Medicine 01/11/24 documented as of this encounter
--- OUTSIDE RECORDS SUMMARY | 2024-04-17 12:53 | XMS_ITS | Encounter Summary ---
Author Organization [facility] Address [facility] [place] [address] Care Team Providers Care Machine Splitter Name Role Phone Rayo Riley MD Primary Care Provider [phone] Encounter Details Date Type Department Care Team (Latest Contact Info) Description 01/05/2024 Travel Social History Tobacco Use Types Packs/Day Years Used Date Smoking Tobacco: Former Cigarettes 0.3 57 Smokeless Tobacco: Never Comments:Quit 11/2023 Alcohol Use Standard Drinks/Week Comments Yes 7 (1 standard drink = 0.6 oz pure alcohol) 4oz rum with coke daily- varies [facility] Utilities Answer Date Recorded In the [...] any time in the past 12 m [facility], were you homeless or living in [...] filedocumented in this encounter Care Teams Machine Splitter Relationship Specialty Start Date End Date Rayo Riley MD [address] [place] [address] PCP - General 06/22/10 01/10/24 documented as of this encounter
--- OUTSIDE RECORDS SUMMARY | 2024-04-17 12:53 | XMS_ITS | Encounter Summary ---
Author Organization [facility] Address [facility] [place] [address] Care Team Providers Care Shell Plater Name Role Phone Karl Quiroz MD Primary Care Provider [phone] Encounter Details Date Type Department Care Team (Latest Contact Info) Description 01/22/2024 Travel Social History Tobacco Use Types Packs/Day Years Used Date Smoking Tobacco: Former Cigarettes 0.3 57 Smokeless Tobacco: Never Comments:Quit 11/2023 Alcohol Use Standard Drinks/Week Comments Yes 7 (1 standard drink = 0.6 oz pure alcohol) 4oz rum with coke daily- varies [facility] Utilities Answer Date Recorded In the [...] any time in the past 12 m [facility], were you homeless or living in a detention (including now)? No 12/21/2023 DH IPV Inpatient [...] on filedocumented in this encounter Care Teams Shell Plater Relationship Specialty Start Date End Date Karl Quiroz MD [address] [place] [phone] PCP - General Family Medicine 01/11/24 documented as of this encounter
--- OUTSIDE RECORDS SUMMARY | 2024-04-17 12:53 | XMS_ITS | Encounter Summary ---
Author Organization [facility] Address [facility] [place] [address] Care Team Providers Care Rn Chemical Dependency Name Role Phone Rayo Riley MD Primary Care Provider [phone] Reason for Referral * Diagnostic Test (Routine) - Closed Specialty Diagnoses / Procedures Referred By Contac t Referred To Contact Radiology Diagnoses Stage 4 lung cancer, left Procedures IR Mediport Lennox Bartholomew MD [facility] DR [place] [address] [facility] [place] [address] Referral ID Status Reason Start Date Expiration Date V isits Requested Visits Authorized [id number] Closed Specialty Service Requested 12/26/2023 06/27/2025 1 1 Reason for Visit * Diagnostic Test (Routine) - Closed Specialty Diagnoses / Procedures Referred By Contac t Referred To Contact Radiology Diagnoses Stage 4 lung cancer, left Procedures IR Mediport Lennox Bartholomew MD [facility] DR [place] [address] [facility] [place] [address] Referral ID Status Reason Start Date Expiration Date V isits Requested Visits Authorized [id number] Closed Specialty Service Requested 12/26/2023 06/27/2025 1 1 Encounter Details Date Type Department Care Team (Late st Contact Info) Description 01/08/2024 12:23 PM EDT - 01/08/2024 11:59 PM EDT Hospital Encounter Radiology at [facility] [place] [phone] Lennox Spivey MD [facility] [address] [place] [address] Stage 4 lung cancer, left Discharge Disposition: [...] provided with an ID card stating the conservation biology professor and type of port you have. Please carry this with you in a safe place. Bandage: There is a sterile dressing over the port site consisting of small gauze with a clear dressing (Tegaderm or [id number] ). This dressing should be left in place for 48 hours. If the clear dressing becomes loose you should place tape over the edges to secure it in place. Note: If you have steri-strips beneath your dressing, simply allow them to fall off. Do not peel them off. There may be Bethalto-leija (skin glue) also, allow this to flake [...] is during regular office hours, please call [phone]. If it is after regular office hours, or on weekends or holidays, please call [phone] and ask to speak to the Supervisor Rubber Covering online merchandising manager for Interventional Radiology. XXX You have received [...] of : 1955 AGE: 68 y.o. [address]: [address] [place] [phone] (home) Mobile: Telephone Information: Referring Provider: Lennox Spivey REASON FOR VISIT: Order Questions Answers Where will study be performed? [facility] Radiology [120] To be scheduled Ordering [...] MD Procedure indication: Small cell lung cancer, fci durable venous access for chemotherapy IR workflow: [...] 5.02) performed by Dylan Weldon MD at [facility] MAIN OR Social history and habits: [...] Chest port implant Indication: Lung cancer, durable fci central venous access for chemotherapy Procedure summary: [...] atrium. The port may be used immediately. straightedge machine operator helper: Alpesh Melendrez PA-C. Present during the intraservice [...] mLs documented in this encounter Care Teams Rn Chemical Dependency Relationship Specialty Start Date End Date Rayo Riley MD [address] [place] [address] PCP - General 06/22/10 01/10/24 documented as of this encounter
--- OUTSIDE RECORDS SUMMARY | 2024-04-17 12:53 | XMS_ITS | Encounter Summary ---
Author Organization [facility] Address [facility] [place] [address] Care Team Providers Care Vice President Quality Improvement Name Role Phone Rayo Riley MD Primary Care Provider [phone] Encounter Details Date Type Department Care Team (Late st Contact Info) Description 01/10/2024 Notes Only Hematology/Oncology at [address] [phone] Trupti Bray, RN Social History Tobacco Use Types Packs/Day Years Used Date Smoking Tobacco: Former Cigarettes 0.3 57 Smokeless Tobacco: Never Comments:Quit 11/2023 Alcohol Use Standard Drinks/Week Comments Yes 7 (1 standard drink = 0.6 oz pure alcohol) 4oz rum with coke daily- varies [facility] Utilities Answer Date Recorded [...] 4:33 PM EDT Clinical Research Nurse Note [place], [place] Date: 01/10/24 Documentation of Informed Consent to Participate in Clinical Trial Study Number:[id number] Description:Immune profiling for cancer Immunotherapy response The study investigates how the profiles of the immune cells before and after treatment with immunotherapeutic medications used for cancer treatment might impact the response to the treatment. Patient was seen in private exam room , and was offered the opportunity to participate in the [id number] The protocol was reviewed with patient including [...] form was sent to DARLINE SYLVESTER via humanities and languages professor and also Emailed to him. consent was [...] on filedocumented in this encounter Care Teams Vice President Quality Improvement Relationship Specialty Start Date End Date Rayo Riley MD [address] [place] [address] PCP - General 06/22/10 01/10/24 documented as of this encounter
--- OUTSIDE RECORDS SUMMARY | 2024-04-17 12:53 | XMS_ITS | Encounter Summary ---
Author Organization [facility] Address [facility] [place] [address] Care Team Providers Care Munitions Worker Name Role Phone Karl Quiroz MD Primary Care Provider [phone] Encounter Details Date Type Department Care Team [...] on filedocumented in this encounter Care Teams Munitions Worker Relationship Specialty Start Date End Date Karl Quiroz MD [address] [place] [phone] PCP - General Family Medicine 01/11/24 documented as of this encounter
--- OUTSIDE RECORDS SUMMARY | 2024-04-17 12:53 | XMS_ITS | Encounter Summary ---
Author Organization [facility] Address [facility] [address] Care Team Providers Care Logistician Name Role Phone Karl Quiroz MD Primary Care Provider [phone] Encounter Details Date Type Department Care Team (Late st Contact Info) Description 01/22/2024 8:00 AM EDT Office Visit Hematology/Oncology at [address] [phone] Lennox Spivey MD [facility] [place] [address] Bushra Muniz, AIR POLLUTION SPECIALIST [address] [place] [address] DR HEMATOLOGY AND ONCOLOGY [place], [place] [id number] Stage 4 lung cancer, left; Dehydration Social History Tobacco Use Types Packs/Day Years Used Date Smoking Tobacco: Former Cigarettes 0.3 57 Smokeless Tobacco: Never Comments:Quit 11/2023 Alcohol Use Standard Drinks/Week Comments Yes 7 (1 standard drink = 0.6 oz pure alcohol) 4oz rum with coke daily- varies [facility] Utilities Answer Date Recorded In the past [...] original note were not included. Thoracic Oncology [facility] [place] [address] [phone] Jeffrey Lovelace is being seen for the [...] -Recommended involvement of local palliative care at [place] though he is hesitant to pursue thisright now -Palliative radiation to chest wall sites completed - Controlled on extended release morphine 15mg BID and oxycodone PRN for breakthrough. Bushra Muniz, AIR POLLUTION SPECIALIST 01/22/2024 Thoracic Oncology [facility] CC: Karl Quiroz MD HPI/Interval History/Subjective: [...] Network: Home situation: and . Lives in [place]. Two children - one passe away from suicide Gerry would be his deciosn maker and support. Lives in [place]. 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 Previously worked in proximity to [employer]. In his 20s Tobacco use: 50+ pk [...] Present: no Utilities: Not At Risk (12/13/2023) [facility] Utilities Threatened with loss of utilities: No [...] The assay was performed according to the toy parts former supervisor's instructions using Anti-PD-L1 (22C3, pharmDX) antibody. Electronically signed by: Vu Vidal MD Verified: 12/19/2023 16:50 Pathologist Performed at: -[facility] Dept. of Pathology, [place] [address] Stock Chaser: Omar White MD, FCAP, CLIA Certificate: [id number] Surgical Pathology DIAGNOSIS A - left chest soft tissue mass, excision: - Poorly differentiated carcinoma, see discussion. - Specimen margin negative for carcinoma. B - Superior medial margin, excision: - Fibroadipose tissue, negative for carcinoma. C - inferior medial margin, excision: - Fibroadipose tissue, negative for carcinoma. Electronically signed by: Eleuterio Obando MD Verified: 12/13/2023 10:42 Pathologist Performed at: -[facility] Dept. of Pathology, [place] [address] Stock Chaser: Omar White MD, FCAP, CLIA Certificate: [id number] DISCUSSION The clinical impression of a chest [...] Focal positive p63 Focal positive CKAE1/3 Positive [id number] Positive TTF1 Negative PAX8 Negative CD5 Background [...] Diagnosis Stage 4 lung cancer, left Dehydration documented in this encounter Care Teams Logistician Relationship Specialty Start Date End Date Karl Quiroz MD [address] [place] [phone] PCP - General Family Medicine 01/11/24 documented as of this encounter
--- OUTSIDE RECORDS SUMMARY | 2024-04-17 12:53 | XMS_ITS | Encounter Summary ---
Author Organization [facility] Address [facility] [place] [address] Care Team Providers Care Cardiovascular Physician Assistant Name Role Phone Rayo Riley MD Primary Care Provider [phone] Encounter Details Date Type Department Care Team [...] on filedocumented in this encounter Care Teams Cardiovascular Physician Assistant Relationship Specialty Start Date End Date Rayo Riley MD [address] [place] [address] PCP - General 06/22/10 01/10/24 documented as of this encounter
--- OUTSIDE RECORDS SUMMARY | 2024-04-17 12:53 | XMS_ITS | Encounter Summary ---
Author Organization [facility] Address [facility] [place] [address] Care Team Providers Care Vocational Education Teacher Name Role Phone Karl Quiroz MD Primary Care Provider [phone] Reason for Visit * Reason Comments Chemotherapy [...] [facility] [place] [address] Stj Hem Onc Infusion [address] [place] [phone] Referral ID Status Reason Start Date Expiration Date V isits Requested Visits Authorized [id number] Authorized 12/26/2023 12/25/2024 99 102 Encounter Details Date Type Department Care Team (Late st Contact Info) Description 02/12/2024 11:30 AM EDT Infusion Hematology Oncology at [address] [phone] High risk medication use; Secondary malignant neoplasm of pleura; Stage 4 lung cancer, left Social History Tobacco Use Types Packs/Day Years Used Date Smoking Tobacco: Former Cigarettes 0.3 57 Smokeless Tobacco: Never Comments:Quit 11/2023 Alcohol Use Standard Drinks/Week Comments Yes 7 (1 standard drink = 0.6 oz pure alcohol) 4oz rum with coke daily- varies [facility] Utilities Answer Date Recorded In the [...] any time in the past 12 m [facility], were you homeless or living in [...] intake, typically has 3 eggs and an faroese muffin in the morning, 1/2 sub sandwich [...] 2 minutes is a recommendation from the audio visual engineer. Administer prior to chemotherapy., Routine Given 02/12/2024 [...] Job Aid: Adult Flushing & Catheter Care (5047) job aid for additional information regarding guidelines and administration., Routine Given 02/12/2024 3:55 PM EDT 20 mLs documented in this encounter Care Teams Vocational Education Teacher Relationship Specialty Start Date End Date Karl Quiroz MD [address] [place] [phone] PCP - General Family Medicine 01/11/24 documented as of this encounter
--- OUTSIDE RECORDS SUMMARY | 2024-04-17 12:53 | XMS_ITS | Encounter Summary ---
Author Organization [facility] Address [facility] [place] [address] Care Team Providers Care Hypercil Core Transformer Assembler Name Role Phone Rayo Riley MD Primary Care Provider [phone] Reason for Visit * Reason Onset Date Comments Medication Problem 01/09/2024 Encounter Details Date Type Department Care Team (Late st Contact Info) Description 01/09/2024 Telephone Hematology/Oncology at [address] [phone] Malcolm Wei RN Medication Problem Social History Tobacco Use Types Packs/Day Years Used Date Smoking Tobacco: Former Cigarettes 0.3 57 Smokeless Tobacco: Never Comments:Quit 11/2023 Alcohol Use Standard Drinks/Week Comments Yes 7 (1 standard drink = 0.6 oz pure alcohol) 4oz rum with coke daily- varies [facility] Utilities Answer Date Recorded In [...] before he can refill on the . [facility] pharmacy today said we could order [...] be approved by insurance. He called on [phone] documented in this encounter Plan of Treatment Not on file documented as of this encounter Visit Diagnoses Not on filedocumented in this encounter Care Teams Hypercil Core Transformer Assembler Relationship Specialty Start Date End Date Rayo Riley MD [address] [place] [address] PCP - General 06/22/10 01/10/24 documented as of this encounter
--- OUTSIDE RECORDS SUMMARY | 2024-04-17 12:53 | XMS_ITS | Encounter Summary ---
Author Organization [facility] Address [facility] [place] [address] Care Team Providers Care Ribbon Inker Name Role Phone Karl Quiroz MD Primary Care Provider [phone] Encounter Details Date Type Department Care Team (Late st Contact Info) Description 02/05/2024 11:00 AM EDT Office Visit Hematology/Oncology at [address] [phone] Lennox Spivey MD [facility] DR HEMATOLOGY [place] [address] Bushra Muniz, RETAIL SALES ASSOCIATE [address] [place] [address] DR HEMATOLOGY AND ONCOLOGY [place], [place] [id number] Stage 4 lung cancer, left; Hypotension, unspecified [...] in a longterm (including now)? No 12/21/2023 DH IPV Inpatient [...] original note were not included. Thoracic Oncology [facility] [address] [phone] Jeffrey Lovelace is being seen for the [...] -Recommended involvement of local palliative care at [place] though he is hesitant to pursue thisright now -Palliative radiation to chest wall sites completed - Controlled on extended release morphine 15mg BID and oxycodone PRN for breakthrough. Bushra Muniz, RETAIL SALES ASSOCIATE 02/05/2024 Thoracic Oncology [facility] CC: Karl Quiroz MD HPI/Interval History/Subjective: [...] Network: Home situation: and . Lives in [facility]. Two children - one passe away from suicide Gerry would be his deciosn maker and support. Lives in [place]. 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 Previously worked in proximity to [employer]. In his 20s Tobacco use: 50+ pk [...] Present: no Utilities: Not At Risk (12/13/2023) [facility] Utilities Threatened with loss of utilities: [...] The assay was performed according to the underwater roboticist's instructions using Anti-PD-L1 (22C3, pharmDX) antibody. Electronically signed by: Vu Vidal MD Verified: 12/19/2023 16:50 Pathologist Performed at: -[facility] Dept. of Pathology, [place] [address] Office Clerk: Omar White MD, FCAP, CLIA Certificate: [id number] Surgical Pathology DIAGNOSIS A - left chest soft tissue mass, excision: - Poorly differentiated carcinoma, see discussion. - Specimen margin negative for carcinoma. B - Superior medial margin, excision: - Fibroadipose tissue, negative for carcinoma. C - inferior medial margin, excision: - Fibroadipose tissue, negative for carcinoma. Electronically signed by: Eleuterio Obando MD Verified: 12/13/2023 10:42 Pathologist Performed at: -[facility] Dept. of Pathology, [place] [address] Office Clerk: Omar White MD, FCAP, CLIA Certificate: [id number] DISCUSSION The clinical impression of a chest [...] Focal positive p63 Focal positive CKAE1/3 Positive [id number] Positive TTF1 Negative PAX8 Negative CD5 Background [...] lung cancer, left Hypotension, unspecified hypotension type documented in this encounter Care Teams Ribbon Inker Relationship Specialty Start Date End Date Karl Quiroz MD [address] [place] [phone] PCP - General Family Medicine 01/11/24 documented as of this encounter
--- OUTSIDE RECORDS SUMMARY | 2024-04-17 12:53 | XMS_ITS | Encounter Summary ---
Author Organization [facility] Address [facility] [place] [address] Care Team Providers Care Basin Cleaner Name Role Phone Karl Quiroz MD Primary Care Provider [phone] Encounter Details Date Type Department Care Team (Latest Contact Info) Description 01/22/2024 9:30 AM EDT Clinical Support Hematology/Oncology at [address] [phone] [address] [facility] DR [place] [address] Stage 4 lung cancer, left Social History Tobacco Use Types Packs/Day Years Used Date Smoking Tobacco: Former Cigarettes 0.3 57 Smokeless Tobacco: Never Comments:Quit 11/2023 Alcohol Use Standard Drinks/Week Comments Yes 7 (1 standard drink = 0.6 oz pure alcohol) 4oz rum with coke daily- varies [facility] Utilities Answer Date Recorded In [...] left documented in this encounter Care Teams Basin Cleaner Relationship Specialty Start Date End Date Karl Quiroz MD [address] [place] [phone] PCP - General Family Medicine 01/11/24 documented as of this encounter
--- OUTSIDE RECORDS SUMMARY | 2024-04-17 12:53 | XMS_ITS | Encounter Summary ---
Author Organization [facility] Address [facility] [place] [address] Care Team Providers Care Awning Erector Name Role Phone Karl Quiroz MD Primary Care Provider [phone] Reason for Visit * Reason Onset Date Comments Other 01/11/2024 Encounter Details Date Type Department Care Team (Late st Contact Info) Description 01/11/2024 Telephone Hematology/Oncology at [address] [phone] Malcolm Wei RN Other Social [...] were not included. Called and spoke with [facility] pharmacy. They said the oxycodone script [...] are ready for pickup. [facility] [phone] called to get clearance for fillings x3. He has an appointment for this 04/15/24. He will have completed the chemotherapy portion of treatment in February. Magaly TOWER EQUIPMENT INSTALLER to sign letter for dentist when she is here tomorrow and will fax to them at [phone]. Pt called and updated on all of this and was thankful for the follow up. -----[facility] Hem Onc Nurse Jeffrey called in today letting us know that the oxyCODONE (Roxicodone) 20 mg tablet that Bushra prescribed, Danna is saying that the insurance will not cover the increased amount and he is almost in tears(you can hear in his voice the pain) Best call back number [phone] documented in this encounter Plan of Treatment Not on file documented as of this encounter Visit Diagnoses Not on filedocumented in this encounter Care Teams Awning Erector Relationship Specialty Start Date End Date Karl Quiroz MD [address] [place] [phone] PCP - General Family Medicine 01/11/24 documented as of this encounter
--- OUTSIDE RECORDS SUMMARY | 2024-04-17 12:53 | XMS_ITS | Encounter Summary ---
Author Organization [facility] Address [facility] [place] [address] Care Team Providers Care Client Coordinator Name Role Phone Rayo Riley MD Primary Care Provider [phone] Encounter Details Date Type Department Care Team (Late st Contact Info) Description 12/27/2023 Notes Only Radiation Oncology at [address] [phone] Tammie Recinos, [facility] OFFICE OF CARE MANAGEMENT Social History Tobacco Use Types Packs/Day Years Used Date Smoking Tobacco: Former Cigarettes 0.3 57 Smokeless Tobacco: Never Comments:Quit 11/2023 Alcohol Use Standard Drinks/Week Comments Yes 7 (1 standard drink = 0.6 oz pure alcohol) 4oz rum with coke daily- varies [facility] Utilities Answer Date Recorded In [...] any time in the past 12 m [facility], were you homeless or living in [...] his primaryconcern. Reminded him to call the [facility] Cancer Survivor group to ask for a gas card. He is getting some assistance with rides through [facility] but indicated he was told by Oksana [...] or resources at this time. Reminded Jeffrey [employer]UR CO[employer] SEW[employer] mailed him information re [employer] services. Encouraged him to call to apply forfinancial assistance. Will follow up with Jeffrey once he starts his RT treatments and will assist with a few gas cards. Will follow for support and resources. Brief assessment Advance care planning Transportation resources Patient Financial Assistance/Insurance Add: TC from [employer], [facility] [phone]. She indicated she has been helping Jeffrey with rides. The funds available for this are limited. Discussed any possible options. He told FUR COAT SEWER he would drive and/or had others that could help with rides. Ade indicated he has told her he does not have people. If he had people who could drive him she can help with gas cards as can [employer]. If he can not drive or does not have anyone to help she indicated the funds to pay for a service are limited. She plans to further clarify his needs as will [employer]. documented in this encounter Plan of Treatment Not on file documented as of this encounter Visit Diagnoses Not on filedocumented in this encounter Care Teams Client Coordinator Relationship Specialty Start Date End Date Rayo Riley MD [address] [place] [address] PCP - General 06/22/10 01/10/24 documented as of this encounter
--- OUTSIDE RECORDS SUMMARY | 2024-04-17 12:53 | XMS_ITS | Encounter Summary ---
Author Organization [facility] Address [facility] [place] [address] Care Team Providers Care Coil Connector Repairer Name Role Phone Karl Quiroz MD Primary Care Provider [phone] Reason for Visit * Reason Comments Chemotherapy [...] [id number] PACLitaxeL-protein bound (Abraxane) Lennox Spivey MD [facility] DR HEMATOLOGY [place] [address] Stj Hem Onc Infusion [address] [place] [phone] Referral ID Status Reason Start Date Expiration Date V isits Requested Visits Authorized [id number] Authorized 12/26/2023 12/25/2024 99 102 Encounter Details Date Type Department Care Team (Late st Contact Info) Description 01/15/2024 11:30 AM EDT Infusion Hematology Oncology at [address] [phone] High risk medication use; Secondary malignant neoplasm of pleura; Stage 4 lung cancer, left Social History Tobacco Use Types Packs/Day Years Used Date Smoking Tobacco: Former Cigarettes 0.3 57 Smokeless Tobacco: Never Comments:Quit 11/2023 Alcohol Use Standard Drinks/Week Comments Yes 7 (1 standard drink = 0.6 oz pure alcohol) 4oz rum with coke daily- varies [facility] Utilities Answer Date Recorded In [...] a senior care (including now)? No 12/21/2023 DH IPV Inpatient [...] him today. OBJECTIVE LAB DATA: Completed at [facility] today, 01/14. Adequate for treatment. IV ACCESS: [...] 2 minutes is a recommendation from the oyster culturist. Administer prior to chemotherapy., Routine Given 01/15/2024 [...] Job Aid: Adult Flushing & Catheter Care (2472) job aid for additional information regarding guidelines and administration., Routine Given 01/15/2024 3:30 PM EDT 20 mLs documented in this encounter Care Teams Coil Connector Repairer Relationship Specialty Start Date End Date Karl Quiroz MD [address] [place] [phone] PCP - General Family Medicine 01/11/24 documented as of this encounter
--- OUTSIDE RECORDS SUMMARY | 2024-04-17 12:54 | XMS_ITS | Encounter Summary ---
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 Procedures PRO EXC SKIN MALIG >4CM TRUNK, ARM, LEG EXC MALIGNANT LESION, SHERRILL > 4.0CM, TRUNK (WRVU 5.02) Ariella Vargas MD [facility] [place] [address] [facility] Referral ID Status Reason Start Date Expiration Date Visits Re quested Visits Authorized [id number] 1 1 Encounter Details Date Type Department Care Team (Latest Contact Info) Description 11/22/2023 7:19 AM EDT - 11/23/2023 10:13 AM EDT Hospital Encounter [place] [phone] Ariella Vargas MD [facility] [place] [address] Chest wall mass; Pleural mass Discharge Disposition: [...] * Ariella Vargas MD - Primary * Kennteh Brady PA - Physician Electrical Automation Engineer Procedure: Procedure(s): EXC MALIGNANT LESION, SHERRILL > 4.0CM, TRUNK (WRVU 5.02) History of Presentation: Jeffrey Lovelace is a 68 y.o. male current smoker with PMHx of asbestos exposure, COPD, depression, DM2, GERD, HTN, HLD, inguinal hernia, umbilical hernia with a left chest wall mass and multiple lung nodules. He initially presented in May 2023 to [facility] with SOB and was found to have a left pleural effusion. A chest tube was placed and cytology was negative. This was removedafter a few days with improvement in his breathing, and he was treated for pneumonia. He then presented to his PCP and bow maker at [facility] with complaints of a pain [...] be ruled out. [facility] to obtain additional tissue, however after further discussion it was determined that surgical biopsy via chest wall mass removal would be more high yield Hospital Course: Jeffrey Lovelace was admitted to [facility] on 11/22/2023via the Same Day Program. He [...] a nurse in the Thoracic Clinic at [phone]. For emergencies after hours, on weekends or holidays please call: [phone] and ask to speak to the Thoracic Surgeon employee communications manager. Exercise & Activity Level: As you recover [...] please call the thoracic surgery clinic at [phone]. Driving: No driving for 1 week or [...] Thoracic Surgery Clinic or the Thoracic Surgeon employee communications manager after hours. Please take over the counter [...] Time Provider Department Center 12/07/2023 8:30 AM [facility] [address] [facility] CT [facility] Rad General Instructions None Provider Contact Information: Primary Care Provider: Rayo Riley MD [phone] Discharge References/Attachments: Discharge References/Attachments None For questions regarding this document or issues relating to this hospitalization on the Thoracic Surgery Service, please contact Dr. Vargas's office at . Signed: OLIVIA Headley 11/23/2023 CC: PCP: Rayo Riley MD Referring: Angela Gaines MD [address] [place] [id number] documented in this encounter Discharge Instructions * [...] a nurse in the Thoracic Clinic at [phone]. For emergencies after hours, on weekends or holidays please call: [phone] and ask to speak to the Thoracic Surgeon employee communications manager. Exercise & Activity Level: As you recover [...] please call the thoracic surgery clinic at [phone]. Driving: No driving for 1 week or [...] Thoracic Surgery Clinic or the Thoracic Surgeon employee communications manager after hours. Please take over the counter [...] Time Provider Department Center 12/07/2023 8:30 AM [facility] [address] [facility] Rad documented in this encounter Medications at [...] Guo RN - 11/23/2023 9:54 AM EDT [facility] Short Stay Unit Discharge Note All relevant [...] Brady PA - 11/22/2023 2:11 PM EDT [facility] Department of Thoracic Surgery Inpatient Post Op Check Note Patient Name: Jeffrey Lovelace Patient : [id number] Patient Patient Location: [address] Attending Surgeon: ARIELLA VARGAS ID: Jeffrey [...] OLIVIA Vidales 11/22/2023 Thoracic Surgery Service Pager [phone] * Sania Diop RN - 11/22/2023 10:37 [...] tinged secretions suctioned from patient's oral cavity. [id number] Lunch coverage by SUZY Spangler. 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 OLIVIA Guzman was my metal forger's assistant during the entire procedure since no [...] Exc Skin Malig >4Cm Trunk, Arm, Leg (58823) Yes 11/22/2023 8:56 AM EDT Pleural mass [...] AM EDT 11/22/2023 9:39 AM EDT Narrative [facility] - 11/22/2023 9:39 AM EDT Specimen requisition ordered. ??Separate Pathology report to follow Ariella Vargas MD PATHOLOGY/CYTOLOGY O ADONIS Performing Organization Address [facility] [place] [address] * Specimen to Pathology (11/22/2023 9:39 AM EDT) AP Specimen 11/22/2023 9:39 AM EDT 11/22/2023 9:39 AM EDT Narrative [facility] - 11/22/2023 9:39 AM EDT Specimen requisition ordered. ??Separate Pathology report to follow Ariella Vargas MD PATHOLOGY/[place] [address] * Solid Tumor NGS Panel (11/22/2023 9:35 AM EDT) Tissue 11/22/2023 9:35 AM EDT 12/19/2023 7:32 PM EDT Narrative Resulting Agency Comment Spec In Lab Ariella Vargas MD PATHOLOGY/CYTOLOGY O RDERADEANDRE [facility] [place] [address] * Surgical Pathology Report (11/22/2023 9:35 AM EDT) Final Diagnosis ? Location: [facility]; [facility]; The signing pathologist has (i) examined [...] The assay was performed according to the histotechnician's instructions using Anti-PD-L1 (22C3, pharmDX) antibody. Electronically signed by: ?Vu Vidal MD Verified: ??12/19/2023 16:50 ??Pathologist Performed at: ??-[facility] Dept. of Pathology, [place] [address] Enrollment Manager: Omar White MD, FCAP, ??CLIA Certificate: [id number] ?Surgical Pathology DIAGNOSIS A - left chest soft tissue mass, excision: - Poorly differentiated carcinoma, see discussion. - Specimen margin negative for carcinoma. B - Superior medial margin, excision: - Fibroadipose tissue, negative for carcinoma. C - inferior medial margin, excision: - Fibroadipose tissue, negative for carcinoma. Electronically signed by: ?Eleuterio Obando MD Verified: ??12/13/2023 10:42 ??Pathologist Performed at: ??-[facility] Dept. of Pathology, [place] [address] Enrollment Manager: Omar White MD, FCAP, ??CLIA Certificate: [id number] DISCUSSION The clinical impression of a chest [...] ?Focal positive ?p63 ?Focal positive ?CKAE1/3 ?Positive ?SJWSE531 ? Positive ?TTF1 ? Negative ?PAX8 ? [...] the soft tissue margin inked black. Sections/Processing: Binder Sorter sections in 7 cassettes as follows: ?A1-A4: ??Binder Sorter lesion to closest margin inked black ?A5-A7: [...] labeled C1-C4. ??jnk 12/19/2023 4:50 PM EDT [facility] SOFT TISSUE MASS / Unknown 11/22/2023 9:35 AM EDT 11/22/2023 9:35 AM EDT Margin 11/22/2023 9:35 AM EDT 11/22/2023 9:35 AM EDT Margin 11/22/2023 9:35 AM EDT 11/22/2023 9:35 AM EDT Ariella Vargas MD PATHOLOGY/CYTOLOGY O BALBINAERADEANDRE [facility] [place] [address] * Specimen to Pathology (11/22/2023 9:35 AM EDT) AP Specimen 11/22/2023 9:35 AM EDT 11/22/2023 9:35 AM EDT Narrative [facility] - 11/22/2023 9:35 AM EDT Specimen requisition ordered. ??Separate Pathology report to follow Ariella Vargas MD PATHOLOGY/CYTOLOGY O RDERABLES Performing Organization Address [facility] Co de Phone Number [facility] [place] [address] * EKG 12 Lead (11/22/2023 8:36 AM EDT) Ventricular rate 89 BPM MUSE SYSTEM Atrial Rate 89 BPM MUSE SYSTEM P-R Interval 154 ms MUSE SYSTEM QRS Duration 96 ms MUSE SYSTEM Q-T Interval 364 ms MUSE SYSTEM QTC Calculated (Bezet) 442 ms MUSE SYSTEM Calculated P Gilmore 39 degrees MUSE SYSTEM Calculated R Gilmore 18 degrees MUSE SYSTEM Calculated T Gilmore 37 degrees MUSE SYSTEM INTERPRETATION Normal sinus rhythm Normal ECG No previous ECGs available Confirmed by MD Kelsea, [place] (1955) on 11/22/2023 2:17:24 PM MUSE SYSTEM 11/22/2023 8:36 AM EDT 11/22/2023 2:17 PM EDT Ariella Vargas MD ECG ORDERABLES Performing Organization Address [facility] Co de Phone Number MUSE SYSTEM * POCT Glucose (11/22/2023 8:15 AM EDT) Glucose, POC 132 65 - 199 mg/dL [facility] Comment: Supplemental ranges: <140 mg/dL before meals <180 mg/dL all other times of the day Blood 11/22/2023 8:15 AM EDT 11/22/2023 8:15 AM EDT Ariella Vargas MD POINT OF CARE TEST O RDERABLES Performing Organization Address [facility] Co de Phone Number [facility] [place] [address] * (ABNORMAL) Differential, Automated (11/22/2023 7:57 AM EDT) Pathologist [facility] Neutrophil % 72.4 % [facility] Neutrophil Absolute 6.99(H) 1.70 - 6.10 x10(3)/ L [facility] Lymph % 15.8 % [facility] Lymphocytes Abs 1.5 0.9 - 3.2 x10(3)/[facility] Monocyte % 7.9 % [facility] Monocyte Abs 0.8 0.3 - 0.9 x10(3)/[facility] Eos % 3.0 % [facility] Eosinophils Abs 0.3 0.0 - 0.4 x10(3)/[facility] Basophil % 0.6 % [facility] Baso Absolute 0.1 0.0 - 0.1 x10(3)/[facility] Immature Gran % 0.30 % [facility] Comment: Immature granulocytes(IG's)percentage and absolute count will include metamyelocytes, myelocytes, and promyelocytes. Blood smears from CBCs yielding IG's will be scanned manually for concordance. If this scan disagrees with the automated IG or if promyelocytes are noted, a manual differential will be performed. Immature Gran Absolute 0.03 0.00 - 0.04 x10(3)/[facility] Blood 11/22/2023 7:57 AM EDT 11/22/2023 8:00 AM EDT Narrative Resulting Agency Comment Spec In Lab Ariella Vargas MD HEMATOLOGY ORDERABLE S [facility] [place] [address] * (ABNORMAL) Hemogram (11/22/2023 7:57 AM EDT) Pathologist [facility] White Blood Cell 9.6(H) 4.0 - 9.5 x10(3)/mc L [facility] Red Blood Cell 4.48(L) 4.58 - 5.54 x10(6)/mc L [facility] Hemoglobin 13.6(L) 13.7 - 16.5 g/dL [facility] Hematocrit 42.1 40.5 - 48.5 % [facility] Mean Cell Volume 94.0(H) 82.9 - 93.1 [facility] Mean Cell Hemoglobin 30.4 27.5 - 32.1 pg [facility] Mean Cell Hemoglobin Concentration 32.3 32.0 - 35.7 g/dL [facility] Platelet 299 145 - 357 x10(3)/[facility] RDW Standard Deviation 48.2(H) 36.0 - 45.0 [facility] RDW coefficient of variation 14.0(H) 11.4 - 13.8 % [facility] Mean Platelet Volume 11.4 7.6 - 12.9 [facility] NRBC% auto 0.0 % [facility] NRBC Absolute 0.000 0.000 - 0.000 x10(3)/[facility] Blood 11/22/2023 7:57 AM EDT 11/22/2023 8:00 AM EDT Narrative Resulting Agency Comment Spec In Lab Ariella Vargas MD HEMATOLOGY ORDERABLE S [facility] [place] [address] * (ABNORMAL) Comprehensive metabolic panel (non-fasting) (11/22/2023 7:57 AM EDT) Glucose 147 65 - 199 mg/dL [facility] Comment:Diabetes: >=200 mg/d L plus symptoms Blood Urea Nitrogen 20 10 - 20 mg/dL [facility] Creatinine 1.03 0.80 - 1.50 mg/dL [facility] Sodium 140 135 - 145 mmol/L [facility] Potassium 4.8 3.5 - 5.0 mmol/L [facility] Comment: Please note: ??Patients with WBC >100,000 may have falsely elevated Potassium levels. ??For accurate Potassium quantification in these patients send serum separator tube (gold top) for subsequent determinations. ??Contact the Clinical Chemistry Laboratory if there are any questions. Chloride 100 98 - 107 mmol/L [facility] Carbon Dioxide 31 22 - 31 mmol/L [facility] Anion Gap 9 5 - 15 mmol/L [facility] Calcium 10.3 8.5 - 10.5 mg/dL [facility] Protein, Total 7.3 6.1 - 8.0 g/dL [facility] Albumin 4.0 3.2 - 5.2 g/dL [facility] Aspartate Aminotransferase 28 0 - 39 unit/L [facility] Alanine Aminotransferase 27 0 - 55 unit/L [facility] Alkaline Phosphatase 134(H) 40 - 130 unit/L [facility] Bilirubin, Total 0.3 0.2 - 1.3 mg/dL [facility] Est Glomerular Filtration Rate 80 >=60 mL/min/1. 73 m?? [facility] Comment: This patient's estimated GFR [...] In Lab Ariella Vargas MD CHEMISTRY ORDERABLES RAMIRO [facility] [place] [address] documented in this encounter Visit Diagnoses Diagnosis Chest wall mass- Primary Swelling, mass, or lump in chest Chest wall mass Swelling, mass, or lump in chest Pleural mass Swelling, mass, or lump in chest documented in this encounter Admitting Diagnoses Diagnosis [...] subcutaneous injection 5,000 Units 5,000 Units, Subcutaneous, COMMUNITY LEADER TO O.R., 1 dose, On Mon11/22/23 at [...] on Mon11/23/23 at 1700, Until Discontinued, Routine ceFAZolin (Ancef) 2 g vial attach to sodium chloride 0.9% 100 mL Mini-Bag Plus (COMPLETED) 2 g, Intravenous, COMMUNITY LEADER TO O.R., 1 dose, On Mon11/22/23 at 0845, Administer over 30 Minutes, Intra-Operative (Intra-Procedure), Indication for (Active or Suspected): Prophylaxis 09 (New Bag - Provider: Marlee Flowers CRNA) docusate sodium (Colace) capsule 100 mg 100 mg, Oral, 3 TIMES DAILY, First dose on Mon11/22/23 at 1500, Until Discontinued, Routine 1602 (Given - Provider: Sofy Frost LPN)210 (Given - Provider: Tammy Bullard, SUZY) 08 (Given - Provider: Anyi Guo RN) FLUoxetine [...] injection 5,000 Units (COMPLETED) 5,000 Units, Subcutaneous, COMMUNITY LEADER TO O.R., 1 dose, On Mon11/22/23 at [...] Sofy Frost LPN)2103 (Given - Provider: Tammy Bullard, SUZY) 0522 (Given - Provider: Frances Cherry RN) [...] Routine 0110 (Given - Provid er: Frances Chrery RN)0826 (Given - Provider: Anyi Guo RN) [...] Routine documented in this encounter Care Teams Manager Field Relationship Specialty Start Date End Date Rayo Riley MD [address] [place] [address] PCP - General 06/22/10 01/10/24 documented as of this encounter
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
--- OUTSIDE RECORDS SUMMARY | 2024-04-17 12:54 | XMS_ITS | Encounter Summary ---
Author Organization [facility] Address [facility] [place] [address] Care Team Providers Care Die Barber Name Role Phone Rayo Riley MD Primary Care Provider [phone] [phone] Encounter Details Date Type Department Care Team (Late st Contact Info) Description 11/17/2023 Telephone [place] [phone] Sharon Landry MD [facility] [place] [address] Social History Tobacco Use Types Packs/Day Years [...] on filedocumented in this encounter Care Teams Die Barber Relationship Specialty Start Date End Date Rayo Riley MD [address] [place] [address] [address] [place] [address] PCP - General 06/22/10 01/10/24 documented as of this encounter
--- OUTSIDE RECORDS SUMMARY | 2024-04-17 12:54 | XMS_ITS | Encounter Summary ---
Author Organization [facility] Address [facility] [place] [address] Care Team Providers Care Head Sawyer Automatic Name Role Phone Rayo Riley MD Primary Care Provider [phone] [phone] Encounter Details Date Type Department Care Team ([facility] st Contact Info) Description 12/21/2023 Orders Only Hematology and Oncology at [facility] [place] [address] [facility] DR [place] [address] Social History Tobacco Use Types Packs/Day Years [...] any time in the past 12 m [facility], were you homeless or living in [...] on filedocumented in this encounter Care Teams Head Sawyer Automatic Relationship Specialty Start Date End Date Rayo Riley MD [address] [place] [address] PCP - General 06/22/10 01/10/24 documented as of this encounter
--- OUTSIDE RECORDS SUMMARY | 2024-04-17 12:54 | XMS_ITS | Encounter Summary ---
Author Organization [facility] Address [facility] [place] [address] Care Team Providers Care Care Management Coordinator Name Role Phone Rayo Riley MD Primary Care Provider [phone] [phone] Encounter Details Date Type Department Care Team (Late st Contact Info) Description 12/01/2023 Telephone Radiation Oncology at [address] [phone] Meena Tomlinson Social History Tobacco [...] on filedocumented in this encounter Care Teams Care Management Coordinator Relationship Specialty Start Date End Date Rayo Riley MD [address] [place] [address] PCP - General 06/22/10 01/10/24 documented as of this encounter
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
--- OUTSIDE RECORDS SUMMARY | 2024-04-17 12:54 | XMS_ITS | Encounter Summary ---
Author Organization [facility] [place] [address] Care Team Providers Care Telegraph Editor Name Role Phone Rayo Riley MD Primary Care Provider +1 [phone] Encounter Details Date Type Department Care Team (Late st Contact Info) Description 12/04/2023 Orders Only [place] [phone] Johnna Jordan RN Pleural mass; Chest wall [...] on file documented as of this encounter Results * XR Chest PA & Lateral (Generic) (12/05/2023 10:41 AM EDT) WORKSTATION ID [id number] RAD Anatomical Region Laterality Modality Chest N/A Digital Radiogra phy Impressions 12/05/2023 3:16 PM EDT No pleural effusion or pneumothorax Thank you for letting us participate in the care of this patient. ??If you are a health care provider and have any questions regarding this report, please contact the number below. ??For patients who have questions please contact the health emergency care tech that requested your imaging first. ? Electronically signed by: Alon Navarro MD, [facility] ??([phone]), at 12/05/2023 3:16 PM Narrative 12/05/2023 3:16 [...] patients who have questions please contactthe health emergency care tech that requested your imaging first. Electronically signed by: Alon Navarro MD, [facility]([phone]), at 12/05/2023 3:16 PM Dylan Weldon MD IMG DX ORDERABLES documented in this encounter Visit Diagnoses Diagnosis Pleural mass Swelling, mass, or lump in chest Chest wall mass Swelling, mass, or lump in chest Pleural mass Swelling, mass, or lump in chest Chest wall mass Swelling, mass, or lump in chest documented in this encounter Care Teams Telegraph Editor Relationship Specialty Start Date End Date Rayo Riley MD [address] [place] [address] PCP - General 06/22/10 01/10/24 documented as of this encounter
--- OUTSIDE RECORDS SUMMARY | 2024-04-17 12:54 | XMS_ITS | Encounter Summary ---
Author Organization Count Includes [facility] Address [facility] [place] [address] Care Team Providers Care Air Defense Artillery Senior Sergeant Name Role Phone Rayo Riley MD Primary Care Provider [phone] [phone] Encounter Details Date Type Department Care Team ([facility] st Contact Info) Description 12/26/2023 Notes Only Radiology at [facility] [place] [phone] Alpesh Melendrez PA [facility] [place] [address] Social History Tobacco Use Types Packs/Day Years [...] in the past 12 m [facility], were you homeless or living in [...] MD Procedure indication: Small cell lung cancer, skilled nursing durable venous access for chemotherapy IR workflow: [...] 5.02) performed by Dylan Weldon MD at [facility] Social history and habits: [...] on filedocumented in this encounter Care Teams Air Defense Artillery Senior Sergeant Relationship Specialty Start Date End Date Rayo Riley MD [address] [place] [address] PCP - General 06/22/10 01/10/24 documented as of this encounter
--- OUTSIDE RECORDS SUMMARY | 2024-04-17 12:54 | XMS_ITS | Encounter Summary ---
Author Organization [facility] Address 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 Referral ID Status Reason Start Date Expiration Date Visits Re quested Visits Authorized [id number] 1 1 Encounter Details Date Type Department Care Team (Late st Contact Info) Description 11/22/2023 9:09 AM EDT - 11/22/2023 11:24 AM EDT Surgery [place] [phone] Ariella Vargas MD [facility] [place] [address] EXC MALIGNANT LESION, SHERRILL > 4.0CM, TRUNK [...] Primary * Kenneth Brady PA - Physician Staff Internist Office Based Only Procedure: Procedure(s): EXC MALIGNANT LESION, SHERRILL > 4.0CM, TRUNK (WRVU 5.02) History of Presentation: Jeffrey Lovelace is a 68 y.o. male current smoker with PMHx of asbestos exposure, COPD, depression, DM2, GERD, HTN, HLD, inguinal hernia, umbilical hernia with a left chest wall mass and multiple lung nodules. He initially presented in May 2023 to [facility] with SOB and was found to have a left pleural effusion. A chest tube was placed and cytology was negative. This was removedafter a few days with improvement in his breathing, and he was treated for pneumonia. He then presented to his PCP and service tester at [facility] with complaints of a pain and [...] be ruled out. [facility] to obtain additional tissue, however after further discussion it was determined that surgical biopsy via chest wall mass removal would be more high yield Hospital Course: Jeffrey Lovelace was admitted to [facility] on 11/22/2023via the Same Day [...] a nurse in the Thoracic Clinic at [phone]. For emergencies after hours, on weekends or holidays please call: [phone] and ask to speak to the Thoracic Surgeon continuous mining operator. Exercise & Activity Level: As you recover [...] please call the thoracic surgery clinic at [phone]. Driving: No driving for 1 week or [...] Thoracic Surgery Clinic or the Thoracic Surgeon continuous mining operator after hours. Please take over the counter [...] Time Provider Department Center 12/07/2023 8:[address] [facility] [address] [facility] RAD CT [facility] Rad General Instructions None Provider Contact Information: Primary Care Provider: Rayo Riley MD [phone] Discharge References/Attachments: Discharge References/Attachments None For questions regarding this document or issues relating to this hospitalization on the Thoracic Surgery Service, please contact Dr. Vargas's office at . Signed: OLIVIA Headley 11/23/2023 CC: PCP: Rayo Riley MD Referring: Angela Gaines MD [address] [place] [address] documented in this encounter Discharge Instructions * [...] a nurse in the Thoracic Clinic at [phone]. For emergencies after hours, on weekends or holidays please call: [phone] and ask to speak to the Thoracic Surgeon continuous mining operator. Exercise & Activity Level: As you recover [...] please call the thoracic surgery clinic at [phone]. Driving: No driving for 1 week or [...] Thoracic Surgery Clinic or the Thoracic Surgeon continuous mining operator after hours. Please take over the counter [...] Time Provider Department Center 12/07/2023 8:[address] [facility] [address] [facility] RAD CT [facility] Rad documented in this encounter Medications [...] Guo RN - 11/23/2023 9:54 AM EDT [facility] Short Stay Unit Discharge Note All [...] Brady PA - 11/22/2023 2:11 PM EDT [facility] Department of Thoracic Surgery Inpatient Post Op Check Note Patient Name: Jeffrey Lovelace Patient : [id number] Patient Patient Location: [address] Attending Surgeon: ARIELLA VARGAS ID: Jeffrey [...] OLIVIA Vidales 11/22/2023 Thoracic Surgery Service Pager [phone] * Sania Diop RN - 11/22/2023 10:37 [...] tinged secretions suctioned from patient's oral cavity. [phone] Lunch coverage by SUZY Spangler. [phone] - [...] OLIVIA Alicia 11/22/2023 Thoracic Surgery Service Pager [phone] documented in this encounter Miscellaneous Notes * Brief Op Note - Kenneth Brady PA - 11/22/2023 10:36 AM EDT Brief Operative Note Patient Name: Jeffrey Lovelace : [id number] MR#: [id number] Case Date: 11/22/2023 Surgeon: Surgeon(s) and Role: * Ariella Vargas MD - Primary * Kenneth Brady PA - Physician Staff Internist Office Based Only Preoperative diagnosis: possible mesothemioma with left chest [...] stable condition. OLIVIA Guzman was my assistant plant control operator during the entire procedure since no qualified [...] Exc Skin Malig >4Cm Trunk, Arm, Leg (01500) Yes 11/22/2023 8:56 AM EDT Pleural mass [...] AM EDT 11/22/2023 9:39 AM EDT Narrative [facility] - 11/22/2023 9:39 AM EDT Specimen requisition ordered. ??Separate Pathology report to follow Ariella Vargas MD PATHOLOGY/CYTOLOGY O ADONIS Performing Organization Address City/[facility]/ZIP Co de Phone Number [facility] [place] [address] * Specimen to Pathology (11/22/2023 9:39 AM EDT) AP Specimen 11/22/2023 9:39 AM EDT 11/22/2023 9:39 AM EDT Narrative [facility] - 11/22/2023 9:39 AM EDT Specimen requisition ordered. ??Separate Pathology report to follow Ariella Vargas MD PATHOLOGY/CYTOLOGY O ADONIS [facility] [place] [address] * Solid Tumor NGS Panel (11/22/2023 9:35 AM EDT) Tissue 11/22/2023 9:35 AM EDT 12/19/2023 7:32 PM EDT Narrative Resulting Agency Comment Spec In Lab Ariella Vargas MD PATHOLOGY/CYTOLOGY O RDERABLES [facility] [place] [address] * Surgical Pathology Report (11/22/2023 9:35 AM EDT) Pathologist [facility] Final Diagnosis ? Location: [facility]; [facility]; The signing pathologist has (i) examined [...] The assay was performed according to the shed boss's instructions using Anti-PD-L1 (22C3, pharmDX) antibody. Electronically signed by: ?Vu Vidal MD Verified: ??12/19/2023 16:50 ??Pathologist Performed at: ??-[facility] Dept. of [place]ology, [place] [address] Sales Representative Facility Services: Omar White MD, FCAP, ??CLIA Certificate: [id number] ?Surgical Pathology DIAGNOSIS A - left chest soft tissue mass, excision: - Poorly differentiated carcinoma, see discussion. - Specimen margin negative for carcinoma. B - Superior medial margin, excision: - Fibroadipose tissue, negative for carcinoma. C - inferior medial margin, excision: - Fibroadipose tissue, negative for carcinoma. Electronically signed by: ?Eleuterio Obando MD Verified: ??12/13/2023 10:42 ??Pathologist Performed at: ??-[facility] Dept. of [place]ology, [place] [address] Sales Representative Facility Services: Omar White MD, FCAP, ??CLIA Certificate: [id number] DISCUSSION The clinical impression of a chest [...] ?Focal positive ?p63 ?Focal positive ?CKAE1/3 ?Positive ?[id number] ? Positive ?TTF1 ? Negative ?PAX8 ? [...] the soft tissue margin inked black. Sections/Processing: Undercollar Maker sections in 7 cassettes as follows: ?A1-A4: ??Undercollar Maker lesion to closest margin inked black ?A5-A7: [...] labeled C1-C4. ??jnk 12/19/2023 4:50 PM EDT [facility] SOFT TISSUE MASS / Unknown 11/22/2023 9:35 AM EDT 11/22/2023 9:35 AM EDT Margin 11/22/2023 9:35 AM EDT 11/22/2023 9:35 AM EDT Margin 11/22/2023 9:35 AM EDT 11/22/2023 9:35 AM EDT Ariella Vargas MD PATHOLOGY/CYTOLOGY O RDERADEANDRE [facility] [place] [address] * Specimen to Pathology (11/22/2023 9:35 AM EDT) AP Specimen 11/22/2023 9:35 AM EDT 11/22/2023 9:35 AM EDT Narrative [facility] - 11/22/2023 9:35 AM EDT Specimen requisition ordered. ??Separate Pathology report to follow Ariella Vargas MD PATHOLOGY/CYTOLOGY O RDERABLES Performing Organization Address [facility] Co de Phone Number [facility] [place] [address] * EKG 12 Lead (11/22/2023 8:36 AM EDT) Ventricular rate 89 BPM MUSE SYSTEM Atrial Rate 89 BPM MUSE SYSTEM P-R Interval 154 ms MUSE SYSTEM QRS Duration 96 ms MUSE SYSTEM Q-T Interval 364 ms MUSE SYSTEM QTC Calculated (Bezet) 442 ms MUSE SYSTEM Calculated P Union 39 degrees MUSE SYSTEM Calculated R Union 18 degrees MUSE SYSTEM Calculated T Union 37 degrees MUSE SYSTEM INTERPRETATION Normal sinus rhythm Normal ECG No previous ECGs available Confirmed by MD Kelsea, Dinorah ([id number]) on 11/22/2023 2:17:24 PM MUSE SYSTEM 11/22/2023 8:36 AM EDT 11/22/2023 2:17 PM EDT Ariella Vargas MD ECG ORDERABLES Performing Organization Address [facility] Co de Phone Number MUSE SYSTEM * POCT Glucose (11/22/2023 8:15 AM EDT) Glucose, POC 132 65 - 199 mg/dL [facility] Comment: Supplemental ranges: <140 mg/dL before meals <180 mg/dL all other times of the day Blood 11/22/2023 8:15 AM EDT 11/22/2023 8:15 AM EDT Ariella Vargas MD POINT OF CARE TEST O RDERABLES Performing Organization Address [facility] Co de Phone Number [facility] [place] [address] * (ABNORMAL) Differential, Automated (11/22/2023 7:57 AM EDT) Pathologist [facility] Neutrophil % 72.4 % [facility] Neutrophil Absolute 6.99(H) 1.70 - 6.10 x10(3)/ L [facility] Lymph % 15.8 % [facility] Lymphocytes Abs 1.5 0.9 - 3.2 x10(3)/[facility] Monocyte % 7.9 % [facility] Monocyte Abs 0.8 0.3 - 0.9 x10(3)/[facility] Eos % 3.0 % [facility] Eosinophils Abs 0.3 0.0 - 0.4 x10(3)/[facility] Basophil % 0.6 % [facility] Baso Absolute 0.1 0.0 - 0.1 x10(3)/[facility] Immature Gran % 0.30 % [facility] Comment: Immature granulocytes(IG's)percentage and absolute count will include metamyelocytes, myelocytes, and promyelocytes. Blood smears from CBCs yielding IG's will be scanned manually for concordance. If this scan disagrees with the automated IG or if promyelocytes are noted, a manual differential will be performed. Immature Gran Absolute 0.03 0.00 - 0.04 x10(3)/[facility] Blood 11/22/2023 7:57 AM EDT 11/22/2023 8:00 AM EDT Narrative Resulting Agency Comment Spec In Lab Ariella Vargas MD HEMATOLOGY ORDERABLE S [facility] [place] [address] * (ABNORMAL) Hemogram (11/22/2023 7:57 AM EDT) Pathologist [facility] White Blood Cell 9.6(H) 4.0 - 9.5 x10(3)/mc L [facility] Red Blood Cell 4.48(L) 4.58 - 5.54 x10(6)/mc L [facility] Hemoglobin 13.6(L) 13.7 - 16.5 g/dL [facility] Hematocrit 42.1 40.5 - 48.5 % [facility] Mean Cell Volume 94.0(H) 82.9 - 93.1 fL [facility] Mean Cell Hemoglobin 30.4 27.5 - 32.1 pg [facility] Mean Cell Hemoglobin Concentration 32.3 32.0 - 35.7 g/dL [facility] Platelet 299 145 - 357 x10(3)/[facility] RDW Standard Deviation 48.2(H) 36.0 - 45.0 [facility] RDW coefficient of variation 14.0(H) 11.4 - 13.8 % [facility] Mean Platelet Volume 11.4 7.6 - 12.9 [facility] NRBC% auto 0.0 % [facility] NRBC Absolute 0.000 0.000 - 0.000 x10(3)/[facility] Blood 11/22/2023 7:57 AM EDT 11/22/2023 8:00 AM EDT Narrative Resulting Agency Comment Spec In Lab Ariella Vargas MD HEMATOLOGY ORDERABLE S [facility] [place] [address] * (ABNORMAL) Comprehensive metabolic panel (non-fasting) (11/22/2023 7:57 AM EDT) Glucose 147 65 - 199 mg/dL [facility] Comment:Diabetes: >=200 mg/d L plus symptoms Blood Urea Nitrogen 20 10 - 20 mg/dL [facility] Creatinine 1.03 0.80 - 1.50 mg/dL [facility] Sodium 140 135 - 145 mmol/L [facility] Potassium 4.8 3.5 - 5.0 mmol/L [facility] Comment: Please note: ??Patients with WBC >100,000 may have falsely elevated Potassium levels. ??For accurate Potassium quantification in these patients send serum separator tube (gold top) for subsequent determinations. ??Contact the Clinical Chemistry Laboratory if there are any questions. Chloride 100 98 - 107 mmol/L [facility] Carbon Dioxide 31 22 - 31 mmol/L [facility] Anion Gap 9 5 - 15 mmol/L [facility] Calcium 10.3 8.5 - 10.5 mg/dL [facility] Protein, Total 7.3 6.1 - 8.0 g/dL [facility] Albumin 4.0 3.2 - 5.2 g/dL [facility] Aspartate Aminotransferase 28 0 - 39 unit/L [facility] Alanine Aminotransferase 27 0 - 55 unit/L [facility] Alkaline Phosphatase 134(H) 40 - 130 unit/L [facility] Bilirubin, Total 0.3 0.2 - 1.3 mg/dL [facility] Est Glomerular Filtration Rate 80 >=60 mL/min/1. 73 m?? [facility] Comment: This patient's estimated [...] In Lab Ariella Vargas MD CHEMISTRY ORDERABLES [facility] [place] [address] documented in this encounter Visit Diagnoses Diagnosis [...] subcutaneous injection 5,000 Units 5,000 Units, Subcutaneous, PATENT AGENT TO O.R., 1 dose, On Mon11/22/23 at [...] Routine 0851 (Given - Provider: Loren Rose, SUZY) acetaminophen (Tylenol) tablet 975 mg 975 mg [...] Frost LPN) 0102 (Given - Provider: Frances Cherry RN)0523 (Given - Provider: Frances Cherry RN) aspirin [...] mL Mini-Bag Plus (COMPLETED) 2 g, Intravenous, PATENT AGENT TO O.R., 1 dose, On Mon11/22/23 at 0845, Administer over 30 Minutes, Intra-Operative (Intra-Procedure), Indication for (Active or Suspected): Prophylaxis 09 (New Bag - Provider: Marlee Flowers CRNA) docusate sodium (Colace) capsule 100 mg 100 mg, Oral, 3 TIMES DAILY, First dose on Mon11/22/23 at 1500, Until Discontinued, Routine 1602 (Given - Provider: Sofy Frost LPN)2104 (Given - Provider: Tammy Bullard RN) 0821 [...] injection 5,000 Units (COMPLETED) 5,000 Units, Subcutaneous, PATENT AGENT TO O.R., 1 dose, On Mon11/22/23 at [...] Sofy Frost LPN)2104 (Given - Provider: Tammy Bullard RN) 0522 [...] Sofy Frost LPN)2100 (Given - Provider: Tammy Bullard, SUZY) 0827 (Not Given - Provider: Anyi Guo RN - Reason: Patient/family refused - Comment: PIV being removed for discharge) tiotropium (Spiriva Respimat) 2.5 mcg/actuation inhaler 2 puff 2 puff, Inhalation, DAILY, First dose on Mon11/22/23 at 1400, Until Discontinued, Must be primed prior to first administration, Routine 1400 (Not Given - Provider: Anyi Guo, SUZY - Reason: Medication not available) 0812 (Not [...] Routine documented in this encounter Care Teams Punch Press Feeder Relationship Specialty Start Date End Date Rayo Riley MD [address] [place] [address] PCP - General 06/22/10 01/10/24 documented as of this encounter
--- OUTSIDE RECORDS SUMMARY | 2024-04-17 12:54 | XMS_ITS | Encounter Summary ---
Author Organization [facility]ly [facility] Address [facility] [place] [address] Care Team Providers Care Roving Teller Name Role Phone Rayo Riley MD Primary Care Provider [phone] Encounter Details Date Type Department Care Team [...] on filedocumented in this encounter Care Teams Roving Teller Relationship Specialty Start Date End Date Rayo Riley MD [address] [place] [address] [address] [place] [address] PCP - General 06/22/10 01/10/24 documented as of this encounter
--- OUTSIDE RECORDS SUMMARY | 2024-04-17 12:54 | XMS_ITS | Encounter Summary ---
Author Organization [facility] Address [facility] [place] [address] Care Team Providers Care Wanigan Clerk Name Role Phone Rayo Riley MD Primary Care Provider +1 -[phone] Encounter Details Date Type Department Care Team (Latest Contact Info) Description 12/21/2023 Travel Social History Tobacco Use Types Packs/Day Years Used Date Smoking Tobacco: Former Cigarettes 0.3 57 Smokeless Tobacco: Never Comments:Quit 11/2023 Alcohol Use Standard Drinks/Week Comments Yes 7 (1 standard drink = 0.6 oz pure alcohol) 4oz rum with coke daily- varies [facility] Utilities Answer Date Recorded In the [...] in the past 12 m [facility], were you homeless or [...] on filedocumented in this encounter Care Teams Wanigan Clerk Relationship Specialty Start Date End Date Rayo Riley MD [address] [place] [address] PCP - General 06/22/10 01/10/24 documented as of this encounter
--- OUTSIDE RECORDS SUMMARY | 2024-04-17 12:54 | XMS_ITS | Encounter Summary ---
Author Organization [facility] [place] [address] Care Team Providers Care Or Scrub Tech Name Role Phone Rayo Riley MD Primary Care Provider +1 [phone] Encounter Details Date Type Department Care Team ([facility] st Contact Info) Description 11/24/2023 Telephone [place] [address] Johnna Jordan, RN Social History Tobacco Use Types Packs/Day Years Used Date Smoking Tobacco: Every Day Cigarettes 0.3 57 Smokeless Tobacco: Never Comments:Down to 1/4PPD Alcohol Use Standard Drinks/Week Comments Yes 7 (1 standard drink = 0.6 oz pur e alcohol) 4oz rum with coke daily [facility] Inpatient Questions Answer Date Recorded [...] on filedocumented in this encounter Care Teams Or Scrub Tech Relationship Specialty Start Date End Date Rayo Riley MD [address] [place] [address] PCP - General 06/22/10 01/10/24 documented as of this encounter
--- OUTSIDE RECORDS SUMMARY | 2024-04-17 12:54 | XMS_ITS | Encounter Summary ---
Author Organization [facility] Address [facility] [place] [address] Care Team Providers Care Staff Development Coordinator Rn Name Role Phone Rayo Riley MD Primary Care Provider +1 [phone] Reason for Visit * Reason Onset Date Comments Other 12/26/2023 outreach Encounter Details Date Type Department Care Team (Late st Contact Info) Description 12/26/2023 Telephone Hematology/Oncology at [address] [address] Tammie Recinos, ADOBE BALL MIXER OFFICE OF CARE MANAGEMENT Other (outreach) Social History Tobacco Use Types Packs/Day Years Used Date Smoking Tobacco: Former Cigarettes 0.3 57 Smokeless Tobacco: Never Comments:Quit 11/2023 Alcohol Use Standard Drinks/Week Comments Yes 7 (1 standard drink = 0.6 oz pure alcohol) 4oz rum with coke daily- varies [facility] Utilities Answer Date Recorded In the past 12 months has e [employer], gas, oil, or water company threatened to [...] Notes * Telephone Encounter - Tammie Recinos, ADOBE BALL MIXER - 12/26/2023 9:34 AM EDT Request from Prisca Simpson RN, Nurse Navigator to reach out to Jeffrey about some needs he has identified. He expects to be treated at [facility]. GALLO Murphy and discussed the following - Social Support: Jeffrey identified several friends that check on him and help his as needs. Transportation: Jeffrey drives himself. He has been able to get a few rides from [employer] which were arranged by Oksana from [facility]. He has been in contact with [facility] but they do not have a volunteer drive available at this time. Mailed Jeffrey the contact information to the [facility] Cancer Survivor group to request a gas [...] assistance. He feels he is managing otherwise. ADOBE BALL MIXER will plan to meet Jeffrey once he starts here at [facility]. Mailed him my contact information is he has any questions. Brief assessment Transportation resources [facility] Patient Financial Assistance/Insurance documented in this encounter Plan of Treatment Not on file documented as of this encounter Visit Diagnoses Not on filedocumented in this encounter Care Teams Staff Development Coordinator Rn Relationship Specialty Start Date End Date Rayo Riley MD [address] [place] [address] PCP - General 06/22/10 01/10/24 documented as of this encounter
--- OUTSIDE RECORDS SUMMARY | 2024-04-17 12:54 | XMS_ITS | Encounter Summary ---
Author Organization [facility] Address [facility] [place] [address] Care Team Providers Care Legal Investigator Name Role Phone Rayo Riley MD Primary Care Provider [phone] [phone] Reason for Visit * Consultation (Routine) - Closed Specialty Diagnoses / Procedures Referred By Elieser lock Referred To Contact Radiation Oncology Diagnoses Mass of left lung Mass of chest wall, left Dylan Martinez MD [facility] [place] [address] Beto Braswell MD [facility] [place] [address] Referral ID Status Reason Start Date Expiration Date V isits Requested Visits Authorized [id number] Closed Consult, Test & Treat 11/17/2023 11/16/2024 1 1 Encounter Details Date Type Department Care Team (Late st Contact Info) Description 12/13/2023 2:00 PM EDT Office Visit Radiation Oncology at [address] [address] Beto Braswell MD [facility] [place] [address] Non-small cell lung cancer, left Social History Tobacco Use Types Packs/Day Years Used Date Smoking Tobacco: Former Cigarettes 0.3 57 Smokeless Tobacco: Never Tobacco Cessation:Counseling Given: Not Answered Comments:Quit 11/2023 Alcohol Use Standard Drinks/Week Comments Yes 7 (1 standard drink = 0.6 oz pure alcohol) 4oz rum with coke daily- varies [facility] Utilities Answer Date Recorded In the past [...] from the original note were not included. 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 male current smoker (~ 58 PY) with PMHx of asbestos exposure, COPD,depression, DM2, GERD, HTN, HLD, inguinal hernia, umbilical hernia. He presented in May 2023 to [facility] with dyspnea and was found to have a left pleural effusion. A chest tube was placed; cytology was negative. He was treated for pneumonia, and a the tube was removed with improvement in symptoms. He subsequently presented to his PCP at [facility] with increasing chest pain and a mass [...] 1.5 ppd average Pack Years Distance to [facility] 1.5 hours. Notes no barriers to transportation. [...] sequelae (fatigue, esophagitis, skin erythema, cough) and mcc sequelae (radiation pneumonitis, the potential for increased [...] RT to chest wall Supportive Care: Referrals Street Sweeper 4. Referral to palliative care recommended, he will consider this. Thank you for allowing me to participate in the care of Jeffrey Lovelace. Beto Braswell MD, PhD [facility] Radiation oncology [phone] No orders of the defined types were placed in this encounter. The following information is automatically imported from [facility]. It has been reviewed, and pertinent information [...] Intimate Partner Violence: Not At Risk (11/22/2023) [facility] Inpatient Questions Prevent Contact with Others: no Feels Threatened by Someone: no Feels Unsafe at Home: no Physical Signs of Abuse Present: no Housing Stability: Not on file Family History Problem Relation Age of Onset Type 2 Diabetes Father Bladder Cancer Father Leukemia Father Cancer Maternal Grandfather National [employer] ([facility]) [facility] [employer] Commission on Cancer (ACS [place]) Accredited Cancer Program [employer] (ACR) Accredited Radiation Oncology Program * Morean Amin RN - 12/13/2023 2:00 PM EDT [...] Support Systems: Friends. Lives alone. Son in [facility] Barriers to treatment: Patient does not identify any though does mention that transportation to appointments historically has been an issue. Used [employer] transportation today which was set up by PCP. Referrals/Interventions: LIFE INSURANCE SPECIALIST per routine RADIATION SPECIFIC TEACHING: To be done by nursing on day of simulation. [facility] Radiation Therapy and You Site specific teaching : Other: PLAN: Per Dr. Braswell documented in this encounter Plan of Treatment Not on file documented as of this encounter Visit Diagnoses Diagnosis Non-small cell lung cancer, left documented in this encounter Care Teams Legal Investigator Relationship Specialty Start Date End Date Rayo Riley MD [address] [place] [address] [address] [facility] [address] [place] [address] PCP - General 06/22/10 01/10/24 documented as of this encounter
--- OUTSIDE RECORDS SUMMARY | 2024-04-17 12:54 | XMS_ITS | Encounter Summary ---
Author Organization [facility] Address [facility] [place] [address] Care Team Providers Care Allergist/Immunologist Name Role Phone Rayo Riley MD Primary Care Provider +1 [phone] Reason for Visit * Reason Onset Date Comments Establish Care 11/21/2023 Encounter Details Date Type Department Care Team (Late st Contact Info) Description 11/21/2023 Patient Outreach Hematology and Oncology at [facility] [place] [phone] Theo Mathur, RN Establish Care Social History Tobacco Use Types Packs/Day Years Used Date Smoking Tobacco: Every Day Cigarettes 1 57 Smokeless Tobacco: Never Comments:Down to 1/4PPD Alcohol Use Standard Drinks/Week Comments Yes 0 (1 standard drink = 0.6 oz pur e alcohol) 4oz rum with coke daily [facility] Inpatient Questions Answer Date Recorded Does [...] Patient is here in clinic today from [place], [place], with his friend David for support. Dr. Weldon would like to take patient to the OR urgently tomorrow AM for chest wall resection, and is willing to admit for the night to facilitate. However, David does not drive and would be stuck in [place]. Discussed options with patient, assisted by QUAN [...] on filedocumented in this encounter Care Teams Allergist/Immunologist Relationship Specialty Start Date End Date Rayo Riley MD [address] [place] [address] PCP - General 06/22/10 01/10/24 documented as of this encounter
--- OUTSIDE RECORDS SUMMARY | 2024-04-17 12:54 | XMS_ITS | Encounter Summary ---
Author Organization [facility] Address [facility] [place] [address] Care Team Providers Care Haunted History Tour Guide Name Role Phone Rayo Riley MD Primary Care Provider +1 [phone] Reason for Visit * Reason Comments Advice Only Mass * Consultation (Urgent) - Closed Specialty Diagnoses / Procedures Referred By Elieser lock Referred To Contact Thoracic Surgery Diagnoses Mass of left lung Sharon Landry MD [facility] [place] [address] [facility] Thoracic Surg [address] [place] [id number] Referral ID Status Reason Start Date Expiration Date V isits Requested Visits Authorized [id number] Closed Consult, Test & Treat 11/17/2023 11/16/2024 1 1 Encounter Details Date Type Department Care Team (Late st Contact Info) Description 11/21/2023 1:00 PM EDT Office Visit [place] [address] Ariella Vargas MD [facility] [place] [address] Pleural mass; Chest wall mass Social History Tobacco Use Types Packs/Day Years Used Date Smoking Tobacco: Every Day Cigarettes 1 57 Smokeless Tobacco: Never Tobacco Cessation:Ready to Q uit: Not Asked; Counseling Given: Not Answered Comments:Down to 1/4PPD Alcohol Use Standard Drinks/Week Comments Yes 0 (1 standard drink = 0.6 oz pur e alcohol) 4oz rum with coke daily [facility] Inpatient Questions Answer Date Recorded Does [...] and drinking. Your procedure will occur in concierge receptionist area 4W. Please park in the parking garage and you will come into the medical center on level 4. Go straight, all the way to theend of the langley, that is Same day surgery wooden desk also concierge receptionist area 4W. Before your Surgery: PLEASE WASH [...] stay. You may bring your cellphone, and supercharger mechanic, pajama pants and shirts, under garments, comfy [...] a tomato) please call the office at [phone]. You may also have a dry cough [...] Outpatient Consultation Note MD Jessie Cota PA-C [place] [address] FAX: Date of Consultation: 11/21/2023 This consultation [...] He initially presented in May 2023 to [facility] with SOB and was found to have a left pleural effusion. A chest tube was placed and cytology was negative. This was removed after a few days with improvement in his breathing, and he was treated for pneumonia. 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 Unable to step onto exam table due [...] (Bezet) 442 ms MUSE SYSTEM Calculated P Clayton 39 degrees MUSE SYSTEM Calculated R Clayton 18 degrees MUSE SYSTEM Calculated T Clayton 37 degrees MUSE SYSTEM INTERPRETATION Normal sinus rhythm Normal ECG No previous ECGs available Confirmed by MD Kelsea, Dinorah ([id number]) on 11/22/2023 2:17:24 PM MUSE SYSTEM 11/22/2023 8:36 AM EDT 11/22/2023 2:17 PM EDT Ariella Vargas MD ECG ORDERABLES MUSE SYSTEM * (ABNORMAL) Comprehensive metabolic panel (non-fasting) (11/22/2023 7:57 AM EDT) Glucose 147 65 - 199 mg/dL [facility] Comment:Diabetes: >=200 mg/d L plus symptoms Blood Urea Nitrogen 20 10 - 20 mg/dL [facility] Creatinine 1.03 0.80 - 1.50 mg/dL [facility] Sodium 140 135 - 145 mmol/L [facility] Potassium 4.8 3.5 - 5.0 mmol/L [facility] Comment: Please note: ??Patients with WBC >100,000 may have falsely elevated Potassium levels. ??For accurate Potassium quantification in these patients send serum separator tube (gold top) for subsequent determinations. ??Contact the Clinical Chemistry Laboratory if there are any questions. Chloride 100 98 - 107 mmol/L [facility] Carbon Dioxide 31 22 - 31 mmol/L [facility] Anion Gap 9 5 - 15 mmol/L [facility] Calcium 10.3 8.5 - 10.5 mg/dL [facility] Protein, Total 7.3 6.1 - 8.0 g/dL [facility] Albumin 4.0 3.2 - 5.2 g/dL [facility] Aspartate Aminotransferase 28 0 - 39 unit/L [facility] Alanine Aminotransferase 27 0 - 55 unit/L [facility] Alkaline Phosphatase 134(H) 40 - 130 unit/L [facility] Bilirubin, Total 0.3 0.2 - 1.3 mg/dL [facility] Est Glomerular Filtration Rate 80 >=60 mL/min/1. 73 m?? [facility] Comment: This patient's estimated [...] Resulting Agency Comment Spec In Lab Ariella Vargsa MD CHEMISTRY ORDERABLES [facility] [place] [address] documented in this encounter Visit Diagnoses Diagnosis Pleural mass Swelling, mass, or lump in chest Chest wall mass Swelling, mass, or lump in chest documented in this encounter Care Teams Haunted History Tour Guide Relationship Specialty Start Date End Date Rayo Riley MD [address] [place] [address] PCP - General 06/22/10 01/10/24 documented as of this encounter
--- OUTSIDE RECORDS SUMMARY | 2024-04-17 12:54 | XMS_ITS | Encounter Summary ---
Author Organization [facility] Address [facility] [place] [address] Care Team Providers Care Director Staffing Name Role Phone Rayo Riley MD Primary Care Provider +1 [phone] Encounter Details Date Type Department Care Team (Latest Contact Info) Description 12/21/2023 11:00 AM EDT - 12/21/2023 11:59 PM EDT Hospital Encounter Hematology and Oncology at [facility] [place] [phone] Stage 4 lung cancer, left Discharge Disposition: Home Social History Tobacco Use Types Packs/Day Years Used Date Smoking Tobacco: Former Cigarettes 0.3 57 Smokeless Tobacco: Never Comments:Quit 11/2023 Alcohol Use Standard Drinks/Week Comments Yes 7 (1 standard drink = 0.6 oz pure alcohol) 4oz rum with coke daily- varies [facility] Utilities Answer Date Recorded In the [...] the past 12 m [facility], were you homeless or living in a [...] 11:14 AM EDT) Neutrophil % 75.3 % [facility] Neutrophil Absolute 8.70(H) 1.70 - 6.10 x10(3)/mc L [facility] Lymph % 15.1 % [facility] Lymphocytes Abs 1.7 0.9 - 3.2 x10(3)/mc L [facility] Monocyte % 6.7 % [facility] Monocyte Abs 0.8 0.3 - 0.9 x10(3)/ L [facility] Eos % 1.9 % [facility] Eosinophils Abs 0.2 0.0 - 0.4 x10(3)/[facility] Basophil % 0.5 % [facility] Baso Absolute 0.1 0.0 - 0.1 x10(3)/mc L [facility] Immature Gran % 0.50 % [facility] Comment: Immature granulocytes(IG's)percentage and absolute count will include metamyelocytes, myelocytes, and promyelocytes. Blood smears from CBCs yielding IG's will be scanned manually for concordance. If this scan disagrees with the automated IG or if promyelocytes are noted, a manual differential will be performed. Immature Gran Absolute 0.06(H) 0.00 - 0.04 x10(3)/mc L [facility] Blood 12/21/2023 11:1 4 AM EDT 12/21/2023 11:25 AM EDT Narrative Resulting Agency Comment Spec In Lab Marilee Zavaleta AUTOMATIC SPINNING LATHE OPERATOR HEMATOLOGY ORDERAB LES [facility] [place] [address] * (ABNORMAL) Hemogram (12/21/2023 11:14 AM EDT) [facility] White Blood Cell 11.6(H) 4.0 - 9.5 x10(3)/ L [facility] Red Blood Cell 4.76 4.58 - 5.54 x10(6)/mc L [facility] Hemoglobin 14.1 13.7 - 16.5 g/dL [facility] Hematocrit 43.3 40.5 - 48.5 % [facility] Mean Cell Volume 91.0 82.9 - 93.1 fL [facility] Mean Cell Hemoglobin 29.6 27.5 - 32.1 pg [facility] Mean Cell Hemoglobin Concentration 32.6 32.0 - 35.7 g/dL [facility] Platelet 319 145 - 357 x10(3)/[facility] RDW Standard Deviation 48.3(H) 36.0 - 45.0 [facility] RDW coefficient of variation 14.4(H) 11.4 - 13.8 % [facility] Mean Platelet Volume 11.1 7.6 - 12.9 [facility]ORATORY NRBC% auto 0.0 % [facility] NRBC Absolute 0.000 0.000 - 0.000 x10(3)/[facility] Blood 12/21/2023 11:1 4 AM EDT 12/21/2023 11:25 AM EDT Narrative Resulting Agency Comment Spec In Lab Marilee Zavaleta APRN HEMATOLOGY ORDERAB LES [facility] [place] [address] * (ABNORMAL) Comprehensive metabolic panel (non-fasting) (12/21/2023 11:14 AM EDT) [facility] Glucose 131 65 - 199 mg/dL [facility] Comment:Diabetes: >=200 mg/d L plus symptoms Blood Urea Nitrogen 27(H) 10 - 20 mg/dL [facility] Creatinine 1.31 0.80 - 1.50 mg/dL [facility] Sodium 141 135 - 145 mmol/L [facility] Potassium 4.6 3.5 - 5.0 mmol/L [facility] Comment: Please note: ??Patients with WBC >100,000 may have falsely elevated Potassium levels. ??For accurate Potassium quantification in these patients send serum separator tube (gold top) for subsequent determinations. ??Contact the Clinical Chemistry Laboratory if there are any questions. Chloride 100 98 - 107 mmol/L [facility] Carbon Dioxide 28 22 - 31 mmol/L [facility] Anion Gap 13 5 - 15 mmol/L [facility] Calcium 10.5 8.5 - 10.5 mg/dL [facility] Protein, Total 8.1(H) 6.1 - 8.0 g/dL [facility] Albumin 4.2 3.2 - 5.2 g/dL [facility] Aspartate Aminotransferase 23 0 - 39 unit/L [facility] Alanine Aminotransferase 22 0 - 55 unit/L [facility] Alkaline Phosphatase 150(H) 40 - 130 unit/L [facility] Bilirubin, Total 0.3 0.2 - 1.3 mg/dL [facility] Est Glomerular Filtration Rate 60 >=60 mL/min/1. 73 m?? [facility] [...] APRN CHEMISTRY ORDERABL ES Performing Organization Address City/[facility]/ZIP Co de Phone Number [facility] [place] [address] * Magnesium (12/21/2023 11:14 AM EDT) Magnesium 0.87 0.69 - 1.07 mmol/L [facility] Blood 12/21/2023 11:1 4 AM EDT 12/21/2023 11:25 AM EDT Narrative Resulting Agency Comment Spec In Lab Marilee Zavaleta APRN CHEMISTRY ORDERABL ES Performing Organization Address [facility] Co de Phone Number [facility] [place] [address] documented in this encounter Visit Diagnoses Diagnosis Stage 4 lung cancer, left documented in this encounter Care Teams Director Staffing Relationship Specialty Start Date End Date Rayo Riley MD [address] [place] [address] PCP - General 06/22/10 01/10/24 documented as of this encounter
--- OUTSIDE RECORDS SUMMARY | 2024-04-17 12:54 | XMS_ITS | Encounter Summary ---
Author Organization [facility] Address [facility] [place] [address] Care Team Providers Care Hotel Casino Floorperson Name Role Phone Rayo Riley MD Primary Care Provider [phone] [phone] Encounter Details Date Type Department Care Team [...] on filedocumented in this encounter Care Teams Hotel Casino Floorperson Relationship Specialty Start Date End Date Rayo Riley MD [address] [place] [address] [address] [place] [address] PCP - General 06/22/10 01/10/24 documented as of this encounter
--- OUTSIDE RECORDS SUMMARY | 2024-04-17 12:54 | XMS_ITS | Encounter Summary ---
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 Procedures PRO EXC SKIN MALIG >4CM TRUNK, ARM, LEG EXC MALIGNANT LESION, SHERRILL > 4.0CM, TRUNK (WRVU 5.02) Dylan Weldon MD [facility] [place] [address] [facility] Referral ID Status Reason Start Date Expiration Date Visits Re quested Visits Authorized [id number] 1 1 Encounter Details Date Type Department Care Team (Late st Contact Info) Description 11/22/2023 8:54 AM EDT Anesthesia Event [place] [phone] Lennox Colunga MD [facility] [place] [address] Anesthesia Record Procedure Summary Procedure Name Responsible [...] by Amanda Dailey RN PIV 11/22/23; 0854; hmsa-inz-mrzyrf catheter system; 20 gauge; metacarpal vein (top [...] Procedure Summary Date: 11/22/23 Room / Location: [facility] OR [address] [place] [address] MAIN OR Anesthesia Start: 853 Anesthesia Stop: 1032 Procedure: EXC MALIGNANT LESION, SHERRILL > 4.0CM, TRUNK (WRVU 5.02) (Left: Trunk) Diagnosis: Pleural mass Chest wall mass (possible mesothemioma with left chest wall soft tissue mass) Surgeons: Dylan Weldon MD Responsible Provider: Lennox Colunga MD Anesthesia Type: general ASA Status: 3 All Anesthesia Providers: Anesthesiologist: Lennox Colunga MD MISSION ANALYST: Marlee Flowers CRNA Vitals Value Taken Time BP 120/71 11/22/23 1200 Temp 36.6 ??C (97.9 ??F) 11/22/23 1145 Pulse 98 11/22/23 1215 Resp 17 11/22/23 1215 SpO2 92 % 11/22/23 1245 Pain Level 0 11/22/23 1145 Vitals shown include unfiled device data. Patient Location: PACU/[facility] Level of Consciousness: Conscious but Sleepy Pain [...] risks discussed with patient. Plan discussed with MISSION ANALYST. Anesthesia Screening documented in this encounter Plan of Treatment Not on file documented as of this encounter Visit Diagnoses Not on filedocumented in this encounter Administered Medications Inactive Administered Medications - up to 3 most recent administrations Medication Order MAR Action Action Date Dose Rate Site ceFAZolin (Ancef) 2 g vial attach to sodium chloride 0.9% 100 mL Mini-Bag Plus 2 g, Intravenous, RECYCLE DRIVER TO O.R., 1 dose, On Mon11/22/23 at [...] mg documented in this encounter Care Teams Hand Inspector Relationship Specialty Start Date End Date Rayo Riley MD [address] [place] [address] PCP - General 06/22/10 01/10/24 documented as of this encounter
--- OUTSIDE RECORDS SUMMARY | 2024-04-17 12:54 | XMS_ITS | Encounter Summary ---
Author Organization [facility] Address [facility] [place] [address] Care Team Providers Care Cumulative Effects Analyst Name Role Phone Rayo Riley MD Primary Care Provider +1 -[phone] Reason for Referral * Consultation (Routine) - Authorized Specialty Diagnoses / Procedures Referred By Elieser lock Referred To Contact Radiation Oncology Diagnoses Non-small cell lung cancer, left Procedures Simulation for Radiation Therapy Planning Beto Braswell MD [facility] [place] [address] [facility] Rad Onc Office [address] [place] [phone] Referral ID Status Reason Start Date Expiration Date Visits Requested Visits Authorized [id number] Authorized Consult, Test & Treat 12/26/2023 12/25/2024 10 16 Encounter Details Date Type Department Care Team (Late st Contact Info) Description 12/26/2023 Orders [place] [address] Beto Braswell MD [facility] [place] [address] Non-small cell lung cancer, left Social History Tobacco Use Types Packs/Day Years Used Date Smoking Tobacco: Former Cigarettes 0.3 57 Smokeless Tobacco: Never Comments:Quit 11/2023 Alcohol Use Standard Drinks/Week Comments Yes 7 (1 standard drink = 0.6 oz pure alcohol) 4oz rum with coke daily- varies [facility] Utilities Answer Date Recorded In the [...] any time in the past 12 m [facility], were you homeless or living in [...] left documented in this encounter Care Teams Cumulative Effects Analyst Relationship Specialty Start Date End Date Rayo Riley MD [address] [place] [address] PCP - General 06/22/10 01/10/24 documented as of this encounter
--- OUTSIDE RECORDS SUMMARY | 2024-04-17 12:54 | XMS_ITS | Encounter Summary ---
Author Organization [facility] Address [facility] [place] [address] Care Team Providers Care Ladle Liner Name Role Phone Rayo Riley MD Primary Care Provider +1 -[phone] Encounter Details Date Type Department Care Team ([facility] st Contact Info) Description 11/21/2023 Notes Only Hematology and Oncology at [facility] [place] [address] Vesna Plata MSW Social History Tobacco Use [...] Plata MSW - 11/21/2023 4:33 PM EDT [facility]-MATH AND SCIENCES DEPARTMENT CHAIR in Thoracic SW's absence was contacted by Theo Mathur RN to help with patient's transportation issue. Background: Jeffrey is a lung cancer patient who drove to [facility] today from [employer], [place] with a friend for support (who does not have a swing driver's license). Thoracic Surgery urgently wanted to take him to surgery tomorrow AM (11/22/23), and were even willing to admit him tonight to facilitate. The challengewas getting his friend, David Casanova home. As private transport was cost-prohibitive ($448), Dr. Weldon got Jeffrey switched from 1st surgery tomorrow to 2nd. MATH AND SCIENCES DEPARTMENT CHAIR offered gas cards (Theo gave him $50) [...] on filedocumented in this encounter Care Teams Ladle Liner Relationship Specialty Start Date End Date Rayo Riley MD [address] [place] [address] PCP - General 06/22/10 01/10/24 documented as of this encounter
--- OUTSIDE RECORDS SUMMARY | 2024-04-17 12:54 | XMS_ITS | Encounter Summary ---
Author Organization [facility] Address [facility] [place] [address] Care Team Providers Care Woods Superintendent Name Role Phone Rayo Riley MD Primary Care Provider +1 -[phone] Reason for Visit * Reason Comments Follow-up Encounter Details Date Type Department Care Team ([facility] st Contact Info) Description 12/05/2023 11:30 AM EDT Office [place] [phone] Chantelel Greer PA [facility] [place] [place] [address] Chest wall mass Social History Tobacco Use Types Packs/Day Years Used Date Smoking Tobacco: Every Day Cigarettes 0.3 57 Smokeless Tobacco: Never Comments:Down to 1/4PPD Alcohol Use Standard Drinks/Week Comments Yes 7 (1 standard drink = 0.6 oz pur e alcohol) 4oz rum with coke daily [facility] Inpatient Questions Answer Date Recorded Does [...] Attending Outpatient Follow Up Note OLIVIA Samay[place] [address] FAX: Pre Op Dx: FDG avid left [...] by DIAMOND Greer PA-C 12/05/2023 Thoracic Surgery [facility] documented in this encounter Plan of Treatment Not on file documented as of this encounter Visit Diagnoses Diagnosis Chest wall mass Swelling, mass, or lump in chest documented in this encounter Care Teams Woods Superintendent Relationship Specialty Start Date End Date Rayo Riley MD [address] [place] [address] [address] [facility] [place] [address] PCP - General 06/22/10 01/10/24 documented as of this encounter
--- OUTSIDE RECORDS SUMMARY | 2024-04-17 12:54 | XMS_ITS | Encounter Summary ---
Author Organization [facility] Address [facility] [place] [address] Care Team Providers Care Hardware Sales Assistant Name Role Phone Rayo Riley MD Primary Care Provider +1 -[phone] Reason for Visit * Reason Comments IV Access Encounter Details Date Type Department Care Team (Late st Contact Info) Description 12/27/2023 9:00 AM EDT Infusion Hematology Oncology at [address] [address] Stage 4 lung cancer, left [...] any time in the past 12 m [facility], were you homeless or living [...] Positive blood return noted. Report given to [facility] Oncology. documented in this encounter Plan of Treatment Not on file documented as of this encounter Visit Diagnoses Diagnosis Stage 4 lung cancer, left documented in this encounter Care Teams Hardware Sales Assistant Relationship Specialty Start Date End Date Rayo Riley MD [address] [place] [address] [address] [place] [address] PCP - General 06/22/10 01/10/24 documented as of this encounter
--- OUTSIDE RECORDS SUMMARY | 2024-04-17 12:54 | XMS_ITS | Encounter Summary ---
Author Organization [facility] Address [facility] [place] [address] Care Team Providers Care Rose Grading Supervisor Name Role Phone Rayo Riley MD Primary Care Provider +1 -[phone] Encounter Details Date Type Department Care Team ([facility] st Contact Info) Description 12/26/2023 Notes Only Clinical Research [facility] [place] [phone] Lisy Laura Social History Tobacco Use Types [...] Patient is having a hard time paying [id number] cost and cannot afford a supplement. I [...] on filedocumented in this encounter Care Teams Rose Grading Supervisor Relationship Specialty Start Date End Date Rayo Riley MD [address] [place] [address] PCP - General 06/22/10 01/10/24 documented as of this encounter
--- OUTSIDE RECORDS SUMMARY | 2024-04-17 12:54 | XMS_ITS | Encounter Summary ---
Author Organization [facility] Address [facility] [place] [address] Care Team Providers Care Sulfonation Equipment Operator Name Role Phone Rayo Riley MD Primary Care Provider +1 -[phone] Encounter Details Date Type Department Care Team (Late st Contact Info) Description 12/14/2023 Orders Only Hematology and Oncology at [facility] [place] [address] Lennox pSivey MD [facility] [address] [place] [address] Secondary malignant neoplasm of bone; Stage 4 lung cancer, left Social History Tobacco Use Types Packs/Day Years Used Date Smoking Tobacco: Former Cigarettes 0.3 57 Smokeless Tobacco: Never Comments:Quit 11/2023 Alcohol Use Standard Drinks/Week Comments Yes 7 (1 standard drink = 0.6 oz pure alcohol) 4oz rum with coke daily- varies [place] Utilities Answer Date Recorded In the past 12 months has th e electric, gas, oil, or water [employer] threatened to shut off services in your [...] in a prison (including now)? No 12/13/2023 DH IPV Inpatient [...] bone marrow Stage 4 lung cancer, left documented in this encounter Care Teams Sulfonation Equipment Operator Relationship Specialty Start Date End Date Rayo Riley MD [address] [place] [address] PCP - General 06/22/10 01/10/24 documented as of this encounter
--- OUTSIDE RECORDS SUMMARY | 2024-04-17 12:54 | XMS_ITS | Encounter Summary ---
Author Organization [facility] Address [facility] [place] [address] Care Team Providers Care Senior Web Architect Name Role Phone Rayo Riley MD Primary Care Provider +1 -[phone] Encounter Details Date Type Department Care Team (Late st Contact Info) Description 12/01/2023 Telephone Radiation Oncology at [address] [address] Meena Tomlinson Social History Tobacco [...] filedocumented in this encounter Care Teams Senior Web Architect Relationship Specialty Start Date End Date Rayo Riley MD [address] [email or web address] 1 [place] [address] PCP - General 06/22/10 01/10/24 documented as of this encounter
--- OUTSIDE RECORDS SUMMARY | 2024-04-17 12:54 | XMS_ITS | Encounter Summary ---
Author Organization Counts Include [facility] Address [facility] [place] [address] Care Team Providers Care Water Registrar Name Role Phone Rayo Riley MD Primary Care Provider +1 -[phone] Encounter Details Date Type Department Care Team (Latest Contact Info) Description 12/26/2023 Travel Social History Tobacco Use Types Packs/Day Years Used Date Smoking Tobacco: Former Cigarettes 0.3 57 Smokeless Tobacco: Never Comments:Quit 11/2023 Alcohol Use Standard Drinks/Week Comments Yes 7 (1 standard drink = 0.6 oz pure alcohol) 4oz rum with coke daily- varies [facility] Utilities Answer Date Recorded [...] filedocumented in this encounter Care Teams Water Registrar Relationship Specialty Start Date End Date Rayo Riley MD [address] [place] [address] PCP - General 06/22/10 01/10/24 documented as of this encounter
--- OUTSIDE RECORDS SUMMARY | 2024-04-17 12:54 | XMS_ITS | Encounter Summary ---
Author Organization [facility] Address [facility] [place] [address] Care Team Providers Care Game Agent Name Role Phone Rayo Riley MD Primary Care Provider +1 -[phone] Encounter Details Date Type Department Care Team ([facility] st Contact Info) Description 12/15/2023 Telephone [place] [address] Desilets, Edel Santiago RN Social History Tobacco Use Types Packs/Day Years Used Date Smoking Tobacco: Former Cigarettes 0.3 57 Smokeless Tobacco: Never Comments:Quit 11/2023 Alcohol Use Standard Drinks/Week Comments Yes 7 (1 standard drink = 0.6 oz pure alcohol) 4oz rum with coke daily- varies [facility] Utilities Answer Date Recorded In [...] in a fci (including now)? No 12/13/2023 DH IPV Inpatient [...] - 12/15/2023 6:30 AM EDT Copied from [facility] #[id number]. Topic: Specialty Dept CRMs - Orders >> December 14, 2023 12:44 PM Vinicio Bliss wrote: Orders Request Specialist: Dr. Landry Relationship (if other than patient-full name): [facility] Radiology Type of Request: [x] Send orders Type/Name of Order: Imaging If Labs and Imaging list name of specific test(s): CT Head wwo Contrast (Order [id number]) Date of Lab/Imaging/Testing Appt: not currently scheduled Date of Provider Appt: not currently scheduled Appt Type with Provider: n/a Patient Requesting to Have Orders Sent to Facility Outside of [facility]: Yes If Yes, Name of Facility: [facility] Radiology Address: unknown Phone #: [phone] Fax #: unknown Melina called from [facility] Radiology regarding CT order placed by Dr. Landry 11/17/23. Melina stated when they called to scheduled patient he was admitted at [facility] and awaiting transfer to [facility]. Melina is inquiring if patient still needs scan. Please call to advise. documented in this encounter Plan of Treatment Not on file documented as of this encounter Visit Diagnoses Not on filedocumented in this encounter Care Teams Game Agent Relationship Specialty Start Date End Date Rayo Riley MD [address] [facility] 1 [place] [address] PCP - General 06/22/10 01/10/24 documented as of this encounter
--- OUTSIDE RECORDS SUMMARY | 2024-04-17 12:54 | XMS_ITS | Encounter Summary ---
Author Organization [facility] Address [facility] [place] [address] Care Team Providers Care Maintenance And Engineering Manager Name Role Phone Rayo Riley MD Primary Care Provider +1 -[phone] Encounter Details Date Type Department Care Team (Latest Contact Info) Description 12/05/2023 10:32 AM EDT - 12/05/2023 11:59 PM EDT Hospital Encounter XRay at [address] [place] [address] Dylan Weldon MD [facility] [place] [address] Pleural mass; Chest wall mass Discharge Disposition: Home Social History Tobacco Use Types Packs/Day Years Used Date Smoking Tobacco: Every Day Cigarettes 0.3 57 Smokeless Tobacco: Never Comments:Down to 1/4PPD Alcohol Use Standard Drinks/Week Comments Yes 7 (1 standard drink = 0.6 oz pur e alcohol) 4oz rum with coke daily [facility] Inpatient Questions Answer Date Recorded Does Anyone [...] (Generic) (12/05/2023 10:41 AM EDT) WORKSTATION ID [id number] RAD Anatomical Region Laterality Modality Chest N/A Digital Radiogra phy Impressions 12/05/2023 3:16 PM EDT No pleural effusion or pneumothorax Thank you for letting us participate in the care of this patient. ??If you are a health care provider and have any questions regarding this report, please contact the number below. ??For patients who have questions please contact the health daytime caregiver that requested your imaging first. ? Narrative [...] patients who have questions please contactthe health daytime caregiver that requested your imaging first. Dylan Weldon MD IMG DX ORDERABLES documented in this encounter Visit Diagnoses Diagnosis Pleural mass Swelling, mass, or lump in chest Chest wall mass Swelling, mass, or lump in chest documented in this encounter Care Teams Maintenance And Engineering Manager Relationship Specialty Start Date End Date Rayo Riley MD [address] [place] [address] PCP - General 06/22/10 01/10/24 documented as of this encounter
--- OUTSIDE RECORDS SUMMARY | 2024-04-17 12:54 | XMS_ITS | Encounter Summary ---
Author Organization [facility] Address [facility] [place] [address] Care Team Providers Care Centralized Traffic Control Operator Name Role Phone Rayo Riley MD Primary Care Provider +1 -[phone] Reason for Referral * Consultation (Urgent) - Closed Specialty Diagnoses / Procedures Referred By Elieser lock Referred To Contact Thoracic Surgery Diagnoses Mass of left lung Sharon Landry MD [facility] [place] [address] [facility] [address] [place] [phone] Referral ID Status Reason Start Date Expiration Date V isits Requested Visits Authorized [id number] Closed Consult, Test & Treat 11/17/2023 11/16/2024 1 1 Encounter Details Date Type Department Care Team (Late st Contact Info) Description 11/17/2023 Orders [place] [phone] Sharon Landry MD [facility] [place] [address] Mass of left lung Social History Tobacco Use Types Packs/Day Years Used Date Smoking Tobacco: Every Day Cigarettes Smokeless Tobacco: Never Sex and Gender Information Value Date Recorded Sex Assigned at Not on file Gender Identity Not on file Sexual Orientation Not on file documented as of this encounter Plan of Treatment Scheduled Referrals Name Type Priority Associated Diagnoses Orde r Schedule Amb Ref To Thoracic Surgery Outpatient Referral Urgent Mass of left lung Ordered: 11/17/2023 documented as of this encounter Visit Diagnoses Diagnosis Mass of left lung documented in this encounter Care Teams Centralized Traffic Control Operator Relationship Specialty Start Date End Date Rayo Riley MD [address] [place] [address] PCP - General 06/22/10 01/10/24 documented as of this encounter
--- OUTSIDE RECORDS SUMMARY | 2024-04-17 12:54 | XMS_ITS | Encounter Summary ---
Author Organization [facility] Address [facility] [place] [address] Care Team Providers Care Manager Front Office Name Role Phone Rayo Riley MD Primary Care Provider +1 -[phone] Encounter Details Date Type Department Care Team ([facility] st Contact Info) Description 12/15/2023 Telephone [place] [address] Sharon Landry MD [facility] [place] [address] Social History Tobacco Use Types Packs/Day Years [...] in a mcc (including now)? No 12/13/2023 DH IPV Inpatient [...] filedocumented in this encounter Care Teams Manager Front Office Relationship Specialty Start Date End Date Rayo Riley MD [address] [place] [address] PCP - General 06/22/10 01/10/24 documented as of this encounter
--- OUTSIDE RECORDS SUMMARY | 2024-04-17 12:54 | XMS_ITS | Encounter Summary ---
Author Organization [facility] Address [facility] [place] [address] Care Team Providers Care Founder And Chief Technical Officer Name Role Phone Rayo Riley MD Primary Care Provider +1 -[phone] Encounter Details Date Type Department Care Team (Latest Contact Info) Description 12/13/2023 Travel Social History Tobacco Use Types Packs/Day Years Used Date Smoking Tobacco: Former Cigarettes 0.3 57 Smokeless Tobacco: Never Comments:Quit 11/2023 Alcohol Use Standard Drinks/Week Comments Yes 7 (1 standard drink = 0.6 oz pure alcohol) 4oz rum with coke daily- varies [facility] Utilities Answer Date Recorded In the [...] in a retirement (including now)? No 12/13/2023 DH IPV Inpatient [...] on filedocumented in this encounter Care Teams Founder And Chief Technical Officer Relationship Specialty Start Date End Date Rayo Riley MD [address] [place] [address] [address] [place] [address] PCP - General 06/22/10 01/10/24 documented as of this encounter
--- OUTSIDE RECORDS SUMMARY | 2024-04-17 12:55 | XMS_ITS | Encounter Summary ---
Author Organization Count Includes [facility] Address [facility] [place] [address] Care Team Providers Care Lead Man Over All Dies In Pattern Shop Name Role Phone Rayo Riley MD Primary Care Provider +1 -[phone] Encounter Details Date Type Department Care Team ([facility] st Contact Info) Description 05/05/2022 5:35 PM EDT Ancillary Procedure Radiology Library at [facility] [place] [address] Akira Lynch MD [facility] [place] [address] Social History Tobacco Use Types Packs/Day Years [...] CT Head (05/05/2022 5:30 PM EDT) Narrative [facility] - 05/05/2022 5:30 PM EDT This exam is auto-finalizing. It's purpose is for storage only. Akira Lynch MD IMG FILM LIBRARY ORD ERABLES [place], [place] documented in this encounter Visit Diagnoses Not on filedocumented in this encounter Care Teams Lead Man Over All Dies In Pattern Shop Relationship Specialty Start Date End Date Rayo Riley MD [address] [facility] [address] [place] [address] PCP - General 06/22/10 01/10/24 documented as of this encounter
--- OUTSIDE RECORDS SUMMARY | 2024-04-17 12:55 | XMS_ITS | Encounter Summary ---
Author Organization [facility] [place] [address] Care Team Providers Care Slitter Creaser Slotter Operator Name Role Phone Rayo Riley MD Primary Care Provider +1 -[phone] Encounter Details Date Type Department Care Team ([facility] st Contact Info) Description 11/17/2023 Notes [place] [address] Dylan Cedeno, [facility] [place] [address] Social History Tobacco Use Types Packs/Day Years [...] in histopathologic diagnosis IR History: None at [facility] Antiplatelets: Aspirin 81 mg daily. Anticoagulants: None. [...] on filedocumented in this encounter Care Teams Slitter Creaser Slotter Operator Relationship Specialty Start Date End Date Rayo Riley MD [address] [place] [address] PCP - General 06/22/10 01/10/24 documented as of this encounter
--- OUTSIDE RECORDS SUMMARY | 2024-04-17 12:55 | XMS_ITS | Encounter Summary ---
Author Organization [facility] Address [facility] [place] [address] Care Team Providers Care Business Development Agent Name Role Phone Rayo Riley MD Primary Care Provider +1 -[phone] Encounter Details Date Type Department Care Team (Late st Contact Info) Description 11/17/2023 Tele[place] [id number] Sharon Landry MD [facility] [place] [address] Social History Tobacco Use Types Packs/Day Years Used Date Smoking Tobacco: Every Day Cigarettes Smokeless Tobacco: Never Sex and Gender Information Value Date Recorded Sex Assigned at Not on file Gender Identity Not on file Sexual Orientation Not on file documented as of this encounter Miscellaneous Notes * Telephone Encounter - Sharon Landry MD - 11/17/2023 11:59 AM EDT Discussed transthoracic lung mass biopsy arrangements and after imaging review with Dr. Arriola ,recommended CT guided biopsy. MRI brain discussed but pt with metal hardware in neck, will pursue CT head w/wo. Discussed with Mr. Lovelace who is in a agreement. documented in this encounter Plan of Treatment Not on file documented as of this encounter Visit Diagnoses Diagnosis Mass of left lung documented in this encounter Care Teams Business Development Agent Relationship Specialty Start Date End Date Rayo Riley MD [address] [place] [address] PCP - General 06/22/10 01/10/24 documented as of this encounter
--- OUTSIDE RECORDS SUMMARY | 2024-04-17 12:55 | XMS_ITS | Encounter Summary ---
Author Organization [facility] Address [facility] [place] [address] Care Team Providers Care Client Support Consultant Name Role Phone Rayo Riley MD Primary Care Provider +1 [phone] Encounter Details Date Type Department Care Team (Late st Contact Info) Description 11/17/2023 Orders [place] [address] Sharon Landry MD [facility] [place] [address] Mass of left lung Social History Tobacco [...] lung documented in this encounter Care Teams Client Support Consultant Relationship Specialty Start Date End Date Rayo Riley MD [facility] [address] [place] [address] PCP - General 06/22/10 01/10/24 documented as of this encounter
--- OUTSIDE RECORDS SUMMARY | 2024-04-17 12:55 | XMS_ITS | Encounter Summary ---
[place] [address] Care Team Providers Care Machine Plaster Mixer Name Role Phone Rayo Riley MD Primary Care Provider +1 -[phone] Encounter Details Date Type Department Care Team [...] filedocumented in this encounter Care Teams Machine Plaster Mixer Relationship Specialty Start Date End Date Rayo Riley MD [address] [place] [address] PCP - General 06/22/10 01/10/24 documented as of this encounter
--- OUTSIDE RECORDS SUMMARY | 2024-04-17 12:55 | XMS_ITS | Encounter Summary ---
[place] [address] Care Team Providers Care Dice Table Operator Name Role Phone Rayo Riley MD Primary Care Provider +1 -[phone] Encounter Details Date Type Department Care Team (Late st Contact Info) Description 09/18/2023 Telephone [place] [address] Karol Barrera Social History Tobacco Use Types [...] on filedocumented in this encounter Care Teams Dice Table Operator Relationship Specialty Start Date End Date Rayo Riley MD [address] [place] [address] PCP - General 06/22/10 01/10/24 documented as of this encounter
--- OUTSIDE RECORDS SUMMARY | 2024-04-17 12:55 | XMS_ITS | Encounter Summary ---
Author Organization Counts Include [facility] Address [facility] [place] [address] Care Team Providers Care Health Care Coordinator Name Role Phone Rayo Riley MD Primary Care Provider +1 -[phone] Encounter Details Date Type Department Care Team (Late st Contact Info) Description 05/05/2022 [place] [address] Ashley Langston MD [facility] [place] [address] Social History Tobacco Use Types Packs/Day Years [...] be. Ashley Langston MD 05/05/2022 5:48 PM [facility] Neurosurgery Inpatient Pager: [phone] Personal Pager: [phone] documented in this encounter Plan of Treatment Not on file documented as of this encounter Visit Diagnoses Not on filedocumented in this encounter Care Teams Health Care Coordinator Relationship Specialty Start Date End Date Rayo Riley MD [address] [place] [address] PCP - General 06/22/10 01/10/24 documented as of this encounter
--- OUTSIDE RECORDS SUMMARY | 2024-04-17 12:55 | XMS_ITS | Encounter Summary ---
Author Organization [facility] [place] [address] Care Team Providers Care Cut In Worker Name Role Phone Rayo Riley MD Primary Care Provider +1 -[phone] Encounter Details Date Type Department Care Team ([facility] st Contact Info) Description 06/07/2023 12:05 AM EST Ancillary Procedure Radiology Library at [facility] JONELLE [place] [address] Rayo Riley MD [address] [place], [place] [address] Social History Tobacco Use Types Packs/Day Years [...] CT Chest (06/07/2023 12:05 AM EST) Narrative [facility] - 09/14/2023 6:51 PM EST This exam is auto-finalizing. It's purpose is for storage only. Rayo Riley MD IMG FILM LIBRARY ORDERABLES [place], [place] documented in this encounter Visit Diagnoses Not on filedocumented in this encounter Care Teams Cut In Worker Relationship Specialty Start Date End Date Rayo Riley MD [address] [place] [address] PCP - General 06/22/10 01/10/24 documented as of this encounter
--- OUTSIDE RECORDS SUMMARY | 2024-04-17 12:55 | XMS_ITS | Encounter Summary ---
Author Organization [facility] [place] [address] Care Team Providers Care Surveillance Analyst Name Role Phone Rayo Riley MD Primary Care Provider +1 [phone] Encounter Details Date Type Department Care Team ([facility] st Contact Info) Description 11/02/2023 [place] [address] Edel Quinones Social History Tobacco Use Types [...] Edel Verdugo RN Department of Pulmonary 5C, [facility] / Pager: [phone] documented in this encounter Plan of Treatment Not on file documented as of this encounter Visit Diagnoses Not on filedocumented in this encounter Care Teams Surveillance Analyst Relationship Specialty Start Date End Date Rayo Riley MD [address] [place] [address] PCP - General 06/22/10 01/10/24 documented as of this encounter
--- OUTSIDE RECORDS SUMMARY | 2024-04-17 12:55 | XMS_ITS | Encounter Summary ---
Author Organization [facility] [place] [address] Care Team Providers Care Store Receiver Name Role Phone Rayo Riley MD Primary Care Provider +1 [phone] Encounter Details Date Type Department Care Team ([facility] st Contact Info) Description 06/07/2023 12:10 AM EST Ancillary Procedure Radiology Library at [facility] J[place]LE [place] [address] Rayo Riley MD [address] [place], [place] [address] Social History Tobacco Use Types Packs/Day Years [...] DX Chest (06/07/2023 12:10 AM EST) Narrative [facility] - 09/14/2023 6:51 PM EST This exam is auto-finalizing. It's purpose is for storage only. Rayo Riley MD IMG FILM LIBRARY ORDERABLES [place], [place] documented in this encounter Visit Diagnoses Not on filedocumented in this encounter Care Teams Store Receiver Relationship Specialty Start Date End Date Rayo Riley MD [address] [place] [address] PCP - General 06/22/10 01/10/24 documented as of this encounter
--- OUTSIDE RECORDS SUMMARY | 2024-04-17 12:55 | XMS_ITS | Encounter Summary ---
Author Organization [facility] Address [facility] [place] [address] Care Team Providers Care Discharging Machine Operator Name Role Phone Rayo Riley MD Primary Care Provider +1 [phone] Encounter Details Date Type Department Care Team (Latest Contact Info) Description 06/07/2023 5:33 PM EST - 06/07/2023 11:59 PM EST Hospital [place] [address] Discharge Disposition: Home Social History Tobacco Use [...] Procedure Name Priority Date/Time Associated Diagnosis Comments NON-KNIFE GRINDER FINAL REPORT Routine 06/07/2023 3:03 PM EST documented in this encounter Results * Non-Forest Practices Field Coordinator Final Report (06/07/2023 3:03 PM EST) Diagnosis Discussion [id number] ? Location: [facility] The signing pathologist has (i) examined the relevant preparation(s) for the specimen(s) and (ii) rendered or confirmed the diagnosis(es). . ? Non-Forest Practices Field Coordinator Final DIAGNOSIS Negative for Malignancy Electronically signed by: ?Mendez TEAGUE, Alon Kaur Verified: ??06/09/2023 15:52 ??Pathologist Performed at: ??-[facility] Dept. of Pathology, [place] [address] Data Analytics Chief Scientist: Omar White MD, FCAP, ??IA Certificate: [id number] DISCUSSION Pleural fluid, left: Many small lymphocytes, [...] Prep 1; Cell Block 1. Referring Identifier: ??[id number] 06/09/2023 3:52 PM EST [facility] LEFT PLEURAL FLUID / Unknown 06/07/2023 3:03 PM EST 06/07/2023 3:03 PM EST Narrative Resulting Agency Comment Spec In Lab / [facility] Jhon Jacobsen MD PATHOLOGY/CYTOLOGY ORDERABLES [facility] [place] [id number] [facility] [place] [address] documented in this encounter Visit Diagnoses Not on filedocumented in this encounter Care Teams Discharging Machine Operator Relationship Specialty Start Date End Date Riley, Rayo J, MD [address] [place] [address] PCP - General 06/22/10 01/10/24 documented as of this encounter
--- OUTSIDE RECORDS SUMMARY | 2024-04-17 12:55 | XMS_ITS | Encounter Summary ---
Author Organization [facility] [place] [address] Care Team Providers Care Power Saw Mechanic Name Role Phone Rayo Riley MD Primary Care Provider +1 [phone] Reason for Referral * Consultation (Urgent) - [...] BIOPSY. Angela Gaines MD [address] [place] [address] [facility] Pulmonology [address] [place] [id number] Referral ID Status Reason Start Date Expiration Date Visits Requested Visits Authorized [id number] Authorized Consult, Test & Treat PCP Updated and/or Approved 10/31/2023 10/30/2024 6 6 Encounter Details Date Type Department Care Team (Latest Contact Info) Description 10/31/2023 Transcribe Orders eDH Incoming Referrals [phone] Angela Gaines MD [address] [place] [address] Other nonspecific abnormal finding of lung field; [...] diagnostic imaging of other specified body structures documented in this encounter Care Teams Power Saw Mechanic Relationship Specialty Start Date End Date Rayo Riley MD [address] [place] [address] PCP - General 06/22/10 01/10/24 documented as of this encounter
--- OUTSIDE RECORDS SUMMARY | 2024-04-17 12:55 | XMS_ITS | Encounter Summary ---
Author Organization [facility] [place] [address] Care Team Providers Care Textile Engineer Name Role Phone Rayo Riley MD Primary Care Provider +1 -[phone] Reason for Referral * Consultation (Routine) - Closed Specialty Diagnoses / Procedures Referred By Contac t Referred To Contact Hematology and Oncology Diagnoses Mass of left lung Mass of chest wall, left Sharon Landry MD [facility] [place] [address] [facility] [address] [place] [address] Referral ID Status Reason Start Date Expiration Date V isits Requested Visits Authorized [id number] Closed Consult, Test & Treat 11/17/2023 11/16/2024 1 1 * Consultation (Routine) - Closed Specialty Diagnoses / Procedures Referred By Contac t Referred To Contact Radiation Oncology Diagnoses Mass of left lung Mass of chest wall, left Dylan Martinez MD [facility] [place] [address] Beto Braswell MD [facility] [place] [address] Referral ID Status Reason Start Date Expiration Date V isits Requested Visits Authorized [id number] Closed Consult, Test & Treat 11/17/2023 11/16/2024 1 1 Encounter Details Date Type Department Care Team (Late st Contact Info) Description 11/17/2023 [place] [address] Sharon Landry MD [facility] DR [place] [address] Social History Tobacco Use Types Packs/Day Years [...] chest wall, left documented in this encounter Care Teams Textile Engineer Relationship Specialty Start Date End Date Rayo Riley MD [address] [place] [address] PCP - General 06/22/10 01/10/24 documented as of this encounter
--- OUTSIDE RECORDS SUMMARY | 2024-04-17 12:55 | XMS_ITS | Clinical Summary ---
Author Organization [facility] Address [address] [place] [address] Care Team Providers Care Phonograph Mechanic Name Role Phone Karl Quiroz MD Unavailable [phone] Allergies Active Allergy Reactions Criticality Noted [...] Name Administration Dates Next Due Tdap Vaccine (7y+) 0.5 mL IM (Adacel, Boostrix)TDAP VACCINE AGE 7+ 05/06/2022 Social History Tobacco Use Types [...] AAA Screening 2021 Fall Risk Assessment 2021 YVONNE/ARB/ARNI Therapy: Medica tion Monitoring 05/05/2023 05/05/2022 COVID-19 Vaccine ( season) 2024 Influenza Vaccine (#1) 2024 Pre-Diabetes/Diabetes Screening 05/06/2025 2, 05/05/2022 TDAP/TD Vaccine 18+ 05/06/2032 05/06/2022 Insurance Payer Benefit Plan / Group Subscriber ID Effective Dates Phone Address Type MEDICARE MEDICARE A AND B [id number] 2013-Present [address] [place] [address] Medicare Care Teams Phonograph Mechanic Relationship Specialty Start Date End Date Karl Quiroz MD [address] [place] [address] PCP - Generic [facility] PCP Family Medicine 05/05/22
--- OUTSIDE RECORDS SUMMARY | 2024-04-17 12:55 | XMS_ITS | Encounter Summary ---
Author Organization [facility] Address [facility] [place] [address] Care Team Providers Care Bridge Crew Member Name Role Phone Rayo Riley MD Primary Care Provider [phone] [phone] Encounter Details Date Type Department Care Team ([facility] st Contact Info) Description 06/12/2023 Ancillary Procedure Radiology Library at [facility] [place] [address] Rayo Riley MD [address] [place] [address] Social History Tobacco Use Types Packs/Day Years [...] DX Chest (06/12/2023 12:00 AM EST) Narrative [facility] - 09/14/2023 6:51 PM EST This exam is auto-finalizing. It's purpose is for storage only. Rayo Riley MD IMG FILM LIBRARY ORDERABLES [place], [place] documented in this encounter Visit Diagnoses Not on filedocumented in this encounter Care Teams Bridge Crew Member Relationship Specialty Start Date End Date Rayo Riley MD [address] [place] [address] PCP - General 06/22/10 01/10/24 documented as of this encounter
--- OUTSIDE RECORDS SUMMARY | 2024-04-17 12:55 | XMS_ITS | Encounter Summary ---
[place] [address] Care Team Providers Care Electric Wheelchair Repairer Name Role Phone Rayo Riley MD Primary Care Provider [phone] [phone] Reason for Referral * Diagnostic Test (Routine) - Closed Specialty Diagnoses / Procedures Referred By Contac t Referred To Contact Radiology Diagnoses Lung nodules Lung mass Procedures [place] PET CT Skull Base to Mid-thigh Angela Gaines MD [address] [place] [address] [place] [address] Referral ID Status Reason Start Date Expiration Date V isits Requested Visits Authorized [id number] Closed Specialty Service Requested 09/15/2023 03/15/2025 1 1 Reason for Visit * Diagnostic Test (Routine) - Closed Specialty Diagnoses / Procedures Referred By Contac t Referred To Contact Radiology Diagnoses Lung nodules Lung mass Procedures [place] PET CT Skull Base to Mid-thigh Angela Gaines MD [address] [place] [address] [place] [address] Referral ID Status Reason Start Date Expiration Date V isits Requested Visits Authorized [id number] Closed Specialty Service Requested 09/15/2023 03/15/2025 1 1 Encounter Details Date Type Department Care Team (Latest Contact Info) Description 10/13/2023 11:00 AM EDT - 10/13/2023 11:59 PM EDT Hospital Encounter [place] [address] Angela Gaines MD [address] [place] [address] Lung nodules; Lung mass Discharge Disposition: Home [...] who have questions please contact the health aged or disabled care worker that requested your imaging first. ? Electronically signed by: Bushra Huitron MD, [facility] ([phone]), at 10/19/2023 3:17 PM Narrative 10/19/2023 3:17 PM EDT EXAMINATION: [facility] PET CT SKULL BASE TO MID-THIGH CLINICAL HISTORY: abnormal chest ct R91.8, Other nonspecific abnormal finding of lung field - R91.8, Other nonspecific abnormal finding of lung field TECHNIQUE: Following IV injection of 40-sefyzz-2-deoxyglucose (FDG) a standard uptake of approximately 60 minutes, a noncontrast CT scan followed by a PET scan were acquired from the base of the skull to mid thighs. The noncontrast CT was used for anatomic localization and photon attenuation correction of the PET scan. Blood glucose level: 113 (mg/dL) FDG dose: 11.8 mCi COMPARISON: Noncontrast CT chest 08/23/2023, abdominal ultrasound 09/29/2011- from [facility]. FINDINGS: HEAD/NECK: No FDG avid cervical lymphadenopathy. [...] Note Bushra Huitron MD - 10/19/2023 EXAMINATION: [facility] PET CT SKULL BASE TO MID-THIGH CLINICAL HISTORY: abnormal chest ct R91.8, Other nonspecific abnormal finding of lung field - R91.8, Other nonspecific abnormal finding of lung field TECHNIQUE: Following IV injection of 18-bvmmfi-8-deoxyglucose (FDG) astandard uptake of approximately 60 minutes, a noncontrast CT scan followed by aPET scan were acquired from the base of the skull to mid thighs. The noncontrast CTwas used for anatomic localization and photon attenuation correction of thePET scan. Blood glucose level: 113 (mg/dL) FDG dose: 11.8 mCi COMPARISON: Noncontrast CT chest 08/23/2023, abdominal ultrasound 09/29/2011- [facility]. FINDINGS: HEAD/NECK: No FDG avid cervical lymphadenopathy. [...] patients who have questions please contactthe health aged or disabled care worker that requested your imaging first. Angela Gaines MD IMG PET ORDERABLES documented [...] mCi documented in this encounter Care Teams Electric Wheelchair Repairer Relationship Specialty Start Date End Date Rayo Riley MD [address] [place] [address] PCP - General 06/22/10 01/10/24 documented as of this encounter
--- OUTSIDE RECORDS SUMMARY | 2024-04-17 12:55 | XMS_ITS | Encounter Summary ---
[place] [address] Care Team Providers Care Fire Apparatus Sprinkler Inspector Name Role Phone Rayo Riley MD Primary Care Provider +1 -[phone] Encounter Details Date Type Department Care Team ([facility] st Contact Info) Description 11/17/2023 Telephone [place] [address] Edel Quinones Social History Tobacco Use Types [...] on filedocumented in this encounter Care Teams Fire Apparatus Sprinkler Inspector Relationship Specialty Start Date End Date Rayo Riley MD [address] [place] [address] PCP - General 06/22/10 01/10/24 documented as of this encounter
--- OUTSIDE RECORDS SUMMARY | 2024-04-17 12:55 | XMS_ITS | Encounter Summary ---
Author Organization [facility] Address [facility] [place] [address] Care Team Providers Care Director Correctional Agency Name Role Phone Rayo Riley MD Primary Care Provider +1 [phone] Encounter Details Date Type Department Care Team ([facility] st Contact Info) Description 08/23/2023 Ancillary Procedure Radiology Library at [facility] [place] [address] Rayo Riley MD [address] [place] [address] Social History Tobacco Use Types Packs/Day Years [...] CT Chest (08/23/2023 12:00 AM EST) Narrative [facility] - 09/14/2023 7:31 PM EST This exam is auto-finalizing. It's purpose is for storage only. Rayo Riley MD IMG FILM LIBRARY ORDERABLES [place], [place] documented in this encounter Visit Diagnoses Not on filedocumented in this encounter Care Teams Director Correctional Agency Relationship Specialty Start Date End Date Rayo Riley MD [address] [place] [address] PCP - General 06/22/10 01/10/24 documented as of this encounter
--- OUTSIDE RECORDS SUMMARY | 2024-04-17 12:55 | XMS_ITS | Encounter Summary ---
Author Organization [facility] Address [facility] [place] [address] Care Team Providers Care Unloader Operator Name Role Phone Rayo Riley MD Primary Care Provider +1 -[phone] Encounter Details Date Type Department Care Team ([facility] st Contact Info) Description 06/07/2023 Ancillary Procedure Radiology Library at [facility] [place] [address] Rayo Riley MD [address] [place] [address] Social History Tobacco Use Types Packs/Day Years [...] Chest (06/07/2023 12:00 AM EST) Narrative [facility] - 09/14/2023 6:51 PM EST This exam is auto-finalizing. It's purpose is for storage only. Rayo Riley MD IMG FILM LIBRARY ORDERABLES [place], [place] documented in this encounter Visit Diagnoses Not on filedocumented in this encounter Care Teams Unloader Operator Relationship Specialty Start Date End Date Rayo Riley MD [address] [place] [address] PCP - General 06/22/10 01/10/24 documented as of this encounter
--- OUTSIDE RECORDS SUMMARY | 2024-04-17 12:55 | XMS_ITS | Encounter Summary ---
Author Organization [facility] Address [facility] [place] [address] Care Team Providers Care Doggy Daycare Activities Director Name Role Phone Rayo Riley MD Primary Care Provider +1 -[phone] Encounter Details Date Type Department Care Team (Late st Contact Info) Description 11/17/2023 Orders [place] [address] John Arriola MD [facility] [place] [address] Mass of left lung Social History Tobacco [...] lung documented in this encounter Care Teams Doggy Daycare Activities Director Relationship Specialty Start Date End Date Rayo Riley MD [facility] [address] [place] [address] PCP - General 06/22/10 01/10/24 documented as of this encounter
--- OUTSIDE RECORDS SUMMARY | 2024-04-17 12:55 | XMS_ITS | Referral Summary ---
Author Organization [facility] Address [address] [place] [address] Care Team Providers Care Software Licensing Analyst Name Role Phone Karl Quiroz MD Unavailable Allergies Active Allergy Reactions Criticality Noted Date [...] Address Type MEDICARE MEDICARE A AND B [id number] 2013-Present [address] [place] [address] Medicare Care Teams Software Licensing Analyst Relationship Specialty Start Date End Date Karl Quiroz MD [address] [place] [address] PCP - Generic [facility] PCP Family Medicine 05/05/22
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
--- OUTSIDE RECORDS SUMMARY | 2024-04-17 12:55 | XMS_ITS | Encounter Summary ---
Author Organization [facility] Address [facility] [place] [address] Care Team Providers Care Judicial Clerk Name Role Phone Rayo Riley MD Primary Care Provider [phone] Reason for Referral * Diagnostic Test (STAT) - Pending Review Specialty Diagnoses / Procedures Referred By Elieser lock Referred To Contact Radiology Diagnoses Mass of left lung Procedures CT Head wwo Contrast Sharon Landry MD [facility] [place] [address] Referral ID Status Reason Start Date Expiration Date Visits Requested Visits Authorized [id number] Pending Review Specialty Service Requested 11/17/2023 05/18/2025 1 1 Encounter Details Date Type Department Care Team (Late st Contact Info) Description 11/17/2023 Orders [place] [address] Sharon Landry MD [facility] [place] [address] Mass of left lung Social History Tobacco [...] lung documented in this encounter Care Teams Judicial Clerk Relationship Specialty Start Date End Date Rayo Riley MD [address] [place] [address] PCP - General 06/22/10 01/10/24 documented as of this encounter
--- OUTSIDE RECORDS SUMMARY | 2024-04-17 12:55 | XMS_ITS | Encounter Summary ---
Author Organization [facility] Address [facility] [place] [address] Care Team Providers Care Dairy Technologist Name Role Phone Rayo Riley MD Primary Care Provider [phone] Encounter Details Date Type Department Care Team (Late st Contact Info) Description 11/17/2023 Orders [place] [address] Sharon Landry MD [facility] [place] [address] Mass of left lung Social History Tobacco [...] lung documented in this encounter Care Teams Dairy Technologist Relationship Specialty Start Date End Date Rayo Riley MD [address] [place] [address] PCP - General 06/22/10 01/10/24 documented as of this encounter
--- OUTSIDE RECORDS SUMMARY | 2024-04-17 12:55 | XMS_ITS | Encounter Summary ---
Author Organization [facility] Address [facility] [place] [address] Care Team Providers Care Satellite Dish Technician Name Role Phone Rayo Riley MD Primary Care Provider [phone] Encounter Details Date Type Department Care Team (Late st Contact Info) Description 02/10/2005 Orders [place] [address] Bryon Cai III, MD [facility] [place] [address] Social History Tobacco Use Types Packs/Day Years Used Date Smoking Tobacco: Never Assessed [facility] Inpatient Questions Answer Date Recorded Does Anyone [...] 12:20 PM EDT) Surgical Pathology Report [id number] ? Location: [facility]; [facility]; A The signing pathologist has (i) examined [...] Bryon Cai III, MD PATHOLOGY/CYT OLOGY ORDERABLES Performing Organization Address City/State/[facility] Co de Phone Number ALLI FARNSWORTH documented in this encounter Visit Diagnoses Not on filedocumented in this encounter Care Teams Satellite Dish Technician Relationship Specialty Start Date End Date Rayo Riley MD [address] [place] [address] [address] [place] [address] PCP - General 06/22/10 01/10/24 documented as of this encounter
--- OUTSIDE RECORDS SUMMARY | 2024-04-17 12:55 | XMS_ITS | Encounter Summary ---
Author Organization [facility] Address [facility] [place] [address] Care Team Providers Care Dairy Farm Worker Name Role Phone Rayo Riley MD Primary Care Provider [phone] Encounter Details Date Type Department Care Team ([facility] st Contact Info) Description 06/10/2023 Ancillary Procedure Radiology Library at [facility] [place] [address] Rayo Riley MD [address] [place] [address] Social History Tobacco Use Types Packs/Day Years [...] DX Chest (06/10/2023 12:00 AM EST) Narrative [facility] - 09/14/2023 6:51 PM EST This exam is auto-finalizing. It's purpose is for storage only. Rayo Riley MD IMG FILM LIBRARY ORDERABLES [place] documented in this encounter Visit Diagnoses Not on filedocumented in this encounter Care Teams Dairy Farm Worker Relationship Specialty Start Date End Date Rayo Riley MD [address] [place] [address] PCP - General 06/22/10 01/10/24 documented as of this encounter
--- OUTSIDE RECORDS SUMMARY | 2024-04-17 12:55 | XMS_ITS | Encounter Summary ---
Author Organization [facility] Address [facility] [place] [address] Care Team Providers Care Qa Intern Name Role Phone Rayo Riley MD Primary Care Provider [phone] [phone] Reason for Visit * Consultation (Urgent) - [...] SENT FOR BIOPSY. Angela Gaines MD [address] [place] [address] [facility] [address] [place] [id number] Referral ID Status Reason Start Date Expiration Date Visits Requested Visits Authorized [id number] Authorized Consult, Test & Treat PCP Updated and/or Approved 10/31/2023 10/30/2024 6 6 Encounter Details Date Type Department Care Team (Late st Contact Info) Description 11/15/2023 12:15 PM EDT [place] [address] Dylan Martinez MD [facility] [place] [address] Mass of left lung; Mass of chest [...] acute worsening prompting him to present to [facility]. 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 Jeffrey [...] Martinez MD [facility] [address] [place] [address] Phone [facility] Generic: [phone] [email or web address] Pager #[phone] documented in this encounter Procedure Notes * Dylan Martinez MD - 11/15/2023 12:15 PM EDT Images from the original note were not included. INTERVENTIONAL PULMONOLOGY PROCEDURE NOTE SECTION OF PULMONARY & CRITICAL CARE MEDICINE Procedure(s): FNA with US guidance of left chest wall Procedure Date: 11/15/2023 Indication: left chest wall mass, lung masses Attending of Record: Dylan Martinez MD Pulmonary [place] Present: Sharon Landry MD Medications: Lidocaine 1% [...] Section of Pulmonary & Critical Care Pager: [phone] documented in this encounter Plan of Treatment Not on file documented as of this encounter Procedures Procedure Name Priority Date/Time Associated Diagnosis Comments NON-INCLUSION TEACHER FINAL REPORT Routine 11/15/2023 1:42 PM EDT CYTOPATHOLOGY NON-GYNECOLOGICAL STAT 11/15/2023 1:42 PM EDT Mass of left lung Mass of chest wall, left CYTOPATHOLOGY NON-GYNECOLOGICAL STAT 11/15/2023 1:34 PM EDT Mass of left lung Mass of chest wall, left documented in this encounter Results * (ABNORMAL) Non-Wind Energy Mechanic Final Report (11/15/2023 1:42 PM EDT) Diagnosis Discussion [id number] ? Location: The signing pathologist has (i) examined the relevant preparation(s) for the specimen(s) and (ii) rendered or confirmed the diagnosis(es). . ? Non-Wind Energy Mechanic Final DIAGNOSIS Positive for Malignancy Electronically signed by: ?Tyron TEAGUE, Jean Paul Verified: ??11/17/2023 9:16 ?? Pathologist Performed at: ??-[facility] Dept. of Pathology, [place] [address] Strip Cutter: Omar White MD, FCAP, ??CLIA Certificate: [id number] DISCUSSION Chest wall mass, left (FNA): Malignant [...] with the diagnosis. Case discussed with ?? Soutar on 11/17/2023. --- Immunohistochemistry Studies --- Interpretation: [...] Cell Block 1.(A) 11/17/2023 9:16 AM EDT [facility] Misc. FNA 11/15/2023 1:42 PM EDT 11/15/2023 1:42 PM EDT Sharon Landry MD PATHOLOGY/CYTOLOGY O RDERABLES Performing Organization Address [facility] Co de Phone Number [facility] [place] [address] * Cytopathology Non-Gynecological (11/15/2023 1:42 PM EDT) AP Specimen 11/15/2023 1:42 PM EDT 11/15/2023 1:42 PM EDT Narrative [facility] - 11/15/2023 1:42 PM EDT Specimen requisition ordered. ??Separate Pathology report to follow yDlan Martinez MD PATHOLOGY/CYTOL OGY ORDERABLES Performing Organization Address [facility]/ZIP Co de Phone Number [facility] [address] * Cytopathology Non-Gynecological (11/15/2023 1:34 PM EDT) AP Specimen 11/15/2023 1:34 PM EDT 11/15/2023 1:34 PM EDT Narrative [facility] - 11/15/2023 1:34 PM EDT Specimen requisition ordered. ??Separate Pathology report to follow Dylan Martinez MD PATHOLOGY/CYTOL OGY ORDERABLES Performing Organization Address City/[facility]/ZIP Co de Phone Number [facility] [place] [address] documented in this encounter Visit Diagnoses Diagnosis Mass of left lung Mass of chest wall, left documented in this encounter Care Teams Qa Intern Relationship Specialty Start Date End Date Rayo Riley MD [address] [place] [address] PCP - General 06/22/10 01/10/24 documented as of this encounter
--- OUTSIDE RECORDS SUMMARY | 2024-04-17 12:55 | XMS_ITS | Encounter Summary ---
Author Organization [facility] [place] [address] Care Team Providers Care Bench Chemist Name Role Phone Rayo Riley MD Primary Care Provider [phone] Encounter Details Date Type Department Care Team (Late st Contact Info) Description 11/01/2023 Telephone [place] [address] Johnna Jordan, RN Social History [...] PM EDT Phone call to nurse a [facility] Pulmonary. Left message to let them know that the patient has declined the referral to us twice. They should call back with any questions. documented in this encounter Plan of Treatment Not on file documented as of this encounter Visit Diagnoses Not on filedocumented in this encounter Care Teams Bench Chemist Relationship Specialty Start Date End Date Rayo Riley MD [address] [place] [address] PCP - General 06/22/10 01/10/24 documented as of this encounter
--- OUTSIDE RECORDS SUMMARY | 2024-04-17 12:55 | XMS_ITS | Encounter Summary ---
Author Organization [facility] [place] [address] Care Team Providers Care Senior Commercial Loan Officer Name Role Phone Rayo Riley MD Primary Care Provider [phone] [phone] Encounter Details Date Type Department Care Team (Late st Contact Info) Description 11/01/2023 Telephone [place] [id number] Edel Quinones Social History Tobacco Use Types [...] filedocumented in this encounter Care Teams Senior Commercial Loan Officer Relationship Specialty Start Date End Date Rayo Riley MD [address] [place] [address] PCP - General 06/22/10 01/10/24 documented as of this encounter
--- OUTSIDE RECORDS SUMMARY | 2024-04-17 12:55 | XMS_ITS | Encounter Summary ---
Author Organization [facility] Address [facility] [place] [address] Care Team Providers Care Multimedia Designer Name Role Phone Rayo Riley MD Primary Care Provider [phone] [phone] Encounter Details Date Type Department Care Team ([facility] st Contact Info) Description 06/08/2023 Ancillary Procedure Radiology Library at [facility] [place] [address] Rayo Riley MD [address] [place] [address] Social History Tobacco Use Types Packs/Day Years [...] CT Chest (06/08/2023 12:00 AM EST) Narrative [facility] - 09/14/2023 6:51 PM EST This exam is auto-finalizing. It's purpose is for storage only. Rayo Riley MD IMG FILM LIBRARY ORDERABLES [place], [place] documented in this encounter Visit Diagnoses Not on filedocumented in this encounter Care Teams Multimedia Designer Relationship Specialty Start Date End Date Rayo Riley MD [address] [place] [address] PCP - General 06/22/10 01/10/24 documented as of this encounter
--- OUTSIDE RECORDS SUMMARY | 2024-04-17 12:55 | XMS_ITS | Encounter Summary ---
Author Organization [facility] [place] [address] Care Team Providers Care Outfitter Cabin Name Role Phone Rayo Riley MD Primary Care Provider [phone] [phone] Encounter Details Date Type Department Care Team ([facility] st Contact Info) Description 06/10/2023 12:05 AM EST Ancillary Procedure Radiology Library at [facility] [place] [address] Rayo Riley MD [address] [place], [place] [address] Social History Tobacco Use Types Packs/Day Years [...] DX Chest (06/10/2023 12:05 AM EST) Narrative [facility] - 09/14/2023 6:51 PM EST This exam is auto-finalizing. It's purpose is for storage only. Rayo Riley MD IMG FILM LIBRARY ORDERABLES [place], [place] documented in this encounter Visit Diagnoses Not on filedocumented in this encounter Care Teams Outfitter Cabin Relationship Specialty Start Date End Date Rayo Riley MD [address] [place] [address] PCP - General 06/22/10 01/10/24 documented as of this encounter
--- OUTSIDE RECORDS SUMMARY | 2024-04-17 12:55 | XMS_ITS | Encounter Summary ---
Author Organization [facility] Address [facility] [place] [address] Care Team Providers Care Scrap Kettle Tender Name Role Phone Rayo Riley MD Primary Care Provider [phone] Encounter Details Date Type Department Care Team ([facility] st Contact Info) Description 05/05/2022 Ancillary Procedure Radiology Library at [facility] [address] [place] [address] Rayo Riley MD [address] [facility] [place] [address] Social History Tobacco Use Types Packs/Day Years [...] Abdomen Pelvis (05/05/2022 12:00 AM EDT) Narrative [facility] - 09/15/2023 10:57 PM EST This exam is auto-finalizing. It's purpose is for storage only. Rayo Riley MD IMG FILM LIBRARY ORDERABLES [place], [place] documented in this encounter Visit Diagnoses Not on filedocumented in this encounter Care Teams Scrap Kettle Tender Relationship Specialty Start Date End Date Rayo Riley MD [address] [place] [address] PCP - General 06/22/10 01/10/24 documented as of this encounter
--- OUTSIDE RECORDS SUMMARY | 2024-04-17 12:55 | XMS_ITS | Encounter Summary ---
Author Organization [facility] [place] [address] Care Team Providers Care Sales And Marketing Assistant Name Role Phone Rayo Riley MD Primary Care Provider [phone] [phone] Encounter Details Date Type Department Care Team ([facility] st Contact Info) Description 11/17/2023 Notes [place] [address] Dylan Cedeno, [facility] [place] [address] Social History Tobacco Use Types Packs/Day Years [...] on filedocumented in this encounter Care Teams Sales And Marketing Assistant Relationship Specialty Start Date End Date Rayo Riley MD [address] [place] [address] [address] [facility] [address] [place] [address] PCP - General 06/22/10 01/10/24 documented as of this encounter
[2024-04-17 15:04] LABS: Potassium 3.6 mmol/L (3.5-5.1)
[2024-04-17] MEDS: POTASSIUM CHLORIDE 10 MEQ/100 ML BAG 100 MEQ IVINF (15:12)
[2024-04-17] MEDS: Potassium Chloride Liquid 20 MEQ PKT 80 MEQ PO (15:12)
== END 2024-04-17 16:04 | disposition home or self-care (01) ==
PROVIDERS: Emergency Provider Emergency Medicine; PCP Family Medicine
DX: U07.1 COVID-19 (principal); R11.2 Nausea with vomiting, unspecified; R19.7 Diarrhea, unspecified; E83.42 Hypomagnesemia; E87.6 Hypokalemia; Z11.2 Encounter for screening for other bacterial diseases
CPT/HCPCS: 36591; 71275; 74177; 80053; 83690; 84145; 87637; 93005; 96365; 96366; 96375; 99285; 81003; 81015; 83735; 84132; 84439; 84443; 85025; 85610; 85730; 93010; 99283; J0780; J3475; J3480; J3490